=== PATIENT | male | born 1950 | race Caucasian/White ===

== ENCOUNTER 2021-12-05 14:49 | Outpatient (CLI) | payer MEDICARE, BC, SELFPAY ==
[2021-12-05 15:40] LABS: Appearance Urine Clear (Clear); Bilirubin Urine Negative (Negative); Blood Urine Negative (Negative); Glucose Urine Negative (Negative); Ketones Urine Negative (Negative); Leukocyte Esterase Urine Negative (Negative); Nitrite Urine Negative (Negative); Protein Urine Negative (Negative); Specific Gravity Urine >= 1.030 (1.000-1.030); Urobilinogen Urine 0.2 (0.2-1.0); pH Urine 5.5 (5.0-8.5)
[2021-12-05 15:48] LABS: Color Urine Dark Yellow (Yellow)
[2021-12-05 18:36] LABS: Albumin* 4.5 g/dL (3.3-5.0); Chloride* 102 mmol/L (96-114); Potassium* 4.7 mmol/L (3.6-5.1); Sodium* 139 mmol/L (135-149)
[2021-12-05 18:39] LABS: Blood Urea Nitrogen* 25 mg/dL (7-30); Carbon Dioxide* 27 mmol/L (20-32); Estimated Glomerular Filt Rate 79.97; Glucose* 116 mg/dL (60-115); Phosphorus* 3.9 mg/dL (2.5-4.5)
[2021-12-05 18:40] LABS: Calcium* 9.4 mg/dL (8.4-10.6)
[2021-12-05 18:51] LABS: Creatinine Urine 138.9 mg/dL
[2021-12-05 18:56] LABS: Microalbumin Creatinine Ratio 10 mg/g (0-30); Microalbumin Urine 2 mg/dL
== END 2021-12-05 14:50 | disposition home or self-care (01) ==
PROVIDERS: PCP Physician Assistant Medical; Visit Provider Internal Medicine Nephrology
DX: I10 Essential (primary) hypertension (principal); E11.9 Type 2 diabetes mellitus without complications
CPT/HCPCS: 80069; 81003; 82043; 82570; 84550

== ENCOUNTER 2022-02-13 12:13 | Outpatient (CLI) | payer MEDICARE, BC, SELFPAY ==
--- OUTSIDE RECORDS SUMMARY | 2022-02-13 07:37 | XMS_ITS | Encounter Summary ---
:1950 Author Organization [facility] Address [address] [place] [address] Care Team Providers Name Role Phone Unavailable Primary Care Provider Unavailable Encounter Details Date Type Department Care Team Description 02/12/2022 Orders Only Division of Nephrology and Juan Pinon Hypertension in [place], ., D.O. [place] [address] [facility] [address] [place] [phone] (Wo rk) Social History Tobacco Use Types Packs/Day Years Used Date Smoking Tobacco: Never Assessed Sex Assigned at Date Recorded Not on file documented as of this encounter Plan of Treatment Not on filedocumented as of this encounter Visit Diagnoses Not on filedocumented in this encounter
--- OUTSIDE RECORDS SUMMARY | 2022-02-13 07:37 | XMS_ITS | Encounter Summary ---
:1950 Author Organization [facility] Address [address] [place] [address] Care Team Providers Name Role Phone Unavailable Primary Care Provider Unavailable Reason for Referral MRI/CAT/PET Scan (Routine) - Authorized Specialty Diagnoses / Procedures Referred By Contact Refer red To Contact Radiology Diagnoses Hypertension And Chronic Kidney Disease Stage 1 Stenosis Renal Artery (HCC) Jose Pinon Jr., [facility] Procedures CT Abdomen Angiogram with IV Contrast D.O. [address] [place], [place] [phone] Referral ID Status Reason Start Date Expiration Date Visits V isits Requested Authorized [id number] Authorized 02/12/2022 02/12/2023 1 1 Encounter Details Date Type Department Care Team Description 02/12/2022 Orders Only Division of Nephrology Jose Pinon ypertension And Chronic Kidney Disease Stage 1 (Primary Dx); and Hypertension in [place] D.O. Stenosis Renal Artery (HCC) [place], [place] [address] [facility] [address] [place] [phone] Social History Tobacco Use Types Packs/Day Years Used Date Smoking Tobacco: Never Assessed Sex Assigned at Date Recorded Not on file documented as of this encounter Plan of Treatment Scheduled Orders Name Type Priority Associated Diagnoses Order S chedule CT Abdomen Imaging RAD - Routine (most Hypertension And Expe cted: Angiogram with IV inpatients and all Chronic Kidney Contrast outpatients) Disease Stage 1 (Approximate), Stenosis Renal Artery s: (HCC) 02/12/2023 documented as of this encounter Visit Diagnoses Diagnosis Hypertension And Chronic Kidney Disease Stage 1 - Primary Stenosis Renal Artery (HCC) documented in this encounter
--- OUTSIDE RECORDS SUMMARY | 2022-02-13 07:37 | XMS_ITS | Encounter Summary ---
:1950 Author Organization [facility] Address [address] [place] [address] Care Team Providers Name Role Phone Unavailable Primary Care Provider Unavailable Encounter Details Date Type Department Care Team Description 06/05/2010 Hospital Encounter HX [facility] David Rm M.D. Social History Tobacco Use Types Packs/Day Years Used Date Smoking Tobacco: Never Assessed Sex Assigned at Date Recorded Not on file documented as of this encounter Plan of Treatment Not on filedocumented as of this encounter Visit Diagnoses Not on filedocumented in this encounter
--- OUTSIDE RECORDS SUMMARY | 2022-02-13 07:37 | XMS_ITS | Encounter Summary ---
:1950 Author Organization [facility] Address [address] [place] [address] Care Team Providers Name Role Phone Unavailable Primary Care Provider Unavailable Encounter Details Date Type Department Care Team Description 09/02/2006 Hospital Encounter HX [facility] David Rm M.D. Social History Tobacco Use Types Packs/Day Years Used Date Smoking Tobacco: Never Assessed Sex Assigned at Date Recorded Not on file documented as of this encounter Plan of Treatment Not on filedocumented as of this encounter Visit Diagnoses Not on filedocumented in this encounter
--- OUTSIDE RECORDS SUMMARY | 2022-02-13 07:37 | XMS_ITS | Encounter Summary ---
:1950 Author Organization [facility] Address [address] [place] [address] Care Team Providers Name Role Phone Unavailable Primary Care Provider Unavailable Reason for Visit Appointment Request (Routine) - Closed Specialty Diagnoses / Procedures Referred By Contact Refer red To Contact Nephrology and Kaylee Marin, [facility] [address] [place] [address] Referral ID Status Reason Start Date Expiration Date Visits Requ ested Visits Authorized [id number] Closed 11/02/2021 11/02/2022 1 Encounter Details Date Type Department Care Team Description 12/05/2021 External Outreach Division of Laly Pinon Re malinda Acute (Acute Kidney Injury) (HCC) (Primary Dx); Nephrology and Jose Rutherford Jr., Hypertension And Chronic Kidney Disease Stage 1; Hypertension in D.O. Diabetes Mellitus Type 2 (HCC); [place], [place] [address] [facility] Gout Acute [address] [place] [phone] Social History Tobacco Use Types Packs/Day Years Used Date Smoking Tobacco: Never Assessed Sex Assigned at Date Recorded Not on file documented as of this encounter Last Filed Vital Signs Vital Sign Reading Time Taken Comments Blood Pressure 140/82 12/05/2021 2:15 PM CDT Pulse 97 12/05/2021 2:15 PM CDT Temperature 36.5 ??C (97.7 ??F) 12/05/2021 2:15 PM CDT Respiratory Rate - - Oxygen Saturation - - Inhaled Oxygen Concentration - - Weight 113 kg (249 lb 12.5 oz) 12/05/2021 2:15 PM CDT Height 185.4 cm (6' 0.99) 12/05/2021 2:15 PM CDT Body Mass Index 32.96 12/05/2021 2:15 PM CDT documented in this encounter Consult Notes Jose Pinon Jr., Sheila. - 12/05/2021 2:00 PM CDT Referring Provider: No primary care provider on file. SUBJECTIVE REASON FOR CONSULT-[facility] Elevated serum creatinine, acute kidney injury HISTORY OF PRESENT ILLNESS Mr. Beck is a 71 y.o. male who presents with a recent increase in serum creatinine. He was notedhave a normal serum creatinine on the 20 of September, and after starting a combination of losartan and HCTZ at a dose of 100 mg/25 mg he was noted on the 11 of October to have a serum creatinine which hadrisen to 1.4 mg/dL. On the 18 of October his creatinine was repeated after the dose was cut in half, 250 mg of losartan, 12.5 mg of HCTZ his creatinine had returned normal. The increase in serum creatinine prompted a renal ultrasound which showed the right kidney to be 10.4 cm and left to be 12.3 cm. There was some suspicion of elevated velocities in his renal arteries, although there was also some incr eased velocity within the aorta as well. Otherwise no suspicious architectural changes were seen in the kidneys. Of note, the evaluation was prompted by presentation with a acute left great toe pain. This was interpreted as gout he did use a Medrol Dosepak. He did not have any changes in diet, no alcohol use, no shellfish, no sausage, or other organ meats. 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 During these events his blood pressure was usually in the 120s over 70s. He has not had lower extremity swelling no episodes of flash pulmonary edema. He was also noted to have elevated blood glucose levels and was started on metformin in September. He feels well. 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 He rarely smokes cigars and has not smoked a cigar in over 15 years. He does not drink alcohol on regular basis. There is no familial history of renal diseases nor disorders. His side of the family is afflicted with familial nephritis in several members of his 's family have required renal replacement. Therefore the patient as well versed in kidney issues. He does not use NSAIDs, he has never been told of hyperlipidemia. He has no history of urolithiasis no episodes of gross hematuria not episodes of renal infection. Constitutionally he feels well there has been no connective tissue type symptoms. Past history: Elevated blood pressure without hypertension Current Outpatient Medications Medication Sig Dispense Refill ??? losartan-hydroCHLOROthiazide (HYZAAR) 50-12.5 mg per tablet Take 1 tablet by mouth daily. 90 tablet 3 ??? metFORMIN (GLUCOPHAGE) 500 mg tablet Take 1 tablet (500 mg total) by mouth 2 (two) times a day with meals. 180 tablet 3 No current facility-administered medications for this visit. REVIEW OF SYSTEMS REVIEW OF SYSTEMS OBJECTIVE BP 140/82 Pulse 97 Temp 36.5 ??C Ht 185.4 cm Wt 113 kg BMI 32.96 kg/m?? PHYSICAL EXAMINATION General: Awake alert oriented HEENT: PURNIMA, EOMI, Mucous membranes moist, no oral lesions Neck: No Masses, No Bruits Lungs: Clear to ascultation Heart: Regular Rate and Rhythm, No ectopy Murmurs or rubs Abdomen: Soft, Non-tender Extremities: No cyanosis, No clubbing: No edema Neuro: Cranial Nerves intact, Gait is no microalbuminuria normal, strength grossly normal Skin: no suspicious lesions identified Psychiatric: Normal affect DIAGNOSTICS Note serum creatinine 1.0 normal electrolytes no hypokalemia ASSESSMENT / PLAN #1 Failure Renal Acute (Acute Kidney Injury) (HCC) This has resolved after decreasing the dose of his losartan/HCTZ. When reviewing his renal ultrasound along with this history 1 must be concerned with respect to possibility of macrovascular renal artery disease. We had a long discussion regards this matter, and also outlined the literature which highlights that often intervention versus medical therapy are equally efficacious. Additionally, given that his renal function is normal, and blood pressure well controlled, we might be best observing. His last set of chemistries was on the 18 of October, we will repeat these today. I will then have him back in 2 months. We will then decide on another renal ultrasound versus another study to evaluate whether macrovascular renal artery disease would be present. The studies could include a CT angiogram, favored, an MR angiogram-often over calls stenosis, or an angiogram. From a diagnostic perspective: 1. Repeat electrolytes today 2. Repeat electrolytes in 2 months 3. Likely repeat renal ultrasound in 3 months to 4 months. 4. Should his creatinine level be elevated I would arrange for CT angiography of his renal arteries. From a therapeutic perspective: 1. No NSAIDs or Light 2 inhibitors 2. Low-sodium diet 3. Goal blood pressure less than 130/80 in physician's offices 4. Goal glycosylated hemoglobin less than 8%. 5. Stay well hydrated with urine being more clear than lemonade. #2 Hypertension And Chronic Kidney Disease Stage 1 His renal function appears normal by serum creatinine but there may be some endothelial dysfunction versus macrovascular issues as highlighted above. #3 Diabetes Mellitus Type 2 (HCC) He is now on metformin this will be monitored. He will work towards weight loss, exercise, and dietary choices. #4 Gout Acute This seems to be quiescent Total Time: 1 hour and 5 minutes Counseling Time: 50 minutes Jose Pinon Jr., D.O. documented in this encounter Plan of Treatment Not on filedocumented as of this encounter Visit Diagnoses Diagnosis Failure Renal Acute (Acute Kidney Injury ) (HCC) - Primary Hypertension And Chronic Kidney Disease Stage 1 Diabetes Mellitus Type 2 (HCC) Gout Acute documented in this encounter
--- OUTSIDE RECORDS SUMMARY | 2022-02-13 07:37 | XMS_ITS | Encounter Summary ---
:[address] [facility] Address [address] [place] [address] Care Team Providers Name Role Phone Unavailable Primary Care Provider Unavailable Encounter Details Date Type Department Care Team Description 03/03/2009 Hospital Encounter HX [facility] Nacho Bender M. D. Social History Tobacco Use Types Packs/Day Years Used Date Smoking Tobacco: Never Assessed Sex Assigned at Date Recorded Not on file documented as of this encounter Plan of Treatment Not on filedocumented as of this encounter Visit Diagnoses Not on filedocumented in this encounter
--- OUTSIDE RECORDS SUMMARY | 2022-02-13 07:37 | XMS_ITS | Encounter Summary ---
:1950 Author Organization [facility] Address [address] [place] [address] Care Team Providers Name Role Phone Unavailable Primary Care Provider Unavailable Encounter Details Date Type Department Care Team Description 02/07/2022 [facility] [address] [place] [address] [place] [address] [phone] (Wo rk) Social History Tobacco Use Types Packs/Day Years Used Date Smoking Tobacco: Never Assessed Sex Assigned at Date Recorded Not on file documented as of this encounter Plan of Treatment Not on filedocumented as of this encounter Visit Diagnoses Not on filedocumented in this encounter
--- OUTSIDE RECORDS SUMMARY | 2022-02-13 07:37 | XMS_ITS | Encounter Summary ---
:[address] [facility] Address [address] [place] [address] Care Team Providers Name Role Phone Unavailable Primary Care Provider Unavailable Reason for Visit Appointment Request (Routine) - Closed Specialty Diagnoses / Procedures Referred By Contact Refer red To Contact Nephrology and Hypertension Referral ID Status Reason Start Date Expiration Date Visits Requ ested Visits Authorized [id number] Closed 01/26/2022 01/26/2023 1 Encounter Details Date Type Department Care Team Description 02/06/2022 External Outreach Division of Lance Pinon on And Chronic Kidney Disease Stage 1 (Primary Dx); Nephrology and Jose Rutherford Jr., Failure Francesca l Acute (Acute Kidney Injury) (HCC); Hypertension in [place] Diabetes Mellitus Type 2 (HCC); [place], [place] [address] [facility] Gout Acute [address] [place] [phone] Social History Tobacco Use Types Packs/Day Years Used Date Smoking Tobacco: Never Assessed Sex Assigned at Date Recorded Not on file documented as of this encounter Last Filed Vital Signs Vital Sign Reading Time Taken Comments Blood Pressure 148/78 02/06/2022 11:51 AM CDT Pulse 64 02/06/2022 11:51 AM CDT Temperature - - Respiratory Rate - - Oxygen Saturation - - Inhaled Oxygen Concentration - - Weight 113 kg (249 lb 12.5 oz) 02/06/2022 11:51 AM CDT Height 187.9 cm (6' 1.98) 02/06/2022 11:51 AM CDT Body Mass Index 32.09 02/06/2022 11:51 AM CDT documented in this encounter Progress Notes Jose Pinon Jr., D.O. - 02/06/2022 11:30 AM CDT Referring Provider: No primary care provider on file. SUBJECTIVE REASON FOR VISIT [facility] Follow-up regards recent acute kidney injury with initiation of combination ARB diuretic agent HISTORY OF PRESENT ILLNESS Mr. Beck is a 71 y.o. male who presents with a serum creatinine level of 1.0 mg/dL, which had risen to 1.4 mg/dL with the initiation of losartan/HCTZ at a dose of 100 mg/25 mg. This agent was decreased in strength to 50 mg/12.5 mg. He feels well, home blood pressure has been in the 130s over 60s and 70s without orthostatic issues.Feels absolutely well. I am reviewing his situation, on the background of his recent labs, which were done in December, demonstrating a normal serum creatinine level, and no microalbuminuria, with normal chemistries. Additionally, I had him undergo a renal artery duplex interrogation of his renal arteries. This shows renal artery velocities bilaterally above 180 centimeters/second. Suggesting, to the radiology team, as potential bilateral atherosclerotic renal artery disease. We discussed this matter in depth. We discussed the pros and cons of investigation versus active surveillance, and the gold standard testing which is angiography. We also discussed initiation of plaque stabilization measures including statin initiation. History reviewed. No pertinent past medical history. Current Outpatient Medications: atorvastatin (LIPITOR) 20 mg tablet, Take 1 tablet (20 mg total) by mouth daily., Disp: 90 tablet, Rfl: 3 losartan-hydroCHLOROthiazide (HYZAAR) 50-12.5 mg per tablet, Take 1 tablet by mouth daily., Disp: 90 tablet, Rfl: 3 metFORMIN (GLUCOPHAGE) 500 mg tablet, Take 1 tablet (500 mg total) by mouth 2 (two) times a day with meals., Disp: 180 tablet, Rfl: 3 REVIEW OF SYSTEMS All other systems reviewed and are negative. OBJECTIVE BP 148/78 Pulse 64 Ht 187.9 cm Wt 113 kg BMI 32.09 kg/m?? PHYSICAL EXAMINATION General: Awake alert oriented HEENT: PURNIMA, EOMI, Mucous membranes moist, no oral lesions Neck: No Masses, No Bruits Lungs: Clear to ascultation Heart: Regular Rate and Rhythm, No ectopy Murmurs or rubs Abdomen: Soft, Non-tender Extremities: No cyanosis, No clubbing: No edema Neuro: Cranial Nerves intact, Gait is normal, strength grossly normal Skin: no suspicious lesions identified Psychiatric: Normal affect DIAGNOSTICS Note creatinine 1.0 mg/dL ASSESSMENT / PLAN #1 Hypertension And Chronic Kidney Disease Stage 1 His renal artery ultrasound suggests the potential circumstances bilateral renal artery disease. We will go ahead with CT angiography, and demonstrate whether he has bilateral renal artery disease. This would be helpful, from a prognostic perspective. I will initiate a statin at this point, atorvastatin 20 mg orally daily, and we will continue to foster goal blood pressures of less than 120/80. I will have him back to check liver function testing and reviews of his CT scan imaging when these are available. We discussed that intervention is unlikely to be necessary without flash pulmonary edema, worsening hypertension, or deteriorating renal function. #2 Failure Renal Acute (Acute Kidney Injury) (HCC) Please see prior note #3 Diabetes Mellitus Type 2 (HCC) Well controlled on his current regimen #4 Gout Acute Quiescent Total time: 35 minutes Counseling Time: 20 minutes Jose Pinon Jr., D.O. documented in this encounter Plan of Treatment Not on filedocumented as of this encounter Visit Diagnoses Diagnosis Hypertension And Chronic Kidney Disease Stage 1 - Primary Failure Renal Acute (Acute Kidney Injury ) (HCC) Diabetes Mellitus Type 2 (HCC) Gout Acute documented in this encounter
[2022-02-13 10:13] LABS: Albumin* 4.4 g/dL (3.3-5.0); Chloride* 102 mmol/L (96-114)
[2022-02-13 10:14] LABS: Potassium* 4.5 mmol/L (3.6-5.1); Sodium* 137 mmol/L (135-149)
[2022-02-13 10:16] LABS: Alanine Aminotransferase* 20 U/L (4-50); Aspartate Amino Transferase* 21 U/L (12-35); Blood Urea Nitrogen* 29 mg/dL (7-30); Carbon Dioxide* 26 mmol/L (20-32); Creatine Kinase* 78 U/L (54-186); Creatinine* 1.1 mg/dL (0.5-1.5); Estimated Glomerular Filt Rate 71 ml/min; Glucose* 139 mg/dL (60-115)
[2022-02-13 10:17] LABS: Calcium* 9.4 mg/dL (8.4-10.6); Phosphorus* 2.8 mg/dL (2.5-4.5)
[2022-02-13 10:29] LABS: Creatinine Urine 101.1 mg/dL
[2022-02-13 10:34] LABS: Microalbumin Creatinine Ratio 0 mg/g (0-30); Microalbumin Urine 1 mg/dL
== END 2022-02-13 12:14 | disposition home or self-care (01) ==
PROVIDERS: PCP Physician Assistant Medical; Visit Provider Internal Medicine Nephrology
DX: E11.9 Type 2 diabetes mellitus without complications (principal); I10 Essential (primary) hypertension; I70.1 Atherosclerosis of renal artery
CPT/HCPCS: 80069; 82043; 82550; 82570; 84450; 84460; 84550

== ENCOUNTER 2022-03-12 08:24 | Outpatient (CLI) | payer MEDICARE, BC, SELFPAY ==
--- OUTSIDE RECORDS SUMMARY | 2022-03-12 08:27 | XMS_ITS | Encounter Summary ---
:1950 Author Organization [facility] Address [address] [place] [address] Care Team Providers Name Role Phone Unavailable Primary Care Provider Unavailable Reason for Referral MRI/CAT/PET Scan (Routine) - Closed Specialty Diagnoses / Procedures Referred By Contact Refer red To Contact Radiology Diagnoses Hypertension And Chronic Kidney Disease Stage 1 Stenosis Renal Artery (HCC) Jose Pinon Jr. [facility] Procedures CT Abdomen Angiogram with IV Contrast D.O. [address] [place], [place] [phone] Referral ID Status Reason Start Date Expiration Date Visits Requ ested Visits Authorized [id number] Closed 02/12/2022 02/12/2023 1 1 Encounter Details Date Type Department Care Team Description 02/12/2022 Orders Only Division of Nephrology Jose Pinon ypertension And Chronic Kidney Disease Stage 1 (Primary Dx); and Hypertension in [place] D.O. Stenosis Renal Artery (HCC) [place], [place] [address] [facility] [address] [place] [phone] Social History Tobacco Use Types Packs/Day Years Used Date Smoking Tobacco: Never Assessed Sex Assigned at Date Recorded Not on file documented as of this encounter Plan of Treatment Not on filedocumented as of this encounter Results CT Abdomen Angiogram with IV Contrast (03/01/2022 9:12 AM CDT) Anatomical Region Laterality Modality Abdomen, Cardiovascular RST LOS, N/A Compute d Tomography, Computed Abdominal ARZ LOS, Vascular Tomography Interventional ARZ LOS, Vascular Interventional FLA LOS, Abdominal FLA LOS Specimen (Source) Anatomical Collection Method Collection Time Re ceived Time Location / / Volume Laterality 03/01/2022 9:21 AM CDT Impressions 03/01/2022 9:48 AM CDT 1. Mild luminal stenosis of the right renal artery ostium and minimal luminal stenosis of the left renal artery ostium. 2. 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 3. 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 The left internal iliac artery is ectatic. Narrative 03/01/2022 9:48 AM CDT EXAM: ??CT ABDOMEN ANGIOGRAM WITH IV CONTRAST Including 3D image post-processing. COMPARISON: ??None available. FINDINGS: VASCULAR FINDINGS: RENAL ARTERIES: Single right and left re nal arteries. -Calcified and noncalcified atheromatous plaque at the origin of the right renal artery causing mild luminal stenosis. More distal to this th ere are multifocal atheromatous plaques causing minimal luminal stenosis. -At the origin of the left renal artery there is calcified plaque causing minimal luminal stenosis. Otherwise there is wide patency of the l eft renal artery. Trace perinephric renal stranding bilate rally, favored to be chronic. Mild renal atrophy bilaterally. Simple renal cysts. ABDOMINAL AORTA AND ILIAC ARTERIES: Mult ifocal calcified and noncalcified atheromatous plaques causing minimal luminal stenosis. Saccul ar aneurysm arising from the right internal iliac artery measuring 1.6 cm (double oblique measure ment; see series 5, image 429). The left internal iliac artery is ectatic, measuring 1.5 cm. MESENTERIC ARTERIES: ?? 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 -The SMA ostium and branch vessels are w idely patent. Punctate atheromatous disease of the proximal SMA causing minimal luminal stenosis. -The HIMA ostium and branch vessels are w idely patent. ADDITIONAL FINDINGS: Multilevel degenerative changes of the s pine. Peripherally sclerotic lesion within the L4 vertebral body favored to represent a hemangioma. Procedure Note Elías [place] M.D., Ph.D. - 03/01/2022For matting of this note might be different from the original. EXAM: CT ABDOMEN ANGIOGRAM WITH IV CONTR AST Including 3D image post-processing. COMPARISON: None available. FINDINGS: VASCULAR FINDINGS: RENAL ARTERIES: Single right and left re nal arteries. -Calcified and noncalcified atheromatous plaque at the origin of the right renal artery causing mild luminal stenosis. More distal to this th ere are multifocal atheromatous plaques causing minimal luminal stenosis. -At the origin of the left renal artery there is calcified plaque causing minimal luminal stenosis. Otherwise there is wide patency of the l eft renal artery. Trace perinephric renal stranding bilate rally, favored to be chronic. Mild renal atrophy bilaterally. Simple renal cysts. ABDOMINAL AORTA AND ILIAC ARTERIES: Mult ifocal calcified and noncalcified atheromatous plaques causing minimal luminal stenosis. Saccul ar aneurysm arising from the right internal iliac artery measuring 1.6 cm (double oblique measure ment; see series 5, image 429). The left internal iliac artery is ectatic, measuring 1.5 cm. 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 -The SMA ostium and branch vessels are w idely patent. Punctate atheromatous disease of the proximal SMA causing minimal luminal stenosis. -The HIMA ostium and branch vessels are w idely patent. ADDITIONAL FINDINGS: Multilevel degenerative changes of the s pine. Peripherally sclerotic lesion within the L4 vertebral body favored to represent a hemangioma. IMPRESSION: 1. Mild luminal stenosis of the right re nal artery ostium and minimal luminal stenosis of the left renal artery ostium. 2. 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 3. 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 The left internal iliac artery is ectatic. Jose Pinon Jr. D.O. IMTony CT PROCEDURES documented in this encounter Visit Diagnoses Diagnosis Hypertension And Chronic Kidney Disease Stage 1 - Primary Stenosis Renal Artery (HCC) Hypertension And Chronic Kidney Disease Stage 1 Stenosis Renal Artery (HCC) documented in this encounter
--- OUTSIDE RECORDS SUMMARY | 2022-03-12 08:27 | XMS_ITS | Encounter Summary ---
:1950 Author Organization [facility] Address [address] [place] [address] Care Team Providers Name Role Phone Unavailable Primary Care Provider Unavailable Encounter Details Date Type Department Care Team Description 09/02/2006 Hospital Encounter [facility] David Rm M.D. Social History Tobacco Use Types Packs/Day Years Used Date Smoking Tobacco: Never Assessed Sex Assigned at Date Recorded Not on file documented as of this encounter Plan of Treatment Not on filedocumented as of this encounter Visit Diagnoses Not on filedocumented in this encounter
--- OUTSIDE RECORDS SUMMARY | 2022-03-12 08:27 | XMS_ITS | Encounter Summary ---
:1950 Author Organization [facility] Address [address] [place] [address] Care Team Providers Name Role Phone Unavailable Primary Care Provider Unavailable Encounter Details Date Type Department Care Team Description 03/03/2009 Hospital Encounter HX [facility] Nacho Bender M. D. Social History Tobacco Use Types Packs/Day Years Used Date Smoking Tobacco: Never Assessed Sex Assigned at Date Recorded Not on file documented as of this encounter Plan of Treatment Not on filedocumented as of this encounter Visit Diagnoses Not on filedocumented in this encounter
--- OUTSIDE RECORDS SUMMARY | 2022-03-12 08:27 | XMS_ITS | Encounter Summary ---
:1950 Author Organization [facility] Address [address] [place] [address] Care Team Providers Name Role Phone Unavailable Primary Care Provider Unavailable Encounter Details Date Type Department Care Team Description 03/02/2022 Clinical Communication Division of Nephrology Jose Pinon and Hypertension delmy Rutherford Jr., D.O. [place], [place] [address] [facility] [address] [place] [phone] [phone] Social History Tobacco Use Types Packs/Day Years Used Date Smoking Tobacco: Never Assessed Sex Assigned at Date Recorded Not on file documented as of this encounter Miscellaneous Notes Telephone Encounter - Jose Pinon Jr., D.O. - 03/02/2022 2:11 PM CDT Phone note: Called him with the results of his CT angiogram. His renal ultrasound from [place] suggested high-grade right renal artery stenosis. His CT angiography shows mild right ostial stenosis. 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 I discussed this with him and explained that we did not necessarily need to keep our upcoming appointment, but would be re initiating contact in 6 months with an appointment in [place]. documented in this encounter Plan of Treatment Not on filedocumented as of this encounter Visit Diagnoses Not on filedocumented in this encounter
--- OUTSIDE RECORDS SUMMARY | 2022-03-12 08:27 | XMS_ITS | Encounter Summary ---
:1950 Author Organization [facility] Address [address] [place] [address] Care Team Providers Name Role Phone Unavailable Primary Care Provider Unavailable Encounter Details Date Type Department Care Team Description 02/12/2022 Orders Only Division of Nephrology and Juan Pinon [facility] [place] [address] [facility] [address] [place] [phone] (Wo rk) Social History Tobacco Use Types Packs/Day Years Used Date Smoking Tobacco: Never Assessed Sex Assigned at Date Recorded Not on file documented as of this encounter Plan of Treatment Not on filedocumented as of this encounter Visit Diagnoses Not on filedocumented in this encounter
--- OUTSIDE RECORDS SUMMARY | 2022-03-12 08:27 | XMS_ITS | Encounter Summary ---
:[address] [facility] Address [address] [place] [address] Care Team Providers Name Role Phone Unavailable Primary Care Provider Unavailable Reason for Visit Appointment Request (Routine) - Closed Specialty Diagnoses / Procedures Referred By Contact Refer red To Contact Nephrology and Hypertension Referral ID Status Reason Start Date Expiration Date Visits Requ ested Visits Authorized [id number] Closed 01/26/2022 01/26/2023 1 Encounter Details Date Type Department Care Team Description 02/06/2022 External Outreach Division of Lance Pinon on And Chronic Kidney Disease Stage 1 (Primary Dx); Nephrology and Jose Rutherford Jr., Failure Francesca l Acute (Acute Kidney Injury) (HCC); Hypertension in D.O. Diabetes Mellitus Type 2 (HCC); [place], [place] [address] [facility] Gout Acute [address] [place] [phone] Social History Tobacco Use Types Packs/Day Years [...] provider on file. SUBJECTIVE REASON FOR VISIT [place] [facility] Follow-up regards recent [...]
--- OUTSIDE RECORDS SUMMARY | 2022-03-12 08:27 | XMS_ITS | Encounter Summary ---
:1950 Author Organization [facility] Address [address] [place] [address] Care Team Providers Name Role Phone Unavailable Primary Care Provider Unavailable Reason for Referral MRI/CAT/PET Scan (Routine) - Closed Specialty Diagnoses / Procedures Referred By Contact Refer red To Contact Radiology Diagnoses Hypertension And Chronic Kidney Disease Stage 1 Stenosis Renal Artery (HCC) Jose Pinon Jr., [facility] Procedures CT Abdomen Angiogram with IV Contrast D.O. [address] [place] [phone] Referral ID Status Reason Start Date Expiration Date Visits Requ ested Visits Authorized [id number] Closed 02/12/2022 02/12/2023 1 1 Reason for Visit MRI/CAT/PET Scan (Routine) - Closed Specialty Diagnoses / Procedures Referred By Contact Refer red To Contact Radiology Diagnoses Hypertension And Chronic Kidney Disease Stage 1 Stenosis Renal Artery (HCC) Jose Pinon Jr., [facility] Procedures CT Abdomen Angiogram with IV Contrast D.O. [address] [place] [phone] Referral ID Status Reason Start Date Expiration Date Visits Requ ested Visits Authorized [id number] Closed 02/12/2022 02/12/2023 1 1 Encounter Details Date Type Department Care Team Description 03/01/2022 Hospital Encounter Department of Tico Pinon And Chronic Kidney Disease Stage 1; Radiology, Caryn Rutherford Jr., Stenosis R enal Artery (HCC) Building, in D.O. [place], [address] [place], [place] [address] [address] [place], [place] [phone] (Work) [phone] Social History Tobacco Use Types Packs/Day Years Used Date Smoking Tobacco: Never Assessed Sex Assigned at Date Recorded Not on file documented as of this encounter Medications at Time of Discharge Medication Sig Dispensed Refills Start Date End Date atorvastatin (LIPITOR) 20 Take 1 tablet (20 90 tablet 3 05/202202/12/2023 mg tablet mg total) by mouth daily. losartan-hydroCHLOROthiaz Take 1 tablet by 90 tablet 3 10/202112/05/2022 diane (HYZAAR) 50-12.5 mg mouth daily. per tablet metFORMIN (GLUCOPHAGE) Take 1 tablet (500 180 tablet 3 12/0512/05/2022 500 mg tablet mg total) by mouth 2 (two) times a day with meals. documented as of this encounter Plan of Treatment Scheduled Orders Name Type Priority Associated Diagnoses Order S chedule Creatinine, POCT Point of Care Routine Routine la b collection Testing-Docked (next collect ion) for Device 1 Occurrences s tarting 03/01/2022 unti l 03/01/2022 documented as of this encounter Procedures Procedure Name Priority Date/Time Associated Comments Diagnosis CT ABDOMEN RAD - Routine 03/01/2022 9:12 Hypertension And Results for this ANGIOGRAM WITH IV (most inpatients AM CDT Chronic Kidney proc edure are in CONTRAST and all Disease Stage 1 the results outpatients) Stenosis Renal section. Artery (HCC) CREATININE, POCT, Routine 03/01/2022 8:17 Results for this B AM CDT procedure are i n the results section. CREATININE, POCT, Routine 03/01/2022 8:17 Results for this B AM CDT procedure are i n the results section. documented in this encounter Results CT Abdomen Angiogram with [...] internal iliac artery is ectatic. Jose Pinon Jr., D.O. IMG CT PROCEDURES Creatinine, POCT (03/01/2022 8:17 AM CDT) P athologist Signature Creatinine, 1.1 0.7 - 1.4 03/01/2022 PCDT POCT, B mg/dL 8:20 AM CDT Comment: ----ADDITIONAL INFORMATION---- Performed at the Point of Care Specimen Anatomical Collection Method Collection Time Receive d Time (Source) Location / / Volume Laterality Blood 03/01/2022 8:17 AM 09/29/202 2 8:20 CDT AM CDT Unknown Provider LAB POCT ORDERABLES - DEVICE Performing Organization Address City/State/ZIP Code Phon e Number POC [facility]OSS[facility] PERFORMING [address] [place] [address] [place] [address] [place] [facility] [address] Creatinine, POCT (03/01/2022 8:17 AM CDT) P athologist Signature Estimated GFR 71 >=60 03/01/2022 PCMO (eGFR), POCT mL/min/BSA 8:20 AM CDT Comment: Estimated GFR calculated using the 2020 CKD_EPI creatinine equation. Specimen Anatomical Collection Method Collection Time Receive d Time (Source) Location / / Volume Laterality Blood 03/01/2022 8:17 AM 2 8:20 CDT AM CDT Unknown Provider LAB POCT ORDERABLES - DEVICE Performing Organization Address [facility] Code Phon e Number POC [facility]ST [facility] [address] [place] [address] OUTPATIENT [place] [address] [place] [facility] [address] documented in this encounter Visit Diagnoses Diagnosis Hypertension And Chronic Kidney Disease Stage 1 Stenosis Renal Artery (HCC) documented in this encounter Administered Medications Inactive Administered Medications - up to 3 most recent administrations Medication Order MAR Action Action Date Dose Rate Site iohexoL 350 mg iodine/mL solution Given 03/01/2022 9:05 AM CDT 1 40 mL 1-200 mL (OMNIPAQUE) 1-200 mL, intravenous, Once in imaging, contrast, Starting on Maddie 03/01/22 at 0807, For 1 dose, Imaging Protocol Orders, Dose per Radiant Medication Guidelines sodium chloride (PF) 0.9 % injection 1-1 00 mL Given 03/01/2022 9:05 AM CDT 30 mL 1-100 mL, intravenous, Once, On Maddie 03/01/22 at 0815, For 1 dose, Imaging Protocol Orders documented in this encounter
--- OUTSIDE RECORDS SUMMARY | 2022-03-12 08:27 | XMS_ITS | Encounter Summary ---
:1950 Author Organization [facility] Address [address] [place] [address] Care Team Providers Name Role Phone Unavailable Primary Care Provider Unavailable Encounter Details Date Type Department Care Team Description 06/05/2010 Hospital Encounter HX [facility] David Rm M.D. Social History Tobacco Use Types Packs/Day Years Used Date Smoking Tobacco: Never Assessed Sex Assigned at Date Recorded Not on file documented as of this encounter Plan of Treatment Not on filedocumented as of this encounter Visit Diagnoses Not on filedocumented in this encounter
--- OUTSIDE RECORDS SUMMARY | 2022-03-12 08:27 | XMS_ITS | Encounter Summary ---
:1950 Author Organization [facility] Address [address] [place] [address] Care Team Providers Name Role Phone Unavailable Primary Care Provider Unavailable Reason for Visit Appointment Request (Routine) - Closed Specialty Diagnoses / Procedures Referred By Contact Refer red To Contact Nephrology and Kaylee Marin, Hypertension P.A. [address] [place] [address] Referral ID Status Reason Start Date Expiration Date Visits Requ ested Visits Authorized [id number] Closed 11/02/2021 11/02/2022 1 Encounter Details Date Type Department Care Team Description 12/05/2021 External Outreach Division of Laly Pinon Acute (Acute Kidney Injury) (HCC) (Primary Dx); Nephrology and Jose Rutherford Jr., Hypertension And Chronic Kidney Disease Stage 1; Hypertension in [place]O. Diabetes Mellitus Type 2 (HCC); [place], [place] [address] [facility] [address] [place] [phone] [phone] Social History Tobacco Use Types Packs/Day Years [...] this encounter Consult Notes Jose Pinon Jr., D.O. - 12/05/2021 2:00 PM CDT Referring Provider: No primary care provider on file. SUBJECTIVE REASON FOR CONSULT-[facility] out reach Elevated serum creatinine, acute [...]
--- OUTSIDE RECORDS SUMMARY | 2022-03-12 08:27 | XMS_ITS | Encounter Summary ---
:1950 Author Organization [facility] Address [address] [place] [address] Care Team Providers Name Role Phone Unavailable Primary Care Provider Unavailable Reason for Visit Appointment Request (Routine) - Closed Specialty Diagnoses / Procedures Referred By Contact Refer red To Contact Nephrology and Hypertension Referral ID Status Reason Start Date Expiration Date Visits Requ ested Visits Authorized [id number] Closed 02/07/2022 02/07/2023 1 Encounter Details Date Type Department Care Team Description 02/20/2022 External Outreach Division of Lance Pinon on And Chronic Kidney Disease Stage 1 (Primary Dx); Nephrology and Jose Rutherford Jr., Stenosis Abel al Artery (HCC); Hypertension in [place].O. Diabetes Mellitus Type 2 ([facility]) [place], [place] [address] [facility] [address] [place] [phone] Social History Tobacco Use Types Packs/Day Years Used Date Smoking Tobacco: Never Assessed Sex Assigned at Date Recorded Not on file documented as of this encounter Progress Notes Jose Pinon Jr., D.O. - 02/20/2022 10:30 AM CDT No charge visit note: Due to a scheduling mixup the patient was set to visit with me in the [place] [facility] out reach [facility] today to discuss his CT renal angiogram for his suspected renal artery stenosis. However unfortunately this was not scheduled. We discussed his progress, he is just started his new antihypertensive regimen and that I will see him next month with results. documented in this encounter Plan of Treatment Not on filedocumented as of this encounter Visit Diagnoses Diagnosis Hypertension And Chronic Kidney Disease Stage 1 - Primary Stenosis Renal Artery (HCC) Diabetes Mellitus Type 2 (HCC) documented in this encounter
--- OUTSIDE RECORDS SUMMARY | 2022-03-12 08:27 | XMS_ITS | Encounter Summary ---
:1950 Author Organization [facility] Address [address] [place] [address] Care Team Providers Name Role Phone Unavailable Primary Care Provider Unavailable Encounter Details Date Type Department Care Team Description 02/07/2022 [facility] [address] [place] [address] [place] [address] [phone] (Wo rk) Social History Tobacco Use Types Packs/Day Years Used Date Smoking Tobacco: Never Assessed Sex Assigned at Date Recorded Not on file documented as of this encounter Plan of Treatment Not on filedocumented as of this encounter Visit Diagnoses Not on filedocumented in this encounter
--- OUTSIDE RECORDS SUMMARY | 2022-03-12 08:27 | XMS_ITS | Clinical Summary ---
:1950 Author Organization [facility] Address [address] [place] [address] Care Team Providers Name Role Phone Unavailable Primary Care Provider Unavailable Source Comments Patient records contain information from all sites at [facility]. For routine questions regarding patient records, call [phone] during business hours, M-F 8:00 AM - 5:00 PM Central Time. Record requests for emergency care only can be directed to [phone] at any time.[facility] Allergies No known active allergies Medications Medication Sig Dispensed Refills Start Date End Date Status metFORMIN Take 1 180 tablet 3 12/05/2021 Active (GLUCOPHAGE) 500 tablet (500 3 mg tablet mg total) by mouth 2 (two) times a day with meals. losartan-hydroCHLO Take 1 90 tablet 3 12/05/2021 Active ROthiazide tablet by 3 (HYZAAR) 50-12.5 mouth daily. mg per tablet atorvastatin Take 1 90 tablet 3 02/12/2022 Active (LIPITOR) 20 mg tablet (20 3 tablet mg total) by mouth daily. atorvastatin Take 1 90 tablet 3 02/06/2022 Discon tinued (LIPITOR) 20 mg tablet (20 2 (Re order) tablet mg total) by mouth daily. Active Problems Problem Noted Date Stenosis Renal Artery 02/12/2022 Failure Renal Acute (Acute Kidney Injury) 12/05/2021 Diabetes Mellitus Type 2 12/05/2021 Gout Acute 12/05/2021 Hypertension And Chronic Kidney Disease Stage 1 2021 Encounters Date Type Specialty Care Team Description 03/02/2022 Clinical Nephrology and [facility], Communication Hypertension Jose Rutherford Jr., D.OYissel 03/01/2022 Hospital Encounter Radiology Zi, Hypertens ion And Chronic Kidney Disease Stage 1; Jose Rutherford Jr., Stenosis Renal Artery (HCC) D.O. 02/20/2022 External Outreach Nephrology and [place], Hyperten rosi And Chronic Kidney Disease Stage 1 (Primary Dx); Hypertension Jose C Jr., Stenosis Renal Artery (HCC); D.O. Diabetes Mell us Type 2 (HCC) 02/12/2022 Orders Only Nephrology and [place], Hypertension Jose Rutherford Jr., D.O. 02/12/2022 Orders Only Nephrology and [facility], Hypertension And Chronic Kidney Disease Stage 1 (Primary Dx); Hypertension Jose Rutherford Jr., Stenosis Renal Artery (HCC) D.O. 02/07/2022 Community Orders Kaylee Marin P.A. 02/06/2022 External Outreach Nephrology and [facility], Hyperten rosi And Chronic Kidney Disease Stage 1 (Primary Dx); Hypertension Jose Rutherford Jr., Failure Renal Acute (Acute Kidney Injury) (HCC); D.O. Diabetes [facility] Type 2 (HCC); Gout Acute from Last 3 Months Social History Tobacco Use Types Packs/Day Years Used Date Smoking Tobacco: Never Assessed Sex Assigned at Date Recorded Not on file Last Filed Vital Signs Vital Sign Reading Time Taken Comments Blood Pressure 148/78 02/06/2022 11:51 AM CDT Pulse 64 02/06/2022 11:51 AM CDT Temperature 36.5 ??C (97.7 ??F) 12/05/2021 2:15 PM CDT Respiratory Rate - - Oxygen Saturation - - Inhaled Oxygen Concentration - - Weight 113 kg (249 lb 12.5 oz) 02/06/2022 11:51 AM CDT Height 187.9 cm (6' 1.98) 02/06/2022 11:51 AM CDT Body Mass Index 32.09 02/06/2022 11:51 AM CDT Plan of Treatment Health Maintenance Due Date Last Done Comments CT Colonography 1950 Cologuard 1950 Colonoscopy 1950 Colorectal Cancer Screening 1950 Diabetic Office Visit with Foot 1950 Exam Dilated Eye Exam 1950 FIT 1950 Hemoglobin A1C 1950 Hepatitis C Screening 1950 Lipid (Cholesterol) Screening 1950 Potassium Level 1950 Sodium Level 1950 Urine Albumin 1950 Pneumococcal vaccine (65+ years) 10/05/1955 (1 - PCV) Zoster Vaccines (1 of 2) 10/05/1999 Depression Screening (Annual 06/03/2021 PHQ-2) COVID-19 Vaccine (5 - Booster for 11/16/2021 09/21/2021, , Moderna series) 08/14/2020, Additional history exists Influenza Vaccine (#1) 2022 Office Visit for Blood Pressure 05/08/2022 02/06/2022 Check / Re-check Creatinine Level 03/01/2023 03/01/2022 DTaP,Tdap,and Td Vaccines (2 - Td 10/12/2031 10/11/2021 or Tdap) Fall Risk Screen (Annual) Completed 03/01/2022 Procedures Procedure Name Priority Date/Time Associated Comments [...] procedure are i n the results section. from Last [address] Abdomen Angiogram with IV Contrast [...] artery is ectatic. Jose Pinon Jr. D.O. IMG CT PROCEDURES Creatinine, POCT (03/01/2022 8:17 AM CDT)Only the most recent of2 resultswithin the time period is included. P athologist Signature Creatinine, 1.1 0.7 - 1.4 03/01/2022 PCDT POCT, B mg/dL 8:20 AM CDT Comment: ----ADDITIONAL INFORMATION---- Performed at the Point of Care Specimen Anatomical Collection Method Collection Time Receive d Time (Source) Location / / Volume Laterality Blood 03/01/2022 8:17 AM 8:20 CDT AM CDT Unknown Provider LAB POCT ORDERABLES - DEVICE Performing Organization Address City/State/ZIP Code Phon e Number [facility] [address] [place] [address] LABS PCDT [facility] [place] [address] [place] [facility] [address] from Last 3 Months Insurance Payer Benefit Plan Subscriber ID Effective Phone Address Typ e / Group Dates MEDICARE MEDICARE A [id number] 2014-Pres [address] [place] [address] [employer] RUBY [id number] 2021-Pres [phone] [address] X Cost Share BLUE [employer]UE CO[employer] ent [phone] [place] [address] [phone] [id number] (Home) [place] [address]
[2022-03-12 13:40] LABS: Chloride* 100 mmol/L (96-114); Potassium* 4.3 mmol/L (3.6-5.1); Sodium* 139 mmol/L (135-149)
[2022-03-12 13:42] LABS: Alanine Aminotransferase* 25 U/L (4-50); Alkaline Phosphatase* 63 U/L (40-150); Aspartate Amino Transferase* 29 U/L (12-35); Bilirubin Total* 0.8 mg/dL (0.1-1.5); Blood Urea Nitrogen* 27 mg/dL (7-30); Carbon Dioxide* 26 mmol/L (20-32); Cholesterol* 111 mg/dL (90-199); Estimated Glomerular Filt Rate 80 ml/min; Glucose* 126 mg/dL (60-115); Total Protein* 7.5 g/dL (6.0-8.3)
[2022-03-12 13:43] LABS: Calcium* 10.1 mg/dL (8.4-10.6); HDL Cholesterol* 49 mg/dL (>=40); LDL Cholesterol Calculated 29 mg/dL (<100); Triglycerides* 164 mg/dL (40-149)
[2022-03-12 14:32] LABS: Vitamin B12* 288 pg/mL (243-894)
== END 2022-03-12 08:25 | disposition home or self-care (01) ==
PROVIDERS: PCP Physician Assistant Medical; Visit Provider Physician Assistant Medical
DX: E11.9 Type 2 diabetes mellitus without complications (principal); I10 Essential (primary) hypertension; N18.2 Chronic kidney disease, stage 2 (mild); Z13.6 Encounter for screening for cardiovascular disorders
CPT/HCPCS: 80053; 80061; 82607

== ENCOUNTER 2022-09-10 08:05 | Outpatient (CLI) | payer MEDICARE, BC, SELFPAY | END 2022-09-10 08:06 | disposition home or self-care (01) | PROVIDERS: PCP Physician Assistant Medical; Visit Provider Physician Assistant Medical | DX: N18.2 Chronic kidney disease, stage 2 (mild) (principal); I10 Essential (primary) hypertension; E11.9 Type 2 diabetes mellitus without complications; M10.9 Gout, unspecified | CPT/HCPCS: 80053; 82043; 82570; 82607; 84443 ==

== ENCOUNTER 2023-02-25 08:35 | Outpatient (CLI) | payer MEDICARE, BC, SELFPAY | END 2023-02-25 08:36 | disposition home or self-care (01) | LOC: NFLDREF 02-27 13:03 | PROVIDERS: PCP Physician Assistant Medical; Referring Provider Physician Assistant Medical; Visit Provider Physician Assistant Medical | DX: E11.9 Type 2 diabetes mellitus without complications (principal); I10 Essential (primary) hypertension; Z12.5 Encounter for screening for malignant neoplasm of prostate | CPT/HCPCS: 80061; 82607; 84153 ==

== ENCOUNTER 2023-03-29 08:07 | Outpatient (CLI) | payer MEDICARE, BC, SELFPAY | END 2023-03-29 08:08 | disposition home or self-care (01) | LOC: NFLDREF 03-30 02:57 | PROVIDERS: PCP Physician Assistant Medical; Referring Provider Physician Assistant Medical; Visit Provider Physician Assistant Medical | DX: R97.20 Elevated prostate specific antigen [PSA] (principal) | CPT/HCPCS: 84153; 84154 ==

== ENCOUNTER 2023-05-06 10:48 | Outpatient (CLI) | payer MEDICARE, BC, SELFPAY | END 2023-05-06 10:49 | disposition home or self-care (01) | PROVIDERS: PCP Physician Assistant Medical; Referring Provider Physician Assistant Medical; Visit Provider Physician Assistant Medical | DX: R97.20 Elevated prostate specific antigen [PSA] (principal) | CPT/HCPCS: 84153 ==

== ENCOUNTER 2023-05-24 21:14 | Outpatient (REF) | payer MEDICARE, BC, SELFPAY ==
[2023-05-24 21:53] LABS: Appearance Urine Cloudy (Clear); Bilirubin Urine Negative (Negative); Blood Urine Negative (Negative); Color Urine Yellow (Yellow); Glucose Urine Negative (Negative); Ketones Urine Negative (Negative); Leukocyte Esterase Urine Negative (Negative); Nitrite Urine Negative (Negative); Protein Urine Negative (Negative); Specific Gravity Urine 1.025 (1.000-1.030); Urobilinogen Urine 0.2 (0.2-1.0); pH Urine 5.5 (5.0-8.5)
[2023-05-25 17:47] LABS: Amorphous Sediment Urine Many; Bacteria Urine Many; RBC Urine 0-2 (0-2); WBC Urine 0-2 (0-5)
[2023-05-25 17:48] LABS: Calcium Oxalate Crystals Urine Moderate; Uric Acid Crystals Urine Few
== END 2023-05-24 21:15 | disposition home or self-care (01) ==
LOC: NPINS 21:14
PROVIDERS: PCP Physician Assistant Medical
DX: R97.20 Elevated prostate specific antigen [PSA] (principal); R82.90 Unspecified abnormal findings in urine; I12.9 Hypertensive chronic kidney disease with stage 1 through stage 4 chronic kidney disease, or unspecified chronic kidney disease; E11.22 Type 2 diabetes mellitus with diabetic chronic kidney disease; N18.2 Chronic kidney disease, stage 2 (mild)
CPT/HCPCS: 81003; 81015; 87086

== ENCOUNTER 2023-08-28 07:50 | Outpatient (CLI) | payer MEDICARE, BC, SELFPAY ==
--- NOTE | 2023-08-28 09:15 | US_ITS ---
Patient: PATRICIO GO Facility:?[facility]IS Patient ID:?[id number] Site Patient ID:?[id number]. Site :?[id number] Study:?US-Abdomen Renal DUPLEX-08/28/2023 9:32:25 AM Ordering Physician:HERNAN WILLSON Final Report: INDICATION: Chronic stage II renal disease; hypertension. Comparison: Kidney ultrasound and renal artery duplex October 13, 2021. TECHNIQUE: Ultrasound examination of the kidneys bilateral; duplex ultrasound evaluation renal arteries bilateral; color Doppler duplex assessment. FINDINGS: The right kidney measures 12.3 x 5.3 x 5.8 cm and the left kidney measures 12.2 x 7.4 x 6.3 cm. Normal echogenicity of the renal cortex bilaterally. Normal thickness of the renal cortex bilaterally measuring 1.5 cm on the right and 1.9 cm on the left. No obstructive uropathy or perinephric abnormality. A 1.9 x 1.5 x 1.6 cm complex cystic lesion lower pole right kidney; stable when compared to October 2021. Single renal artery on each side. Peak systolic velocity within the juxtarenal abdominal aorta measured 77 cm/second. Peak systolic velocity within the right renal artery measures 242 cm/second on the left renal artery 197 cm/second. The calculated renal artery to aortic ratio is 3.1 on the right and 2.5 on the left. Normal acceleration indices and resistive indices bilateral. Impression : 1. a 1.9 x 1.5 x 1.6 cm complex cystic lesion lower pole right kidney; stable when compared to October 2021. 2. even though the renal artery to aortic ratio elevated bilaterally, no sonographic evidence for hemodynamically significant renal artery stenosis on either side. Dictated by Deirdre Martinez MD @ 08/29/2023 7:54:56 AM Signed by:?Deirdre Martinez MD @08/29/2023 7:54:56 AM (Electronic Signature)
== END 2023-08-28 07:51 | disposition home or self-care (01) ==
LOC: US 07:52
PROVIDERS: PCP Physician Assistant Medical; Visit Provider Internal Medicine Nephrology
DX: N18.2 Chronic kidney disease, stage 2 (mild) (principal); N28.1 Cyst of kidney, acquired; I10 Essential (primary) hypertension
CPT/HCPCS: 76775; 80053; 80061; 82043; 82310; 82570; 82607; 83970; 84100; 84550; 93975

== ENCOUNTER 2023-09-27 12:31 | Outpatient (CLI) | payer MEDICARE, BC, SELFPAY ==
--- OUTSIDE RECORDS SUMMARY | 2023-09-27 12:35 | XMS_ITS | Referral Summary ---
Author Name Unknown Organization [facility] Address [address] [place] [address] Care Team Providers Care Medical Sales Representative Name Role Phone Elsewhere, Pcp Primary Care Provider Unavailabl e Source Comments Patient records contain information from all sites at [facility]. For routine questions regarding patient records, call [phone] during business hours, M-F 8:00 AM - 5:00 PM Central Time. Record requests for emergency care only can be directed to [phone] at any time.[facility] Encounters Date Type Department Care Team Description 09/27/2023 11:30 AM CDT Hospital Encounter Department of Radiation Oncology in [address] [phone] Marlon Gambino M.D. 09/27/2023 10:32 AM CDT Hospital Encounter Department of Radiation Oncology in [address] [phone] Marlon Gambino M.D. Primary Malignant Neoplasm Of Prostate (HCC) 09/19/2023 12:21 PM CDT - 09/24/2023 2:46 PM CDT Hospital Encounter Department of Radiation Oncology in [place], [place] [address] [place] [address] Oscar Aranda M.D. Primary Malignant Neoplasm Of Prostate (HCC) (Primary Dx) 09/20/2023 8:00 AM CDT Hospital Encounter Department of Radiation Oncology in [place], [place] [address] [place] [address] WaOscar jones M.D. Kelly, Brooke K, R.N. 09/20/2023 Orders Only Department of Radiation Oncology in [place], [place] [address] [place] [phone] Rachael Waite R.N. 09/20/2023 7:55 AM CDT Anesthesia Event Department of Radiation Oncology in [place], [place] [address] [place] [phone] Jessie Hameed APRN, RAVINDER, Kelly.N.PAnahi Leyva M.D. 09/20/2023 7:10 AM CDT Hospital Encounter Department of Radiation Oncology in [place], [place] [address] [place] [phone] Oscar Aranda M.D. Primary Malignant Neoplasm Of Prostate (HCC) 09/20/2023 5:46 AM CDT - 09/20/2023 3:15 PM CDT Hospital Encounter Outpatient Surgery Unit in [place], [place] [address] [place] [phone] Oscar Aranda M.D. Discharge Disposition: Home or Self Care 09/20/2023 6:58 AM CDT - 09/20/2023 7:09 AM CDT Hospital Encounter Department of Radiology, [facility], in [place], [place] [address] [place] [phone] Oscar Aranda M.D. Primary Malignant Neoplasm Of Prostate (HCC) Discharge Disposition: Home or Self Care 09/19/2023 Orders Only Department of Radiation Oncology in [place], [place] [address] [place] [phone] Oscar Aranda M.D. 09/19/2023 9:30 AM CDT Comprehensive Visit Preoperative Evaluation Center in [address] [phone] Harris Ryan APRN, C.N.P., D.N.P. Geremias Dhillon APRN, C.N.P., M.S. Preanesthetic Medical Exam (Primary Dx); Primary Malignant Neoplasm Of Prostate (HCC); Anesthesia Complication Personal History; Hypertension Essential Primary; Murmur Heart; Atherosclerosis Renal Artery (HCC); Hyperlipidemia; Personal History Of Infectious And Parasitic Disease (COVID-19); Diabetes Mellitus Type 2 (HCC); Obesity Body Mass Index 30-39.9 Adult; Aneurysm Iliac Artery (HCC) 09/17/2023 1:30 PM CDT Clinical Communication Virtual Review in [place], [place] [address] [place] [address] 09/02/2023 2:00 PM CDT External Outreach Division of Nephrology and Hypertension in [place], [place] [address] [place] [phone] Jose Pinon Jr., D.O. Hypertension And Chronic Kidney Disease Stage 1 (Primary Dx); Primary Malignant Neoplasm Of Prostate (HCC); Atherosclerosis Renal Artery (HCC); Diabetes Mellitus Type 2 (HCC); Gout 08/15/2023 2:00 PM CDT Procedure visit Department of Urology in [place], [place] [address] [place] [phone] Marlon Gambino M.D. Dean, Krista R RYisselN. Feeling Of Incomplete Bladder Emptying (Primary Dx); Primary Malignant Neoplasm Of Prostate (HCC) 08/15/2023 2:06 PM CDT - 08/15/2023 4:49 PM CDT Hospital Encounter Department of Radiation Oncology in [place], [place] [address] [place] [phone] Oscar Aranda M.D. Primary Malignant Neoplasm Of Prostate (HCC) (Primary Dx); Encounter For Other Specified Prophylactic Measures 07/31/2023 7:13 AM INJECTION MOLDER - 07/31/2023 7:53 AM [facility] Hospital Encounter Department of Radiation Oncology in [address] [phone] Marlon Gambino M.D. Primary Malignant Neoplasm Of Prostate (HCC) (Primary Dx) 07/30/2023 Orders Only Department of Radiation Oncology in [address] [phone] Marlon Gambino M.D. 07/30/2023 Orders Only Department of Radiation Oncology in [address] [phone] Jackie Gallegos APRN, C.N.P., D.N.P. Primary Malignant Neoplasm Of Prostate (HCC) (Primary Dx) 07/30/2023 Clinical Communication Department of Radiation Oncology in [address] [phone] Marlon Gambino M.D. After Visit Question 07/26/2023 9:55 AM INJECTION MOLDER - 07/26/2023 5:06 PM INJECTION MOLDER Hospital Encounter Department of Radiation Oncology in [address] [phone] Marlon Gambino M.D. Primary Malignant Neoplasm Of Prostate (HCC) (Primary Dx) 07/23/2023 2:28 PM INJECTION MOLDER - 07/23/2023 11:59 PM INJECTION MOLDER Hospital Encounter Department of Laboratory Medicine in [place], [place] [address] [place] [phone] Michael Ochoa APRN C.N.P., D.N.P. Primary Malignant Neoplasm Of Prostate (HCC) Discharge Disposition: Home or Self Care 07/22/2023 Orders Only Department of Radiation Oncology in [address] [phone] Michael Ochoa APRN C.N.P., D.N.P. Primary Malignant Neoplasm Of Prostate (HCC) (Primary Dx) 07/22/2023 Orders Only Department of Radiation Oncology in [address] [phone] Michael Ochoa APRN C.N.P., D.N.P. Primary Malignant Neoplasm Of Prostate (HCC) (Primary Dx) 07/22/2023 9:18 AM INJECTION MOLDER - 07/22/2023 10:42 AM INJECTION MOLDER Hospital Encounter Department of Radiation Oncology in [place], [place] [address] [place] [phone] Edwardo Sandhu M.D. Choo, C. Richard, M.D. Primary Malignant Neoplasm Of Prostate (HCC) (Primary Dx) 07/02/2023 11:00 AM INJECTION MOLDER Office Visit Department of Urology in [place], [place] [address] [place] [address] Jonatan John M.D. Elevated Prostate-Specific Antigen (Primary Dx); Primary Malignant Neoplasm Of Prostate (HCC) from Last 3 Months Allergies No known active allergies Medications Medication Sig Dispensed Refills Start Date End Date Status metFORMIN (GLUCOPHAGE) 500 mg tablet Take 1 tablet (500 mg total) by mouth 2 (two) times a day with meals. 180 tablet 3 12/05/2021 Active losartan-hydroCHL OROthiazide (HYZAAR) 50-12.5 mg per tablet Take 1 tablet by mouth daily. 90 tablet 3 12/05/2021 Active atorvastatin (LIPITOR) 20 mg tablet Take 1 tablet (20 mg total) by mouth daily. 90 tablet 3 02/12/2022 Active amLODIPine (NORVASC) 5 mg tablet Take 5 mg by mouth daily. 03/02/2023 Active tamsulosin (FLOMAX) 0.4 mg 24 hr capsule Take 1 capsule (0.4 mg total) by mouth daily. 30 capsule 09/19/2023 Active ciprofloxacin (Cipro) 500 mg tablet Take 1 tablet (500 mg total) by mouth 2 (two) times a day. 6 tablet 09/19/2023 Active bicalutamide (CASODEX) 50 mg tablet Take 1 tablet (50 mg total) by mouth daily for 21 days. Take at the same time everyday. Take with or without food. 21 tablet 07/30/2023 09/19/2023 Discontinued (Therapy completed) Active Problems Problem Noted Date Diagnosed Date Murmur Heart 09/19/2023 Anesthesia Complication Personal History 024 Personal History Of Infectio us And Parasitic Disease (COVID-19) 09/19/2023 Hyperlipidemia 09/19/2023 Obesity Body Mass Index 30-39.9 Adult 09/19/2023 Aneurysm Iliac Artery 09/19/2023 Hypertension Essential Primary 08/16/2023 Aortic Ectasia 08/16/2023 Atherosclerosis Renal Artery 08/16/2023 Elevated Prostate-Specific Antigen 08/16/2023 Gout 08/16/2023 Primary Malignant Neoplasm Of Prostate Cancer Staging:Clinical stage from 05/31/2023:Stage IIIC(cT2c, cN0, cM0, PSA: 7.4, Grade Group: 5) - Signed by Michael Ochoa APRN, C.N.PYissel, D.N.P. on 07/19/2023 Pathologic: Unsigned Stenosis Renal Artery 02/12/2022 Diabetes Mellitus Type 2 12/05/2021 Resolved Problems Problem Noted Date Diagnosed Date Resolved Date Aneurysm Renal Artery 09/19/20232023 Chronic Kidney Disease Stage 2 Glomerular Filtration Rate 60 To 89 08/16/2023 09/02/2023 Diabetes Mellitus NOS 08/16/20232023 Failure Renal Acute (Acute Kidney Injury) 12/05/2021 09/02/2023 Gout Acute 12/05/2021 09/19/2023 Hypertension And Chronic Kid marietta Disease Stage 1 12/05/2021 09/19/2023 Social History Tobacco Use Types Packs/Day Years Used Date Smoking Tobacco: Never Smokeless Tobacco: Never Tobacco Cessation:Counseling Given: Not Answered Alcohol Use Standard Drinks/Week Comments Yes 3 (1 standard drink = 0.6 oz pur e alcohol) [facility] Utilities Answer Date Recorded In the past 12 months has e [employer], gas, oil, or water [employer] threatened to shut off services in your home? No 07/19/2023 Exercise Vital Sign Answer Date Recorde d On average, how many days pe r week do you engage in moderate to strenuous exercise (like a brisk walk)? 2 days On average, how many minutes do you engage in exercise at this level? Patient declined 07/19/2023 Hunger Vital Sign Answer Date Recorded Within the past 12 months, y ou worried that your food would run out before you got the money to buy more. Never true 07/19/19 24 Within the past 12 months, t he food you bought just didn't last and you didn't have money to get more. Never true 07/19/2023 PRAPARE - Transportation Answer Date Re corded In the past 12 months, has l ack of transportation kept you from medical appointments or from getting medications? No 07/04 In the past 12 months, has l ack of transportation kept you from meetings, work, or from getting things needed for daily living? No 07/19/2023 Nutrition Answer Date Recorded On average, how many serving s of fruits and vegetables do you eat per day (serving size is equal to 1 cup or approximately the size of a tennis ball)? 0-2 07/19/2023 Dental Answer Date Recorded Dental: Regular Dentist No 07/19/19 24 Employment Answer Date Recorded Employment status Retired 07/19/2023 Housing Stability Answer Date Recorded What is your living situation today? I have a [facility] place to live 07/19/2023 Sex and Gender Information Value Date Recorded Sex Assigned at Male 07/21/2023 9:10 AM INJECTION MOLDER Gender Identity Male 07/21/2023 9:10 AM INJECTION MOLDER Sexual Orientation Straight 07/21/2023 9: 10 AM INJECTION MOLDER Last Filed Vital Signs Vital Sign Reading Time Taken Comments Blood Pressure 138/58 09/27/2023 10:52 AM CDT Pulse 66 09/27/2023 10:52 AM CDT Temperature 35.9 ??C (96.7 ??F) 09/27/2023 10:52 AM C DT Respiratory Rate 18 09/20/2023 1:28 PM CDT Oxygen Saturation 95% 09/20/2023 1:28 PM CDT Inhaled Oxygen Concentration - - Weight 114 kg (252 lb 3.3 oz) 09/27/2023 10:52 A M CDT Height 181 cm (5' 11.26) 09/20/2023 6:40 AM CDT Body Mass Index 34.92 09/20/2023 6:40 AM CDT Plan of Treatment Upcoming Encounters Date Type Department Care Team (Late st Contact Info) Description 10/03/2023 10:45 AM CDT Appointment Department of Radiation Oncology in [place], [place] [address] [place] [phone] Marlon Gambino M.D. [address] [place] [address] Procedures Procedure Name Priority Date/Time Associated Diagnosis Comments INITIAL RAD ONC TREATMENT PLANNING CT SIMULATION Routine 09/27/2023 11:30 AM CDT Primary Malignant Neoplasm Of Prostate (HCC) GLUCOSE POCT, B Routine 09/20/2023 12:45 PM CDT ARIA DAILY TREATMENT INFORMATION Routine 09/20/2023 11:52 AM CDT GLUCOSE POCT, B Routine 09/20/2023 10:32 AM CDT US PROSTATE INTERSTITIAL RADIOELEMENT RAD - Routine (most inpatients and all outpatients) 09/20/2023 8:58 AM CDT Primary Malignant Neoplasm Of Prostate (HCC) GLUCOSE POCT, B Routine 09/20/2023 8:28 AM CDT LDA ANE ENDOTRACHEAL AIRWAY Routine 09/20/2023 8:07 AM CDT BRACHYTHERAPY HDR Routine 09/20/2023 8:0 0 AM CDT Primary Malignant Neoplasm Of Prostate (HCC) GLUCOSE POCT, B Routine 09/20/2023 6:46 AM CDT DIPSTICK, U Routine 09/19/2023 10:54 AM CDT PH, U Routine 09/19/2023 10:54 AM CDT MICROSCOPIC AUTOMATED Routine 09/19/2023 10:54 AM CDT OSMOLALITY, U Routine 09/19/2023 10:54 AM CDT URINALYSIS WITH MICROSCOPIC Routine 09/19/2023 10:54 AM CDT Primary Malignant Neoplasm Of Prostate (HCC) BACTERIAL CULTURE, AEROBIC + SUSC, URINE Routine 09/19/2023 10:54 AM CDT Primary Malignant Neoplasm Of Prostate (HCC) ECG Routine 09/19/2023 10:07 AM CDT Preanesthetic Medical Exam Primary Malignant Neoplasm Of Prostate (HCC) Hypertension Essential Primary Murmur Heart URO UROFLOW Routine 08/15/2023 2:00 PM CDT Primary Malignant Neoplasm Of Prostate (HCC) PROSTATE-SPECIFIC AG (PSA) DIAGNOSTIC, S Routine 07/23/2023 2:42 PM INJECTION MOLDER Primary Malignant Neoplasm Of Prostate (HCC) CBC WITH DIFFERENTIAL, B Routine 07/23/2023 2:42 PM INJECTION MOLDER Primary Malignant Neoplasm Of Prostate (HCC) TESTOSTERONE, TOTAL BY MASS SPECROMETRY, S Routine 07/23/2023 2:41 PM INJECTION MOLDER Primary Malignant Neoplasm Of Prostate (HCC) CREATININE WITH EGFR, S/P Routine 07/23/2023 2:41 PM INJECTION MOLDER Primary Malignant Neoplasm Of Prostate (HCC) ASPARTATE AMINOTRANSFERASE (AST), S/P Routine 07/23/2023 2:41 PM INJECTION MOLDER Primary Malignant Neoplasm Of Prostate (HCC) BILIRUBIN, TOT, S/P Routine 07/23/2023 2 :41 PM INJECTION MOLDER Primary Malignant Neoplasm Of Prostate (HCC) ALANINE AMINOTRANSFERASE (ALT), S/P Routine 07/23/2023 2:41 PM INJECTION MOLDER Primary Malignant Neoplasm Of Prostate (HCC) ALKALINE PHOSPHATASE, S/P Routine 07/23/2023 2:41 PM INJECTION MOLDER Primary Malignant Neoplasm Of Prostate (HCC) from Last 3 Months Results * (ABNORMAL) Glucose, POCT (09/20/2023 12:45 PM CDT) Only the most recent of4 resultswithin the time period is included. Glucose, POCT, B 152(H) 70 - 140 mg/dL 09/20/2023 12:47 PM CDT PCDE Site Capillary 09/20/2023 12:47 PM CDT PCDE Blood 09/20/2023 12:4 5 PM CDT 09/20/2023 12:48 PM CDT Unknown Provider LAB POCT ORDERABLES- MANUAL Performing Organization Address [facility]/State/ZIP Co de Phone Number POC [facility] [address] [place] [address], [place] PCDE [facility] POC [address] [place] [address] * Aria Daily Treatment Information (09/20/2023 11:52 AM CDT) Course ID 1bProstat e LEW ARIA Course Start Date 4 08:12 CDT LEW ARIA First Treatment Date 4 11:37 CDT LEW ARIA Last Treatment Date 4 11:52 CDT LEW ARIA Treatment Elapsed Days 0 LEW ARIA Reference Point DPV HDR LEW ARIA Dosage Given to Date cGy 1499 LEW ARIA Session Dosage Given 1499 LEW ARIA Plan ID [id number] e LEW ARIA Fractions Treated to Date 1 LEW ARIA Planned Total Fractions 1 LEW ARIA Prescribed Dose Per Fraction 1500 LEW ARIA Prescription Dose in cGy 1500 LEW ARIA Plan Primary Reference Point DPV HDR LEW ARIA 09/20/2023 11:5 2 AM CDT Provider Not In System RADIATION ONCOLOG Y ORDERABLES LOUANN SINGLETON na * US Prostate Interstitial Radioelement (09/20/2023 8:58 AM CDT) Anatomical Region Laterality Modality Pelvis, Ultrasound RST LOS, Ultrasound ARZ LOS, Vascular Interventional FLA LOS N/A Ultrasound Impressions 09/20/2023 9:18 AM CDT Ultrasound guidance was performed in support of Radiation Oncology's Brachytherapy treatment. NR Narrative 09/20/2023 9:18 AM CDT EXAM: US PROSTATE INTERSTITIAL RADIOELEMENT Procedure Note Edgardo Cosby M.D. - 09/20/2023 EXAM: US PROSTATE INTERSTITIAL RADIOELEMENT IMPRESSION: Ultrasound guidance was performed in support of Radiation Oncology'sBrachytherapy treatment. NR Oscar Aranda M.D. IMG US PROCEDURES * LDA ANE ENDOTRACHEAL AIRWAY (09/20/2023 8:07 AM CDT) Narrative Jessie Hameed APRN, CRNA, D.N.P. - 09/20/2023 8:07 AM CDT Jessie Hameed APRN, CRNA, D.N.P. ? 09/20/2023 ??8:33 AM Airway Date/Time: 09/20/2023 8:07 AM Performed by: Jessie Hameed APRN, CRNA, D.N.PYissel Authorized by: Jessie Hameed APRN, CRNA, D.N.P. ?? Patient location during procedure: OR / Procedure Area PROCEDURE DETAILS: Mask difficulty assessment: difficult mask (i.e.two-handed) without oral airway Final airway type: video laryngoscope Laryngeal Manipulation: no ?? Final best view of glottic structures - Cormack/Lehane Score: grade 2A ETT location: oral VL device: glide scope [place] scope blade size: 4 Tube size: 7.5 ETT distance at teeth/gum: 24 Oral tube type: standard ETT Cuffed: yes Number of attempt to successful placement: 2 Airway confirmation: bilateral breath sounds, positive ETCO2 and bilateral chest rise Other previous techniques attempted: none PRE PROCEDURE DETAILS: Pre evaluation for airway management: procedure Urgency: elective Preop assessment of probable difficulty: questionable / suspicious difficult airway Preoxygenation: bag valve mask SEDATION / ANESTHESIA Anesthesia method: anesthesia POST PROCEDURE DETAILS: ? Procedure outcome: successful ?? Notable Events: no complications Jessie Hameed APRN, CRNA, D.NYisselPYissel AN ESTHESIA ORDERABLES * Brachytherapy HDR (09/20/2023 8:00 AM CDT) Narrative MILLBORO ROSHAN - 09/20/2023 8:00 AM CDT Oscar Aranda M.D. ? 09/20/2023 11:34 AM Brachytherapy HDR Performed by: Oscar Aranda M.D. Authorized by: Oscar Aranda M.D. ?? Care team members present 1. Regina Cedeño M.B.B.S. PROCEDURE DETAILS Brachytherapy: ??Prostate brachytherapy Type: high dose rate ?? Treatment Sites: ??Prostate Applicator(s): ??Interstitial needles Number of needles: ??16 Brachytherapy Fraction Number: ??1 Prescription Dose this Fraction: ??1500 cGy Dose prescribed to: ??Prostate and SV Total planned brachytherapy fractions: ??1 Total planned brachytherapy dose: ??1500 cGy Applicator removed: ??Yes Imaging:Ultrasound image guidance used to localize target, identify at risk structures, and dynamically used to direct therapy to the target. Image(s) acquired and saved. CONSENT Consent obtained: verbal Consent given by: patient The benefits, risks and alternatives to the procedure and the potential need for sedation or anesthesia as well as the names, roles, and responsibilities of healthcare team members performing significant interventional tasks were discussed with the patient and/or decision maker. UNIVERSAL PROTOCOL All relevant documentation and testing were reviewed and available. All required blood products, implants, devices and or special equipment were made available as applicable. Pre-procedure verification was conducted and the correct site was marked if required. A fire risk assessment was done as applicable. The procedural time-out to verify correct patient, correct side/site, and procedure was conducted prior to performing the procedure and confirmed in a procedural pause. PRE PROCEDURE DETAILS ??Procedure purpose: ??Therapeutic ??Indications: ??High risk prostate cancer ??Appropriate hand hygiene, gown, cap, mask, protective eyewear, sterile gloves, skin preparation, sterile drape, and strict aseptic technique were utilized as applicable for the procedure.: yes ?Skin preparation: ??Betadine SEDATION / ANESTHESIA Anesthesia method: anesthesia POST PROCEDURE DETAILS ??Patient tolerance of procedure: ??Successful ??Complications: ??No apparent complications ??Post-procedure Survey: ??Post-procedure survey performed and no residual radioactivity COMMENTS ?? TECHNIQUE: Four carbon seeds were placed into the prostate gland (right apex, left apex, left base, and right base) via a transperineal approach and under transrectal ultrasound guidance. Post-procedure images demonstrate the four seeds to be in good position. SpaceOARVUE hydrogel was prepared as described in the recreation programmer's Instructions For Use. With the subject maintained in the dorsal lithotomy position, the transrectal ultrasound probe was positioned to enable visual guidance of the needle into the space between the prostate and the rectum. Under transrectal ultrasound guidance, the 18G needle was inserted through the rectourethralis muscle and the needle tip advanced into the perirectal fat inferior to the prostate all by using a transperineal approach. The midline needle position with tip at mid gland was confirmed in both sagittal and axial russell. A small amount of saline was injected to confirm appropriate needle tip position between the prostate and anterior rectal wall (Denonvilliers' fascia). The syringe was then removed and the assembled SpaceOAR SIVA delivery system was attached to the 18G needle. ?? Under ultrasound guidance (sagittal plane), a smooth, continuous injection technique was used to dispense the SpaceOARVUE hydrogel into the space between the prostate and rectum (Denonvilliers' fascia and the anterior rectal wall). ??The entire syringe contents (10 mL total) were injected without stopping. ??Optimal visualization of the needle during hydrogel administration was maintained at all times. No suspected penetration or compromise of the rectal wall occurred. Needle removed and local pressure held until hemostasis was achieved. Oscar Aranda M.D. RADIATION ONCOLOGY O RDERABEBE Performing Organization Address City/[facility] Co de Phone Number LEW ARELI na * Dipstick, Urine (09/19/2023 10:54 AM CDT) Hemoglobin, QL, U Negative Negative 09/19/2023 11:52 AM CDT DTL Leukocyte Esterase, U Negative Negative 09/19/2023 11:52 AM CDT DTL Nitrite, U Negative Negative 09/19/2023 11:52 AM CDT DTL Ketone, U Negative Negative mg/dL 09/19/2023 11:52 AM CDT DTL Glucose, U Negative Negative mg/dL 09/19/2023 11:52 AM CDT DTL Urine 09/19/2023 10:5 4 AM CDT 09/19/2023 11:16 AM CDT Harris Ryan APRN, C.N.P., D.N.P. L AB URINE ORDERABLES Performing Organization Address City/[facility]/ZIP Co de Phone Number [facility] [address] [place] [address], [facility] DTL [facility] [address] [place] [address] * Microscopic Automated (09/19/2023 10:54 AM CDT) Microscopy Normal 09/19/2023 11:52 AM CDT DTL RBC None Seen <3 /hpf 09/19/2023 11:52 AM CDT DTL WBC None Seen /hpf 09/19/2023 11:52 AM CDT DTL Comment: ----REFERENCE VALUE---- <4 ??(Males) <11 (Females) Urine 09/19/2023 10:5 4 AM CDT 09/19/2023 11:16 AM CDT Harris Ryan APRN C.N.P., D.N.P. L AB URINE ORDERABLES Performing Organization Address [facility] Co de Phone Number [facility] [address] [place] [address] * Bacterial Culture, Aerobic + Susceptibility, Urine (09/19/2023 10:54 AM CDT) Pathologist [facility] Urine Culture No growth after 1 day of incubation. 09/20/2023 8:11 AM CDT DTL Urine (Urine, Midstream) 09/19/2023 10:54 AM CDT 09/19/2023 1:41 PM CDT Comment:Specimen Source Site : Urine Harris Ryan APRN, C.N.P., D.N.P. L AB MICROBIOLOGY - GENERAL ORDERABLES Performing Organization Address City/[facility]/ZIP Co de Phone Number [facility] [address] [place] [address] * pH, Urine (09/19/2023 10:54 AM CDT) pH, U 5.3 4.5 - 8.0 09/19/2023 12: 12 PM CDT DTL Urine 09/19/2023 10:5 4 AM CDT 09/19/2023 11:16 AM CDT Krish Morse APRN.N.P., D.N.P. L AB URINE ORDERABLES Performing Organization Address [facility] Co de Phone Number [facility] [address] [place] [address], [facility] [address] [place] [address] * Osmolality, Urine (09/19/2023 10:54 AM CDT) Osmolality, U 179 150 - 1150 mOsm/kg 09/19/2023 12:12 PM CDT DTL Urine 09/19/2023 10:5 4 AM CDT 09/19/2023 11:16 AM CDT Krish Morse APRN.N.P., D.N.P. L AB URINE ORDERABLES Performing Organization Address [facility] Co de Phone Number [facility] [address] [place] [address], [facility] [facility] [address] [place] [address] * Urinalysis, with Microscopic: Urine, Midstream (09/19/2023 10:54 AM CDT) Source Urine, Urine, Midstream 09/19/2023 11:16 AM CDT DTL Color, U Yellow 09/19/2023 11:16 AM CDT DTL Clarity, U Clear 09/19/2023 11:16 AM CDT DTL Protein, U 4 <26 mg/dL 09/19/2023 12:05 PM CDT DTL Protein/Osmol ality 0.22 <0.42 ratio 09/19/2023 12:12 PM CDT DTL Predicted 24 HR Protein, U 226 <229 mg/24 h 09/19/2023 12:12 PM CDT DTL Predicted Range 72-711 mg/24 h 09/19/2023 12:12 PM CDT DTL Urine (Urine, Midstream) 09/19/2023 10:54 AM CDT 09/19/2023 11:16 AM CDT Harris ComerKrish gibson APRN.NYisselPYissel, D.N.P. L AB URINE ORDERABLES Performing Organization Address [facility] de Phone Number [facility] [address] [place] [address], [facility] DTL [facility] [address] [place] [address] * ECG 12 Lead (09/19/2023 10:07 AM CDT) Ventricular Rate ECG/Min 62 BPM MUSE SD Interval 154 ms MUSE QRSD Interval 98 ms MUSE QT Interval 428 ms MUSE QTC Interval 434 ms MUSE P [place] 30 degrees MUSE R [place] 24 degrees MUSE T Wave [place] 15 degrees MUSE 09/19/2023 10:0 7 AM CDT 09/19/2023 10:37 AM CDT Impressions MUSE - 09/19/2023 10:37 AM CDT Sinus rhythm Fusion complexes Left atrial enlargement No previous ECGs available Reviewed by LLUVIA Newsome Narrative Procedure Note Anthony Robledo Jr., M.D. - 09/19/2023 IMPRESSION: Sinus rhythm Fusion complexes Left atrial enlargement No previous ECGs available Reviewed by LLUVIA Newsome Krish Abernathy APRN.NYisselPYissel, M.S. ECG ORD ERABLES Performing Organization Address [facility] Co de Phone Number MUSE NA * URO Uroflow (08/15/2023 2:00 PM CDT) Narrative Francisco Quezada M.D. - 08/15/2023 2:00 PM CDT Francisco Quezada M.D. ? 08/16/2023 ??6:16 AM Reason for visit: UROFLOW The patient is here for a complex uroflow via calibrated electronic equipment and residual urine checked by ultrasound. Peak flow: ??19.7 ml/sec Average flow: ??8.3 ml/sec Voiding time: ??27.7 sec Total voided volume: ??231 mls Continuous (smooth) flow pattern Residual urine: 2 ml by ultrasound Impression: Normal variant uroflow. Marlon Gambino M.D. UROLOGY ORDERABLES * CBC with Differential, Blood (07/23/2023 2:42 PM INJECTION MOLDER) Hemoglobin 14.8 13.2 - 16.6 g/dL 07/23/2023 3:10 PM INJECTION MOLDER OWAT Hematocrit 43.4 38.3 - 48.6 % 07/23/2023 3:10 PM INJECTION MOLDER [facility] Erythrocytes 4.81 4.35 - 5.65 x10(12)/L 07/23/2023 3:10 PM INJECTION MOLDER [facility] MCV 90.2 78.2 - 97.9 fL 07/23/2023 3:10 PM INJECTION MOLDER [facility] RBC Distrib Width 12.0 11.8 - 14.5 % 07/23/2023 3:10 PM INJECTION MOLDER [facility] Platelet Count 179 135 - 317 x10(9)/L 07/23/2023 3:10 PM INJECTION MOLDER OWAT Leukocytes 6.8 3.4 - 9.6 x10(9)/L 07/23/2023 3:10 PM INJECTION MOLDER OWAT Neutrophils 3.93 1.56 - 6.45 x10(9)/L 07/23/2023 3:10 PM INJECTION MOLDER OWAT Lymphocytes 2.03 0.95 - 3.07 x10(9)/L 07/23/2023 3:10 PM INJECTION MOLDER OW[facility] Monocytes 0.57 0.26 - 0.81 x10(9)/L 07/23/2023 3:10 PM INJECTION MOLDER OWAT Eosinophils 0.20 0.03 - 0.48 x10(9)/L 07/23/2023 3:10 PM INJECTION MOLDER OWAT Basophils 0.03 0.01 - 0.08 x10(9)/L 07/23/2023 3:10 PM INJECTION MOLDER OWAT Blood (Blood, Venous) 07/23/2023 2:42 PM INJECTION MOLDER 07/23/2023 2:47 PM INJECTION MOLDER Krish Quijano APRN.N.P., Kelly.N.P. LAB B LOOD ADD-ON Performing Organization Address City/[facility]/ZIP Co de Phone Number [facility] [address] [place] [address], [facility] [place] [address] [place] [address] * (ABNORMAL) PSA (Prostate-Specific Antigen), Diagnostic (07/23/2023 2:42 PM INJECTION MOLDER) Prostate-Specific Ag 10.5(H) <=6.5 ng/mL 07/23/2023 3:28 PM INJECTION MOLDER OWAT Comment: ----ADDITIONAL INFORMATION---- The testing method is an electrochemiluminescence assay manufactured by [employer] and performed on the Modular or Vasyl system. Values obtained with different assay methods or kits may be different and cannot be used interchangeably. Test results cannot be interpreted as absolute evidence for the presence or absence of malignant disease. Blood (Blood, Venous) 07/23/2023 2:42 PM INJECTION MOLDER 07/23/2023 2:47 PM INJECTION MOLDER Krish Quijano APRN.N.P., D.N.P. LAB B LOOD ADD-ON Performing Organization Address [facility] Co de Phone Number [facility] [address] [place] [address], [facility] [place] [address] [place] [address] * ALT (Alanine Aminotransferase) (07/23/2023 2:41 PM INJECTION MOLDER) Alanine Aminotransferase (ALT), P 23 7 - 55 U/L 07/23/2023 3:28 PM INJECTION MOLDER OW Blood (Blood, Venous) 07/23/2023 2:41 PM INJECTION MOLDER 07/23/2023 2:47 PM INJECTION MOLDER Krish Quijano APRN.N.P., D.N.P. LAB B LOOD ADD-ON Performing Organization Address City/[facility]/ZIP Co de Phone Number [facility] [address] [place] [address], [facility] [place] [address] [place] [address] * AST (Aspartate Aminotransferase) (07/23/2023 2:41 PM INJECTION MOLDER) Aspartate Aminotransferase (AST), P 19 8 - 48 U/L 07/23/2023 3:28 PM INJECTION MOLDER [facility] Blood (Blood, Venous) 07/23/2023 2:41 PM INJECTION MOLDER 07/23/2023 2:47 PM INJECTION MOLDER Tonia Quijano APRNNAyush, Kelly.N.P. LAB B LOOD ADD-ON Performing Organization Address [facility] Co de Phone Number [facility] [address] [place] [address], [facility] [place] [address] [place] [address] * Testosterone, Total by Mass Spectrometry, Serum (07/23/2023 2:41 PM INJECTION MOLDER) Testosterone, Total by Mass Spectrometry, Serum 290 240 - 950 ng/dL 07/26/2023 1:41 AM INJECTION MOLDER [facility] Comment: ----ADDITIONAL INFORMATION---- Testing performed by Liquid Chromatography-Tandem Mass Spectrometry (LC-MS/MS). This test was developed and its performance characteristics determined by [facility] in a manner consistent with CLIA requirements. This test has not been cleared or approved by the U.S. Food and Drug Administration. Blood (Blood, Venous) 07/23/2023 2:41 PM INJECTION MOLDER 07/24/2023 7:43 AM INJECTION MOLDER Gavin Quijano APRN.Celi., Kelly.N.P. LAB B LOOD NON ADD-ON Performing Organization Address City/[facility]/ZIP Co de Phone Number [facility] [address] [place] [address] [facility] [address] [place] [address] [place] [address] * Alkaline Phosphatase (07/23/2023 2:41 PM INJECTION MOLDER) Alkaline Phosphatase, P 61 40 - 129 U/L 07/23/2023 3:28 PM INJECTION MOLDER [facility] Blood (Blood, Venous) 07/23/2023 2:41 PM INJECTION MOLDER 07/23/2023 2:47 PM INJECTION MOLDER Michael Ochoa APRN, C.N.P., D.N.P. LAB B LOOD ADD-ON Performing Organization Address City/[facility]/ZIP Co de Phone Number [facility] [address] [place] [address], [place] OW[facility] [place] [address] [place] [address] * Creatinine with Estimated GFR (07/23/2023 2:41 PM INJECTION MOLDER) Creatinine 0.93 0.74 - 1.35 mg/dL 07/23/2023 3:28 PM INJECTION MOLDER OWAT Estimated GFR (eGFR) 87 >=60 mL/min/BSA 07/23/2023 3:28 PM INJECTION MOLDER [facility] Comment: Estimated GFR calculated using the 2020 CKD_EPI creatinine equation. Blood (Blood, Venous) 07/23/2023 2:41 PM INJECTION MOLDER 07/23/2023 2:47 PM INJECTION MOLDER Michael Ochoa APRN, C.N.P., D.N.P. LAB B LOOD ADD-ON [facility] [address] [place] [address], [place] [facility] [place] [address] [place] [address] * Bilirubin, Total (07/23/2023 2:41 PM INJECTION MOLDER) Bilirubin, Total, P 0.3 0.0 - 1.2 mg/dL 07/23/2023 3:28 PM INJECTION MOLDER [facility] Blood (Blood, Venous) 07/23/2023 2:41 PM INJECTION MOLDER 07/23/2023 2:47 PM INJECTION MOLDER Michael Ochoa APRN, C.N.P., D.N.P. LAB B LOOD ADD-ON [facility] [address] [place] [address], [place] OW[facility] [place] [address] [place] [address] from Last 3 Months Advance Directives For more information, please contact: [phone] * Full Code (Latest Code Status on File) Date Activated Date Inactivated Comments 09/20/2023 1:19 PM 09/20/2023 5:33 PM Question Answer Comments Full Code: Discussed Care Teams Medical Sales Representative Relationship Specialty Start Date End Date Elsewhere, Pcp PCP - General Internal Medicine 09/18/23
--- OUTSIDE RECORDS SUMMARY | 2023-09-27 12:35 | XMS_ITS ---
Author Name Unknown Organization [facility] Address [address] [place] [address] Care Team Providers Care Technical Programs Manager Name Role Phone Unavailable Unavailable Unavailable Surgery Details Not on file Complications Check Surgery Details section. Procedure Estimated Blood Loss Check Surgery Details section. Procedure Findings Check Surgery Details section. Procedure Specimens Taken Check Surgery Details section.
--- OUTSIDE RECORDS SUMMARY | 2023-09-27 12:35 | XMS_ITS ---
Author Name Unknown Organization [facility] Address [address] [place] [address] Care Team Providers Care Manager Drug Name Role Phone Elsewhere, Pcp Primary Care Provider Unavailabl e Active Problems Problem Noted Date Diagnosed Date [...] 5) - Signed by Michael Ochoa APRN, C.N.P., D.N.P. 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 Linked Problems Primary Malignant Neoplasm O f Prostate (HCC) Treatment Medications No medications scheduled. Past Plans Hem/Onc Therapy Plan 1 Plan Name Start Date Discontinue Date Treatment Medications Discontinue Reason Plan Provider Leuprolide Acetate Every 4 Weeks 07/31/2023 08/08/2023 No medications scheduled. Amendment Change Marlon Gambino M.D. 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
--- OUTSIDE RECORDS SUMMARY | 2023-09-27 12:35 | XMS_ITS | Encounter Summary ---
Author Name Unknown Organization [facility] Address [address] [place] [address] Care Team Providers Care Fiberglass Technician Name Role Phone Elsewhere, Pcp Primary Care Provider Unavailabl e Reason for Visit * Radiation Therapy (Routine) - Closed Specialty Diagnoses / Procedures Referred By Leni lopez Referred To Contact Diagnoses Primary Malignant Neoplasm Of Prostate (HCC) Procedures Initial Rad Onc Treatment Planning CT Simulation Marlon Gambino M.D. [address] [place] [phone] [facility] Region Referral ID Status Reason Start Date Expiration Date Visits Re quested Visits Authorized [id number] Closed 08/02/2023 08/01/2024 1 1 Encounter Details Date Type Department Care Team (Late st Contact Info) Description 09/27/2023 11:30 AM CDT Hospital Encounter Department of Radiation Oncology in [place], [place] [address] [place] [phone] Marlon Gambino M.D. [address] [place] [phone] Social History Tobacco Use Types Packs/Day Years Used Date Smoking Tobacco: Never Smokeless Tobacco: Never Alcohol Use Standard Drinks/Week Comments Yes 3 (1 standard drink = 0.6 oz pur e alcohol) [facility] Utilities Answer Date Recorded In the past 12 months has th e electric, gas, oil, or water company threatened to shut off services in your [...] Date Recorded Dental: Regular Dentist No 07/19/19 Employment Answer Date Recorded Employment status Retired 07/19/2023 Housing Stability Answer Date Recorded What is your living situation today? I have a [facility] place to live 07/19/2023 Sex and Gender Information Value Date Recorded Sex Assigned at Male 07/21/2023 9:10 AM WAFER SUBSTRATE TESTER Gender Identity Male 07/21/2023 9:10 AM WAFER SUBSTRATE TESTER Sexual Orientation Straight 07/21/2023 9: 10 AM WAFER SUBSTRATE TESTER documented as of this encounter Plan of Treatment Upcoming Encounters Date Type Department Care Team (Late st Contact Info) Description 10/03/2023 10:45 AM CDT Appointment Department of Radiation Oncology in [place], [place] [address] [place] [phone] Marlon Gambino M.D. [address] [place] [address] Pending Results Name Type Priority Associated Diagnoses Date/Time Initial Rad Onc Treatment Planning CT Simulation Procedural Imaging Routine Primary Malignant Neoplasm Of Prostate (HCC) 09/27/2023 11:30 AM CDT documented as of this encounter Procedures Procedure Name Priority Date/Time Associated Diagnosis Comments INITIAL RAD ONC TREATMENT PLANNING CT SIMULATION Routine 09/27/2023 11:30 AM CDT Primary Malignant Neoplasm Of Prostate (HCC) documented in this encounter Visit Diagnoses Not on filedocumented in this encounter Care Teams Fiberglass Technician Relationship Specialty Start Date End Date Elsewhere, Pcp PCP - General Internal Medicine 09/18/23 documented as of this encounter
--- OUTSIDE RECORDS SUMMARY | 2023-09-27 12:35 | XMS_ITS | Clinical Summary ---
Author Name Unknown Organization [facility] Address [address] [place] [address] Care Team Providers Care Precision Lens Technician Name Role Phone Elsewhere, Pcp Primary Care Provider Unavailabl e Source Comments Patient records contain information from all sites at [facility]. For routine questions regarding patient records, call [phone] during business hours, M-F 8:00 AM - 5:00 PM Central Time. Record requests for emergency care only can be directed to [phone] at any time.[facility] Allergies No known active allergies Medications Medication [...] Kid marietta Disease Stage 1 12/05/2021 09/19/2023 Encounters Date Type Department Care Team Description 09/27/2023 11:30 AM CDT Hospital Encounter Department of Radiation Oncology in [address] [phone] Marlon Gambino M.D. 09/27/2023 10:32 AM CDT Hospital Encounter Department of Radiation Oncology in [address] [phone] Marlon Gambino M.D. Primary Malignant Neoplasm Of Prostate (HCC) 09/20/2023 8:00 AM CDT Hospital Encounter Department of Radiation Oncology in [place], [place] [address] [place] [phone] Oscar Aranda M.D. Kelly, Brooke K RShital 09/20/2023 7:55 AM CDT Anesthesia Event Department of Radiation Oncology in [place], [place] [address] [place] [phone] Jessie Hameed APRN, CRNA, D.N.P. Horlocker, Terese T, M.D. 09/20/2023 7:10 AM CDT Hospital Encounter Department of Radiation Oncology in [place], [place] [address] [place] [phone] Oscar Aranda M.D. Primary Malignant Neoplasm Of Prostate (HCC) 09/20/2023 6:58 AM CDT - 09/20/2023 7:09 AM CDT Hospital Encounter Department of Radiology, [facility], in [place], [place] [address] [place] [phone] Oscar Aranda M.D. Primary Malignant Neoplasm Of Prostate (HCC) Discharge Disposition: Home or Self Care 09/20/2023 5:46 AM CDT - 09/20/2023 3:15 PM CDT Hospital Encounter Outpatient Surgery Unit in [place], [place] [address] [place] [phone] Oscar Aranda M.D. Discharge Disposition: Home or Self Care 09/20/2023 Orders Only Department of Radiation Oncology in [place], [place] [address] [place] [phone] Rachael Waite, R.NYissel 09/19/2023 12:21 PM CDT - 09/24/2023 2:46 PM CDT Hospital Encounter Department of Radiation Oncology in [place], [place] [address] [place] [phone] Oscar Aranda M.D. Primary Malignant Neoplasm Of Prostate (HCC) (Primary Dx) 09/19/2023 9:30 AM CDT Comprehensive Visit Preoperative Evaluation Center in [place], [place] [address] [place] [phone] Harris Ryan APRN, C.N.P., D.N.P. Geremias Dhillon APRN, C.N.P., M.S. Preanesthetic Medical Exam (Primary Dx); Primary Malignant Neoplasm Of Prostate (HCC); Anesthesia Complication Personal History; Hypertension Essential Primary; Murmur Heart; Atherosclerosis Renal Artery (HCC); Hyperlipidemia; Personal History Of Infectious And Parasitic Disease (COVID-19); Diabetes Mellitus Type 2 (HCC); Obesity Body Mass Index 30-39.9 Adult; Aneurysm Iliac Artery (HCC) 09/19/2023 Orders Only Department of Radiation Oncology in [address] [phone] Oscar Aranda M.D. 09/17/2023 1:30 PM CDT Clinical Communication Virtual Review in [address] [phone] 09/02/2023 2:00 PM CDT External Outreach Division of Nephrology and Hypertension in [address] [phone] Jose Pinon Jr., D.O. Hypertension And Chronic Kidney Disease Stage 1 (Primary Dx); Primary Malignant Neoplasm Of Prostate (HCC); Atherosclerosis Renal Artery (HCC); Diabetes Mellitus Type 2 (HCC); Gout 08/15/2023 2:06 PM CDT - 08/15/2023 4:49 PM CDT Hospital Encounter Department of Radiation Oncology in [address] [phone] Oscar Aranda M.D. Primary Malignant Neoplasm Of Prostate (HCC) (Primary Dx); Encounter For Other Specified Prophylactic Measures 08/15/2023 2:00 PM CDT Procedure visit Department of Urology in [address] [phone] Marlon Gambino M.D. ManinderRissa RToyn. Feeling Of Incomplete Bladder Emptying (Primary Dx); Primary Malignant Neoplasm Of Prostate (HCC) 07/31/2023 7:13 AM TEAROOM HOSTESS - 07/31/2023 7:53 AM TEAROOM HOSTESS Hospital Encounter Department of Radiation Oncology in [address] [phone] Marlon Gambino M.D. Primary Malignant Neoplasm Of Prostate (HCC) (Primary Dx) 07/30/2023 Orders Only Department of Radiation Oncology in [address] [phone] Marlon Gambino M.D. 07/30/2023 Orders Only Department of Radiation Oncology in [address] [phone] Jackie Gallegos APRN, C.N.P., D.N.P. Primary Malignant Neoplasm Of Prostate (HCC) (Primary Dx) 07/30/2023 Clinical Communication Department of Radiation Oncology in [address] [address] Marlon Gambino M.D. After Visit Question 07/26/2023 9:55 AM TEAROOM HOSTESS - 07/26/2023 5:06 PM TEAROOM HOSTESS Hospital Encounter Department of Radiation Oncology in [address] [phone] Marlon Gambino M.D. Primary Malignant Neoplasm Of Prostate (HCC) (Primary Dx) 07/23/2023 2:28 PM TEAROOM HOSTESS - 07/23/2023 11:59 PM TEAROOM HOSTESS Hospital Encounter Department of Laboratory Medicine in [place], [place] [address] [place] [address] Michael Ochoa APRN, C.N.P., D.N.P. Primary Malignant Neoplasm Of Prostate (HCC) Discharge Disposition: Home or Self Care 07/22/2023 9:18 AM TEAROOM HOSTESS - 07/22/2023 10:42 AM TEAROOM HOSTESS Hospital Encounter Department of Radiation Oncology in [place], [place] [address] [place] [address] Edwardo Sandhu M.D. Choo, C. Richard, M.D. Primary Malignant Neoplasm Of Prostate (HCC) (Primary Dx) 07/22/2023 Orders Only Department of Radiation Oncology in [place], [place] [address] [place] [address] Michael Ochoa APRN, C.N.PYissel, D.N.P. Primary Malignant Neoplasm Of Prostate (HCC) (Primary Dx) 07/22/2023 Orders Only Department of Radiation Oncology in [place], [place] [address] [place] [address] Michael Ochoa APRN, C.N.P., D.N.P. Primary Malignant Neoplasm Of Prostate (HCC) (Primary Dx) 07/02/2023 11:00 AM TEAROOM HOSTESS Office Visit Department of Urology in [place], [place] [address] [place] [address] Jonatan John M.D. Elevated Prostate-Specific Antigen (Primary Dx); Primary Malignant Neoplasm Of Prostate (HCC) from Last 3 Months Family History Medical History Relation Name Comments Prostate cancer Father Cancer Maternal Grandfather Coronary artery disease Mother Laverne russell arthur Diabetes Mother Laverne whitten Relation Name Status Comments Father Maternal Grandfather Mother Laverne whitten Social History Tobacco Use Types Packs/Day Years Used Date Smoking Tobacco: Never Smokeless Tobacco: Never Tobacco Cessation:Counseling Given: Not Answered Alcohol Use Standard Drinks/Week Comments Yes 3 (1 standard drink = 0.6 oz pur e alcohol) [facility] [employer] Answer Date Recorded In the past 12 months has [employer], gas, oil, or water [employer] threatened to shut off services in your [...] your living situation today? I have a [facility] place to live 07/19/2023 Sex and Gender Information Value Date Recorded Sex Assigned at Male 07/21/2023 9:10 AM TEAROOM HOSTESS Gender Identity Male 07/21/2023 9:10 AM TEAROOM HOSTESS Sexual Orientation Straight 07/21/2023 9: 10 AM TEAROOM HOSTESS Last Filed Vital Signs Vital Sign Reading [...] CDT Appointment Department of Radiation Oncology in [place], [place] [address] [place] [phone] Marlon Gambino M.D. [address] [place] [address] Health Maintenance Due Date Last Done Comments CT Colonography 1949 Cologuard 1950 Colonoscopy 1949 Colorectal Cancer Screening 1949 Diabetic Office Visit with Foot Exam 1949 Dilated Eye Exam 1949 FIT 1949 Hemoglobin A1C 1949 Hepatitis C Screening 1949 Lipid (Cholesterol) Screening 1949 Urine Albumin 1949 Pneumococcal vaccine (65+ years) (1 of 2 - PCV) 10/05/1955 Zoster Vaccines (1 of 2) 1968 Hepatitis B Vaccines (1 of 3 - Risk 3-dose series) 2009 Influenza Vaccine (#1) 2023 Depression Screening (Annual PHQ-2) 06/03/2023 COVID-19 Vaccine ( - 2022- season) 2023 06/18/2023, 02/20/2022, 09/21/2021, Additional history exists Office Visit for Blood Pressure Check / Re-check 12/19/2023 09/19/2023 Creatinine Level (Kidney Function Test) 07/23/2024 07/23/2023, 03/01/2022 DTaP,Tdap,and Td Vaccines (2 - Td or Tdap) 10/12/2031 10/11/2021 Fall Risk Screen (Annual) Completed 09/20/2023 HPV Vaccines Aged Out No longer eligi ble based on patient's age to complete this topic Procedures Procedure Name Priority Date/Time Associated Diagnosis Comments INITIAL RAD ONC TREATMENT PLANNING CT SIMULATION Routine 09/27/2023 11:30 AM CDT Primary Malignant Neoplasm Of Prostate (HCC) GLUCOSE POCT, B Routine 09/20/2023 12:45 PM CDT ARIA DAILY TREATMENT INFORMATION Routine 09/20/2023 11:52 AM CDT GLUCOSE POCT, B Routine 09/20/2023 10:32 AM CDT PROSTATE INTERSTITIAL RADIOELEMENT RAD - Routine (most [...] (PSA) DIAGNOSTIC, S Routine 07/23/2023 2:42 PM TEAROOM HOSTESS Primary Malignant Neoplasm Of Prostate (HCC) CBC WITH DIFFERENTIAL, B Routine 07/23/2023 2:42 PM TEAROOM HOSTESS Primary Malignant Neoplasm Of Prostate (HCC) TESTOSTERONE, TOTAL BY MASS SPECROMETRY, S Routine 07/23/2023 2:41 PM TEAROOM HOSTESS Primary Malignant Neoplasm Of Prostate (HCC) CREATININE WITH EGFR, S/P Routine 07/23/2023 2:41 PM TEAROOM HOSTESS Primary Malignant Neoplasm Of Prostate (HCC) ASPARTATE AMINOTRANSFERASE (AST), S/P Routine 07/23/2023 2:41 PM TEAROOM HOSTESS Primary Malignant Neoplasm Of Prostate (HCC) BILIRUBIN, TOT, S/P Routine 07/23/2023 2 :41 PM TEAROOM HOSTESS Primary Malignant Neoplasm Of Prostate (HCC) ALANINE AMINOTRANSFERASE (ALT), S/P Routine 07/23/2023 2:41 PM TEAROOM HOSTESS Primary Malignant Neoplasm Of Prostate (HCC) ALKALINE PHOSPHATASE, S/P Routine 07/23/2023 2:41 PM TEAROOM HOSTESS Primary Malignant Neoplasm Of Prostate (HCC) from [...] CDT Unknown Provider LAB POCT ORDERABLES- MANUAL POC [facility] [address] [place] [address], [facility] PCDE [facility] POC [address] [place] [address] * Aria Daily Treatment Information (09/20/2023 11:52 AM CDT) Course ID [id number] e CASTILLO ARIA Course Start Date 4 08:12 CDT CASTILLO ARIA First Treatment Date 4 11:37 CDT CASTILLO ARIA Last Treatment Date 11:52 CDT CASTILLO ARIA Treatment Elapsed Days 0 CASTILLO ARIA Reference Point DPV HDR CASTILLO ARIA Dosage Given to Date cGy 1499 CASTILLO ARIA Session Dosage Given 1499 CASTILLO ARIA Plan ID [id number] CASTILLO ARIA Fractions Treated to Date 1 CASTILLO ARIA Planned Total Fractions 1 CASTILLO ARIA Prescribed Dose Per Fraction 1500 CASTILLO ARIA Prescription Dose in cGy 1500 CASTILLO ARIA Plan Primary Reference Point DPV HDR CASTILLO ARIA 09/20/2023 11:5 2 AM CDT Provider [...] 09/20/2023 8:07 AM CDT Jessie Hameed APRN, CRNA D.N.P. ? 09/20/2023 ??8:33 AM Airway Date/Time: 09/20/2023 8:07 AM Performed by: Jessie Hameed APRN, CRNA, D.N.P. Authorized by: Kroening, Jessie J, CASHIER GAMBLING, HAND TWISTER, D.N.P. ?? Patient location during procedure: OR / Procedure Area PROCEDURE DETAILS: Mask difficulty assessment: difficult mask (i.e.two-handed) without oral airway Final airway type: video laryngoscope Laryngeal Manipulation: no ?? Final best view of glottic structures - Cormack/Lehane Score: grade 2A ETT location: oral VL device: glide scope Kremlin scope blade size: 4 Tube size: 7.5 [...] Events: no complications Jessie Hameed APRN, CRNA, D.N.P. [facility] * Brachytherapy HDR (09/20/2023 8:00 AM CDT) Narrative [facility] - 09/20/2023 8:00 AM CDT Oscar Aranda [...] hydrogel was prepared as described in the auto body estimator's Instructions For Use. With the subject maintained [...] achieved. Oscar Aranda M.D. RADIATION ONCOLOGY O RDERABLES Performing Organization Address [facility] de Phone Number GLORIETA ARELI jules * Dipstick, Urine (09/19/2023 10:54 AM CDT) [...] L AB URINE ORDERABLES Performing Organization Address [facility] de Phone Number [address] DTL [facility] [address] [place] [address] * Microscopic Automated (09/19/2023 10:54 AM CDT) Microscopy Normal 09/19/2023 11:52 AM CDT DTL RBC None Seen <3 /hpf 09/19/2023 11:52 AM CDT DTL WBC None Seen /hpf 09/19/2023 11:52 AM CDT DTL Comment: ----REFERENCE VALUE---- <4 ??(Males) <11 (Females) Urine 09/19/2023 10:5 4 AM CDT 09/19/2023 11:16 AM CDT Krish Morse APRN.N.P., D.N.P. L AB URINE ORDERABLES [facility] [address] [place] [address], [facility] [address] [place] [address] * Bacterial Culture, Aerobic + Susceptibility, Urine (09/19/2023 10:54 AM CDT) Urine Culture No growth after 1 day of incubation. 09/20/2023 8:11 AM CDT DT Urine (Urine, Midstream) 09/19/2023 10:54 AM CDT 09/19/2023 1:41 PM CDT Comment:Specimen Source Site : Urine Krish Morse APRN.N.P., D.N.P. L AB MICROBIOLOGY - GENERAL ORDERABLES Performing Organization Address City/[facility] Co de Phone Number [facility] [address] [place], [place] [id number] [place] [address] [address] [place] [address] * pH, Urine (09/19/2023 10:54 AM CDT) pH, U 5.3 4.5 - 8.0 09/19/2023 12: 12 PM CDT DTL Urine 09/19/2023 10:5 4 AM CDT 09/19/2023 11:16 AM CDT Harris Ryan APRN, Krish.N.P., D.N.P. L AB URINE ORDERABLES Performing Organization Address City/[facility]/ZIP Co de Phone Number [facility] [address] [place] [address], [facility] [address] [place] [address] * Osmolality, Urine (09/19/2023 10:54 AM CDT) Osmolality, U 179 150 - 1150 mOsm/kg 09/19/2023 12:12 PM CDT DTL Urine 09/19/2023 10:5 4 AM CDT 09/19/2023 11:16 AM CDT Harris Ryan APRN, C.N.P., D.N.P. L AB URINE ORDERABLES Performing Organization Address City/[facility]/ZIP Co de Phone Number [facility] [address] [place] [address], [facility] [address] [place] [address] * Urinalysis, with Microscopic: Urine, Midstream (09/19/2023 [...] L AB URINE ORDERABLES Performing Organization Address City/[facility]/ZIP Co de Phone Number [facility] [address] [place] [address], [facility] DTL [facility] [address] * ECG 12 Lead (09/19/2023 10:07 AM CDT) Ventricular Rate ECG/Min 62 BPM MUSE W[place] Interval 154 ms MUSE QRSD Interval 98 ms MUSE QT Interval 428 ms MUSE QTC Interval 434 ms MUSE P [place] 30 degrees MUSE R [place] 24 degrees MUSE T Wave [place] 15 degrees MUSE 09/19/2023 10:0 7 AM CDT 09/19/2023 10:37 AM CDT Impressions MUSE - 09/19/2023 10:37 AM CDT Sinus rhythm Fusion complexes Left atrial enlargement No previous ECGs available Reviewed by LLUVIA Newsome Narrative Procedure Note Anthony Robledo Jr., M.D. - 09/19/2023 IMPRESSION: Sinus rhythm Fusion complexes Left atrial enlargement No previous ECGs available Reviewed by LLUVIA Newsome Geremias Dhillon APRN, C.N.P., M.S. ECG ORD ERABLES MUSE NA * URO Uroflow (08/15/2023 2:00 [...] CBC with Differential, Blood (07/23/2023 2:42 PM TEAROOM HOSTESS) Hemoglobin 14.8 13.2 - 16.6 g/dL 07/23/2023 3:10 PM TEAROOM HOSTESS OWAT Hematocrit 43.4 38.3 - 48.6 % 07/23/2023 3:10 PM TEAROOM HOSTESS OWAT Erythrocytes 4.81 4.35 - 5.65 x10(12)/L 07/23/2023 3:10 PM TEAROOM HOSTESS OWAT MCV 90.2 78.2 - 97.9 fL 07/23/2023 3:10 PM TEAROOM HOSTESS OWAT RBC Distrib Width 12.0 11.8 - 14.5 % 07/23/2023 3:10 PM TEAROOM HOSTESS OWAT Platelet Count 179 135 - 317 x10(9)/L 07/23/2023 3:10 PM TEAROOM HOSTESS OWAT Leukocytes 6.8 3.4 - 9.6 x10(9)/L 07/23/2023 3:10 PM TEAROOM HOSTESS OWAT Neutrophils 3.93 1.56 - 6.45 x10(9)/L 07/23/2023 3:10 PM TEAROOM HOSTESS OWAT Lymphocytes 2.03 0.95 - 3.07 x10(9)/L 07/23/2023 3:10 PM TEAROOM HOSTESS OWAT Monocytes 0.57 0.26 - 0.81 x10(9)/L 07/23/2023 3:10 PM TEAROOM HOSTESS OWAT Eosinophils 0.20 0.03 - 0.48 x10(9)/L 07/23/2023 3:10 PM TEAROOM HOSTESS OWAT Basophils 0.03 0.01 - 0.08 x10(9)/L 07/23/2023 3:10 PM TEAROOM HOSTESS OWAT Blood (Blood, Venous) 07/23/2023 2:42 PM TEAROOM HOSTESS 07/23/2023 2:47 PM TEAROOM HOSTESS Michael Ochoa APRN, C.N.P., D.N.P. LAB B LOOD ADD-ON [facility] [address] [place] [address], [facility] OWAT [facility] [place] [address] [place] [address] * (ABNORMAL) PSA (Prostate-Specific Antigen), Diagnostic (07/23/2023 2:42 PM TEAROOM HOSTESS) Prostate-Specific Ag 10.5(H) <=6.5 ng/mL 07/23/2023 3:28 PM TEAROOM HOSTESS OWAT Comment: ----ADDITIONAL INFORMATION---- The testing method is an electrochemiluminescence assay manufactured by [employer] and performed on the Modular or Vasyl system. Values obtained with different assay methods or kits may be different and cannot be used interchangeably. Test results cannot be interpreted as absolute evidence for the presence or absence of malignant disease. Blood (Blood, Venous) 07/23/2023 2:42 PM TEAROOM HOSTESS 07/23/2023 2:47 PM TEAROOM HOSTESS Michael Ochoa APRN C.N.P., D.N.P. LAB B LOOD ADD-ON Performing Organization Address [facility] Co de Phone Number [facility] [address] [place] [address], [facility] [address] [place] [address] * ALT (Alanine Aminotransferase) (07/23/2023 2:41 PM TEAROOM HOSTESS) Alanine Aminotransferase (ALT), P 23 7 - 55 U/L 07/23/2023 3:28 PM TEAROOM HOSTESS [facility] Blood (Blood, Venous) 07/23/2023 2:41 PM TEAROOM HOSTESS 07/23/2023 2:47 PM TEAROOM HOSTESS Michael Ochoa APRN, C.N.P., D.N.P. LAB B LOOD ADD-ON Performing Organization Address [facility] Co de Phone Number [facility] [address] [place] [address], [facility] [place] [address] [place] [address] * AST (Aspartate Aminotransferase) (07/23/2023 2:41 PM TEAROOM HOSTESS) Aspartate Aminotransferase (AST), P 19 8 - 48 U/L 07/23/2023 3:28 PM TEAROOM HOSTESS OWAT Blood (Blood, Venous) 07/23/2023 2:41 PM TEAROOM HOSTESS 07/23/2023 2:47 PM TEAROOM HOSTESS Tonia Quijano APRNN.P., Kelly.N.P. LAB B LOOD ADD-ON Performing Organization Address City/[facility]/ZIP Co de Phone Number [facility] [address] [place] [address], [facility] OWAT [facility] [place] [address] [place] [address] * Testosterone, Total by Mass Spectrometry, Serum (07/23/2023 2:41 PM TEAROOM HOSTESS) Pathologist [facility] Testosterone, Total by Mass Spectrometry, Serum 290 240 - 950 ng/dL 07/26/2023 1:41 AM TEAROOM HOSTESS [facility] Comment: ----ADDITIONAL INFORMATION---- Testing performed by Liquid Chromatography-Tandem Mass Spectrometry (LC-MS/MS). This test was developed and its performance characteristics determined by [facility] in a manner consistent with CLIA requirements. This test has not been cleared or approved by the U.S. Food and Drug Administration. Blood (Blood, Venous) 07/23/2023 2:41 PM TEAROOM HOSTESS 07/24/2023 7:43 AM TEAROOM HOSTESS Tonia Quijano APRNN.P., D.N.P. LAB B LOOD NON ADD-ON [facility] [address] [place] [address] [facility] [address] [place] [address] [place] [address] * Alkaline Phosphatase (07/23/2023 2:41 PM TEAROOM HOSTESS) Alkaline Phosphatase, P 61 40 - 129 U/L 07/23/2023 3:28 PM TEAROOM HOSTESS OWAT Blood (Blood, Venous) 07/23/2023 2:41 PM TEAROOM HOSTESS 07/23/2023 2:47 PM TEAROOM HOSTESS Michael Ochoa APRN C.N.P., D.N.P. LAB B LOOD ADD-ON [facility] [address] [place] [address], [place] OWAT [facility] [place] [address] [place] [address] * Creatinine with Estimated GFR (07/23/2023 2:41 PM TEAROOM HOSTESS) Creatinine 0.93 0.74 - 1.35 mg/dL 07/23/2023 3:28 PM TEAROOM HOSTESS OWAT Estimated GFR (eGFR) 87 >=60 mL/min/BSA 07/23/2023 3:28 PM TEAROOM HOSTESS OWAT Comment: Estimated GFR calculated using the 2020 CKD_EPI creatinine equation. Blood (Blood, Venous) 07/23/2023 2:41 PM TEAROOM HOSTESS 07/23/2023 2:47 PM TEAROOM HOSTESS Michael Ochoa APRN, C.N.P., D.N.P. LAB B LOOD ADD-ON Performing Organization Address City/[facility]/ZIP Co de Phone Number [facility] [address] [place] [address], [place] OWAT [facility] [place] [address] [place] [address] * Bilirubin, Total (07/23/2023 2:41 PM TEAROOM HOSTESS) Bilirubin, Total, P 0.3 0.0 - 1.2 mg/dL 07/23/2023 3:28 PM TEAROOM HOSTESS OWAT Blood (Blood, Venous) 07/23/2023 2:41 PM TEAROOM HOSTESS 07/23/2023 2:47 PM TEAROOM HOSTESS Michael Ochoa APRN, C.N.P., D.N.P. LAB B LOOD ADD-ON [facility] [address] [place] [address], [place] OWAT [facility] [place] [address] [place] [address] from Last 3 Months Advance Directives For more information, please contact: [phone] * Full Code (Latest Code Status on File) Date Activated Date Inactivated Comments 09/20/2023 1:19 PM 09/20/2023 5:33 PM Question Answer Comments Full Code: Discussed Care Teams Precision Lens Technician Relationship Specialty Start Date End Date Elsewhere, Pcp PCP - General Internal Medicine 09/18/23
--- OUTSIDE RECORDS SUMMARY | 2023-09-27 12:36 | XMS_ITS | Encounter Summary ---
Author Name Unknown Organization [facility] Address [address] [place] [address] Care Team Providers Care Steam Oven Operator Name Role Phone Elsewhere, Pcp Primary Care Provider Unavailabl e Reason for Referral * Radiation Therapy (Routine) - Closed Specialty Diagnoses / Procedures Referred By Contac t Referred To Contact Diagnoses Primary Malignant Neoplasm Of Prostate (HCC) Procedures Brachytherapy HDR Oscar Aranda M.D. [address] [place] [address] [facility] Referral ID Status Reason Start Date Expiration Date Visits Re quested Visits Authorized [id number] Closed 08/15/2023 08/14/2024 1 1 Reason for Visit * Radiation Therapy (Routine) - Closed Specialty Diagnoses / Procedures Referred By Contac t Referred To Contact Diagnoses Primary Malignant Neoplasm Of Prostate (HCC) Procedures Brachytherapy HDR Oscar Aranda M.D. [address] [place] [address] [facility] Referral ID Status Reason Start Date Expiration Date Visits Re quested Visits Authorized [id number] Closed 08/15/2023 08/14/2024 1 1 Encounter Details Date Type Department Care Team (Latest Contact Info) Description 09/20/2023 7:10 AM CDT Hospital Encounter Department of Radiation Oncology in [place], [place] [address] [place] [phone] Oscar Aranda M.D. [address] [place] [phone] Primary Malignant Neoplasm Of Prostate (HCC) Social History Tobacco Use Types Packs/Day Years Used Date Smoking Tobacco: Never Smokeless Tobacco: Never Alcohol Use Standard Drinks/Week Comments Yes 3 (1 standard drink = 0.6 oz pur e alcohol) [facility] Utilities Answer Date Recorded In the past 12 months has e [employer], gas, oil, or water company threatened to [...] money to buy more. Never true 07/19/19 Within the past 12 months, t he [...] your living situation today? I have a [facility] place to live 07/19/2023 Sex and Gender Information Value Date Recorded Sex Assigned at Male 07/21/2023 9:10 AM DATA REVIEW SPECIALIST Gender Identity Male 07/21/2023 9:10 AM DATA REVIEW SPECIALIST Sexual Orientation Straight 07/21/2023 9: 10 AM DATA REVIEW SPECIALIST documented as of this encounter Last Filed Vital Signs Vital Sign Reading Time Taken Comments Blood Pressure 132/76 09/20/2023 1:00 PM CDT Pulse 56 09/20/2023 1:00 PM CDT Temperature 36.1 ??C (97 ??F) 09/20/2023 1:00 PM CDT Respiratory Rate 17 09/20/2023 1:00 PM CDT Oxygen Saturation 92% 09/20/2023 1:00 PM CDT Inhaled Oxygen Concentration - - Weight - - Height - - Body Mass Index - - documented in this encounter Procedure Notes * Oscar Aranda M.D. - 09/20/2023 8:00 AM CDTAssociated Order(s): Brachytherapy HDR Pre-Procedure Diagnose(s): Primary Malignant Neoplasm Of Prostate (HCC) Post-Procedure Diagnose(s): Primary Malignant Neoplasm Of Prostate (HCC) Brachytherapy HDR Performed by: Oscar Aranda M.D. Authorized by: Oscar Aranda M.D. Care team members present 1. Regina Cedeño M.B.BYisselSYissel PROCEDURE DETAILS Brachytherapy: Prostate brachytherapy Type: high dose rate Treatment Sites: Prostate Applicator(s): Interstitial needles Number of needles: 16 Brachytherapy Fraction Number: 1 Prescription Dose this Fraction: 1500 cGy Dose prescribed to: Prostate and SV Total planned brachytherapy fractions: 1 Total planned brachytherapy dose: 1500 cGy Applicator removed: Yes Imaging:Ultrasound image guidance used to localize target, [...] in a procedural pause. PRE PROCEDURE DETAILS Procedure purpose: Therapeutic Indications: High risk prostate cancer Appropriate hand hygiene, gown, cap, mask, protective eyewear, sterile gloves, skin preparation, sterile drape, and strict aseptic technique were utilized as applicable for the procedure.: yes Skin preparation: Betadine SEDATION / ANESTHESIA Anesthesia method: anesthesia POST PROCEDURE DETAILS Patient tolerance of procedure: Successful Complications: No apparent complications Post-procedure Survey: Post-procedure survey performed and no residual radioactivity COMMENTS TECHNIQUE: Four carbon seeds were placed into the prostate gland (right apex, left apex, left base,and right base) via a transperineal approach and under transrectal ultrasound guidance. Post-procedure images demonstrate the four seeds to be in good position. SpaceOARVUE hydrogel was prepared as described in the can conveyor feeder's Instructions For Use. With thesubject maintained in the dorsal lithotomy position, the [...] system was attached to the 18G needle. Under ultrasound guidance (sagittal plane), a smooth, continuous injection technique was used to dispense the SpaceOARVUE hydrogel into the space between the prostate and rectum (Denonvilliers' fascia and the anterior rectal wall). The entire syringe contents (10 mL total) were injected without stopping. Optimal visualization of the needle during hydrogel administration was maintained at all times. No suspected penetration or compromise of the rectal wall occurred. Needle removed and local pressure held until hemostasis was achieved. documented in this encounter Plan of Treatment Upcoming Encounters Date Type Department Care Team (Late st Contact Info) Description 10/03/2023 10:45 AM CDT Appointment Department of Radiation Oncology in [address] [phone] Marlon Gambino M.D. [address] [place] [phone] Scheduled Orders Name Type Priority Associated Diagnoses Order Schedule Extubation Respiratory Care Routine Once for 1 Occurrences starting 09/20/2023 until 09/20/2023 Adult Oxygen Therapy Continuous (RT) Respiratory Care Routine respiratory use cgtm-[id number]-[id number] reminder at 8am and 8pm until discontinued starting 09/20/2023 Glucose, POCT Point of Care Testing-Docked Device Timed 0000, 0200, 0400, 0600, 0800, 1000, 1200, 1400, 1600, 1800, 2000, 2200 for 8 Hours starting 09/20/2023 until 09/20/2023 Glucose, POCT Point of Care Testing-Docked Device Timed As needed until discontinued starting 09/20/2023 documented as of this encounter Procedures Procedure Name Priority Date/Time Associated Diagnosis Comments GLUCOSE POCT, B Routine 09/20/2023 12:45 PM CDT BRACHYTHERAPY HDR Routine 09/20/2023 8:0 0 AM CDT Primary Malignant Neoplasm Of Prostate (HCC) documented in this encounter Results * (ABNORMAL) Glucose, POCT (09/20/2023 12:45 PM CDT) Glucose, POCT, B 152(H) 70 - 140 mg/dL 09/20/2023 12:47 PM CDT PCDE Site Capillary 09/20/2023 12:47 PM CDT PCDE Blood 09/20/2023 12:4 5 PM CDT 09/20/2023 12:48 PM CDT Unknown Provider LAB POCT ORDERABLES- MANUAL POC [facility] [address] [place] [address], [facility] PCDE [facility] POC [address] [place] [address] * Brachytherapy HDR (09/20/2023 8:00 AM CDT) Narrative [facility] - 09/20/2023 8:00 AM CDT Oscar Aranda [...] hydrogel was prepared as described in the can conveyor feeder's Instructions For Use. With the subject maintained [...] achieved. Oscar Aranda M.D. RADIATION ONCOLOGY O [facility] LOUANN jules documented in this encounter Visit Diagnoses Diagnosis Primary Malignant Neoplasm Of Prostate (HCC)- Primary documented in this encounter Care Teams Steam Oven Operator Relationship Specialty Start Date End Date Elsewhere, Pcp PCP - General Internal Medicine 09/18/23 documented as of this encounter
--- OUTSIDE RECORDS SUMMARY | 2023-09-27 12:36 | XMS_ITS | Encounter Summary ---
Author Name Unknown Organization [facility] Address [address] [place] [address] Care Team Providers Care Commanding Officer Homicide Squad Name Role Phone Unavailable Primary Care Provider Unavailabl e Reason for Referral * Outpatient (Routine) - Closed Specialty Diagnoses / Procedures Referred By Contac t Referred To Contact Diagnoses Primary Malignant Neoplasm Of Prostate (HCC) Procedures URO Uroflow Marlon Gambino M.D. [address] [place] [address] [facility] Referral ID Status Reason Start Date Expiration Date Visits Re quested Visits Authorized [id number] Closed 07/31/2023 07/30/2024 1 1 DE ACCOUNT REPRESENTATIVE * Outpatient (Routine) - Closed Specialty Diagnoses / Procedures Referred By Contac t Referred To Contact Radiation Oncology Diagnoses Primary Malignant Neoplasm Of Prostate (HCC) Marlon Gambino M.D. [address] [place] [address] [facility] Referral ID Status Reason Start Date Expiration Date Visits Re quested Visits Authorized [id number] Closed 07/31/2023 01/29/2025 1 1 DE ACCOUNT REPRESENTATIVE * Outpatient (Routine) - Closed Specialty Diagnoses / Procedures Referred By Contac t Referred To Contact Radiation Oncology Marlon Gambino M.D. [address] [place] [address] [facility] Region Referral ID Status Reason Start Date Expiration Date Visits Re quested Visits Authorized [id number] Closed 07/30/2023 01/28/2025 1 1 Scheduling Instructions 7:15 a.m. please DE ACCOUNT REPRESENTATIVE Reason for Visit * Outpatient (Routine) - Closed Specialty Diagnoses / Procedures Referred By Leni t Referred To Contact Radiation Oncology Marlon Gambino M.D. [address] [place] [address] [facility] Referral ID Status Reason Start Date Expiration Date Visits Re quested Visits Authorized [id number] Closed 07/30/2023 01/28/2025 1 1 Encounter Details Date Type Department Care Team (Latest Contact Info) Description 07/31/2023 7:13 AM INSIDE ACCOUNT REPRESENTATIVE - 07/31/2023 7:53 AM INSIDE ACCOUNT REPRESENTATIVE Hospital Encounter Department of Radiation Oncology in [place], [place] [address] [place] [phone] Marlon Gambino M.D. [address] [place] [phone] Primary Malignant Neoplasm Of Prostate (HCC) (Primary Dx) Social History Tobacco Use Types Packs/Day Years Used Date Smoking Tobacco: Never Smokeless Tobacco: Never Alcohol Use Standard Drinks/Week Comments Yes 0 (1 standard drink = 0.6 oz pur e alcohol) [facility] Utilities Answer Date Recorded In the past 12 months has [employer], gas, oil, or water [employer] threatened to shut off services in your [...] your living situation today? I have a [facility] place to live 07/19/2023 Sex and Gender Information Value Date Recorded Sex Assigned at Male 07/21/2023 9:10 AM INSIDE ACCOUNT REPRESENTATIVE Gender Identity Male 07/21/2023 9:10 AM INSIDE ACCOUNT REPRESENTATIVE Sexual Orientation Straight 07/21/2023 9: 10 AM INSIDE ACCOUNT REPRESENTATIVE documented as of this encounter Medications at Time of Discharge Medication Sig Dispensed Refills Start Date End Date amLODIPine (NORVASC) 5 mg tablet Take 5 mg by mouth daily. 03/02/2023 losartan-hydroCHLOROthi azide (HYZAAR) 50-12.5 mg per tablet Take 1 tablet by mouth daily. 90 tablet 3 12/05/2021 metFORMIN (GLUCOPHAGE) 500 mg tablet Take 1 tablet (500 mg total) by mouth 2 (two) times a day with meals. 180 tablet 3 12/05/2021 bicalutamide (CASODEX) 50 mg tablet Take 1 tablet (50 mg total) by mouth daily for 21 days. Take at the same time everyday. Take with or without food. 21 tablet 07/30/2023 09/19/2023 documented as of this encounter Progress Notes * Marlon Gambino M.D. - 07/31/2023 7:15 AM CST DIAGNOSIS 1. Primary Malignant Neoplasm Of Prostate (HCC) REASON FOR ENCOUNTER Telephone call. INTERVAL HISTORY Magdy Beck is a 72 y.o. male with the above diagnosis. Oncology History Overview Note HIGH-RISK clinical T2b (based on MRI) N0 M0 prostate adenocarcinoma, [place] 4+5 with 4/4 (100%) core biopsies positive, and a PSA of 7.38 ng/mL. STAR CAP: 10- year prostate cancer mortality risk after prostatectomy or radiotherapy [21.2%]. Primary Malignant Neoplasm Of Prostate (HCC) 03/19/2023 - 03/19/2023 Plan Screening PSA: 6.0 (02/25/2023) done locally. Urology Surgery (Dr. Alvaro MD; Dr. Sanya Mcleod MD): minimal urinary symptoms; no family history of prostate cancer. 05/06/2023 Critical Imaging PRE-BIOPSY PSA: 7.38 ng/mL MRI prostate two PI-RADS 4 lesions in peripheral zone: right posteromedial base/midgland (0.9 x 0.7x 0.6 cm; 0.28 cc) & posterior midline at junction of right/left base; PI-RADS 3 lesion (0.9 x 0.5 x 0.6 cm; 0.17 cc) in right posterolateral midgland; PI-RADS 3 in lesion right posterior base (2.3 x 1.3 x 0.6 cm; 1.18 cc); indeterminate right seminal vesicle invasion; no other abnormalities (likely benign L4 vertebral body lesion); 38.4 cc volume. 05/31/2023 Biopsy/Pathology Normal prostate examination (cT1c). MRI-fusion transperineal prostate biopsy revealed adenocarcinoma [place] 4+5 in right peripheral zone base - NIKKO#1 (2/2 cores; > 95%); 4+5 in midline peripheralzone - NIKKO#2 (2/2 cores; >90%; perineural invasion); 4+4 in right peripheral zone mid - NIKKO#3 (2/2 target cores; 80%; perineural invasion); 4+5 in right transition zone - NIKKO#4 (1/1 cores; 90%; perineural invasion); 40.6 cc volume. 05/31/2023 Clinical Stage Staging form: Prostate, AJCC 8th Edition - Clinical stage from 05/31/2023: Stage IIIC (cT2c, cN0, cM0, PSA: 7.4, Grade Group: 5). 06/24/2023 - 06/24/2023 Plan PSA 8.8 ng/mL PSMA PET scan showed intensely avid right prostate cancer; no vic or osseous metastases. 07/02/2023 - 07/02/2023 Plan Urology (Dr. John): offered prostatectomy. 07/22/2023 - 07/22/2023 Plan Radiation Oncology consultation - radiotherapy options (Dr. Fer MD). PSA: 10.5 (07/23/2023). Recommended definitive radiotherapy + 18-36 months of androgen deprivation therapy 07/23/2023 Other PSA 10.5 ng/mL. Testosterone total 290 ng/dL ASSESSMENT / PLAN #1 Stage IIIC (cT2c, cN0, cM0, PSA: 10.5, Grade Group: 5) adenocarcinoma of the prostate I called and spoke with the patient and his Marguerite. Dr. Monroe is no longer doing HDR brachytherapy, but Dr. Becerra has kindly agreed to perform this for the patient. His next available HDR implant date is September 25, 2023. The patient is eligible for enrollment in the [id number] trial which randomizes patients to intensification or de-intensification of their androgen deprivation therapy based on Decipher genomic testing. He is open to considering enrollment. We prescribed bicalutamide 50 mg daily for 21 days yesterday. His pharmacy does not have this in stock. He will let us know via the portal when he starts the medication. He will have a leuprolide 7.5 mg injection at [facility] sc heduled for him next week. We discussed the fact that the injection in oral medication should ideally be started together. We will arrange for our protocol coordinator to contact the patient for further discussion about enrollment in NRG- 009. I will contact the patient after this visit to finalize his plan of care. The patient's questions and those of his spouse were answered to their verbalized satisfaction. They were appreciative of the call. Signed by: Marlon Gambino M.D. 07/31/2023 7:50 AM INSIDE ACCOUNT REPRESENTATIVE DE ACCOUNT REPRESENTATIVE documented in this encounter Miscellaneous Notes * Addendum Note - Marlon Gambino M.D. - 07/31/2023 7:15 AM CSTEncounter addended by: Marlon Gambino M.D. on: 07/31/2023 8:36 AM Actions taken: Order list changed, Diagnosis association updated DE ACCOUNT REPRESENTATIVE * Addendum Note - Jackie Gallegos APRN C.N.P., D.N.P. - 07/31/2023 7:15 AM CSTEncounter addended by: Jackie Gallegos APRN C.N.P., D.N.P. on: 08/08/2023 8:11 AM Actions taken: Order list changed, Therapy plan modified DE ACCOUNT REPRESENTATIVE documented in this encounter Plan of Treatment Upcoming Encounters Date Type Department Care Team (Late st Contact Info) Description 10/03/2023 10:45 AM CDT Appointment Department of Radiation Oncology in [place], [place] [address] [place] [phone] Marlon Gambino M.D. [address] [place] [address] Scheduled Referrals Name Type Priority Associated Diagnoses Order Schedule Radiation Oncology office visit (clinic) Outpatient Referral Routine Once for 1 Occurrences starting 07/31/2023 until 07/31/2023 Radiation Oncology - consult (clinic) Outpatient Referral Routine Primary Malignant Neoplasm Of Prostate (HCC) Expected: 07/31/2023 (Approximate), Expires: 10/28/2024 documented as of this encounter Results * URO Uroflow (08/15/2023 2:00 PM CDT) [...] variant uroflow. Marlon Gambino M.D. UROLOGY ORDERABLES documented in this encounter Visit Diagnoses Diagnosis Primary Malignant Neoplasm Of Prostate (HCC)- Primary Feeling Of Incomplete Bladder Emptying- Primary Primary Malignant Neoplasm Of Prostate (HCC) documented in this encounter
--- OUTSIDE RECORDS SUMMARY | 2023-09-27 12:36 | XMS_ITS | Encounter Summary ---
Author Name Unknown Organization [facility] Address [address] [place] [address] Care Team Providers Care Tipping Machine Operator Name Role Phone Elsewhere, Pcp Primary Care Provider Unavailabl e Reason for Referral * Outpatient (Routine) - Authorized Specialty Diagnoses / Procedures Referred By Lnei lopez Referred To Contact Radiation Oncology Oscar Aranda M.D. [address] [place] [address] [facility] Referral ID Status Reason Start Date Expiration Date V isits Requested Visits Authorized [id number] Authorized 09/20/2023 03/21/2025 1 1 Encounter Details Date Type Department Care Team (Late st Contact Info) Description 09/20/2023 Orders Only Department of Radiation Oncology in [place], [place] [address] [place] [phone] Rachael Waite, RYisselN. Social History Tobacco Use Types Packs/Day Years Used Date Smoking Tobacco: Never Smokeless Tobacco: Never Alcohol Use Standard Drinks/Week Comments Yes 3 (1 standard drink = 0.6 oz pur e alcohol) [facility] Utilities Answer Date Recorded In the past [...] your living situation today? I have a [facility] place to live 07/19/2023 Sex and Gender Information Value Date Recorded Sex Assigned at Male 07/21/2023 9:10 AM ACCREDITATION COORDINATOR Gender Identity Male 07/21/2023 9:10 AM ACCREDITATION COORDINATOR Sexual Orientation Straight 07/21/2023 9: 10 AM ACCREDITATION COORDINATOR documented as of this encounter Plan of Treatment Upcoming Encounters Date Type Department Care Team (Late st Contact Info) Description 10/03/2023 10:45 AM CDT Appointment Department of Radiation Oncology in [place], [place] [address] [place] [address] Marlon Gambino M.D. [address] [place] [address] Scheduled Referrals Name Type Priority Associated Diagnoses Orde r Schedule Radiation Oncology nurse visit (clinic) Outpatient Referral Routine Expected: 09/20/2023, Expires: 12/19/2024 documented as of this encounter Visit Diagnoses Not on filedocumented in this encounter Care Teams Tipping Machine Operator Relationship Specialty Start Date End Date Elsewhere, Pcp PCP - General Internal Medicine 09/18/23 documented as of this encounter
--- OUTSIDE RECORDS SUMMARY | 2023-09-27 12:36 | XMS_ITS | Encounter Summary ---
Author Name Unknown Organization [facility] Address [address] [place] [phone] Care Team Providers Care Drafting Technician Name Role Phone Unavailable Primary Care Provider Unavailabl e Reason for Referral * Outpatient (Routine) - Closed Specialty Diagnoses / Procedures Referred By Leni lopez Referred To Contact Radiation Oncology Mralon Gambino M.D. [address] [place] [phone] [facility] Referral ID Status Reason Start Date Expiration Date Visits Re quested Visits Authorized [id number] Closed 07/30/2023 01/28/2025 1 1 Scheduling Instructions 7:15 a.m. please OTICS AND/OR VICE DETECTIVE Encounter Details Date Type Department Care Team (Late st Contact Info) Description 07/30/2023 Orders Only Department of Radiation Oncology in [place], [place] [address] [place] [phone] Marlon Gambino M.D. [address] [place] [phone] Social History Tobacco Use Types Packs/Day Years Used Date Smoking Tobacco: Never Smokeless Tobacco: Never Alcohol Use Standard Drinks/Week Comments Yes 0 (1 standard drink = 0.6 oz pur e alcohol) [facility] Utilities Answer Date Recorded In the past 12 months has e electric, gas, oil, or water company [...] your living situation today? I have a [facility] place to live 07/19/2023 Sex and Gender Information Value Date Recorded Sex Assigned at Male 07/21/2023 9:10 AM NARCOTICS AND/OR VICE DETECTIVE Gender Identity Male 07/21/2023 9:10 AM NARCOTICS AND/OR VICE DETECTIVE Sexual Orientation Straight 07/21/2023 9: 10 AM NARCOTICS AND/OR VICE DETECTIVE documented as of this encounter Plan of Treatment Upcoming Encounters Date Type Department Care Team (Late st Contact Info) Description 10/03/2023 10:45 AM CDT Appointment Department of Radiation Oncology in [place], [place] [address] [place] [phone] Marlon Gambino M.D. [address] [place] [address] Scheduled Referrals Name Type Priority Associated Diagnoses Orde r Schedule Radiation Oncology office visit (clinic) Outpatient Referral Routine Expected: 07/31/2023 (Approximate), Expires: 07/30/2024 documented as of this encounter Visit Diagnoses Not on filedocumented in this encounter
--- OUTSIDE RECORDS SUMMARY | 2023-09-27 12:36 | XMS_ITS | Encounter Summary ---
Author Name Unknown Organization [facility] Address [address] [place] [id number] Care Team Providers Care Tool Chaser Name Role Phone Unavailable Primary Care Provider Unavailabl e Reason for Referral * Outpatient (Routine) - Closed Specialty Diagnoses / Procedures Referred By Contac t Referred To Contact Radiation Oncology Harris Ryan APRN C.N.PYissel, D.N.P. [address] [place] [phone] Oscar Aranda M.D. [address] [place] [phone] Referral ID Status Reason Start Date Expiration Date Visits Re quested Visits Authorized [id number] Closed 08/15/2023 02/13/2025 1 1 Scheduling Instructions After tests, afternoon typically. * Outpatient (Routine) - Closed Specialty Diagnoses / Procedures Referred By Contac t Referred To Contact Anesthesiology Diagnoses Primary Malignant Neoplasm Of Prostate (HCC) Harris Ryan APRN, C.N.P., D.N.P. [address] [place] [phone] [facility] Referral ID Status Reason Start Date Expiration Date Visits Re quested Visits Authorized [id number] Closed 08/15/2023 02/13/2025 1 1 * Outpatient (Routine) - Closed Specialty Diagnoses / Procedures Referred By Contac t Referred To Contact Diagnoses Primary Malignant Neoplasm Of Prostate (HCC) Procedures US Prostate Interstitial Radioelement Oscar Aranda M.D. [address] [place] [phone] [facility] Referral ID Status Reason Start Date Expiration Date Visits Re quested Visits Authorized [id number] Closed 08/15/2023 08/14/2024 1 1 * Radiation Therapy (Routine) - Closed Specialty Diagnoses / Procedures Referred By Contac t Referred To Contact Diagnoses Primary Malignant Neoplasm Of Prostate (HCC) Procedures Brachytherapy HDR Oscar Aranda M.D. [address] [place] [phone] [facility] Referral ID Status Reason Start Date Expiration Date Visits Re quested Visits Authorized [id number] Closed 08/15/2023 08/14/2024 1 1 * Outpatient (Routine) - Closed Specialty Diagnoses / Procedures Referred By Contac t Referred To Contact Radiation Oncology Diagnoses Primary Malignant Neoplasm Of Prostate (HCC) Marlon Gambino M.D. [address] [place] [phone] [facility] Referral ID Status Reason Start Date Expiration Date Visits Re quested Visits Authorized [id number] Closed 07/31/2023 01/29/2025 1 1 Reason for Visit * Outpatient (Routine) - Closed Specialty Diagnoses / Procedures Referred By Contac t Referred To Contact Radiation Oncology Diagnoses Primary Malignant Neoplasm Of Prostate (HCC) Marlon Gambino M.D. [address] [place] [phone] [facility] Referral ID Status Reason Start Date Expiration Date Visits Re quested Visits Authorized [id number] Closed 07/31/2023 01/29/2025 1 1 Encounter Details Date Type Department Care Team (Latest Contact Info) Description 08/15/2023 2:06 PM CDT - 08/15/2023 4:49 PM CDT Hospital Encounter Department of Radiation Oncology in [place], [place] [address] [place] [phone] Oscar Aranda M.D. [address] [place] [phone] Primary Malignant Neoplasm Of Prostate (HCC) (Primary Dx); Encounter For Other Specified Prophylactic Measures Social History Tobacco Use Types Packs/Day Years Used Date Smoking Tobacco: Never Smokeless Tobacco: Never Alcohol Use Standard Drinks/Week Comments Yes 0 (1 standard drink = 0.6 oz pur e alcohol) [facility] Utilities Answer Date Recorded In the past 12 months has [employer], gas, oil, or water [employer] threatened to shut off services in your [...] your living situation today? I have a [facility] place to live 07/19/2023 Sex and Gender Information Value Date Recorded Sex Assigned at Male 07/21/2023 9:10 AM CAN CONVEYOR FEEDER Gender Identity Male 07/21/2023 9:10 AM CAN CONVEYOR FEEDER Sexual Orientation Straight 07/21/2023 9: 10 AM CAN CONVEYOR FEEDER documented as of this encounter Last Filed Vital Signs Vital Sign Reading Time Taken Comments Blood Pressure - - Pulse - - Temperature - - Respiratory Rate - - Oxygen Saturation - - Inhaled Oxygen Concentration - - Weight 118 kg (260 lb 2.3 oz) 08/15/2023 3:35 PM CDT Height - - Body Mass Index 33.74 09/18/2022 8:00 AM CDT documented in this encounter Medications at Time of Discharge [...] 07/30/2023 09/19/2023 documented as of this encounter Consult Notes * Harris Ryan APRN, C.N.P., D.N.P. - 08/15/2023 3:30 PM CDT SUBJECTIVE REQUESTING PROVIDER Marlon Gambino M.D. REASON FOR CONSULT Magdy Heartarthur is a 72 y.o. male from [place], [place], presenting for consultation regarding the role of radiation therapy for the followin. Primary Malignant Neoplasm Of Prostate (HCC) HISTORY OF PRESENT ILLNESS In brief, Magdy Beck is a 72 y.o. with high-risk, stage IIIC (cT2c, cN0, cM0, PSA: 10.5, Grade Group: 5) adenocarcinoma of the prostate. We are consulting with him today regarding an HDR brachytherapy boostto the prostate, prior to external beam radiation to the prostate/nodes in [place]. The remainder of oncology history is as follows: Oncology History Overview Note HIGH-RISK clinical T2b (based on MRI) N0 M0 prostate adenocarcinoma, Hudson 4+5 with 4/4 (100%) core biopsies positive, [...] (cT1c). MRI-fusion transperineal prostate biopsy revealed adenocarcinoma Jason 4+5 in right peripheral zone base - [...] consultation - radiotherapy options (Dr. Fer MD). Recommended definitive radiotherapy + 18-36 months of androgen deprivation therapy 07/23/2023 Other PSA 10.5 ng/mL. Testosterone total 290 ng/dL 07/2023 - Biological/Targeted/Hormone Therapy 08/01/2023: started 50 mg bicalutamide for 21 days 08/07/2023: 7.5 mg leuprolide injection 08/29/2023 Surgery and Procedures Prostate fiducial marker and spacer placement 09/12/2023 - Radiation Therapy Radiation Therapy Treatment Details (Noted on 08/02/2023) Site: Prostate Technique: No technique specified Goal: Curative Planned Treatment Start Date: 09/12/2023 Past Medical History: Diagnosis Date Diabetes Mellitus Type 2 (HCC) Hypertension NOS Primary Malignant Neoplasm Of Prostate (HCC) Stenosis Renal Artery (HCC) Past Surgical History: Procedure Laterality Date DUPUYTREN CONTRACTURE RELEASE HERNIA REPAIR Right 1974 RADIATION SCREENING QUESTIONS: PRIOR RADIATION THERAPY: None ELECTRONIC MEDICAL DEVICES: None ANTICOAGULATION: None Gastrointestinal Pathology: None REVIEW OF SYSTEMS Constitutional: - Negative for fatigue. Genitourinary: - Negative for incontinence, difficulty urinating, pain with urination, blood in urine, urgency andfrequent urination. I-PSS I-PSS Urinary Symptoms Score: 7/35 I-PSS Quality of Life Score: 2 OBJECTIVE Vitals: 08/15/23 1535 Weight: 118 kg Pain: None ECO PHYSICAL EXAM Vitals reviewed. Constitutional Appearance: Normal appearance. Pulmonary Effort: Pulmonary effort is normal. Neurological Mental Status: He is alert and oriented to person, place, and time. ASSESSMENT / PLAN 1. Primary Malignant Neoplasm Of Prostate (HCC) In brief, Magdy Beck is a 72yo with high-risk, stage IIIC (cT2c, cN0, cM0, PSA: 10.5, Grade Group: 5) adenocarcinoma of the prostate. We are consulting with him today regarding an HDR brachytherapy boost to the prostate, prior to external beam radiation to the prostate/nodes in [place]. I discussed his case with Dr. Oscar Aranda, supervising physician. He could be a candidate for NR GU009, de-escalation of androgen suppression with genomic testing. We would also offer him a single-fraction HDR brachytherapy boost prior to external radiation to the prostate and nodes. We met with the patient today. We discussed the diagnosis, the indications for radiation, and the risks and benefits of radiation. We discussed the nature of prostate cancer, the risk categories, and the rationalefor treatment. We discussed his biopsy results, his risk category, and the particular treatments recommended for him. We discussed brachytherapy with high-dose rate (HDR) and the rationale and benefits of adding that to a comprehensive definitive radiation course with external radiation, for his high-risk disease. We also discussed side effects of radiation therapy, including but not limited to, in the short-term (urinary irritation, bowel irritation, and fatigue) and long-term (risk of erectile dysfunction and changes in urinary patterns). We answered all his questions regarding this. He cons ented to proceed with the radiation plan outlined above. Recommendation/Plan: Single-fraction HDR brachytherapy - 1500cGy Follow-up with [facility] Rad Onc [place] - external beam radiation to prostate and pelvic nodes to follow brachytherapy ADMINISTRATIVE/BILLING I personally spent 80 minutes in care of the patient today. Time includes both non face to face andface to face patient care. Associated attestation - Oscar Aranda M.D. - 08/26/2023 11:11 AM CDT I was the supervising physician in the delivery of the service and agree with the documentation provided by Harris Ryan APRN, C.N.P., D.N.P.. I reviewed the risk classification system for prostate cancer and explained that based due to jason score he has what is considered a high risk prostate cancer. He has been referred to us by our colleagues to discuss brachytherapy boost. I explained the retrospective review that external beam radiation plus brachytherapy boost plus ADT resulted in the highest rates of prostate cancer specific survival, lowest rates of distant metastasis and was associated with improved overall survival for patients with very high risk prostate cancer. Based on these findings, radiation therapy plus brachytherapy boost plus ADT is my recommendation for patients who are candidates for brachytherapy. I do feel he would be an acceptable candidate for brachytherapy. My recommendation would be to start ADT and proceed with uroflow testing, PSA, and HDR followed shortly by 5 weeks of external beam radiation. I also explained the importance of ADT for 12-18 months in combination with brachytherapy. I explained the expected side effects in detail and described the management options for them. After full discussion of the risks and benefits, as well as logistics, he would like to proceed. Cody plan to proceed with brachytherapy on September 19. All questions answered he is encouraged to call with any further concerns. documented in this encounter Plan of Treatment Upcoming Encounters Date Type Department Care Team (Late st Contact Info) Description 10/03/2023 10:45 AM CDT Appointment Department of Radiation Oncology in [place], [place] [address] [place] [address] Marlon Gambino M.D. [address] [place] [address] Scheduled Referrals Name Type Priority Associated Diagnoses Order Schedule Radiation Oncology - consult (clinic) Outpatient Referral Routine Primary Malignant Neoplasm Of Prostate (HCC) Once for 1 Occurrences starting 08/15/2023 until 08/15/2023 Preoperative Evaluation ANEL consult (clinic) Outpatient Referral Routine Primary Malignant Neoplasm Of Prostate (HCC) Expected: 09/19/2023, Expires: 11/14/2024 Radiation Oncology office visit (clinic) Outpatient Referral Routine Expected: 09/19/2023, Expires: 11/14/2024 documented as of this encounter Results * US Prostate Interstitial Radioelement (09/20/2023 8:58 [...] Oscar Aranda M.D. IMG US PROCEDURES * Brachytherapy HDR (09/20/2023 8:00 AM CDT) Narrative [facility] - 09/20/2023 8:00 AM CDT Oscar Aranda M.D. ? 09/20/2023 11:34 AM Brachytherapy HDR Performed by: Oscar Aranda M.D. Authorized by: Oscar Aranda M.D. ?? Care team members present 1. Regina Cedeño M.B.BYisselSYissel PROCEDURE DETAILS Brachytherapy: ??Prostate brachytherapy Type: high [...] hydrogel was prepared as described in the laceworker's Instructions For Use. With the subject maintained [...] RADIATION ONCOLOGY O RDERABLES Performing Organization Address City/[facility]/ZIP Co de Phone Number LOUANN jules * Urinalysis, with Microscopic: Urine, Midstream (09/19/2023 [...] L AB URINE ORDERABLES Performing Organization Address [facility] Co de Phone Number [facility] [address] [place] [address], [facility] DTL [facility] [address] [place] [address] * Bacterial Culture, Aerobic + Susceptibility, Urine (09/19/2023 10:54 AM CDT) Urine Culture No growth after 1 day of incubation. 09/20/2023 8:11 AM CDT DTL Urine (Urine, Midstream) 09/19/2023 10:54 AM CDT 09/19/2023 1:41 PM CDT Comment:Specimen Source Site : Urine Krish Morse APRN.N.P., D.N.PYissel L AB MICROBIOLOGY - GENERAL ORDERABLES [facility] [address] [place] [address], [facility] [address] [place] [address] documented in this encounter Visit Diagnoses Diagnosis Primary Malignant Neoplasm Of Prostate (HCC)- Primary Encounter For Other Specified Prophylactic Measures Primary Malignant Neoplasm Of Prostate (HCC) Primary Malignant Neoplasm Of Prostate (HCC)- Primary documented in this encounter
--- OUTSIDE RECORDS SUMMARY | 2023-09-27 12:36 | XMS_ITS | Encounter Summary ---
Author Name Unknown Organization [facility] Address [address] [place] [address] Care Team Providers Care Pole Shaver Name Role Phone Unavailable Primary Care Provider Unavailabl e Reason for Visit * Appointment Request (Routine) - Closed Specialty Diagnoses / Procedures Referred By Leni lopez Referred To Contact Nephrology and Hypertension Referral ID Status Reason Start Date Expiration Date Visits Re quested Visits Authorized [id number] Closed 08/01/2023 07/31/2024 1 1 Encounter Details Date Type Department Care Team (Latest Contact Info) Description 09/02/2023 2:00 PM CDT External Outreach Division of Nephrology and Hypertension in [place], [place] [address] [place] [phone] Jose Pinon Jr., D.O. [address] [place] [address] Hypertension And Chronic Kidney Disease Stage 1 (Primary Dx); Primary Malignant Neoplasm Of Prostate (HCC); Atherosclerosis Renal Artery (HCC); Diabetes Mellitus Type 2 (HCC); Gout Social History Tobacco Use Types Packs/Day Years Used Date Smoking Tobacco: Never Smokeless Tobacco: Never Alcohol Use Standard Drinks/Week Comments Yes 0 (1 standard drink = 0.6 oz pur e alcohol) [facility] Utilities Answer Date Recorded In the [...] your living situation today? I have a [facility] place to live 07/19/2023 Sex and Gender Information Value Date Recorded Sex Assigned at Male 07/21/2023 9:10 AM WELL LOGGING MUD ANALYSIS CAPTAIN Gender Identity Male 07/21/2023 9:10 AM WELL LOGGING MUD ANALYSIS CAPTAIN Sexual Orientation Straight 07/21/2023 9: 10 AM WELL LOGGING MUD ANALYSIS CAPTAIN documented as of this encounter Last Filed Vital Signs Vital Sign Reading Time Taken Comments Blood Pressure 140/70 09/02/2023 2:05 PM CDT Pulse 65 09/02/2023 2:05 PM CDT Temperature - - Respiratory Rate - - Oxygen Saturation - - Inhaled Oxygen Concentration - - Weight 115 kg (253 lb 8.5 oz) 09/02/2023 2:05 PM CDT Height 187 cm (6' 1.62) 09/02/2023 2:05 PM CDT Body Mass Index 32.89 09/02/2023 2:05 PM CDT documented in this encounter Progress Notes * Jose Pinon Jr., D.O. - 09/02/2023 2:00 PM CDT Referring Provider DR Kaylee Marin SUBJECTIVE REASON FOR VISIT [facility] Follow-up regards renal artery disease hypertension CKD stage 1 HISTORY OF PRESENT ILLNESS Mr. Beck is a 72 y.o. male who presents with previous episode of acute kidney injury with a serum creatinine increasing from 1-1.4 mg/dL following initiation of an FIOR inhibitor. He then underwent a series of evaluations regarding his renal arteries, was found to have noncritical right renal artery stenosis. He is done quite well on a combination ARB diuretic regimen along with amlodipine. Hehas had no episodes of flash pulmonary edema, his blood pressure at home has been in the 130s over 70s without orthostatic issues, no lower extremity swelling. Creatinine has remain gratifyingly stable at 0.7 mg/dL, previously no proteinuria he does have slightly increased microalbumin to creatinine ratio 50 milligrams/gram. Feels well in all respects. Unfortunately was diagnosed with prostate carcinoma in March of 2023, he is working through his options and we will be pursuing hormone deprivation therapy as well as radiation therapy. This is underway. He has had no hypoglycemic events his hemoglobin A1c is excellent at 7.4%. He was unable to afford the GLP 1 agonist. Past Medical History: Diagnosis Date Diabetes Mellitus Type 2 (HCC) Hypertension NOS Primary Malignant Neoplasm Of Prostate (HCC) Stenosis Renal Artery (HCC) Current Outpatient Medications: amLODIPine (NORVASC) 5 mg tablet, Take 5 mg by mouth daily., Disp: , Rfl: atorvastatin (LIPITOR) 20 mg tablet, Take 1 tablet (20 mg total) by mouth daily., Disp: 90 tablet, Rfl: 3 bicalutamide (CASODEX) 50 mg tablet, Take 1 tablet (50 mg total) by mouth daily for 21 days. Take at the same time everyday. Take with or without food., Disp: 21 tablet, Rfl: 0 losartan-hydroCHLOROthiazide (HYZAAR) 50-12.5 mg per tablet, Take 1 tablet by mouth daily., Disp: 90 tablet, Rfl: 3 metFORMIN (GLUCOPHAGE) 500 mg tablet, Take 1 tablet (500 mg total) by mouth 2 (two) times a day with meals., Disp: 180 tablet, Rfl: 3 REVIEW OF SYSTEMS All other systems reviewed and are negative. OBJECTIVE BP 140/70 Pulse 65 Ht 187 cm Wt 115 kg BMI 32.89 kg/m?? PHYSICAL EXAMINATION General: Awake alert oriented [...] lesions identified Psychiatric: Normal affect DIAGNOSTICS Note normal serum creatinine 0.8 mg/dL, microalbumin to creatinine ratio 50 milligrams/gram, hemoglobin A1c 7.5% normal chemistries normal CBC ASSESSMENT / PLAN #1 Hypertension And Chronic Kidney Disease Stage 1 Appreciate excellent blood pressure control with macrovascular renal artery disease on a reasonableregimen of 3 agents. Going forward: 1. We will return to clinic in 1 year 2. Continue on the combination ARB diuretic and amlodipine regimen 3. Stay well hydrated 4. 2000 mg sodium or less per day 5. Avoid NSAIDs and Light 2 inhibitors 6. Return to clinic sooner should he suffer flash pulmonary edema, accelerating blood pressure or note his creatinine increasing. #2 Primary Malignant Neoplasm Of Prostate (HCC) He is right now getting orchestrate for external beam and Internal seed placement, and on hormone deprivation therapy for his prostate carcinoma. He has been found to have Jason score of 9, hence with high risk features. #3 Atherosclerosis Renal Artery (HCC) We will continue on statin agents, which are lowering his LDL to substantial degree, and we will continue on a heart healthy low-cholesterol diet and antihypertensive therapy. #4 Diabetes Mellitus Type 2 (HCC) Excellent glycemic control on oral hypoglycemic agents. Again, optimally, he could be on a G LP 1 agonist, but this is unaffordable currently. #5 Gout No flares Total time: 35 minutes Counseling Time: 20 minutes Jose Pinon Jr., D.O. documented in this encounter Plan of Treatment Upcoming Encounters Date Type Department Care Team (Late st Contact Info) Description 10/03/2023 10:45 AM CDT Appointment Department of Radiation Oncology in [address] [phone] [place] [address] documented as of this encounter Visit Diagnoses Diagnosis Hypertension And Chronic Kidney Disease Stage 1- Primary Primary Malignant Neoplasm Of Prostate (HCC) Atherosclerosis Renal Artery (HCC) Diabetes Mellitus Type 2 (HCC) Gout documented in this encounter
--- OUTSIDE RECORDS SUMMARY | 2023-09-27 12:36 | XMS_ITS | Encounter Summary ---
Author Name Unknown Organization [facility] Address [address] [place] [address] Care Team Providers Care Construction Technology Instructor Name Role Phone Elsewhere, Pcp Primary Care Provider Unavailabl e Encounter Details Date Type Department Care Team (Latest Contact Info) Description 09/20/2023 5:46 AM CDT - 09/20/2023 3:15 PM CDT Hospital Encounter Outpatient Surgery Unit in [place], [place] [address] [place] [address] Oscar Aranda M.D. [address] [place] [address] Discharge Disposition: Home or Self Care Social History Tobacco Use Types Packs/Day Years Used Date Smoking Tobacco: Never Smokeless Tobacco: Never Alcohol Use Standard Drinks/Week Comments Yes 3 (1 standard drink = 0.6 oz pur e alcohol) [facility] Utilities Answer Date Recorded In the past 12 months has [facility] [employer], [employer], oil, or water [employer] threatened to shut off services in your [...] your living situation today? I have a [facility] place to live 07/19/2023 Sex and Gender Information Value Date Recorded Sex Assigned at Male 07/21/2023 9:10 AM SHEET METAL TECHNICIAN Gender Identity Male 07/21/2023 9:10 AM SHEET METAL TECHNICIAN Sexual Orientation Straight 07/21/2023 9: 10 AM SHEET METAL TECHNICIAN documented as of this encounter Last Filed Vital Signs Vital Sign Reading Time Taken Comments Blood Pressure 147/65 09/20/2023 2:05 PM CDT Pulse 51 09/20/2023 2:05 PM CDT Temperature 36.4 ??C (97.5 ??F) 09/20/2023 1:28 PM CD T Respiratory Rate 18 09/20/2023 1:28 PM CDT Oxygen Saturation 95% 09/20/2023 1:28 PM CDT Inhaled Oxygen Concentration - - Weight 112 kg (247 lb 12.8 oz) 09/20/2023 6:40 A M CDT Height 181 cm (5' 11.26) 09/20/2023 6:40 AM CDT Body Mass Index 34.31 09/20/2023 6:40 AM CDT documented in this encounter Discharge Summaries * Oscar Aranda M.D. - 09/20/2023 11:40 AM CDT DISCHARGE SUMMARY BRIEF OVERVIEW Hospital: [facility] Discharge Provider: Oscar Aranda M.D. Admission Date: 09/20/2023 Discharge Date: 09/20/2023 PRINCIPAL DIAGNOSIS Primary Malignant Neoplasm Of Prostate (HCC) SECONDARY DIAGNOSES Principal Problem: Primary Malignant Neoplasm Of Prostate (HCC) Resolved Problems: * No resolved hospital problems. * DISCHARGE DISPOSITION Home or Self Care [1] ACTIVE ISSUES REQUIRING FOLLOW UP None OUTPATIENT FOLLOW UP Scheduled Appointments 09/27/2023 11:00 AM Marlon Gambino M.D. Radiation Oncology 09/27/2023 11:30 AM Marlon Gambino M.D.; CT SIM [facility]RT [facility] Radiation Oncology For appointment details refer to your Patient Appointment Guide. TEST RESULTS PENDING AT DISCHARGE Pending Labs None DETAILS OF HOSPITAL STAY REASON FOR ADMISSION HOSPITAL COURSE The patient was admitted to station 5-3 and underwent fleet enema x2. He was transported to the radiation oncology brachytherapy suite and underwent general anesthesia. Ultrasound guided Prostate HDRbrachytherapy was then completed with placement of 16 needles placed transperineally via template. A plan was developed, quality worker conducted, and treatment delivered. Once complete, all needles were removed and the patient was transported to the post anesthesia care unit and subsequently tostation 5-3. Urinary catheter was backfilled and removed, and once the patient was able to void successfully, he was discharged home. CONSULTS ORDERED DURING THIS ADMISSION None CONDITION AT DISCHARGE stable Discharge instructions were provided to the patient and caregiver(s). Total time spent in discharge services today: 15 minutes. documented in this encounter Discharge Instructions * Discharge Instr - Activity* Oscar Aranda M.D. - 09/20/2023 11:38 AM CDT Resume regular activity as tolerated. * Discharge Instr - Diet* Oscar Aranda M.D. - 09/20/2023 11:38 AM CDT Resume a regular diet as tolerated. documented in this encounter Medications at Time of Discharge Medication Sig Dispensed Refills Start Date End Date amLODIPine (NORVASC) 5 mg tablet Take 5 mg by mouth daily. 03/02/2023 ciprofloxacin (Cipro) 500 mg tablet Take 1 tablet (500 mg total) by mouth 2 (two) times a day. 6 tablet 09/19/2023 losartan-hydroCHLOROthia zide (HYZAAR) 50-12.5 mg per tablet Take 1 tablet by mouth daily. 90 tablet 3 12/05/2021 metFORMIN (GLUCOPHAGE) 500 mg tablet Take 1 tablet (500 mg total) by mouth 2 (two) times a day with meals. 180 tablet 3 12/05/2021 tamsulosin (FLOMAX) 0.4 mg 24 hr capsule Take 1 capsule (0.4 mg total) by mouth daily. 30 capsule 09/19/2023 documented as of this encounter Plan of Treatment Upcoming Encounters Date Type Department Care Team (Late st Contact Info) Description 10/03/2023 10:45 AM CDT Appointment Department of Radiation Oncology in [address] [address] Marlon Gambino M.D. [address] [place] [phone] documented as of this encounter Procedures Procedure Name Priority Date/Time Associated Diagnosis Comments GLUCOSE POCT, B Routine 09/20/2023 6:46 AM CDT documented in this encounter Results * (ABNORMAL) Glucose, POCT (09/20/2023 6:46 AM CDT) Glucose, POCT, B 190(H) 70 - 140 mg/dL 09/20/2023 6:47 AM CDT PCDE Site Capillary 09/20/2023 6:47 AM CDT PCDE Blood 09/20/2023 6:46 AM CDT 09/20/2023 6:47 AM CDT Unknown Provider LAB POCT ORDERABLES- MANUAL POC [facility] [address] [place], [place] [address] PCDE [facility] [address] [place] [address] documented in this encounter Visit Diagnoses Diagnosis Primary Malignant Neoplasm Of Prostate (HCC)- Primary documented in this encounter Administered Medications Inactive Administered Medications - up to 3 most recent administrations Medication Order MAR Action Action Date Dose Rate Site dexAMETHasone injection 4 mg (DECADRON) 4 mg, intravenous, Once as needed, nausea, vomiting, Starting on Sat09/20/23 at 1319, For 1 dose, Give only if NOT given during the pre or intraoperative period. If ondansetron ordered, give dexamethasone with first dose of ondansetron. haloperidol lactate injection 1 mg (HALDOL) 1 mg, intravenous, Every 6 hours PRN, nausea, vomiting, Starting on Sat09/20/23 at 1319, For 48 hours, Total of 3 doses in 24 hour period. RASS must be -2 or higher to administer. Reassess for nausea or vomiting after at least 10 minutes. If nausea or vomiting persists administer next ordered antiemetic medications (order for antiemetic medication administration ondansetron then haloperidol then prochlorperazine) naloxone injection 0.2 mg (NARCAN) 0.2 mg, intravenous, As needed, respiratory depression, Starting on Sat09/20/23 at 1319, For RASS Score -4 or less, respiratory rate of less than 8 breaths/min. Notify provider/service and rapid response team (if available at institution). ondansetron (PF) injection 4 mg (ZOFRAN) 4 mg, intravenous, Every 6 hours PRN, nausea, vomiting, Starting on Sat09/20/23 at 1319, For 48 hours, Reassess for nausea or vomiting after at least 10 minutes. If nausea or vomiting persists administer next ordered antiemetic medications (order for antiemetic medication administration ondansetron then haloperidol then prochlorperazine). prochlorperazine injection 5 mg (COMPAZINE) 5 mg, intravenous, Every 6 hours PRN, nausea, vomiting, Starting on Sat09/20/23 at 1319, For 48 hours, RASS must be -2 or higher to administer. Reassess for nausea/vomiting after at least 10 minutes. If nausea or vomiting persists administer next ordered antiemetic medications (order for antiemetic medication administration ondansetron then haloperidol then prochlorperazine) sodium chloride 0.9 % injection 10 mL 10 mL, intravenous, As needed, line care, Starting on Sat09/20/23 at 0556, Pre-Op, Peripheral Intravenous Catheter and Rapid Infusion Catheter, prior to blood sampling, post blood transfusion or post blood sampling sodium chloride 0.9 % injection 3 mL 3 mL, intravenous, As needed, line care, Starting on Sat09/20/23 at 0556, Pre-Op, Prior to and following infusion and between multiple consecutive infusions: sodium chloride 0.9 % injection sodium chloride 0.9 % injection 3 mL 3 mL, intravenous, Every 12 hours scheduled, First dose on Sat09/20/23 at 0900, Pre-Op, Peripheral Intravenous Catheter and Rapid Infusion Catheter, when no infusion to maintain patency sodium phosphates enema 2 enema (FLEET) 2 enema, rectal, Once, On Sat09/20/23 at 0615, For 1 dose, Pre-Op Given 09/20/2023 6:39 AM CDT 2 enemas documented in this encounter Active and Recently Administered Medications Times are shown in CDT. Scheduled Medication Order 09/18/2023 09/19/2023 09/20/2023 sodium chloride 0.9 % injection 3 mL 3 mL, intravenous, Every 12 hours scheduled, First dose on Sat09/20/23 at 0900, Pre-Op, Peripheral Intravenous Catheter and Rapid Infusion Catheter, when no infusion to maintain patency 0900 (Due) sodium phosphates enema 2 enema (FLEET) (COMPLETED) 2 enema, rectal, Once, On Sat09/20/23 at 0615, For 1 dose, Pre-Op 0639 (Given - Provid er: Ritu Cartwright R.N.) PRN Medication Order 09/18/2023 09/19/2023 09/20/2023 dexAMETHasone injection 4 mg (DECADRON) 4 mg, intravenous, Once as needed, nausea, vomiting, Starting on Sat09/20/23 at 1319, For 1 dose, Give only if NOT given during the pre or intraoperative period. If ondansetron ordered, give dexamethasone with first dose of ondansetron. haloperidol lactate injection 1 mg (HALDOL) 1 mg, intravenous, Every 6 hours PRN, nausea, vomiting, Starting on Sat09/20/23 at 1319, For 48 hours, Total of 3 doses in 24 hour period. RASS must be -2 or higher to administer. Reassess for nausea or vomiting after at least 10 minutes. If nausea or vomiting persists administer next ordered antiemetic medications (order for antiemetic medication administration ondansetron then haloperidol then prochlorperazine) naloxone injection 0.2 mg (NARCAN) 0.2 mg, intravenous, As needed, respiratory depression, Starting on Sat09/20/23 at 1319, For RASS Score -4 or less, respiratory rate of less than 8 breaths/min. Notify provider/service and rapid response team (if available at institution). ondansetron (PF) injection 4 mg (ZOFRAN) 4 mg, intravenous, Every 6 hours PRN, nausea, vomiting, Starting on Sat09/20/23 at 1319, For 48 hours, Reassess for nausea or vomiting after at least 10 minutes. If nausea or vomiting persists administer next ordered antiemetic medications (order for antiemetic medication administration ondansetron then haloperidol then prochlorperazine). prochlorperazine injection 5 mg (COMPAZINE) 5 mg, intravenous, Every 6 hours PRN, nausea, vomiting, Starting on Sat09/20/23 at 1319, For 48 hours, RASS must be -2 or higher to administer. Reassess for nausea/vomiting after at least 10 minutes. If nausea or vomiting persists administer next ordered antiemetic medications (order for antiemetic medication administration ondansetron then haloperidol then prochlorperazine) sodium chloride 0.9 % injection 10 mL 10 mL, intravenous, As needed, line care, Starting on Sat09/20/23 at 0556, Pre-Op, Peripheral Intravenous Catheter and Rapid Infusion Catheter, prior to blood sampling, post blood transfusion or post blood sampling sodium chloride 0.9 % injection 3 mL 3 mL, intravenous, As needed, line care, Starting on Sat09/20/23 at 0556, Pre-Op, Prior to and following infusion and between multiple consecutive infusions: sodium chloride 0.9 % injection documented in this encounter Care Teams Construction Technology Instructor Relationship Specialty Start Date End Date Elsewhere, Pcp PCP - General Internal Medicine 09/18/23 documented as of this encounter
--- OUTSIDE RECORDS SUMMARY | 2023-09-27 12:36 | XMS_ITS | Encounter Summary ---
Author Name Unknown Organization [facility] Address [address] [place] [address] Care Team Providers Care Yarn Dumper Name Role Phone Unavailable Primary Care Provider Unavailabl e Reason for Referral * Outpatient (Routine) - Closed Specialty Diagnoses / Procedures Referred By Contac t Referred To Contact Radiation Oncology Diagnoses Primary Malignant Neoplasm Of Prostate (HCC) Marlon Gambino M.D. [address] [place] [address] Marlon Gambino M.D. [address] [place] [address] Referral ID Status Reason Start Date Expiration Date Visits Re quested Visits Authorized [id number] Closed 08/02/2023 01/31/2025 1 1 Scheduling Instructions Coordinate with SIM and MRI, about 1 week after HDR brachy in [place] L TUBE CUTTER * MRI/CAT/PET Scan (Routine) - Authorized Specialty Diagnoses / Procedures Referred By Contac t Referred To Contact Radiology Diagnoses Primary Malignant Neoplasm Of Prostate (HCC) Procedures MR Prostate without IV Contrast Marlon Gambino M.D. [address] [place] [address] [facility] Region Referral ID Status Reason Start Date Expiration Date V isits Requested Visits Authorized [id number] Authorized 08/02/2023 08/01/2024 1 1 L TUBE CUTTER * Specialty Diagnoses / Procedures Referred By Contac t Referred To Contact Jackie Gallegos APRN, C.NAyush, D.N.P. [address] [place] [phone] [facility] Region Referral ID Status Reason Start Date Expiration Date Visits Re quested Visits Authorized L TUBE CUTTER * Specialty Diagnoses / Procedures Referred By Contac t Referred To Contact Jackie Gallegos APRN, C.N.P., D.N.P. [address] [place] [phone] [facility] Referral ID Status Reason Start Date Expiration Date Visits Re quested Visits Authorized L TUBE CUTTER * Radiation Therapy (Routine) - Authorized Specialty Diagnoses / Procedures Referred By Contac t Referred To Contact Diagnoses Primary Malignant Neoplasm Of Prostate (HCC) Procedures Management Visit Marlon Gambino M.D. [address] [place] [phone] [facility] Referral ID Status Reason Start Date Expiration Date V isits Requested Visits Authorized [id number] Authorized 08/02/2023 08/01/2024 10 10 L TUBE CUTTER * Radiation Therapy (Routine) - Authorized Specialty Diagnoses / Procedures Referred By Contac t Referred To Contact Diagnoses Primary Malignant Neoplasm Of Prostate (HCC) Procedures Prior Auth Rad Tx Marlon Gambino M.D. [address] [place] [phone] [facility] Referral ID Status Reason Start Date Expiration Date V isits Requested Visits Authorized [id number] Authorized 08/02/2023 08/01/2024 1 1 L TUBE CUTTER * Radiation Therapy (Routine) - Closed Specialty Diagnoses / Procedures Referred By Leni lopez Referred To Contact Diagnoses Primary Malignant Neoplasm Of Prostate (HCC) Procedures Initial Rad Onc Treatment Planning CT Simulation Marlon Gambino M.D. [address] [place] [address] [facility] Region Referral ID Status Reason Start Date Expiration Date Visits Re quested Visits Authorized [id number] Closed 08/02/2023 08/01/2024 1 1 L TUBE CUTTER Encounter Details Date Type Department Care Team (Late st Contact Info) Description 07/30/2023 Orders Only Department of Radiation Oncology in [place], [place] [address] [place] [address] Jackie Gallegos APRN, C.N.P., D.N.P. [address] [place] [address] Primary Malignant Neoplasm Of Prostate (HCC) (Primary Dx) Social History Tobacco Use Types Packs/Day Years Used Date Smoking Tobacco: Never Smokeless Tobacco: Never Alcohol Use Standard Drinks/Week Comments Yes 0 (1 standard drink = 0.6 oz pur e alcohol) [facility] Utilities Answer Date Recorded In the past 12 months has e [employer], gas, oil, or water [employer] threatened to shut off services in your [...] your living situation today? I have a [facility] place to live 07/19/2023 Sex and Gender Information Value Date Recorded Sex Assigned at Male 07/21/2023 9:10 AM METAL TUBE CUTTER Gender Identity Male 07/21/2023 9:10 AM METAL TUBE CUTTER Sexual Orientation Straight 07/21/2023 9: 10 AM METAL TUBE CUTTER documented as of this encounter Miscellaneous Notes * Addendum Note - Jackie Gallegos APRN, C.N.P., D.N.P. - 07/30/2023 12:44 PM CSTAddended by: JACKIE GALLEGOS on: 08/02/2023 01:03 PM Modules accepted: Orders L TUBE CUTTER documented in this encounter Plan of Treatment Upcoming Encounters Date Type Department Care Team (Late st Contact Info) Description 10/03/2023 10:45 AM CDT Appointment Department of Radiation Oncology in [place], [place] [address] [place] [phone] Marlon Gambino M.D. [address] [place] [address] Pending Results Name Type Priority Associated Diagnoses Date/Time Initial Rad Onc Treatment Planning CT Simulation Procedural Imaging Routine Primary Malignant Neoplasm Of Prostate (HCC) 09/27/2023 11:30 AM CDT Scheduled Orders Name Type Priority Associated Diagnoses Order Schedule Prior Auth Rad Tx Radiation Oncology Routine Primary Malignant Neoplasm Of Prostate (HCC) Ordered: 08/02/2023 Management Visit Radiation Oncology Routine Primary Malignant Neoplasm Of Prostate (HCC) 10 Occurrences starting 08/02/2023 until 08/01/2024 MR Prostate without IV Contrast Imaging RAD - Routine (most inpatients and all outpatients) Primary Malignant Neoplasm Of Prostate (HCC) Expected: 09/05/2023 (Approximate), Expires: 08/01/2024 Scheduled Referrals Name Type Priority Associated Diagnoses Orde r Schedule Radiation Oncology - PRO education visit Outpatient Referral Routine Primary Malignant Neoplasm Of Prostate (HCC) Expected: 08/02/2023 (Approximate), Expires: 11/01/2024 Radiation Oncology - Nurse education visit (clinic) Outpatient Referral Routine Primary Malignant Neoplasm Of Prostate (HCC) Expected: 08/02/2023 (Approximate), Expires: 08/01/2024 Radiation Oncology office visit (clinic) Outpatient Referral Routine Primary Malignant Neoplasm Of Prostate (HCC) Expected: 09/05/2023, Expires: 11/01/2024 documented as of this encounter Visit Diagnoses Diagnosis Primary Malignant Neoplasm Of Prostate (HCC)- Primary documented in this encounter
--- OUTSIDE RECORDS SUMMARY | 2023-09-27 12:36 | XMS_ITS | Encounter Summary ---
Author Name Unknown Organization [facility] Address [address] [place] [address] Care Team Providers Care Electronic Security Technician Name Role Phone Elsewhere, Pcp Primary Care Provider Unavailabl e Reason for Referral * Outpatient (Routine) - Closed Specialty Diagnoses / Procedures Referred By Contac t Referred To Contact Diagnoses Primary Malignant Neoplasm Of Prostate (HCC) Procedures US Prostate Interstitial Radioelement Oscar Aranda M.D. [address] [place] [phone] [facility] Referral ID Status Reason Start Date Expiration Date Visits Re quested Visits Authorized [id number] Closed 08/15/2023 08/14/2024 1 1 Reason for Visit * Outpatient (Routine) - Closed Specialty Diagnoses / Procedures Referred By Contac t Referred To Contact Diagnoses Primary Malignant Neoplasm Of Prostate (HCC) Procedures US Prostate Interstitial Radioelement Oscar Aranda M.D. [address] [place] [address] [facility] Referral ID Status Reason Start Date Expiration Date Visits Re quested Visits Authorized [id number] Closed 08/15/2023 08/14/2024 1 1 Encounter Details Date Type Department Care Team (Latest Contact Info) Description 09/20/2023 6:58 AM CDT - 09/20/2023 7:09 AM CDT Hospital Encounter Department of Radiology, [facility], in [place], [place] [address] [place] [address] Oscar Aranda M.D. [address] [place] [address] Primary Malignant Neoplasm Of Prostate (HCC) Discharge Disposition: Home or Self Care Social History Tobacco Use Types Packs/Day Years Used Date Smoking Tobacco: Never Smokeless Tobacco: Never Alcohol Use Standard Drinks/Week Comments Yes 3 (1 standard drink = 0.6 oz pur e alcohol) [facility] Utilities Answer Date Recorded In the past 12 months has th e [employer], gas, oil, or water [employer] threatened to shut off services in your [...] your living situation today? I have a [facility] place to live 07/19/2023 Sex and Gender Information Value Date Recorded Sex Assigned at Male 07/21/2023 9:10 AM BINDERY MACHINE SETTER/SET UP OPERATOR Gender Identity Male 07/21/2023 9:10 AM BINDERY MACHINE SETTER/SET UP OPERATOR Sexual Orientation Straight 07/21/2023 9: 10 AM BINDERY MACHINE SETTER/SET UP OPERATOR documented as of this encounter Medications at [...] CDT Appointment Department of Radiation Oncology in [place], [place] [address] [place] [address] Marlon Gambino M.D. [address] [place] [address] documented as of this encounter Procedures Procedure Name Priority Date/Time Associated Diagnosis Comments US PROSTATE INTERSTITIAL RADIOELEMENT RAD - Routine (most inpatients and all outpatients) 09/20/2023 8:58 AM CDT Primary Malignant Neoplasm Of Prostate (HCC) documented in this encounter Results * US Prostate Interstitial [...] NR Oscar Aranda M.D. IMG US PROCEDURES documented in this encounter Visit Diagnoses Diagnosis Primary Malignant Neoplasm Of Prostate (HCC) documented in this encounter Care Teams Electronic Security Technician Relationship Specialty Start Date End Date Elsewhere, Pcp PCP - General Internal Medicine 09/18/23 documented as of this encounter
--- OUTSIDE RECORDS SUMMARY | 2023-09-27 12:36 | XMS_ITS | Encounter Summary ---
Author Name Unknown Organization [facility] Address [address] [place] [phone] Care Team Providers Care Highway Administrative Engineer Name Role Phone Unavailable Primary Care Provider Unavailabl e Reason for Visit * Outpatient (Routine) - Closed Specialty Diagnoses / Procedures Referred By Leni lopez Referred To Contact Diagnoses Primary Malignant Neoplasm Of Prostate (HCC) Procedures URO Uroflow Marlon Gambino M.D. [address] [place] [phone] [facility] Referral ID Status Reason Start Date Expiration Date Visits Re quested Visits Authorized [id number] Closed 07/31/2023 07/30/2024 1 1 Encounter Details Date Type Department Care Team (Latest Contact Info) Description 08/15/2023 2:00 PM CDT Procedure visit Department of Urology in [place], [place] [address] [place] [phone] Marlon Gambino M.D. [address] [place] [phone] Rissa Dickens RYisselNYissel [address] [place] [phone] Feeling Of Incomplete Bladder Emptying (Primary Dx); Primary Malignant Neoplasm Of Prostate (HCC) Social History Tobacco Use Types Packs/Day Years Used Date Smoking Tobacco: Never Smokeless Tobacco: Never Alcohol Use Standard Drinks/Week Comments Yes 0 (1 standard drink = 0.6 oz pur e alcohol) [facility] Utilities Answer Date Recorded In the past [...] your living situation today? I have a [facility] place to live 07/19/2023 Sex and Gender Information Value Date Recorded Sex Assigned at Male 07/21/2023 9:10 AM RESERVATION SALES AGENT Gender Identity Male 07/21/2023 9:10 AM RESERVATION SALES AGENT Sexual Orientation Straight 07/21/2023 9: 10 AM RESERVATION SALES AGENT documented as of this encounter Progress Notes * Rissa Dickens, R.N. - 08/15/2023 2:00 PM CDT CHIEF COMPLAINT Patient here for a complex uroflow via calibrated electronic equipment and a residual urine check by ultrasound. IMPRESSION/REPORT/PLAN Dr. Marlon Gambino M.D. ordered the patient to have a complex uroflow with residual urine check via ultrasound. Patient had a moderate urge to void. Uroflow was completed at this time. Patient voided 231 mL's and had a ultrasound residual of 2 mL's. Patient rates pain at 0 on the 0 to 10 pain scale post procedure. documented in this encounter Procedure Notes * Francisco Quezada M.D. - 08/15/2023 2:00 PM CDTAssociated Order(s): URO UROFLOW Reason for visit: UROFLOW The patient is here for a complex uroflow via calibrated electronic equipment and residual urine checked by ultrasound. Peak flow: 19.7 ml/sec Average flow: 8.3 ml/sec Voiding time: 27.7 sec Total voided volume: 231 mls Continuous (smooth) flow pattern Residual urine: 2 ml by ultrasound Impression: Normal variant uroflow. documented in this encounter Plan of Treatment Upcoming Encounters Date Type Department Care Team (Late st Contact Info) Description 10/03/2023 10:45 AM CDT Appointment Department of Radiation Oncology in [place], [place] [address] [place] [phone] Marlon Gambino M.D. [address] [place] [phone] documented as of this encounter Procedures Procedure Name Priority Date/Time Associated Diagnosis Comments URO UROFLOW Routine 08/15/2023 2:00 PM CDT Primary Malignant Neoplasm Of Prostate (HCC) documented in this encounter Results * URO Uroflow (08/15/2023 [...] documented in this encounter Visit Diagnoses Diagnosis Feeling Of Incomplete Bladder Emptying- Primary Primary Malignant Neoplasm Of Prostate (HCC) documented in this encounter
--- OUTSIDE RECORDS SUMMARY | 2023-09-27 12:36 | XMS_ITS | Encounter Summary ---
Author Name Unknown Organization [facility] Address [address] [place] [address] Care Team Providers Care Monitoring Tech Name Role Phone Elsewhere, Pcp Primary Care Provider Unavailabl e Reason for Referral * Outpatient (Routine) - Closed Specialty Diagnoses / Procedures Referred By Contac t Referred To Contact Radiation Oncology Diagnoses Primary Malignant Neoplasm Of Prostate (HCC) Marlon Gambino M.D. 200 [place] [phone] Marlon Gambino M.D. 200 [place] [phone] Referral ID Status Reason Start Date Expiration Date Visits Re quested Visits Authorized [id number] Closed 08/02/2023 01/31/2025 1 1 Scheduling Instructions Coordinate with SIM and MRI, about 1 week after HDR brachy in [place] Reason for Visit * Outpatient (Routine) - Closed Specialty Diagnoses / Procedures Referred By Contac t Referred To Contact Radiation Oncology Diagnoses Primary Malignant Neoplasm Of Prostate (HCC) Marlon Gambino M.D. [address] [place] [phone] Marlon Gambino M.D. [address] [place] [address] Referral ID Status Reason Start Date Expiration Date Visits Re quested Visits Authorized [id number] Closed 08/02/2023 01/31/2025 1 1 Encounter Details Date Type Department Care Team (Latest Contact Info) Description 09/27/2023 10:32 AM CDT Hospital Encounter Department of Radiation Oncology in [place], [place] [address] [place] [address] Marlon Gambino M.D. [address] [place] [phone] Primary Malignant Neoplasm Of Prostate (HCC) Social History Tobacco Use Types Packs/Day Years Used Date Smoking Tobacco: Never Smokeless Tobacco: Never Alcohol Use Standard Drinks/Week Comments Yes 3 (1 standard drink = 0.6 oz pur e alcohol) [facility] Utilities Answer Date Recorded In the past [...] Answer Date Recorded Dental: Regular Dentist No 02/16/20 24 Employment Answer Date Recorded Employment status Retired 07/19/2023 Housing Stability Answer Date Recorded What is your living situation today? [facility] 07/19/2023 Sex and Gender Information Value Date Recorded Sex Assigned at Male 07/21/2023 9:10 AM CONVERTING OPERATOR Gender Identity Male 07/21/2023 9:10 AM CONVERTING OPERATOR Sexual Orientation Straight 07/21/2023 9: 10 AM CONVERTING OPERATOR documented as of this encounter Last Filed Vital Signs Vital Sign Reading Time Taken Comments Blood Pressure 138/58 09/27/2023 10:52 AM CDT Pulse 66 09/27/2023 10:52 AM CDT Temperature 35.9 ??C (96.7 ??F) 09/27/2023 10:52 AM C DT Respiratory Rate - - Oxygen Saturation - - Inhaled Oxygen Concentration - - Weight 114 kg (252 lb 3.3 oz) 09/27/2023 10:52 A M CDT Height - - Body Mass Index 34.92 09/20/2023 6:40 AM CDT documented in this encounter Plan of Treatment Upcoming Encounters Date Type Department Care Team (Late st Contact Info) Description 10/03/2023 10:45 AM CDT Appointment Department of Radiation Oncology in [place], [place] [address] [place] [address] Marlon Gambino M.D. [address] [place] [address] Scheduled Referrals Name Type Priority Associated Diagnoses Order Schedule Radiation Oncology office visit (clinic) Outpatient Referral Routine Primary Malignant Neoplasm Of Prostate (HCC) Once for 1 Occurrences starting 09/27/2023 until 09/27/2023 documented as of this encounter Visit Diagnoses Diagnosis Primary Malignant Neoplasm Of Prostate (HCC) documented in this encounter Care Teams Monitoring Tech Relationship Specialty Start Date End Date Elsewhere, Pcp PCP - General Internal Medicine 09/18/23 documented as of this encounter
--- OUTSIDE RECORDS SUMMARY | 2023-09-27 12:36 | XMS_ITS | Encounter Summary ---
Author Name Unknown Organization [facility] Address [address] [place] [address] Care Team Providers Care Program Dir Name Role Phone Unavailable Primary Care Provider Unavailabl e Encounter Details Date Type Department Care Team (Latest Contact Info) Description 09/17/2023 1:30 PM CDT Clinical Communication Virtual Review in [place], [place] [address] [place] [address] Social History Tobacco Use Types Packs/Day Years Used Date Smoking Tobacco: Never Smokeless Tobacco: Never Alcohol Use Standard Drinks/Week Comments Yes 0 (1 standard drink = 0.6 oz pur e alcohol) [facility] Utilities Answer Date Recorded In the [...] your living situation today? I have a [facility] place to live 07/19/2023 Sex and Gender Information Value Date Recorded Sex Assigned at Male 07/21/2023 9:10 AM MOTION PICTURE DIRECTOR Gender Identity Male 07/21/2023 9:10 AM MOTION PICTURE DIRECTOR Sexual Orientation Straight 07/21/2023 9: 10 AM MOTION PICTURE DIRECTOR documented as of this encounter Plan of Treatment Upcoming Encounters Date Type Department Care Team (Late st Contact Info) Description 10/03/2023 10:45 AM CDT Appointment Department of Radiation Oncology in [place], [place] [address] [place] [phone] Marlon Gambino M.D. [address] [place] [address] documented as of this encounter Visit Diagnoses Not on filedocumented in this encounter
--- OUTSIDE RECORDS SUMMARY | 2023-09-27 12:36 | XMS_ITS | Encounter Summary ---
Author Name Unknown Organization [facility] Address [address] [place] [address] Care Team Providers Care Aquatics Instructor Name Role Phone Elsewhere, Pcp Primary Care Provider Unavailabl e Encounter Details Date Type Department Care Team (Late st Contact Info) Description 09/19/2023 Orders Only Department of Radiation Oncology in [place], [place] [address] [place] [phone] Oscar Aranda M.D. [address] [place] [address] Social History Tobacco Use Types Packs/Day Years Used Date Smoking Tobacco: Never Smokeless Tobacco: Never Alcohol Use Standard Drinks/Week Comments Yes 30 (1 standard drink = 0.6 oz pu re alcohol) [facility] Utilities Answer Date Recorded In the past 12 months has [facility] [employer], gas, oil, or water [employer] threatened to shut off services in your [...] your living situation today? I have a [facility] place to live 07/19/2023 Sex and Gender Information Value Date Recorded Sex Assigned at Male 07/21/2023 9:10 AM PPA TEACHER Gender Identity Male 07/21/2023 9:10 AM PPA TEACHER Sexual Orientation Straight 07/21/2023 9: 10 AM PPA TEACHER documented as of this encounter Plan of Treatment Upcoming Encounters Date Type Department Care Team (Late st Contact Info) Description 10/03/2023 10:45 AM CDT Appointment Department of Radiation Oncology in [place], [place] [address] [place] [phone] Marlon Gambino M.D. [address] [place] [address] documented as of this encounter Visit Diagnoses Not on filedocumented in this encounter Care Teams Aquatics Instructor Relationship Specialty Start Date End Date Elsewhere, Pcp PCP - General Internal Medicine 09/18/23 documented as of this encounter
--- OUTSIDE RECORDS SUMMARY | 2023-09-27 12:36 | XMS_ITS | Encounter Summary ---
Author Name Unknown Organization [facility] Address [address] [place] [address] Care Team Providers Care Asphalt Paving Machine Operator Name Role Phone Elsewhere, Pcp Primary Care Provider Unavailabl e Reason for Referral * Outpatient (Routine) - Authorized Specialty Diagnoses / Procedures Referred By Contac t Referred To Contact Radiation Oncology Oscar Aranda M.D. [address] [place] [phone] [facility] Referral ID Status Reason Start Date Expiration Date V isits Requested Visits Authorized [id number] Authorized 09/20/2023 03/21/2025 1 1 Reason for Visit * Outpatient (Routine) - Authorized Specialty Diagnoses / Procedures Referred By Contac t Referred To Contact Radiation Oncology Oscar Aranda M.D. [address] [place] [phone] [facility] Referral ID Status Reason Start Date Expiration Date V isits Requested Visits Authorized [id number] Authorized 09/20/2023 03/21/2025 1 1 Encounter Details Date Type Department Care Team (Late st Contact Info) Description 09/20/2023 8:00 AM CDT Hospital Encounter Department of Radiation Oncology in [place], [place] [address] [place] [phone] Oscar Aranda M.D. [address] [place] [phone] Rachael Waite R.N. Social History Tobacco Use Types Packs/Day Years [...] your living situation today? I have a [facility] place to live 07/19/2023 Sex and Gender Information Value Date Recorded Sex Assigned at Male 07/21/2023 9:10 AM MERCERIZER Gender Identity Male 07/21/2023 9:10 AM MERCERIZER Sexual Orientation Straight 07/21/2023 9: 10 AM MERCERIZER documented as of this encounter Plan of Treatment Upcoming Encounters Date Type Department Care Team (Late st Contact Info) Description 10/03/2023 10:45 AM CDT Appointment Department of Radiation Oncology in [place], [place] [address] [place] [phone] Marlon Gambino M.D. [address] [place] [address] Scheduled Referrals Name Type Priority Associated Diagnoses Order Schedule Radiation Oncology nurse visit (clinic) Outpatient Referral Routine Once for 1 Occurrences starting 09/20/2023 until 09/20/2023 documented as of this encounter Procedures Procedure Name Priority Date/Time Associated Diagnosis Comments GLUCOSE POCT, B Routine 09/20/2023 10:32 AM CDT documented in this encounter Results * (ABNORMAL) Glucose, POCT (09/20/2023 10:32 AM CDT) Glucose, POCT, B 152(H) 70 - 140 mg/dL 09/20/2023 10:35 AM CDT PCME Site Capillary 09/20/2023 10:35 AM CDT PCME Blood 09/20/2023 10:3 2 AM CDT 09/20/2023 10:35 AM CDT Unknown Provider LAB POCT ORDERABLES- MANUAL POC [facility] [address] [place] [address], [facility] PCME [facility] POC [address] [place] [address] documented in this encounter Visit Diagnoses Not on filedocumented in this encounter Care Teams Asphalt Paving Machine Operator Relationship Specialty Start Date End Date Elsewhere, Pcp PCP - General Internal Medicine 09/18/23 documented as of this encounter
--- OUTSIDE RECORDS SUMMARY | 2023-09-27 12:36 | XMS_ITS | Encounter Summary ---
Author Name Unknown Organization [facility] Address [address] [place] [address] Care Team Providers Care Asset Protection Manager Name Role Phone Unavailable Primary Care Provider Unavailabl e Reason for Visit * Reason Onset Date Comments After Visit Question 07/30/2023 Encounter Details Date Type Department Care Team (Latest Contact Info) Description 07/30/2023 Clinical Communication Department of Radiation Oncology in [place], [place] [address] [place] [phone] Marlon Gambino M.D. [address] [place] [address] After Visit Question Social History Tobacco Use Types Packs/Day Years Used Date Smoking Tobacco: Never Smokeless Tobacco: Never Alcohol Use Standard Drinks/Week Comments Yes 0 (1 standard drink = 0.6 oz pur e alcohol) [facility] Utilities Answer Date Recorded In the past 12 months has [facility] [employer], gas, oil, or water [email or web address] threatened to shut off services in your [...] your living situation today? I have a [facility] place to live 07/19/2023 Sex and Gender Information Value Date Recorded Sex Assigned at Male 07/21/2023 9:10 AM CLINICAL LABORATORY MEDICAL DIRECTOR Gender Identity Male 07/21/2023 9:10 AM CLINICAL LABORATORY MEDICAL DIRECTOR Sexual Orientation Straight 07/21/2023 9: 10 AM CLINICAL LABORATORY MEDICAL DIRECTOR documented as of this encounter Plan of Treatment Upcoming Encounters Date Type Department Care Team (Late st Contact Info) Description 10/03/2023 10:45 AM CDT Appointment Department of Radiation Oncology in [place], [place] [address] [place] [address] Marlon Gambino M.D. [address] [place] [address] documented as of this encounter Visit Diagnoses Not on filedocumented in this encounter
--- OUTSIDE RECORDS SUMMARY | 2023-09-27 12:36 | XMS_ITS | Encounter Summary ---
Author Name Unknown Organization [facility] Address [address] [place] [address] Care Team Providers Care Manager Bilingual Name Role Phone Elsewhere, Pcp Primary Care Provider Unavailabl e Reason for Referral * Outpatient (Routine) - Authorized Specialty Diagnoses / Procedures Referred By Leni lopez Referred To Contact Diagnoses Preanesthetic Medical Exam Primary Malignant Neoplasm Of Prostate (HCC) Hypertension Essential Primary Atherosclerosis Renal Artery (HCC) Murmur Heart Procedures ECG 12 Lead Geremias Dhillon APRN, C.N.P., M.S. [address] [place] [phone] [facility] Referral ID Status Reason Start Date Expiration Date V isits Requested Visits Authorized [id number] Authorized 09/19/2023 09/18/2024 1 1 Reason for Visit * Outpatient (Routine) - Closed Specialty Diagnoses / Procedures Referred By Leni lopez Referred To Contact Anesthesiology Diagnoses Primary Malignant Neoplasm Of Prostate (HCC) Harris Ryan APRN, C.N.P., D.N.P. [address] [place] [phone] [facility] Referral ID Status Reason Start Date Expiration Date Visits Re quested Visits Authorized [id number] Closed 08/15/2023 02/13/2025 1 1 Encounter Details Date Type Department Care Team (Latest Contact Info) Description 09/19/2023 9:30 AM CDT Comprehensive Visit Preoperative Evaluation Center in [place], [place] [address] [place] [address] Harris Ryan APRN C.N.P., D.N.P. 200 [place] [address] Geremias Dhillon APRN C.N.P., M.S. [address] [place] [phone] Preanesthetic Medical Exam (Primary Dx); Primary Malignant Neoplasm Of Prostate (HCC); Anesthesia Complication Personal History; Hypertension Essential Primary; Murmur Heart; Atherosclerosis Renal Artery (HCC); Hyperlipidemia; Personal History Of Infectious And Parasitic Disease (COVID-19); Diabetes Mellitus Type 2 (HCC); Obesity Body Mass Index 30-39.9 Adult; Aneurysm Iliac Artery (HCC) Social History Tobacco Use Types Packs/Day Years Used Date Smoking Tobacco: Never Smokeless Tobacco: Never Tobacco Cessation:Counseling Given: Not Answered Alcohol Use Standard Drinks/Week Comments Yes 30 (1 standard drink = 0.6 oz pu re alcohol) [facility] Utilities Answer Date Recorded In the past 12 months has e [employer], [employer], oil, or water [employer] threatened to shut off services in your [...] medical appointments or from getting medications? No 02/1 11/2023 In the past 12 months, has l [...] your living situation today? [facility] a [facility] place to live 07/19/2023 Sex and Gender Information Value Date Recorded Sex Assigned at Male 07/21/2023 9:10 AM PRESIDENT CELEBRITY ACQUISTION Gender Identity Male 07/21/2023 9:10 AM PRESIDENT CELEBRITY ACQUISTION Sexual Orientation Straight 07/21/2023 9: 10 AM PRESIDENT CELEBRITY ACQUISTION documented as of this encounter Last Filed Vital Signs Vital Sign Reading Time Taken Comments Blood Pressure 176/89 09/19/2023 9:23 AM CDT Pulse 68 09/19/2023 9:23 AM CDT Temperature 36.4 ??C (97.5 ??F) 09/19/2023 9:23 AM CD T Respiratory Rate - - Oxygen Saturation 97% 09/19/2023 9:23 AM CDT Inhaled Oxygen Concentration - - Weight 116 kg (255 lb 11.7 oz) 09/19/2023 9:23 A M CDT Height 186 cm (6' 1.23) 09/19/2023 9:23 AM CDT Body Mass Index 33.53 09/19/2023 9:23 AM CDT documented in this encounter H&P Notes * Geremias Dhillon APRN, C.N.P., M.S. - 09/19/2023 9:30 AM CDT REASON FOR VISIT: Preoperative Medical Evaluation REFERRING PHYSICIAN: Harris Ryan APRN, C.N.P., D.N.P. 09/20/2023 interventional radiology Surgery Specific Risk Classification: Low Risk SUBJECTIVE HISTORY OF PRESENT ILLNESS Magdy Beck is a 72 y.o. male who is here for preanesthetic medical examination prior to the planned procedure as listed above. REVIEW OF SYSTEMS Eyes: - Glasses. All other systems reviewed and are negative. Cardiac Risk Scoring: Chu Cardiac Score: 0.14% RCRI Point Count: 0 RCRI Score: 0.4% DASI Calculations Flowsheet Row Comprehensive Visit from 09/19/2023 in Preoperative Evaluation Center in [place], [place] DASI Total Score 58.2 Estimated V02 Peak 34.63 Estimated MET Level 9.89 OBJECTIVE OBJECTIVE PHYSICAL EXAMINATION General/Constitutional Constitutional Assessment: Normal General State of Health: Healthy appearing Airway (HEENT) Top partial denture (Flipper). Mallampati: III TM Distance: >3 FB Neck ROM: Full Mouth Opening: > 3 cm Upper Lip Bite Test: I Dental Assessment: Dentition intact and upper dentures Cardiovascular Rhythm: Regular Rate: Normal Cardiovascular Assessment: Normal Pulmonary Pulmonary Assessment: Clear Neurological Neurologic Assessment: Alert and oriented X 3 Musculoskeletal MSK Assessment: Normal Gait: Normal Ambulate with: None Psychiatric Psychiatric Assessment: Calm Dermatology Skin Assessment: normal ASSESSMENT / PLAN Anesthesia: Difficult IV insertion, no ultrasound IV history. Patient denies all other personal/family previous anesthesia related complications. Please see allergy history. Airway Hx: No chart review airway. Lab: - 08/28/2023 HGB 14.4, HCT 42.2, PLT 175, WBC 5.86, A1c 7.5%. - 07/23/2023 HGB 14.8, HCT 43.4, PLT 179, WBC 6.8, CR 0.93/GFR 87, total bili 0.3, ALT 23, AST 19, alk-phos 61. ECG: - 09/19/2023 sinus rhythm 62 bpm, left atrial enlargement, no comparison ECG, AI dashboard indicates 41.86% atrial fib probability. ECHO: Not indicated or chart review discovered. #1 Preanesthetic Medical Exam #2 Primary Malignant Neoplasm Of Prostate (HCC) #3 Anesthesia Complication Personal History Kind hearted 72-year-old gentleman here for ANEL visit. Active individual. Able to care for self at home. No ambulation aids. Mets 9.89. Denies cardiopulmonary symptoms both at rest and with exertional activity. On exam today denies any fever/chills, cough, nasal drainage, or sinus pressure. Prostate adenocarcinoma medical/surgical history: 05/06/2023 prostate adenocarcinoma diagnosis. 08/01/2023 bicalutamide 50 mg for 21 days 08/07/2023 leuprolide injection 7.5 mg No chemoradiation history. No hematuria/dysuria. Please see Dr. Ryan radiation oncology note 08/15/2023 for full oncology history. 3-4 cups coffee daily without withdrawal headaches. 4-5 alcoholic drinks weekly. No smoking history. Please see planned procedure and HPI above. Please hold all ibuprofen, aspirin, supplements, minerals, and vitamins 1 week prior to surgery. 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 07/23/2023 CR 0.93/GFR 87. New rightsternal border grade 1 murmur without neck auscultation. No cardiac ischemia/infarction/surgical/arrhythmic history. No thromboembolism history. Pulse 68. BP 176/89. Home BP 130s-140s/80s. Manual BP 138/64. Mets 9.89. Please see cardiac testing above. Last evaluated by Dr. Pinon nephrology hypertension 09/02/2023 with no change medical managementand planned follow-up in 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 Amlodipine will continue as prescribed. Losartan hydrochlorothiazide will be held morning of surgery. #8 Hyperlipidemia Treated with no TIA/stroke history. Atorvastatin will continue as prescribed. #9 Personal History Of Infectious And Parasitic Disease (COVID-19) COVID history 2022. No hospitalization/treatment/O2 history. Fully recovered without residual affects. #10 Diabetes Mellitus Type 2 (HCC) Treated with no diabetic comorbidities. 08/28/2023 A1c 7.5%. No hypo/hyperglycemic hospitalized episodes. Metformin will be held evening before and morning of surgery. #11 Obesity Body Mass Index 30-39.9 Adult BMI 33.53. PATIENT EDUCATION: Reviewed Instructions To Get Ready for Your Surgery or Procedure: [facility] [id number] rev 0124. Written and verbal instructions given on medication management beforesurgery. Reviewed instructions on avoiding aspirin, ibuprofen-containing medications, and supplements one week before surgery. Patient may take acetaminophen as needed for pain. RECOMMENDATIONS: Patient medically optimized for planned procedure: Yes Further Recommendations: None Caprini Total Score: Caprini not calculated. VTE prophylaxis per surgery provider documented in this encounter Plan of Treatment Upcoming Encounters Date Type Department Care Team (Late st Contact Info) Description 10/03/2023 10:45 AM CDT Appointment Department of Radiation Oncology in [place], [place] [address] [place] [phone] Marlon Gambino M.D. [address] [place] [address] documented as of this encounter Procedures Procedure Name Priority Date/Time Associated Diagnosis Comments GLUCOSE POCT, B Routine 09/20/2023 8:28 AM CDT ECG Routine 09/19/2023 10:07 AM CDT Preanesthetic Medical Exam Primary Malignant Neoplasm Of Prostate (HCC) Hypertension Essential Primary Murmur Heart documented in this encounter Results * (ABNORMAL) Glucose, POCT (09/20/2023 8:28 AM CDT) Pathologist [facility] Glucose, POCT, B 206(H) 70 - 140 mg/dL 09/27/2023 8:04 AM CDT PCME Site Capillary 09/27/2023 8:04 AM CDT [facility] Blood 09/20/2023 8:28 AM CDT 09/27/2023 8:04 AM CDT Unknown Provider LAB POCT ORDERABLES- MANUAL POC [facility] [address] [place] [address], [facility] POC [address] [place] [address] * ECG 12 Lead (09/19/2023 10:07 AM CDT) Ventricular Rate ECG/Min 62 BPM MUSE SD Interval 154 ms MUSE QRSD Interval 98 ms MUSE QT Interval 428 ms MUSE QTC Interval 434 ms MUSE P [place] 30 degrees MUSE R [place] 24 degrees MUSE T Wave [place] 15 degrees MUSE 09/19/2023 10:0 7 AM CDT 09/19/2023 10:37 AM CDT Impressions MUSE - 09/19/2023 10:37 AM CDT Sinus rhythm Fusion complexes Left atrial enlargement No previous ECGs available Reviewed by LLUVIA Newsome Narrative Procedure Note Anthony Robledo Jr., M.D. - 09/19/2023 IMPRESSION: Sinus rhythm Fusion complexes Left atrial enlargement No previous ECGs available Reviewed by LLUVIA Newsome Geremias Dhillon APRN C.N.P., M.S. ECG ORD ERABLES MUSE NA documented in this encounter Visit Diagnoses Diagnosis Preanesthetic Medical Exam- Primary Primary Malignant Neoplasm Of Prostate (HCC) Anesthesia Complication Personal History Hypertension Essential Primary Murmur Heart Atherosclerosis Renal Artery (HCC) Hyperlipidemia Personal History Of Infectious And Parasitic Disease (COVID-19) Diabetes Mellitus Type 2 (HCC) Obesity Body Mass Index 30-39.9 Adult Aneurysm Iliac Artery (HCC) documented in this encounter Care Teams Manager Bilingual Relationship Specialty Start Date End Date Elsewhere, Pcp PCP - General Internal Medicine 09/18/23 documented as of this encounter
--- OUTSIDE RECORDS SUMMARY | 2023-09-27 12:36 | XMS_ITS | Encounter Summary ---
Author Name Unknown Organization [facility] Address [address] [place] [id number] Care Team Providers Care Loader Engineer Name Role Phone Elsewhere, Pcp Primary Care Provider Unavailabl e Reason for Referral * Outpatient (Routine) - Closed Specialty Diagnoses / Procedures Referred By Contac t Referred To Contact Radiation Oncology Harris Ryan APRN, C.N.Helen, D.N.P. [address] [place] [phone] Oscar Aranda M.D. [address] [place] [phone] Referral ID Status Reason Start Date Expiration Date Visits Re quested Visits Authorized [id number] Closed 08/15/2023 02/13/2025 1 1 Scheduling Instructions After tests, afternoon typically. Reason for Visit * Outpatient (Routine) - Closed Specialty Diagnoses / Procedures Referred By Contac t Referred To Contact Radiation Oncology Harris Ryan APRN, C.N.P., D.N.P. [address] [place] [phone] Oscar Aranda M.D. [address] [place] [phone] Referral ID Status Reason Start Date Expiration Date Visits Re quested Visits Authorized [id number] Closed 08/15/2023 02/13/2025 1 1 Encounter Details Date Type Department Care Team (Latest Contact Info) Description 09/19/2023 12:21 PM CDT - 09/24/2023 2:46 PM CDT Hospital Encounter Department of Radiation Oncology in [place], [place] [address] [place] [address] Oscar Aranda M.D. [address] [place] [address] Primary Malignant Neoplasm Of Prostate (HCC) (Primary Dx) Social History Tobacco Use Types Packs/Day Years Used Date Smoking Tobacco: Never Smokeless Tobacco: Never Alcohol Use Standard Drinks/Week Comments Yes 3 (1 standard drink = 0.6 oz pur e alcohol) [facility] Utilities Answer Date Recorded In the past 12 months has e [employer], [employer], oil, or water [employer] threatened to shut off services in your [...] your living situation today? 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 Gender Identity Male 07/21/2023 9:10 AM BICYCLE SUBASSEMBLER Sexual Orientation Straight 07/21/2023 9: 10 AM BICYCLE SUBASSEMBLER documented as of this encounter Last Filed Vital Signs Vital Sign Reading Time Taken Comments Blood Pressure - - Pulse - - Temperature - - Respiratory Rate - - Oxygen Saturation - - Inhaled Oxygen Concentration - - Weight 116 kg (255 lb 11.7 oz) 09/19/2023 12:48 PM CDT Height - - Body Mass Index 33.53 09/19/2023 9:23 AM CDT documented in this encounter Medications at Time of Discharge Medication Sig Dispensed Refills Start Date End Date amLODIPine (NORVASC) 5 mg tablet Take 5 mg by mouth daily. 03/02/2023 ciprofloxacin (Cipro) 500 mg tablet Take 1 tablet (500 mg total) by mouth 2 (two) times a day. 6 tablet 09/19/2023 tamsulosin (FLOMAX) 0.4 mg 24 hr capsule Take 1 capsule (0.4 mg total) by mouth daily. 30 capsule 09/19/2023 documented as of this encounter Progress Notes * Regina Cedeño M.B.BYisselS. - 09/19/2023 1:00 PM CDT REFERRING PROVIDER: Harris Ryan APRN, C.N.P., D.N.P. [address] [place] [address] PATIENT NAME: Magdy Beck LIVES: [id number] [address] [facility] [phone] HISTORY OF PRESENT ILLNESS: Mr. Magdy Beck is a 72 y.o. 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 He met with Dr. Gambino in [place] on 07/26/23 and planned to proceed with combination of 25 fractions of external beam radiotherapy plus brachytherapy boost and 18 moths of ADT. He presents in clinic today to discuss about prostste HDR brachytherapy boost which is scheduled tomorrow (09/19/13). ONCOLOGY HISTORY A brief oncologic history is as follows: Oncology History Overview Note HIGH-RISK clinical T2b (based on MRI) N0 M0 prostate adenocarcinoma, Jason 4+5 with 4/4 (100%) core biopsies positive, [...] Goal: Curative Planned Treatment Start Date: 09/12/2023 Brief interval history: Patient describes good baseline urinary function. He denies significant urgency and frequency with urination. He reports nocturia x 2. Denies dysuria and hematuria. Denies weakness of stream and straining to initiate urination. He feels that he empties his bladder completely when he voids. He received monthly injection of Lupron on 08/07/2023 and used 50 mg of bicalutamide for 2 weeks, tolerating well. Patient reports regular bowel movements at baseline. No concerns for constipation/diarrhea. No hematochezia or melena. At baseline, he is able to have an erection suitable for intercourse. He does not take Cialis/Viagra. ALLERGIES: Reviewed, current as per medical record. MEDICATIONS: Reviewed, current as per medical record. PAST MEDICAL HISTORY Past Medical History: Diagnosis Date Diabetes Mellitus Type 2 (HCC) Hypertension NOS Primary Malignant Neoplasm Of Prostate (HCC) Renal Disease Stenosis Renal Artery (HCC) PAST SURGICAL HISTORY Past Surgical History: Procedure Laterality Date DUPUYTREN CONTRACTURE RELEASE HERNIA REPAIR Right 1974 FAMILY HISTORY Family History Problem Relation Name Age of Onset Prostate cancer Father Cancer Maternal Grandfather Coronary artery disease Mother Laverne whitten Diabetes Mother Laverne whitten SOCIAL HISTORY Lives at [address] [place] [phone]. PHYSICAL EXAMINATION ECOG performance status: 0 Fully active, able to carry on all pre-disease performance without restriction Wt 116 kg BMI 33.53 kg/m?? CONSTITUTIONAL: Well-appearing, well-nourished male, in no acute distress. IMPRESSION/PLAN #1 Very High Risk Prostate cancer. Mr. Magdy Beck is a 72 y.o. 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 Gambino in [place] on 07/26/23 and planned to proceed with combination of 25 fractions of external beam radiotherapy plus brachytherapy boost and 18 moths of ADT. He presents in clinic today to discuss about prostste HDR brachytherapy boost which is scheduled tomorrow (09/19/13). The patient???s clinical and pathologic scenario was reviewed with the patient in detail. Mr.Peter Alvarado Beck is doing well. Urinalysis done today was normal, uroflow completed on 08/15/23 was within normal, cleared to proceed with anaesthesia, therefore Mr.Peter Alvarado Beck is optimized to proceed with brachytherapy tomorrow. We reviewed the instructions and medications needed including antibiotics and Flomax and prescription provided.the instructions below were reviewed with the patient and a printed copy provided. He expressed understanding of our discussion today. Patient also seen and evaluated by Dr. Aranda please see accompanying documentation for more details. Brachytherapy Instructions: Prior to the procedure: Hold anticoagulation at least 5-7 days prior, including aspirin, ibuprofen, or other NSAIDs Start Flomax evening before brachytherapy and continue through at least duration of radiation Start antibiotics night before procedure, skip morning of procedure, resume evening of procedure and take twice daily for a total of 6 tablets Nothing to eat or drink after midnight prior to procedure Bring a wedding transportation driver with you as you will not be able to drive afterwards. Day of procedure: Check in to the [facility] admissions desk at 6:00am and they will check you in and direct you to the pre-procedure area Once up on the pre-procedure floor, they will complete your enema, place your IV, and ensure you are ready for the procedure. A nurse will come up and bring you down to the brachytherapy area. Post-procedure: You may notice some pink or red tinged urine the first few days after brachytherapy. You may experience urinary frequency, urgency, or hesitancy or pain with urination. Continue taking Flomax, and you can certainly take ibuprofen afterwards - we recommend 400 mg (2 tablets) two to three times daily until symptoms improve. You may also notice some looser stools. Please feel free to reach out with any questions or concerns after your procedure. Patient was also seen and evaluated by Dr. Aranda, please see accompanying note for details. PLAN: Proceed with prostate HDR brachytherapy 1500 cGy single fraction on 09/20/23 followed by 25 treatment of EBRT at [place]. Cherelle SampsonS. 09/19/2023 4:55 PM CDT [id number]. Associated attestation - Oscar Aranda M.D. - 09/24/2023 2:28 PM CDT I was the supervising physician in the delivery of the service and agree with the documentation provided by Regina Cedeño M.B.B.S. We again reviewed brachytherapy and spaceOAR. All questions answered and prescriptions were provided. He will follow in [place] for EBRT. documented in this encounter Plan of Treatment Upcoming Encounters Date Type Department Care Team (Late st Contact Info) Description 10/03/2023 10:45 AM CDT Appointment Department of Radiation Oncology in [place], [place] [address] [place] [address] Marlon Gambino M.D. [address] [place] [address] Scheduled Referrals Name Type Priority Associated Diagnoses Order Schedule Radiation Oncology office visit (clinic) Outpatient Referral Routine Once for 1 Occurrences starting 09/19/2023 until 09/19/2023 documented as of this encounter Visit Diagnoses Diagnosis Primary Malignant Neoplasm Of Prostate (HCC)- Primary documented in this encounter Care Teams Loader Engineer Relationship Specialty Start Date End Date Elsewhere, Pcp PCP - General Internal Medicine 09/18/23 documented as of this encounter
--- OUTSIDE RECORDS SUMMARY | 2023-09-27 12:36 | XMS_ITS | Encounter Summary ---
Author Name Unknown Organization [facility] Address [address] [place] [id number] Care Team Providers Care Radio Technician Name Role Phone Elsewhere, Pcp Primary Care Provider Unavailabl e Encounter Details Date Type Department Care Team (Late st Contact Info) Description 09/20/2023 7:55 AM CDT Anesthesia Event Department of Radiation Oncology in [place], [place] [address] [place] [phone] Jessie Hameed APRN, CRNA, D.N.P. [address] [place] [phone] Anahi Loja M.D. [address] [place] [phone] Anesthesia Record Procedure Summary Procedure Name Responsible Anesthesiologist Anesthesia Start Time Anesthesia Stop Time BRACHYTHERAPY HDR Jessie Hameed APRN, CRNA, D.N.P. 09/20/23 0755 09/20/23 1247 Events Date Time Event Comment 09/20/2023 0755 An Start Machine/Equipme nt Checked Infection Precautions Followed Procedure/Site Verified NPO Status Verified Supine Standard ASA Monitors Applied 0805 An Induction 0807 An Intubation 0810 Turnover to Proceduralist 0833 Anesthesia Time Out 0834 Proc Start 1221 Proc Fin 1221 Turnover to ANE Staff 1224 Airway Removal Criteria Met 1224 Extubation/Airway Removed 1227 an stop data 1247 An End I completed my handoff to the receiving staff during which we 1. Identified the patient 2. Identified the responsible provider 3. Reviewed the pertinent medical history 4. Discussed the surgical course 5. Reviewed intra-op anesthesia management and issues during anesthesia 6. Set expectations for post-procedure period 7. Allowed opportunity for questions and acknowledgement of understanding. Meds Name Total fentanyl injection 50 mcg/mL 50 mcg lidocaine 2% (mg) injection 60 mg succinylcholine 20 mg/mL injection 140 m g rocuronium 10 mg/mL injection 200 mg ondansetron 4 mg/2 mL injection 4 mg sugammadex 100 mg/mL injection 300 mg propofol 10 mg/mL injection 200 mg propofol 10 mg/mL infusion 2,100.19 mg ketamine 10 mg/mL injection 20 mg ceFAZolin 2 g dexAMETHasone (DECADRON) injection 4 mg/ mL 4 mg insulin aspart (NovoLOG) injection 100 U nits/mL 6 Units ketorolac (TORADOL) 15 mg/mL injection 1 5 mg acetaminophen 1,000 mg/100 mL injection 1,000 mg Lactated Ringers Free Drip 1,150 mL * Agents No agents on file. * Blood No blood administrations on file. Lines, Drains, and Airways Type Details Placement Removal Peripheral IV Placement Date: 09/01 02/24; Placement Time: 06; Catheter Size: 20 G; Orientation: Left; Location: Hand; Site Prep: Chlorhexidine (Preferred); Technique: Anatomical landmarks; Inserted by: HD; Insertion Attempts: 1; Removal Date: 09/20/23; Removal Time: 1451; Removal Reason: No longer in place 09/20/23 0612 by Norma Sebastian, R.N. 09/20/23 1452 by Bekah Ledesma, R.N., C.M.S.R.N. ETT Placement Date: 09/01 02/24; Placement Time: 08 (created via procedure documentation); Mask Ventilation: Difficult mask (ie. two-handed) without oral airway; Technique: Video laryngoscopy; Type: Standard ETT; Single Lumen Tube Size: 7.5 mm; Cuffed: Yes; Location: Oral; Grade View: Grade 2A; Insertion Attempts: 2; Placement Verification: Bilateral breath sounds, Positive ETCO2, Symmetrical chest wall movement; Removal Date: 09/20/23; Removal Time: 1224 09/20/23 0807 by Jessie Hameed, INDOOR LANDSCAPE ARCHITECT, DISPATCH MACHINE RUNNER, D.N.P. 09/20/23 1224 by Jessie Hameed APRN, CRNA, D.N.P. Indwelling Urinary Catheter Placement Date: 09/20/23; Placement Time: 0840; Inserted by: Dr. Regina Cedeño; Type: Coude; Size: 12 Fr.; Balloon Size: 10 mL; Removal Date: 09/20/23; Removal Time: 1435; Removal Reason: Per order 09/20/23 0840 by Rachael Waite R.N. 09/20/23 1435 by Zion Logan Jr. documented in this encounter Social History Tobacco Use Types Packs/Day Years Used Date Smoking Tobacco: Never Smokeless Tobacco: Never Alcohol Use Standard Drinks/Week Comments Yes 3 (1 standard drink = 0.6 oz pur e alcohol) [facility] Utilities Answer Date Recorded In the past 12 months has th e [employer], gas, oil, or water [employer] threatened to shut off services in your [...] your living situation today? 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 - 09/20/2023 12:49 PM CDT Patient: Magdy Beck Procedure Summary Date: 09/20/23 Room / Location: Department of Radiation Oncology in [place], [place] Anesthesia Start: 754 Anesthesia Stop: 1246 Procedure: BRACHYTHERAPY HDR Diagnosis: Primary Malignant Neoplasm Of Prostate (HCC) Scheduled Providers: Oscar Aranda M.D. Responsible Provider: Jessie Hameed APRN, CRNA, D.N.P. Anesthesia Type: general ASA Status: 3 Anesthesia Type: general Last vitals Vitals Value Taken Time BP 129/72 09/20/23 1245 Temp 36.4 ??C 09/20/23 1237 Pulse 56 09/20/23 1249 Resp 21 09/20/23 1249 SpO2 92 % 09/20/23 1249 Vitals shown include unfiled device data. Please reference Vitals flowsheet for most recent vital signs. Anesthesia Post Evaluation Patient Disposition: dismissal Cardiovascular status: hemodynamics (HR & BP) acceptable Respiratory status: patent airway with spontaneous effort Temperature: normothermic Oxygen requirements: room air Level of consciousness: awake Pain score: pain adequately controlled and/or at baseline Post Op nausea/vomiting: none Hydration status: euvolemic * Anesthesia Postprocedure Evaluation - Jessie Hameed APRN, CRNA, D.N.P. - 09/20/2023 12:49 PMCDT Patient: Magdy Beck Procedure Summary Date: 09/20/23 Room / Location: Department of Radiation Oncology in [place], [place] Anesthesia Start: 754 Anesthesia Stop: 1247 Procedure: BRACHYTHERAPY HDR Diagnosis: Primary Malignant Neoplasm Of Prostate (HCC) Scheduled Providers: Oscar Aranda M.D. Responsible Provider: Jessie Hameed APRN, CRNA D.N.PYissel Anesthesia Type: general ASA Status: 3 Anesthesia Type: general Last vitals Vitals Value Taken Time BP 129/72 09/20/23 1245 Temp 36.4 ??C 09/20/23 1237 Pulse 57 09/20/23 1248 Resp 16 09/20/23 1248 SpO2 92 % 09/20/23 1248 Vitals shown include unfiled device data. Please reference Vitals flowsheet for most recent vital signs. Anesthesia Post Evaluation Patient Disposition: dismissal Cardiovascular status: hemodynamics (HR & BP) acceptable Respiratory status: patent airway with spontaneous effort Temperature: normothermic Oxygen requirements: room air Level of consciousness: awake Pain score: pain adequately controlled and/or at baseline Post Op nausea/vomiting: none Hydration status: euvolemic * Anesthesia Procedure Notes - Jessie Hameed APRN, CRNA, D.N.P. - 09/20/2023 8:31 AM CDTAssociated Order(s): Airway Airway Date/Time: 09/20/2023 8:07 AM Performed by: Jessie Hameed APRN, CRNA, D.N.P. Authorized by: Jessie Hameed APRN, CRNA, D.N.P. Patient location during procedure: OR / Procedure Area PROCEDURE DETAILS: Mask difficulty assessment: difficult mask (i.e.two-handed) without oral airway Final airway type: video laryngoscope Laryngeal Manipulation: no Final best view of glottic structures - Cormack/Lehane Score: grade 2A ETT location: oral VL device: glide scope Wynona scope blade size: 4 Tube size: 7.5 [...] ANESTHESIA Anesthesia method: anesthesia POST PROCEDURE DETAILS: Procedure outcome: successful Notable Events: no complications * Anesthesia Preprocedure Evaluation - Anahi Loja M.D. - 09/20/2023 6:51 AM CDT Preprocedure Anesthesia & H&P Assessment Procedure Summary Date/Time: 09/20/23 0800 Scheduled providers: Oscar Aranda M.D. Procedure: BRACHYTHERAPY HDR Diagnosis: Primary Malignant Neoplasm Of Prostate (HCC) [C61] Location: Department of Radiation Oncology in [place], [place] Pertinent components of the patient's history including current problem list, medical history, surgical history, family history, social history, medications and allergies were reviewed. Present illness and pre-op diagnosis were confirmed. The planned surgery / procedure was verified with the patient / legal guardian. The patient's general health condition remains unchanged RELEVANT COMORBID CONDITIONS ANESTHESIA (+) Anesthesia Complication Personal History CV (+) Atherosclerosis Renal Artery (HCC) (+) Hypertension Essential Primary (+) Stenosis Renal Artery (HCC) ONC (+) Primary Malignant Neoplasm Of Prostate (HCC) Other (+) Obesity Body Mass Index 30-39.9 Adult OBJECTIVE PHYSICAL EXAMINATION Airway (HEENT) Mallampati: II Cardiovascular Rhythm: Regular Rate: Normal Cardiovascular Assessment: cardiovascular normal Pulmonary Pulmonary Assessment: Clear General / Constitutional Constitutional Assessment: Obese ASSESSMENT / PLAN ANESTHESIA PLAN ASA: 3 Anesthesia Plan: general Patient seen and allergies reviewed, anesthesia plan and risks discussed directly with patient /legal guardian or through an value stream coach. The use of blood products not discussed Approval to Proceed: approved for anesthesia documented in this encounter Plan of Treatment Upcoming Encounters Date Type Department Care Team (Late st Contact Info) Description 10/03/2023 10:45 AM CDT Appointment Department of Radiation Oncology in [address] [phone] Marlon Gambino M.D. [address] [place] [phone] documented as of this encounter Procedures Procedure Name Priority Date/Time Associated Diagnosis Comments LDA ANE ENDOTRACHEAL AIRWAY Routine 09/20/2023 8:07 AM CDT documented in this encounter Results * LDA ANE ENDOTRACHEAL AIRWAY (09/20/2023 8:07 AM CDT) Narrative Jessie Hameed APRN, CRNA D.N.P. - 09/20/2023 8:07 AM CDT Jessie Hameed APRN, CRNA, D.N.P. ? 09/20/2023 ??8:33 AM Airway Date/Time: 09/20/2023 8:07 AM Performed by: Jessie Hameed APRN, CRNA, D.N.P. Authorized by: Jessie Hameed APRN, CRNA, D.N.P. ?? Patient location during procedure: OR / Procedure Area PROCEDURE DETAILS: Mask difficulty assessment: difficult mask (i.e.two-handed) without oral airway Final airway type: video laryngoscope Laryngeal Manipulation: no ?? Final best view of glottic structures - Cormack/Lehane Score: grade 2A ETT location: oral VL device: glide scope Wynona scope blade size: 4 Tube size: 7.5 [...] Notable Events: no complications Jessie Hameed APRN, CRNA D.N.P. AN ESTHESIA ORDERABLES documented in this encounter Visit Diagnoses Not on filedocumented in this encounter Administered Medications Inactive Administered Medications - up to 3 most recent administrations Medication Order MAR Action Action Date Dose Rate Site acetaminophen injection intravenous, Administer over 15 Minutes, As needed, Starting on Sat09/20/23 at 1133, Anesthesia Intra-op Given 09/20/2023 11:33 AM CDT 1,000 mg ceFAZolin injection (ANCEF) intravenous, As needed, Starting on Sat09/20/23 at 0822, Anesthesia Intra-op Given 09/20/2023 8:22 AM CDT 2 g dexAMETHasone injection (DECADRON) intravenous, As needed, Starting on Sat09/20/23 at 0823, Anesthesia Intra-op Given 09/20/2023 8:23 AM CDT 4 mg fentaNYL injection (SUBLIMAZE) intravenous, As needed, Starting on Sat09/20/23 at 0805, Anesthesia Intra-op Given 09/20/2023 8:05 AM CDT 50 mcg insulin aspart U-100 injection (NovoLOG) subcutaneous, As needed, Starting on Sat09/20/23 at 0904, Anesthesia Intra-op Given 09/20/2023 10:31 AM CDT 2 Units Given 09/20/2023 9:04 AM CDT 4 Units ketamine injection (KETALAR) intravenous, As needed, Starting on Sat09/20/23 at 0822, Anesthesia Intra-op Given 09/20/2023 8:22 AM CDT 20 mg ketorolac injection (TORADOL) intravenous, As needed, Starting on Sat09/20/23 at 1133, Anesthesia Intra-op Given 09/20/2023 11:33 AM CDT 15 mg Lactated Ringer's intravenous, Continuous Infusion: Per Instructions PRN, Starting on Sat09/20/23 at 0803, Anesthesia Intra-op New Bag 09/20/2023 10:47 AM CDT New Bag 09/20/2023 8:03 AM CDT lidocaine (PF) (cardiac) injection intravenous, As needed, Starting on Sat09/20/23 at 0805, Anesthesia Intra-op Given 09/20/2023 8:05 AM CDT 60 mg ondansetron (PF) injection (ZOFRAN) intravenous, As needed, Starting on Sat09/20/23 at 1128, Anesthesia Intra-op Given 09/20/2023 11:28 AM CDT 4 mg propofol 10 mg/mL infusion (DIPRIVAN) intravenous, Continuous Infusion: Per Instructions PRN, Starting on Sat09/20/23 at 0805, Anesthesia Intra-op Rate/Dose Change 09/20/2023 12:01 PM CDT 30 mcg/kg/min 20.232 mL/hr Rate/Dose Change 09/20/2023 11:33 AM CDT 40 mcg/kg/min 26. 976 mL/hr Rate/Dose Change 09/20/2023 11:26 AM CDT 50 mcg/kg/min 33. 72 mL/hr propofoL injection (DIPRIVAN) intravenous, As needed, Starting on Sat09/20/23 at 0805, Anesthesia Intra-op Given 09/20/2023 8:05 AM CDT 200 mg rocuronium injection (ZEMURON) intravenous, As needed, Starting on Sat09/20/23 at 0820, Anesthesia Intra-op Given 09/20/2023 10:50 AM CDT 50 mg Given 09/20/2023 9:21 AM CDT 50 mg Given 09/20/2023 8:20 AM CDT 50 mg succinylcholine (PF) injection (ANECTINE) intravenous, As needed, Starting on Sat09/20/23 at 0806, Anesthesia Intra-op Given 09/20/2023 8:06 AM CDT 140 mg sugammadex injection (BRIDION) intravenous, As needed, Starting on Sat09/20/23 at 1216, Anesthesia Intra-op Given 09/20/2023 12:16 PM CDT 300 mg documented in this encounter Care Teams Radio Technician Relationship Specialty Start Date End Date Elsewhere, Pcp PCP - General Internal Medicine 09/18/23 documented as of this encounter
--- OUTSIDE RECORDS SUMMARY | 2023-09-27 12:36 | XMS_ITS | Encounter Summary ---
Author Name Unknown Organization [facility] Address [address] [place] [address] Care Team Providers Care Wood Die Maker Name Role Phone Unavailable Primary Care Provider Unavailabl e Reason for Referral * Outpatient (Routine) - Closed Specialty Diagnoses / Procedures Referred By Leni t Referred To Contact Radiation Oncology Diagnoses Primary Malignant Neoplasm Of Prostate (HCC) Michael Ochoa APRN, C.N.P., D.N.P. [address] [place] [phone] [facility] Region Referral ID Status Reason Start Date Expiration Date Visits Re quested Visits Authorized [id number] Closed 07/22/2023 01/20/2025 1 1 Scheduling Instructions [facility] PLUG PACKER Reason for Visit * Outpatient (Routine) - Closed Specialty Diagnoses / Procedures Referred By Leni t Referred To Contact Radiation Oncology Diagnoses Primary Malignant Neoplasm Of Prostate (HCC) Michael Ochoa APRN, C.N.P., D.N.P. [address] [place] [phone] [facility] Region Referral ID Status Reason Start Date Expiration Date Visits Re quested Visits Authorized [id number] Closed 07/22/2023 01/20/2025 1 1 Encounter Details Date Type Department Care Team (Latest Contact Info) Description 07/26/2023 9:55 AM CUT PLUG PACKER - 07/26/2023 5:06 PM CUT PLUG PACKER Hospital Encounter Department of Radiation Oncology in [place], [place] [address] [place] [phone] Marlon Gambino M.D. [address] [place] [address] Primary Malignant Neoplasm Of Prostate (HCC) (Primary Dx) Social History Tobacco Use Types Packs/Day Years Used Date Smoking Tobacco: Never Smokeless Tobacco: Never Alcohol Use Standard Drinks/Week Comments Yes 0 (1 standard drink = 0.6 oz pur e alcohol) [facility] Utilities Answer Date Recorded In [...] your living situation today? I have a [facility] place to live 07/19/2023 Sex and Gender Information Value Date Recorded Sex Assigned at Male 07/21/2023 9:10 AM CUT PLUG PACKER Gender Identity Male 07/21/2023 9:10 AM CUT PLUG PACKER Sexual Orientation Straight 07/21/2023 9: 10 AM CUT PLUG PACKER documented as of this encounter Last Filed Vital Signs Vital Sign Reading Time Taken Comments Blood Pressure 137/57 07/26/2023 10:16 AM CUT PLUG PACKER Pulse 73 07/26/2023 10:16 AM CUT PLUG PACKER Temperature 36.9 ??C (98.4 ??F) 07/26/2023 10:[address] Respiratory Rate - - Oxygen Saturation - - Inhaled Oxygen Concentration - - Weight 116 kg (255 lb 1.2 oz) 07/26/2023 10:16 A M CUT PLUG PACKER Height - - Body Mass Index 33.09 09/18/2022 8:00 AM CDT documented in this encounter Medications at Time of Discharge Medication Sig Dispensed Refills Start Date End Date amLODIPine (NORVASC) 5 mg tablet Take 5 mg by mouth daily. 03/02/2023 losartan-hydroCHLOROthia zide (HYZAAR) 50-12.5 mg per tablet Take 1 tablet by mouth daily. 90 tablet 3 12/05/2021 metFORMIN (GLUCOPHAGE) 500 mg tablet Take 1 tablet (500 mg total) by mouth 2 (two) times a day with meals. 180 tablet 3 12/05/2021 documented as of this encounter Consult Notes * Jackie Gallegos APRN, C.N.P., D.N.P. - 07/26/2023 10:30 AM CST SUBJECTIVE REQUESTING PROVIDER Michael Ochoa APRN, C.N.P., D.N.P. REASON FOR CONSULT 1. Primary Malignant Neoplasm Of Prostate (HCC) SUPERVISED BY: Marlon Gambino MD HISTORY OF PRESENT ILLNESS Magdy Beck is a 72 y.o. male with high-risk adenocarcinoma prostate. He presents today for an opinion regarding the role of radiation therapy in the management of his disease. His oncologic history is as follows: Oncology History [...] PSA 10.5 ng/mL. Testosterone total 290 ng/dL INTERVAL HISTORY The patient was seen and examined today with Dr. Gambino. The patient reports feeling well overall. 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 He reports minimal urinary symptoms of a weaker stream. He denies any urinary urgency, frequency, leakage, hematuria, dysuria, or hesitancy. He feels his empties his bladder completely. He reports nocturia x1. He reports daily soft bowel movements without blood or pain. He denies any concerns with constipation or diarrhea. He denies any abdominal pain or gaseous bloating or discomfort. The patient denies a history of prior radiation therapy, connective tissue disorders, or inflammatory bowel disease. The patient denies any implanted devices. His ECOG performance status is 0. AUA SYMPTOM INDEX: 07/26/23: 3 (0, 0, 0, 0, 2, 0, 1) IIEF-5 QUESTIONNAIRE: 07/26/23: 11 (2, 2, 4, 2, 1) - moderate erectile dysfunction REVIEW OF SYSTEMS Review of systems was negative except as documented above. PATIENT REPORTED SYMPTOM SCREEN FATIGUE (Scale: 0 = no fatigue; 10 = worst fatigue you can imagine): 0 PAIN (Scale: 0 = no pain; 10 = worst pain you can imagine): 0 OVERALL QUALITY OF LIFE (Scale: 0 = as bad as can be; 10 = as good as can be): 10 PAST MEDICAL HISTORY Past Medical History: Diagnosis Date Diabetes Mellitus Type 2 (HCC) Hypertension NOS Primary Malignant Neoplasm Of Prostate (HCC) Stenosis Renal Artery (HCC) PAST SURGICAL HISTORY Past Surgical History: Procedure Laterality Date DUPUYTREN CONTRACTURE RELEASE HERNIA REPAIR Right 1974 FAMILY HISTORY Family History Problem Relation Age of Onset Prostate cancer Father Cancer Maternal Grandfather SOCIAL HISTORY Social History Socioeconomic History Marital status: Spouse name: Marguerite Number of children: 2 Occupational History 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 Tobacco Use Smoking status: Never Smokeless tobacco: Never Vaping Use Vaping Use: never used Substance and Sexual Activity Alcohol use: Yes Social Determinants of Health Food Insecurity: No Food Insecurity (07/19/2023) Hunger Vital Sign Worried About Running Out of Food in the Last Year: Never true Ran Out of Food in the Last Year: Never true Transportation Needs: No Transportation Needs (07/19/2023) PRAPARE - Transportation Lack of Transportation (Medical): No Lack of Transportation (Non-Medical): No Physical Activity: Unknown (07/19/2023) Exercise Vital Sign Days of Exercise per Week: 2 days Minutes of Exercise per Session: Patient declined Housing Stability: Low Risk (07/19/2023) Housing Stability Housing: Living Situation: I have a steady place to live OBJECTIVE BP 137/57 (BP Location: Right arm, Patient Position: Sitting, Cuff Size: Large) Pulse 73 Temp 36.9 ??C (Temporal) Wt 116 kg BMI 33.09 kg/m?? PHYSICAL EXAM General: Patient is alert and oriented in no apparent distress. Neck: Supple. Lymph: No palpable cervical, supraclavicular, infraclavicular, axillary, or inguinal adenopathy. Lungs: Clear to auscultation bilaterally. Heart: Regular rate and rhythm. Normal S1 and S2. Abdomen: Soft, non-tender, non-distended. Normal active bowel sounds are present. ASSESSMENT / PLAN #1 Stage IIIC (cT2c, cN0, cM0, PSA 10.5, Grade Group 5) adenocarcinoma of the prostate It was a pleasure to meet with Magdy and his , Marguerite, today. I had a discussion with them regarding his prostate cancer diagnosis including his staging. We discussed that he has high risk prostatecancer. We reviewed the NCCN guidelines. We discussed the risks, benefits, and alternatives of radiotherapy in this setting. We discussed external beam radiation therapy options in 20 or 26 fractions. We also discussed the option of high-dose brachytherapy in 1 or 2 fractions that could be utilizedwith external beam radiation treatment. We discussed that [place]. In addition, we discussed androgen deprivation therapy for 18-36 months. I counseled him on the importance of calcium and vitamin D-3 supplementation while he is on hormone therapy. We recommend 1200mg calcium and 1000 international units vitamin D-3 daily. I discussed the logistics, as well as, the acute and chronic side effects of radiotherapy. The acute side effects may include, but are not limited to, urinary frequency and urgency, dysuria, bowel frequency and urgency, diarrhea, gaseous bloating and discomfort, erectile dysfunction, radiation dermatitis, loss of pubic hair, and fatigue. Long-term side effects may include, but are not limited to,mild increase in urinary and bowel frequency, as well as, more rare side effects including radiation cystitis, radiation proctitis, urethral stenosis requiring dilatation, fistula formation, increasing arthritis of the hips, small bowel obstruction, and a very small risk of secondary malignancy. I also discussed the side effects of androgen deprivation therapy, which may include, but are not limited to, hot flashes, fatigue, bone loss with prolonged use, mood changes, gynecomastia, loss of muscle strength and power, increased risk of cardiovascular events, increased risk of dementia/Alzheimer's disease, and complete loss of erectile function until his testosterone levels normalize. I discussed the full bladder, empty rectum protocol with him. The patient was provided with a written summary of recommendations. After discussion, the patient verbally stated that he would like to proceed with treatment in the form of HDR with external beam radiotherapy. We will reach out to Dr. Monroe's team to coordinate HDR with external beam, along with androgen deprivation therapy. Once we hear from Dr. Monroe's team we will contact the patient with the final timeline and place orders accordingly. Patient seen in collaboration with Dr. Gambino, please see his attestation for additional information. The patient was provided with our contact information. He was asked to contact us with questions or concerns. He verbally expressed his understanding of the plan. EDUCATION Ready to learn, no apparent learning barriers were identified; learning preferences include listening. Explained diagnosis and treatment plan; patient expressed understanding of the content. PRIMARY PROVIDER KENNEDY Escamilla I personally spent 45 minutes in care of the patient today. Time includes both non face to face andface to face patient care. Signed by: Jackie Gallegos APRN, C.N.P., D.N.P. 07/26/2023 11:09 AM CUT PLUG PACKER [facility] [address] [place] [address] PLUG PACKER Associated attestation - Marlon Gambino M.D. - 07/26/2023 5:05 PM CUT PLUG PACKER I saw and evaluated the patient and participated in the mensah portions of the service. I reviewed thedocumentation of Jackie Gallegos C.N.P. and agree with the findings and plan. Mr. Magdy Beck is a 72 y.o. male with high-risk, stage IIIC (cT2c, cN0, cM0, PSA: 10.5, Grade Group: 5) adenocarcinoma of the prostate. We are asked by Mr. Ochoa and Dr. Monroe to evaluate the patient for radiotherapy. His oncologic history is well detailed in Rosy's note. In brief, His PSA was 6 on February 25, 2023. He had MRI prostate on May 06, 2023. On the MRI, his prostate volume was 38.4 cc. Therewere 2 PI-RADS 4 lesions (right posterior medial at base/midgland and posterior midline at base) and 2 PI-RADS 3 lesions (right posterior lateral at midgland and right posterior transition zone at base). There was no extracapsular tumor extension or obvious seminal vesicle invasion. There was no suspicious pelvic lymphadenopathy or bone metastasis in the visualized bones. On May 31, 2023, hehad a transperineal, MR fusion, targeted biopsy. The biopsy of the target lesion in the right periph eral zone at base revealed adenocarcinoma with Steele score 4+5, involving 2 of 2 cores. The biopsy of the target lesion in the midline peripheral zone revealed adenocarcinoma with Jason score 4+5, involving 2 of 2 cores. The biopsy of the target lesion in the right peripheral zone at midgland revealed adenocarcinoma with a Steele score 4+4, involving 2 of 2 cores. The biopsy of the right transition zone revealed adenocarcinoma with a Steele score 4+5, involving 1 of 1 core. There was perineural invasion. His PSA was 8.8 on June 24, 2023. A PSMA PET/CT that same day revealed intense uptake in the right lobe of the prostate from base to apex, crossing to the left lobe at the base. There was no lymph node or distant metastasis. His PSA was 10.5 ng/mL and testosterone was 290 ng/dL on July 23, 2023. The patient reports he is feeling well. His bowel and bladder function are normal with nocturia x1 and an AUA symptom index of 3. He does have some erectile dysfunction, but this is not a concern to him. The patient's ECOG performance status is 0. OBJECTIVE BP 137/57 (BP Location: Right arm, Patient Position: Sitting, Cuff Size: Large) Pulse 73 Temp 36.9 ??C (Temporal) Wt 116 kg BMI 33.09 kg/m?? PHYSICAL EXAM General: Patient is awake, alert, and oriented to person, place, and time. No apparent distress. The patient is here today with his Marguerite. Remainder is as per Ms. Gallegos's note. DIAGNOSTICS I reviewed the patient's pathology reports and imaging. ASSESSMENT / PLAN #1 Stage IIIC (cT2c, cN0, cM0, PSA: 10.5, Grade Group: 5) adenocarcinoma of the prostate I had a detailed discussion with the patient and his regarding the risks, benefits, and alternatives of radiotherapy in this setting. I consulted the NCCN guidelines in formulating my recommendations and reviewed these with him. The patient has already discussed prostatectomy with Dr. John. Mukesh with Dr. Monroe's recommendation for definitive radiotherapy. Options include external beam radiotherapy alone to a dose of 60 Gy in 20 fractions or 70.2 Gy in 26 fractions utilizing IMRT based on our ability to achieve bowel and bladder constraints. We also discussed a combination of external beam radiotherapy to a dose of 45 Gy in 25 fractions utilizing IMRT and 1 or 2 high dose rate prostate brachytherapy boost implants. Intensity modulated radiotherapy is indicated so as to spare high radiation dose to the adjacent bowel, bladder, rectum, and hips. Given his high risk disease, I would recommend the addition of androgen deprivation therapy for minimum of 18 months, but aiming for total of 3 years if he tolerates it. We discussed the use of a Hydrogel spacer. We also discussed the fact that surgical salvage is typically not possible after any form of prostate radiotherapy. I also discussed the indications for adjuvant radiotherapy following prostatectomy as well as salvage radiotherapy in the setting of rising PSA. I discussed the logistics as well as the acute and chronic side effects associated with treatment in detail. I also discussed the side effects of androgen deprivation therapy. We will obtain a baseline bone density scan. After this discussion, I provided the patient with a written summary of my recommendations. His questions and those of his spouse were answered to their verbalized satisfaction. The patient verbally stated that he would like to proceed with treatment. He would like to consider a combination of brachytherapy and external beam radiotherapy. We will contact MrYissel Don and Dr. Monroe in this regard. Once we know more information about timing, we will begin androgen deprivation therapy with bicalutamide 50 mg daily for 3 weeks and a 7.5 mg leuprolide injection at [facility]. The patient and his verbalized satisfaction with this plan. My thanks to Mr. Ochoa and Drs. Monroe and Alvaro and Ms. Marin for the opportunity to participate in this patient's care. I have spent 50 minutes caring for this patient including both [id number] and ovz-xkyz-nj-face time. Signed by: Marlon Gambino M.D. 07/26/23 5:05 PM CUT PLUG PACKER [facility] [place] documented in this encounter Miscellaneous Notes * Addendum Note - Lynne Denise C.N.A. - 07/26/2023 10:30 AM CSTEncounter addended by: Lynne Denise C.N.A. on: 07/29/2023 7:00 AM Actions taken: Letter saved PLUG PACKER documented in this encounter Plan of Treatment Upcoming Encounters Date Type Department Care Team (Late st Contact Info) Description 10/03/2023 10:45 AM CDT Appointment Department of Radiation Oncology in [place], [place] [address] [place] [address] Marlon Gambino M.D. [address] [place] [address] Scheduled Referrals Name Type Priority Associated Diagnoses Order Schedule Radiation Oncology - consult (clinic) Outpatient Referral Routine Primary Malignant Neoplasm Of Prostate (HCC) Once for 1 Occurrences starting 07/26/2023 until 07/26/2023 documented as of this encounter Visit Diagnoses Diagnosis Primary Malignant Neoplasm Of Prostate (HCC)- Primary documented in this encounter
--- OUTSIDE RECORDS SUMMARY | 2023-09-27 12:37 | XMS_ITS | Encounter Summary ---
Author Name Unknown Organization [facility] Address [address] [place] [address] Care Team Providers Care Bilingual Manager Name Role Phone Unavailable Primary Care Provider Unavailabl e Reason for Referral * MRI/CAT/PET Scan (Routine) - Closed Specialty Diagnoses / Procedures Referred By Contac t Referred To Contact Diagnoses Elevated Prostate-Specific Antigen Procedures PET CT Skull to Thigh PSMA Liam Bashir M.D. [address] [place] [address] [facility] Referral ID Status Reason Start Date Expiration Date Visits Re quested Visits Authorized [id number] Closed 06/07/2023 06/06/2024 1 1 LY PARTNER Reason for Visit * MRI/CAT/PET Scan (Routine) - Closed Specialty Diagnoses / Procedures Referred By Contac t Referred To Contact Diagnoses Elevated Prostate-Specific Antigen Procedures PET CT Skull to Thigh PSMA Liam Bashir M.D. [address] [place] [address] [facility] Referral ID Status Reason Start Date Expiration Date Visits Re quested Visits Authorized [id number] Closed 06/07/2023 06/06/2024 1 1 Encounter Details Date Type Department Care Team (Latest Contact Info) Description 06/24/2023 3:31 PM FAMILY PARTNER - 06/24/2023 11:59 PM FAMILY PARTNER Hospital Encounter Department of Radiology, [facility] in [place], [place] [address] [place] [address] Liam Bashir M.D. [address] [place] [phone] Elevated Prostate-Specific Antigen Discharge Disposition: Home or Self Care Social History Tobacco Use Types Packs/Day Years Used Date Smoking Tobacco: Never Smokeless Tobacco: Never Nutrition Answer Date Recorded Nutrition: EVOO Fat Source Unknown 11/02 Nutrition: Servings of Fruits/Vegetables per Day Not on file 11/02/2021 Dental Answer Date Recorded Dental: Regular Dentist Unknown 11/03/19 Sex and Gender Information Value Date Recorded Sex Assigned at Male 07/21/2023 9:10 AM FAMILY PARTNER Gender Identity Male 07/21/2023 9:10 AM FAMILY PARTNER Sexual Orientation Straight 07/21/2023 9: 10 AM FAMILY PARTNER documented as of this encounter Medications at [...] 3 12/05/2021 documented as of this encounter Plan of Treatment Upcoming Encounters Date Type Department Care Team (Late st Contact Info) Description 10/03/2023 10:45 AM CDT Appointment Department of Radiation Oncology in [place] [address] [place] [phone] Marlon Gambino M.D. [address] [place] [phone] documented as of this encounter Procedures Procedure Name Priority Date/Time Associated Diagnosis Comments PET CT SKULL TO THIGH PSMA RAD - Routine (most inpatients and all outpatients) 06/24/2023 5:46 PM FAMILY PARTNER Elevated Prostate-Specific Antigen documented in this encounter Results * PET CT Skull to Thigh PSMA (06/24/2023 5:46 PM FAMILY PARTNER) Anatomical Region Laterality Modality Body, Nuclear Medicine PET R ST LOS, PET ARZ LOS, Nuclear Medicine PET FLA LOS, Nuclear Medicine N/A Positron Emission Tomography (PET), Positron Emission Tomography (PET) Impressions 06/25/2023 9:36 AM FAMILY PARTNER Intensely PSMA avid right prostate cancer. No PSMA avid metastases. miPSMA Expression Score: 3 Narrative 06/25/2023 9:36 AM FAMILY PARTNER EXAM: ??PET CT SKULL TO THIGH PSMA RADIOPHARMACEUTICAL/MEDS: Route: intravenous piflufolastat F 18 injection (PYLARIFY F-18),8.97 millicurie TECHNIQUE: ??PSMA-targeted PET/CT scan was performed from the vertex through the upper thighs with low dose, non-contrast, free-breathing CT images for attenuation correction and anatomic localization (AC/AL), with imaging beginning at approximately 60 minutes after radiotracer injection. ? COMPARISON: ??MR prostate 05/03/2023 INDICATION: ??High risk prostate cancer. Rufe 4+5. Staging. Initial treatment strategy. PSA: 8.8 on 06/22/2023 The patient reports having received a vaccination in the right arm within the last two months. FINDINGS: PROSTATE BED: Intense PSMA activity localizing of the right posterior prostate gland from base to apex which crosses to left at the base (SUVmax 22.8; image 3:30). LYMPH NODES: No PSMA avid vic metastases. OSSEOUS DISEASE: No PSMA avid osseous lesions. OTHER METASTATIC DISEASE: No PSMA avid other metastatic disease. Additional findings on the noncontrast low-dose CT: Mucous retention cyst or polyp left maxillary sinus. Vascular calcifications. 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 Left fat-containing inguinal hernia. Colonic diverticula. Subsegmental atelectasis at the lung bases. Stable sclerotic lesion in the L4 vertebral body compared to the CT on 03/01/2022 which likely represents a hemangioma. Procedure Note Aidan Walton M.D. - 06/25/2023 EXAM: PET CT SKULL TO THIGH PSMA RADIOPHARMACEUTICAL/MEDS: Route: intravenous piflufolastat F 18 injection (PYLARIFY F-18),8.97 millicurie TECHNIQUE: PSMA-targeted PET/CT scan was performed from the vertexthrough the upper thighs with low dose, non-contrast, free-breathing CTimages for attenuation correction and anatomic localization (AC/AL), withimaging beginning at approximately 60 minutes after radiotracer injection. COMPARISON: MR prostate 05/03/2023 INDICATION: High risk prostate cancer. Jason 4+5. Staging. Initialtreatment strategy. PSA: 8.8 on 06/22/2023 The patient reports having received a vaccination in the right arm withinthe last two months. FINDINGS: PROSTATE BED: Intense PSMA activity localizing of the right posteriorprostate gland from base to apex which crosses to left at the base (NKIpit80.8; image 3:30). LYMPH NODES: No PSMA avid vic metastases. OSSEOUS DISEASE: No PSMA avid osseous lesions. OTHER METASTATIC DISEASE: No PSMA avid other metastatic disease. Additional findings on the noncontrast low-dose CT: Mucous retention cystor polyp left maxillary sinus. Vascular calcifications. Aneurysmaldilatation of the celiac artery is better appreciated on the comparisonCTA. Left fat-containing inguinal hernia. Colonic diverticula. Subsegmental atelectasis at the lung bases. Stablesclerotic lesion in the L4 vertebral body compared to the CT on 03/01/2022which likely represents a hemangioma. IMPRESSION: Intensely PSMA avid right prostate cancer. No PSMA avid metastases. miPSMA Expression Score: 3 Liam Perry M.D. [facility] [place] PRO CEDURES documented in this encounter Visit Diagnoses Diagnosis Elevated Prostate-Specific Antigen documented in this encounter Administered Medications Inactive Administered Medications - up to 3 most recent administrations Medication Order MAR Action Action Date Dose Rate Site piflufolastat F 18 injection (PYLARIFY F-18) 8-10 millicurie, intravenous, Once, On 06/24/23 at 1645, For 1 dose, Imaging Protocol Orders Given 06/24/2023 4:18 PM FAMILY PARTNER 8.97 millicuries documented in this encounter
--- OUTSIDE RECORDS SUMMARY | 2023-09-27 12:37 | XMS_ITS | Encounter Summary ---
Author Name Unknown Organization [facility] Address [address] [place] [address] Care Team Providers Care Chemist Steroids Name Role Phone Unavailable Primary Care Provider Unavailabl e Encounter Details Date Type Department Care Team (Latest Contact Info) Description 07/23/2023 2:28 PM MECHANICAL MANUFACTURING ENGINEER - 07/23/2023 11:59 PM MECHANICAL MANUFACTURING ENGINEER Hospital Encounter Department of Laboratory Medicine in [place], [place] [address] [place] [address] Michael Ochoa, NIKKI, C.N.P., D.N.P. [address] [place] [phone] Primary Malignant Neoplasm Of Prostate (HCC) Discharge Disposition: Home or Self Care Social History Tobacco Use Types Packs/Day Years Used Date Smoking Tobacco: Never Smokeless Tobacco: Never [facility] Utilities Answer Date Recorded In the past 12 months has [address], [address], oil, or water [employer] threatened to shut off services in your [...] your living situation today? I have a [facility] place to live 07/19/2023 Sex and Gender Information Value Date Recorded Sex Assigned at Male 07/21/2023 9:10 AM MECHANICAL MANUFACTURING ENGINEER Gender Identity Male 07/21/2023 9:10 AM MECHANICAL MANUFACTURING ENGINEER Sexual Orientation Straight 07/21/2023 9: 10 AM MECHANICAL MANUFACTURING ENGINEER documented as of this encounter Medications at [...] CDT Appointment Department of Radiation Oncology in [place], [place] [address] [place] [address] Marlon Gambino M.D. [address] [place] [address] documented as of this encounter Procedures Procedure Name Priority Date/Time Associated Diagnosis Comments CBC WITH DIFFERENTIAL, B Routine 024 2:42 PM MECHANICAL MANUFACTURING ENGINEER Primary Malignant Neoplasm Of Prostate (HCC) PROSTATE-SPECIFIC AG (PSA) DIAGNOSTIC, S Routine 07/23/2023 2:42 PM MECHANICAL MANUFACTURING ENGINEER Primary Malignant Neoplasm Of Prostate (HCC) ALANINE AMINOTRANSFERASE (ALT), S/P Routine 07/23/2023 2:41 PM MECHANICAL MANUFACTURING ENGINEER Primary Malignant Neoplasm Of Prostate (HCC) ASPARTATE AMINOTRANSFERASE (AST), S/P Routine 07/23/2023 2:41 PM MECHANICAL MANUFACTURING ENGINEER Primary Malignant Neoplasm Of Prostate (HCC) TESTOSTERONE, TOTAL BY MASS SPECROMETRY, S Routine 07/23/2023 2:41 PM MECHANICAL MANUFACTURING ENGINEER Primary Malignant Neoplasm Of Prostate (HCC) ALKALINE PHOSPHATASE, S/P Routine 07/23/2023 2:41 PM MECHANICAL MANUFACTURING ENGINEER Primary Malignant Neoplasm Of Prostate (HCC) CREATININE WITH EGFR, S/P Routine 07/23/2023 2:41 PM MECHANICAL MANUFACTURING ENGINEER Primary Malignant Neoplasm Of Prostate (HCC) BILIRUBIN, TOT, S/P Routine 07/23/2023 2 :41 PM MECHANICAL MANUFACTURING ENGINEER Primary Malignant Neoplasm Of Prostate (HCC) documented in this encounter Results * (ABNORMAL) PSA (Prostate-Specific Antigen), Diagnostic (07/23/2023 2:42 PM MECHANICAL MANUFACTURING ENGINEER) Prostate-Specific Ag 10.5(H) <=6.5 ng/mL 07/23/2023 3:28 PM MECHANICAL MANUFACTURING ENGINEER OWAT Comment: ----ADDITIONAL INFORMATION---- The testing method is an electrochemiluminescence assay manufactured by [employer] and performed on the Modular or Vasyl system. Values obtained with different assay methods or kits may be different and cannot be used interchangeably. Test results cannot be interpreted as absolute evidence for the presence or absence of malignant disease. Blood (Blood, Venous) 07/23/2023 2:42 PM MECHANICAL MANUFACTURING ENGINEER 07/23/2023 2:47 PM MECHANICAL MANUFACTURING ENGINEER Michael Ochoa APRN C.N.P., D.N.P. LAB B LOOD ADD-ON [facility] [address] [place] [address], [place] OWAT [facility] [place] [address] [place] [address] * CBC with Differential, Blood (07/23/2023 2:42 PM MECHANICAL MANUFACTURING ENGINEER) Hemoglobin 14.8 13.2 - 16.6 g/dL 07/23/2023 3:10 PM MECHANICAL MANUFACTURING ENGINEER OWAT Hematocrit 43.4 38.3 - 48.6 % 07/23/2023 3:10 PM MECHANICAL MANUFACTURING ENGINEER OWAT Erythrocytes 4.81 4.35 - 5.65 x10(12)/L 07/23/2023 3:10 PM MECHANICAL MANUFACTURING ENGINEER OWAT MCV 90.2 78.2 - 97.9 fL 07/23/2023 3:10 PM MECHANICAL MANUFACTURING ENGINEER OWAT RBC Distrib Width 12.0 11.8 - 14.5 % 07/23/2023 3:10 PM MECHANICAL MANUFACTURING ENGINEER OWAT Platelet Count 179 135 - 317 x10(9)/L 07/23/2023 3:10 PM MECHANICAL MANUFACTURING ENGINEER OWAT Leukocytes 6.8 3.4 - 9.6 x10(9)/L 07/23/2023 3:10 PM MECHANICAL MANUFACTURING ENGINEER OWAT Neutrophils 3.93 1.56 - 6.45 x10(9)/L 07/23/2023 3:10 PM MECHANICAL MANUFACTURING ENGINEER OWAT Lymphocytes 2.03 0.95 - 3.07 x10(9)/L 07/23/2023 3:10 PM MECHANICAL MANUFACTURING ENGINEER OWAT Monocytes 0.57 0.26 - 0.81 x10(9)/L 07/23/2023 3:10 PM MECHANICAL MANUFACTURING ENGINEER OWAT Eosinophils 0.20 0.03 - 0.48 x10(9)/L 07/23/2023 3:10 PM MECHANICAL MANUFACTURING ENGINEER OWAT Basophils 0.03 0.01 - 0.08 x10(9)/L 07/23/2023 3:10 PM MECHANICAL MANUFACTURING ENGINEER OWAT Blood (Blood, Venous) 07/23/2023 2:42 PM MECHANICAL MANUFACTURING ENGINEER 07/23/2023 2:47 PM MECHANICAL MANUFACTURING ENGINEER Michael Ochoa APRN, C.N.P., MikalNYisselP. LAB B LOOD ADD-ON [facility] [address] [place] [address], [place] OWAT [facility] in [place] [address] [place] [address] * Testosterone, Total by Mass Spectrometry, Serum (07/23/2023 2:41 PM MECHANICAL MANUFACTURING ENGINEER) Testosterone, Total by Mass Spectrometry, Serum 290 240 - 950 ng/dL 07/26/2023 1:41 AM MECHANICAL MANUFACTURING ENGINEER [facility] Comment: ----ADDITIONAL INFORMATION---- Testing performed by Liquid Chromatography-Tandem Mass Spectrometry (LC-MS/MS). This test was developed and its performance characteristics determined by [facility] in a manner consistent with CLIA requirements. This test has not been cleared or approved by the U.S. Food and Drug Administration. Blood (Blood, Venous) 07/23/2023 2:41 PM MECHANICAL MANUFACTURING ENGINEER 07/24/2023 7:43 AM MECHANICAL MANUFACTURING ENGINEER Michael cOhoa APRN, C.N.P., MikalNYisselPYissel LAB B LOOD NON ADD-ON Performing Organization Address City/[facility] [address]/ZIP Co de Phone Number [facility] [address] [place] [address] [facility] [address] [place] [address] [place] [address] * Creatinine with Estimated GFR (07/23/2023 2:41 PM MECHANICAL MANUFACTURING ENGINEER) Creatinine 0.93 0.74 - 1.35 mg/dL 07/23/2023 3:28 PM MECHANICAL MANUFACTURING ENGINEER OWAT Estimated GFR (eGFR) 87 >=60 mL/min/BSA 07/23/2023 3:28 PM MECHANICAL MANUFACTURING ENGINEER OWAT Comment: Estimated GFR calculated using the 2020 CKD_EPI creatinine equation. Blood (Blood, Venous) 07/23/2023 2:41 PM MECHANICAL MANUFACTURING ENGINEER 07/23/2023 2:47 PM MECHANICAL MANUFACTURING ENGINEER Krish Quijano APRN.N.P., D.N.P. LAB B LOOD ADD-ON [facility] [address] [place] [address], [place] [facility] in [place] [address] [place] [address] * AST (Aspartate Aminotransferase) (07/23/2023 2:41 PM MECHANICAL MANUFACTURING ENGINEER) Aspartate Aminotransferase (AST), P 19 8 - 48 U/L 07/23/2023 3:28 PM MECHANICAL MANUFACTURING ENGINEER OWAT Blood (Blood, Venous) 07/23/2023 2:41 PM MECHANICAL MANUFACTURING ENGINEER 07/23/2023 2:47 PM MECHANICAL MANUFACTURING ENGINEER Krish Quijano APRN.N.P., D.N.P. LAB B LOOD ADD-ON Performing Organization Address City/[facility] [address]/ZIP Co de Phone Number [facility] [address] [place] [address], [place] [facility] [place] [address] [place] [address] * Bilirubin, Total (07/23/2023 2:41 PM MECHANICAL MANUFACTURING ENGINEER) Bilirubin, Total, P 0.3 0.0 - 1.2 mg/dL 07/23/2023 3:28 PM MECHANICAL MANUFACTURING ENGINEER OWAT Blood (Blood, Venous) 07/23/2023 2:41 PM MECHANICAL MANUFACTURING ENGINEER 07/23/2023 2:47 PM MECHANICAL MANUFACTURING ENGINEER Krish Quijano APRN.N.P., D.N.P. LAB B LOOD ADD-ON [facility] [address] [place] [address], [place] [facility] [place] [address] [place] [address] * ALT (Alanine Aminotransferase) (07/23/2023 2:41 PM MECHANICAL MANUFACTURING ENGINEER) Alanine Aminotransferase (ALT), P 23 7 - 55 U/L 07/23/2023 3:28 PM MECHANICAL MANUFACTURING ENGINEER OWAT Blood (Blood, Venous) 07/23/2023 2:41 PM MECHANICAL MANUFACTURING ENGINEER 07/23/2023 2:47 PM MECHANICAL MANUFACTURING ENGINEER Michael Ochoa APRN, C.N.P., D.N.P. LAB B LOOD ADD-ON [facility] [address] [place] [address], [facility] in [place] [address] [place] [address] * Alkaline Phosphatase (07/23/2023 2:41 PM MECHANICAL MANUFACTURING ENGINEER) Alkaline Phosphatase, P 61 40 - 129 U/L 07/23/2023 3:28 PM MECHANICAL MANUFACTURING ENGINEER OWAT Blood (Blood, Venous) 07/23/2023 2:41 PM MECHANICAL MANUFACTURING ENGINEER 07/23/2023 2:47 PM MECHANICAL MANUFACTURING ENGINEER Michael Ochoa APRN, C.N.P., D.N.P. LAB B LOOD ADD-ON [facility] [address] [place] [address], [facility] [place] [address] [place] [address] documented in this encounter Visit Diagnoses Diagnosis Primary Malignant Neoplasm Of Prostate (HCC) documented in this encounter
--- OUTSIDE RECORDS SUMMARY | 2023-09-27 12:37 | XMS_ITS | Encounter Summary ---
Author Name Unknown Organization [facility] Address [address] [place] [address] Care Team Providers Care Bilingual Medical Assistant Name Role Phone Unavailable Primary Care Provider Unavailabl e Reason for Referral * Outpatient (Routine) - Closed Specialty Diagnoses / Procedures Referred By Leni lopez Referred To Contact Radiation Oncology Diagnoses Primary Malignant Neoplasm Of Prostate (HCC) Michael Ochoa APRN C.N.PYissel, D.N.P. [address] [place] [phone] [facility] Region Referral ID Status Reason Start Date Expiration Date Visits Re quested Visits Authorized [id number] Closed 07/22/2023 01/20/2025 1 1 Scheduling Instructions [facility] INTERFACE DEVELOPER Encounter Details Date Type Department Care Team (Late st Contact Info) Description 07/22/2023 Orders Only Department of Radiation Oncology in [place], [place] [address] [place] [phone] Michael Ochoa APRN, C.N.P., D.N.P. [address] [place] [phone] Primary Malignant Neoplasm Of Prostate (HCC) (Primary Dx) Social History Tobacco Use Types Packs/Day Years Used Date Smoking Tobacco: Never Smokeless Tobacco: Never [facility] Utilities Answer Date Recorded In the past 12 months has th e electric, gas, oil, or water [employer] threatened to shut off services in your [...] your living situation today? I have a [facility] place to live 07/19/2023 Sex and Gender Information Value Date Recorded Sex Assigned at Male 07/21/2023 9:10 AM WEB INTERFACE DEVELOPER Gender Identity Male 07/21/2023 9:10 AM WEB INTERFACE DEVELOPER Sexual Orientation Straight 07/21/2023 9: 10 AM WEB INTERFACE DEVELOPER documented as of this encounter Plan of Treatment Upcoming Encounters Date Type Department Care Team (Late st Contact Info) Description 10/03/2023 10:45 AM CDT Appointment Department of Radiation Oncology in [place], [place] [address] [place] [address] Marlon Gambino M.D. [address] [place] [address] Scheduled Referrals Name Type Priority Associated Diagnoses Orde r Schedule Radiation Oncology - consult (clinic) Outpatient Referral Routine Primary Malignant Neoplasm Of Prostate (HCC) Expected: 07/22/2023 (Approximate), Expires: 10/19/2024 documented as of this encounter Visit Diagnoses Diagnosis Primary Malignant Neoplasm Of Prostate (HCC)- Primary documented in this encounter
--- OUTSIDE RECORDS SUMMARY | 2023-09-27 12:37 | XMS_ITS | Encounter Summary ---
Author Name Unknown Organization [facility] Address [address] [place] [address] Care Team Providers Care Claims Account Manager Name Role Phone Unavailable Primary Care Provider Unavailabl e Encounter Details Date Type Department Care Team (Latest Contact Info) Description 06/24/2023 3:00 PM ANIME DESIGNER - 06/24/2023 3:30 PM ANIME DESIGNER Hospital Encounter Department of Laboratory Medicine and Pathology, [facility] in [place], [place] [address] [place] [address] Liam Bashir M.D. [address] [place] [address] Elevated Prostate-Specific Antigen Discharge Disposition: Home or [...] Sex Assigned at Male 07/21/2023 9:10 AM ANIME DESIGNER Gender Identity Male 07/21/2023 9:10 AM ANIME DESIGNER Sexual Orientation Straight 07/21/2023 9: 10 AM ANIME DESIGNER documented as of this encounter Medications at [...] CDT Appointment Department of Radiation Oncology in [place], [place] [address] [place] [address] Marlon Gambino M.D. [address] [place] [address] documented as of this encounter Procedures Procedure Name Priority Date/Time Associated Diagnosis Comments PROSTATE-SPECIFIC AG (PSA) DIAGNOSTIC, S Routine 06/24/2023 3:21 PM ANIME DESIGNER Elevated Prostate-Specific Antigen documented in this encounter Results * (ABNORMAL) PSA (Prostate-Specific Antigen), Diagnostic (06/24/2023 3:21 PM ANIME DESIGNER) Prostate-Specific Ag 8.8(H) <=6.5 ng/mL 06/24/2023 4:26 PM ANIME DESIGNER DTL Comment: ----ADDITIONAL INFORMATION---- The testing method is an electrochemiluminescence assay manufactured by [employer] and performed on the Modular or Vasyl system. Values obtained with different assay methods or kits may be different and cannot be used interchangeably. Test results cannot be interpreted as absolute evidence for the presence or absence of malignant disease. Blood (Blood, Venous) 06/24/2023 3:21 PM ANIME DESIGNER 06/24/2023 3:54 PM ANIME DESIGNER Liam Perry M.D. LAB BLOOD ADD-ON [facility] [address] [place] [address], [place] DTL [facility] [address] [place] [address] documented in this encounter Visit Diagnoses Diagnosis Elevated Prostate-Specific Antigen documented in this encounter
--- OUTSIDE RECORDS SUMMARY | 2023-09-27 12:37 | XMS_ITS | Encounter Summary ---
Author Name Unknown Organization [facility] Address [address] [place] [address] Care Team Providers Care Design Technician Name Role Phone Unavailable Primary Care Provider Unavailabl e Encounter Details Date Type Department Care Team ([facility] st Contact Info) Description 07/22/2023 Orders Only Department of Radiation Oncology in [place], [place] [address] [place] [address] Michael Ochoa, NIKKI, C.N.P., D.N.P. [address] [place] [address] Primary Malignant Neoplasm Of Prostate (HCC) (Primary Dx) Social History Tobacco Use Types Packs/Day Years Used Date Smoking Tobacco: Never Smokeless Tobacco: Never [facility] Utilities Answer Date Recorded In the past 12 months has [facility] electric, gas, oil, or water [employer] threatened to shut off services in your [...] your living situation today? [facility] 07/19/2023 Sex and Gender Information Value Date Recorded Sex Assigned at Male 07/21/2023 9:10 AM CARPET INSTALLATION SPECIALIST Gender Identity Male 07/21/2023 9:10 AM CARPET INSTALLATION SPECIALIST Sexual Orientation Straight 07/21/2023 9: 10 AM CARPET INSTALLATION SPECIALIST documented as of this encounter Plan of Treatment Upcoming Encounters Date Type Department Care Team (Late st Contact Info) Description 10/03/2023 10:45 AM CDT Appointment Department of Radiation Oncology in [place], [place] [address] [place] [address] Marlon Gambino M.D. [address] [place] [address] documented as of this encounter Results * (ABNORMAL) PSA (Prostate-Specific Antigen), Diagnostic (07/23/2023 2:42 PM CARPET INSTALLATION SPECIALIST) Prostate-Specific Ag 10.5(H) <=6.5 ng/mL 07/23/2023 3:28 PM CARPET INSTALLATION SPECIALIST OWAT Comment: ----ADDITIONAL INFORMATION---- The testing method is an electrochemiluminescence assay manufactured by [employer] and performed on the Modular or Vasyl system. Values obtained with different assay methods or kits may be different and cannot be used interchangeably. Test results cannot be interpreted as absolute evidence for the presence or absence of malignant disease. Blood (Blood, Venous) 07/23/2023 2:42 PM CARPET INSTALLATION SPECIALIST 07/23/2023 2:47 PM CARPET INSTALLATION SPECIALIST Tonia Quijano APRNNYisselPYissel, Kelly.N.P. LAB B DEYVI ADD-ON [facility] [address] [place] [address], [facility] OWAT [facility] in [place] [address] [place] [address] * CBC with Differential, Blood (07/23/2023 2:42 PM CARPET INSTALLATION SPECIALIST) Hemoglobin 14.8 13.2 - 16.6 g/dL 07/23/2023 3:10 PM CARPET INSTALLATION SPECIALIST OWAT Hematocrit 43.4 38.3 - 48.6 % 07/23/2023 3:10 PM CARPET INSTALLATION SPECIALIST OWAT Erythrocytes 4.81 4.35 - 5.65 x10(12)/L 07/23/2023 3:10 PM CARPET INSTALLATION SPECIALIST OWAT MCV 90.2 78.2 - 97.9 fL 07/23/2023 3:10 PM CARPET INSTALLATION SPECIALIST OWAT RBC Distrib Width 12.0 11.8 - 14.5 % 07/23/2023 3:10 PM CARPET INSTALLATION SPECIALIST OWAT Platelet Count 179 135 - 317 x10(9)/L 07/23/2023 3:10 PM CARPET INSTALLATION SPECIALIST OWAT Leukocytes 6.8 3.4 - 9.6 x10(9)/L 07/23/2023 3:10 PM CARPET INSTALLATION SPECIALIST OWAT Neutrophils 3.93 1.56 - 6.45 x10(9)/L 07/23/2023 3:10 PM CARPET INSTALLATION SPECIALIST OWAT Lymphocytes 2.03 0.95 - 3.07 x10(9)/L 07/23/2023 3:10 PM CARPET INSTALLATION SPECIALIST OWAT Monocytes 0.57 0.26 - 0.81 x10(9)/L 07/23/2023 3:10 PM CARPET INSTALLATION SPECIALIST OWAT Eosinophils 0.20 0.03 - 0.48 x10(9)/L 07/23/2023 3:10 PM CARPET INSTALLATION SPECIALIST OWAT Basophils 0.03 0.01 - 0.08 x10(9)/L 07/23/2023 3:10 PM CARPET INSTALLATION SPECIALIST OWAT Blood (Blood, Venous) 07/23/2023 2:42 PM CARPET INSTALLATION SPECIALIST 07/23/2023 2:47 PM CARPET INSTALLATION SPECIALIST Tonia Quijano APRNN.Helen, MikalN.P. LAB B LOOD ADD-ON [facility] [address] [place] [address], [place] OWAT [facility] in [place] [address] [place] [address] * Testosterone, Total by Mass Spectrometry, Serum (07/23/2023 2:41 PM CARPET INSTALLATION SPECIALIST) Testosterone, Total by Mass Spectrometry, Serum 290 240 - 950 ng/dL 07/26/2023 1:41 AM CARPET INSTALLATION SPECIALIST [facility] Comment: ----ADDITIONAL INFORMATION---- Testing performed by Liquid Chromatography-Tandem Mass Spectrometry (LC-MS/MS). This test was developed and its performance characteristics determined by [facility] in a manner consistent with CLIA requirements. This test has not been cleared or approved by the U.S. Food and Drug Administration. Blood (Blood, Venous) 07/23/2023 2:41 PM CARPET INSTALLATION SPECIALIST 07/24/2023 7:43 AM CARPET INSTALLATION SPECIALIST Krish Quijano APRN.N.P., D.N.P. LAB B LOOD NON ADD-ON [facility] [address] [place] [address] [facility] [address] [place] [address] [place] [address] * Creatinine with Estimated GFR (07/23/2023 2:41 PM CARPET INSTALLATION SPECIALIST) Creatinine 0.93 0.74 - 1.35 mg/dL 07/23/2023 3:28 PM CARPET INSTALLATION SPECIALIST OWAT Estimated GFR (eGFR) 87 >=60 mL/min/BSA 07/23/2023 3:28 PM CARPET INSTALLATION SPECIALIST OWAT Comment: Estimated GFR calculated using the 2020 CKD_EPI creatinine equation. Blood (Blood, Venous) 07/23/2023 2:41 PM CARPET INSTALLATION SPECIALIST 07/23/2023 2:47 PM CARPET INSTALLATION SPECIALIST Michael Ochoa APRN C.N.P., D.N.P. LAB B LOOD ADD-ON [facility] [address] [place] [address], [place] OW[place] [facility] [place] [address] [place] [address] * AST (Aspartate Aminotransferase) (07/23/2023 2:41 PM CARPET INSTALLATION SPECIALIST) Aspartate Aminotransferase (AST), P 19 8 - 48 U/L 07/23/2023 3:28 PM CARPET INSTALLATION SPECIALIST OWAT Blood (Blood, Venous) 07/23/2023 2:41 PM CARPET INSTALLATION SPECIALIST 07/23/2023 2:47 PM CARPET INSTALLATION SPECIALIST Michael Ochoa APRN C.N.P., D.N.P. LAB B LOOD ADD-ON [facility] [address] [place] [address], [place] AT [facility] [place] [address] [place] [address] * Bilirubin, Total (07/23/2023 2:41 PM CARPET INSTALLATION SPECIALIST) Bilirubin, Total, P 0.3 0.0 - 1.2 mg/dL 07/23/2023 3:28 PM CARPET INSTALLATION SPECIALIST OWAT Blood (Blood, Venous) 07/23/2023 2:41 PM CARPET INSTALLATION SPECIALIST 07/23/2023 2:47 PM CARPET INSTALLATION SPECIALIST Michael Ochoa APRN C.N.P., D.N.P. LAB B LOOD ADD-ON [facility] [address] [place] [address], [facility] [place] [address] [place] [address] * ALT (Alanine Aminotransferase) (07/23/2023 2:41 PM CARPET INSTALLATION SPECIALIST) Alanine Aminotransferase (ALT), P 23 7 - 55 U/L 07/23/2023 3:28 PM CARPET INSTALLATION SPECIALIST OWAT Blood (Blood, Venous) 07/23/2023 2:41 PM CARPET INSTALLATION SPECIALIST 07/23/2023 2:47 PM CARPET INSTALLATION SPECIALIST Michael Ochoa APRN, C.N.P., D.N.P. LAB B LOOD ADD-ON [facility] [address] [place] [address], [place] [facility] [place] [address] [place] [address] * Alkaline Phosphatase (07/23/2023 2:41 PM CARPET INSTALLATION SPECIALIST) Alkaline Phosphatase, P 61 40 - 129 U/L 07/23/2023 3:28 PM CARPET INSTALLATION SPECIALIST OWAT Blood (Blood, Venous) 07/23/2023 2:41 PM CARPET INSTALLATION SPECIALIST 07/23/2023 2:47 PM CARPET INSTALLATION SPECIALIST Michael Ochoa APRN C.N.P., D.N.P. LAB B LOOD ADD-ON [facility] [address] [place] [address], [facility] [place] [address] [place] [address] documented in this encounter Visit Diagnoses Diagnosis Primary Malignant Neoplasm Of Prostate (HCC)- Primary documented in this encounter
--- OUTSIDE RECORDS SUMMARY | 2023-09-27 12:37 | XMS_ITS | Encounter Summary ---
Author Name Unknown Organization [facility] Address [address] [place] [id number] Care Team Providers Care Fabrication And Layout Craftsman Name Role Phone Unavailable Primary Care Provider Unavailabl e Reason for Referral * Outpatient (Routine) - Closed Specialty Diagnoses / Procedures Referred By Leni lopez Referred To Contact Radiation Oncology Diagnoses Primary Malignant Neoplasm Of Prostate (HCC) Edwardo Sandhu M.D. [address] [place] [phone] [facility] Referral ID Status Reason Start Date Expiration Date Visits Re quested Visits Authorized [id number] Closed 07/02/2023 12/31/2024 1 1 TH THERAPIST Reason for Visit * Outpatient (Routine) - Closed Specialty Diagnoses / Procedures Referred By Leni lopez Referred To Contact Radiation Oncology Diagnoses Primary Malignant Neoplasm Of Prostate (HCC) Edwardo Sandhu M.D. 200 [place] [address] [facility] Referral ID Status Reason Start Date Expiration Date Visits Re quested Visits Authorized [id number] Closed 07/02/2023 12/31/2024 1 1 Encounter Details Date Type Department Care Team (Latest Contact Info) Description 07/22/2023 9:18 AM HEALTH THERAPIST - 07/22/2023 10:42 AM HEALTH THERAPIST Hospital Encounter Department of Radiation Oncology in [place], [place] [address] [place] [phone] Edwardo Sandhu M.D. 200 [place] [phone] [place] [phone] Primary Malignant Neoplasm Of Prostate (HCC) (Primary Dx) Social History Tobacco Use Types Packs/Day Years Used Date Smoking Tobacco: Never Smokeless Tobacco: Never [facility] Utilities Answer Date Recorded In the past 12 months has e electric, gas, oil, or water [employer] threatened to shut off services in your [...] your living situation today? I have a [facility] place to live 07/19/2023 Sex and Gender Information Value Date Recorded Sex Assigned at Male 07/21/2023 9:10 AM HEALTH THERAPIST Gender Identity Male 07/21/2023 9:10 AM HEALTH THERAPIST Sexual Orientation Straight 07/21/2023 9: 10 AM HEALTH THERAPIST documented as of this encounter Last Filed Vital Signs Vital Sign Reading Time Taken Comments Blood Pressure - - Pulse - - Temperature - - Respiratory Rate - - Oxygen Saturation - - Inhaled Oxygen Concentration - - Weight 116 kg (255 lb 9.6 oz) 07/22/2023 9:37 AM HEALTH THERAPIST Height - - Body Mass Index 33.15 09/18/2022 8:00 AM CDT documented in this [...] as of this encounter Consult Notes * Michael Ochoa, NIKKI, C.N.P., D.N.P. - 07/22/2023 10:00 AM CST RADIATION ONCOLOGY Consultation Note REFERRING PROVIDER: Edwardo Sandhu M.D. Collaborating Spud Grader: Dr. Jean Pierre Monroe M.D. SUBJECTIVE HISTORY OF PRESENT ILLNESS Magdy Beck a 72 y.o. male from [facility] [phone] presents today to discuss prostate cancer management. The prostate cancer history includes: Oncology History Overview Note HIGH-RISK clinical T2b [...] cancer. 05/06/2023 Critical Imaging PRE-BIOPSY PSA: 7.38 (05/06/2023). MRI prostate two PI-RADS 4 lesions in peripheral zone: right posteromedial base/midgland (0.9 x 0.7 x 0.6 cm; 0.28 cc) & posterior midline [...] (cT1c). MRI-fusion transperineal prostate biopsy revealed adenocarcinoma Reno 4+5 in right peripheral zone base - [...] Grade Group: 5). 06/24/2023 - 06/24/2023 Plan PSA: 8.8 (06/24/2023). PSMA PET scan showed intensely avid right prostate cancer; no vic or osseous metastases. 07/02/2023 - 07/02/2023 Plan Urology (Dr. John): offered prostatectomy. 07/22/2023 - 07/22/2023 Plan Radiation Oncology consultation - radiotherapy options (Dr. Fer MD). Radiation Screening Questions: Prior Radiation therapy: None Medical Devices: None Anticoagulation: None Hip Replacements: None Urologic Procedures: None Gastrointestinal Syndromes: None Connective Tissue Diseases: None Cardiovascular Disease: None Polyethylene glycol / iodine ALLERGY: None. REVIEW OF OTHER MEDICAL HISTORY The following portions of the patient's history were reviewed and updated as appropriate: allergies, current medications, medical history, surgical history, problem list, labs; imaging, pathology, and oncology history (independently and/or reviewed with Radiation Oncologist). Past Medical History: Diagnosis Date Chronic Kidney Disease Stage 1 Glomerular Filtration Rate Greater Than 90 Diabetes Mellitus Type 2 (HCC) Hypertension NOS Primary Malignant Neoplasm Of Prostate (HCC) Stenosis Renal Artery (HCC) Past Surgical History: Procedure Laterality Date HERNIA REPAIR Right 1974 PROSTATE BIOPSY 05/31/2023 REVIEW OF SYSTEMS Constitutional: Denied fatigue or pain I-PSS I-PSS Urinary Symptoms Score: 7 I-PSS Quality of Life Score: 2 : UROLOGIC MEDICATION(S): None. Steady flow. Nocturia x1. Denied daytime frequency, urgency, hesitation, retention, incontinence, dysuria, or hematuria. No erections. IIEF: Erectile Function Domain: 3 (07/21/23 0909). GI: Normal bowel movements (1 time(s)/day). Denied dyschezia or hematochezia. FAMILY HISTORY Genitourinary malignancies: None. 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 General: Ebony is seated in the examination room in no acute distress. Genitourinary: Prostate examination deferred. ECO - asymptomatic. DIAGNOSTIC DATA Lab Results Component Value Date PSA 8.8 (H) 06/24/2023 Assessment Diagnosis Plan 1. Primary Malignant Neoplasm Of Prostate (HCC) Radiation Oncology - consult (clinic) Radiation Oncology - consult (clinic) Magdy Beck a 72 y.o. male with NCCN high-risk prostate cancer, Reno score 4+5 = 9 , iPSA 7.38 ng/mL. Consultation regarding radiotherapy management of intact prostate cancer with indeterminate right seminal invasion in the definitive setting. Independently reviewed imaging and discussed case with Dr. Jean Pierre Monroe M.D.. Discussed clinical context, nature of prostate cancer, benefits/harms of treatment, and rationale for treatment with Magdy Beck. Reviewed management options including active surveillance, prostatectomy, and radiotherapy according to NCCN Guidelines. Discussed long-term androgen suppression therapy (AST). Radiotherapy options include: daily external beam radiotherapy treatments. Discussed delivery distinction between photon and proton external beam therapy (EBRT). Outlined process for brachytherapy and/or EBRT. Counseled on common EARLY [mild fatigue; bladder & bowel irritation] / po ssible LATE [bladder & bowel irritation; unlikely urethral stricture; unlikely urinary & rectal bleeding; rare bladder & rectal damage; possible erectile dysfunction; rare secondary malignancy risk] adverse effects related to radiotherapy. Counseled on common AST adverse effects [hot flashes; fatigue; erectile dysfunction; possible genital atrophy; possible decreased bone density & muscle mass]; handouts given. Recommended calcium (600 mg in morning; 600 mg in evening) + vitaminD3 (1000 International Units) daily supplementation for bone health if AST is utilized. RECOMMENDATIONS Intensity Modulated Photon Radiotherapy (70.2 Gy in 26 treatments to prostate + reduced dose to pelvic lymph nodes daily Saturday through Saturday) Intensity Modulated Photon Radiotherapy at dose 45 Gy in 25 treatments to prostate + pelvic lymph nodes + two, nonconsecutive-sessions stereotactic body radiotherapy (950 cGy per session) to the prostate and pelvic lymph nodes. Neoadjuvant long-term AST (18-36-MONTH duration) with six-month leuprolide injection (14-day bicalutamide) is recommended. Preparation before EBRT includes: Intraprostaticfiducial marker placement and hydrogel spacer placement -SIVA. Reviewed CT-based simulation planningsession with MRI planning imaging; booklet given. Plan Order [facility] Radiation Oncology [place] consultation. Magdy Beck will take time for treatment decision: will notify Urology for prostatectomy option or Radiation Oncology for radiotherapy option. Addressed questions accordingly. Advised to call Radiation Oncology with questions and/or concerns. PATIENT EDUCATION materials include: An introduction to Radiation Simulation and Treatment [[id number]] BILLING: I spent 60 minutes face to face and non-face to face caring for the patient today. TH THERAPIST Associated attestation - Tonia Monroe M.D. - 07/22/2023 10:40 AM HEALTH THERAPIST This patient was seen in conjunction with Michael Ochoa APRN, C.N.P, D.N.P.. I agree with the documentation, findings, and recommendations in the associated note. Mr. Beck is a 72 years old man with prostate carcinoma. His PSA was 6 on 02/25/2023. His PSA was 8.8 on 06/24/2023 (prostate biopsy). He had MRI prostate on 05/06/2023. On the MRI, his prostate volume was 38.4 cc. There were 2 PI-RADS 4 lesions (right posterior medial at base/midgland and posterior midline at base) and 2 PI-RADS 3 lesions (right posterior lateral at midgland and right posterior transition zone at base). There was no extracapsular tumor extension or obvious seminal vesicle invasion. There was no suspicious pelvic lymphadenopathy or bone metastasis in the visualized bones. On 05/31/2023, he had a transperineal, MR fusion, targeted biopsy. The biopsy of the target lesion in the right peripheral zone at base revealed adenocarcinoma w ith Jason score 4+5, involving 2 of 2 cores. The biopsy of the target lesion in the midline peripheral zone revealed adenocarcinoma with Jason score 4+5, involving 2 of 2 cores. The biopsy of thetarget lesion in the right peripheral zone at midgland revealed adenocarcinoma with a Reno score4+4, involving 2 of 2 cores. The biopsy of the right transition zone revealed adenocarcinoma with a Jason score 4+5, involving 1 of 1 core. There was perineural invasion. On 06/25/2023, he had a PSMA PET-CT scan. There was intense uptake in the right lobe of the prostate from base to apex, crossing to the left lobe at the base. There was no lymph node or distant metastasis. Clinically appears to have a T2c (or T2b based on MRI prostate) N0 M0 prostate carcinoma with Reno score 4+5 and PSA of 6. We discussed with the patient his clinical situation including pathologic and radiologic findings. We also discussed management options. Management options include: 1. Surgery, 2. Definitive radiotherapy + 18-36 months of androgen deprivation therapy. We explained pros and cons of surgery versus radiotherapy. With respect to radiotherapy modality, it can be either IMRT for the entire course (targeting the prostate/seminal vesicles and regional pelvic lymph nodes), or IMRT followed by HDR brachytherapy or SABR (stereotactic ablative radiotherapy; mimicking HDR brachytherapy) as boost dose to the prostate/seminal vesicles. We explained in detail alternative, nature, benefit, and potential side effects of various treatment modalities of radiotherapy. We also explained the rationale and potential side effects of long-term androgen deprivation therapy. At this point, he would like to have more time for treatment decision. If he decides to have radiotherapy, he would like to go to the [facility] which is much closer to his home. We will make referral to Dr. Gambino in [place] for consultation. documented in this encounter Plan of Treatment Upcoming Encounters Date Type Department Care Team (Late st Contact Info) Description 10/03/2023 10:45 AM CDT Appointment Department of Radiation Oncology in [place], [place] [address] [place] [address] Marlon Gambino M.D. [address] [place] [phone] Scheduled Referrals Name Type Priority Associated Diagnoses Order Schedule Radiation Oncology - consult (clinic) Outpatient Referral Routine Primary Malignant Neoplasm Of Prostate (HCC) Once for 1 Occurrences starting 07/22/2023 until 07/22/2023 documented as of this encounter Visit Diagnoses Diagnosis Primary Malignant Neoplasm Of Prostate (HCC)- Primary documented in this encounter
--- OUTSIDE RECORDS SUMMARY | 2023-09-27 12:37 | XMS_ITS | Encounter Summary ---
Author Name Unknown Organization [facility] Address [address] [place] [address] Care Team Providers Care Pesticide Chemist Name Role Phone Unavailable Primary Care Provider Unavailabl e Encounter Details Date Type Department Care Team (Late Contact Info) Description 06/07/2023 Clinical Communication Department of Urology in [place], [place] [address] [place] [phone] Liam Bashir M.D. [address] [place] [phone] Social History Tobacco Use Types Packs/Day Years Used Date Smoking Tobacco: Never Smokeless Tobacco: Never Nutrition Answer Date Recorded Nutrition: EVOO Fat Source Unknown 11/02 Nutrition: Servings of Fruits/Vegetables per Day Not on file 11/02/2021 Dental Answer Date Recorded Dental: Regular Dentist Unknown 11/03/19 22 Sex and Gender Information Value Date Recorded Sex Assigned at Male 07/21/2023 9:10 AM PIG CASTER Gender Identity Male 07/21/2023 9:10 AM PIG CASTER Sexual Orientation Straight 07/21/2023 9: 10 AM PIG CASTER documented as of this encounter Plan of Treatment Upcoming Encounters Date Type Department Care Team (Late Contact Info) Description 10/03/2023 10:45 AM CDT Appointment Department of Radiation Oncology in [place], [place] [address] [place] [phone] Marlon Gambino M.D. [address] [place] [phone] documented as of this encounter Visit Diagnoses Not on filedocumented in this encounter
--- OUTSIDE RECORDS SUMMARY | 2023-09-27 12:37 | XMS_ITS | Encounter Summary ---
Author Name Unknown Organization [facility] Address [address] [place] [address] Care Team Providers Care Solder Cream Maker Name Role Phone Unavailable Primary Care Provider Unavailabl e Reason for Referral * Outpatient (Routine) - Closed Specialty Diagnoses / Procedures Referred By Contac t Referred To Contact Radiation Oncology Diagnoses Primary Malignant Neoplasm Of Prostate (HCC) Edwardo Sandhu M.D. [address] [place] [phone] [facility] Referral ID Status Reason Start Date Expiration Date Visits Re quested Visits Authorized [id number] Closed 07/02/2023 12/31/2024 1 1 EM MANAGER Reason for Visit * Outpatient (Routine) - Closed Specialty Diagnoses / Procedures Referred By Contsofy t Referred To Contact Urology Liam Bashir M.D. [address] [place] [phone] Jonatan John M.D. [address] [place] [phone] Referral ID Status Reason Start Date Expiration Date Visits Re quested Visits Authorized [id number] Closed 06/07/2023 06/06/2026 1 1 Encounter Details Date Type Department Care Team (Late st Contact Info) Description 07/02/2023 11:00 AM SYSTEM MANAGER Office Visit Department of Urology in [place], [place] [address] [place] [phone] Jonatan John M.D. [address] [place] [address] Elevated Prostate-Specific Antigen (Primary Dx); Primary Malignant [...] Sex Assigned at Male 07/21/2023 9:10 AM SYSTEM MANAGER Gender Identity Male 07/21/2023 9:10 AM SYSTEM MANAGER Sexual Orientation Straight 07/21/2023 9: 10 AM SYSTEM MANAGER documented as of this encounter Progress Notes * Edwardo Sandhu M.D. - 07/02/2023 11:00 AM CST CHIEF COMPLAINT / REASON FOR VISIT Magdy Beck is a 72 y.o. male who presents for new diagnosis of prostate cancer. HISTORY OF PRESENT ILLNESS Mr. Beck is a 72-year-old gentleman with a past history of type 2 diabetes, hypertension, renalartery stenosis who today presents for further evaluation of elevated PSA This was his 1st PSA of 6.0. Prostate MRI 05/03/2023 showed PI-RADS 4 lesions in the midline at the base and the right peripheralzone and PI-RADS 3 lesions in the right peripheral zone and right transition zone. 38 g prostate. No evidence of extracapsular extension. Possible right SV invasion. No evidence of metastatic disease. Targeted Prostate biopsy here on 05/31/2023 showed: - [place] 4+5=9 in over 95% of the specimen in the right peripheral zone base NIKKO 1 - [place] 4+5=9 in over 90% of specimen in the midline peripheral zone NIKKO 2 - [place] 4+4=8 in 80% of specimen with perineural invasion in right peripheral zone mid - Jason 4+5=9 in 90% of specimen in right transition zone PSMA completed 06/24/23 shows no evidence of metastatic disease. 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 REVIEW OF SYSTEMS REVIEW OF SYSTEMS Constitutional: Darell night sweats & weight loss > 10 pounds. Skin: Negative for skin rash. Respiratory: Negative for dyspnea. Cardiovascular: Negative for chest pain. Gastrointestinal: Negative for blood in stool. Genitourinary: Negative for hematuria Hematologic: Negative for abnormal lumps or bumps. Musculoskeletal: Negative for joint swelling. Neurological: Negative for weakness in arms or legs. Psychiatric/Behavioral: Negative for depression. PHYSICAL EXAM General no distress Eyes: Sclera nonicteric Skin: Not jaundiced Chest: Nonlabored breathing on room air Abdomen soft nondistended no flank pain. Obese Neurologic interacting probably mentating well Psychiatric appropriate mood and affect Extremities no upper extremity edema noted. LABORATORY Lab Results Component Value Date PSA 8.8 (H) 06/24/2023 IMAGING No results found. Testing Cystoscopy: ASSESSMENT / PLAN High risk localized prostate cancer Jason 4+5 =9, PSA 6 It was a pleasure meeting Magdy Beck in consultation with Dr. John for new diagnosis of high-risk prostate cancer. We discussed the treatment options for his localized disease. Options are 1. Radical prostatectomy with pelvic lymph node dissection. We discussed the risks and benefits of this in detail including immediate operative risk including DVT, stroke, heart attack, , bleeding, infection, injury to surrounding structures. We discussed the postoperative recovery including catheter and lifting restrictions. We discussed quality of life outcomes including approx 15% risk of persistent stress incontinence at 1 year and 50% chance worsened erectile dysfunction, which may be even higher for him givenhis baseline erectile dysfunction. His second option is for radiation therapy plus 18-36 months of ADT. We discussed immediate and long-term complications of radiation therapy and encouraged him to visit with a radiation oncologist tolearn about this option further. Overall, these treatment options are relatively equivalent in terms of cancer treatment and he should learn more from Rad Onc and then make a decision based on tolerance of risks and benefits. Overall plan: - rad Onc consult - if he wishes to pursue surgery here he would need a robotic prostatectomy with extended pelvic lymph node dissection, ANEL, class, listing visit, CBC, BMP Signed by: Edwardo Sandhu M.D. 07/02/2023 12:41 PM CDT EM MANAGER * Jonatan John M.D. - 07/02/2023 11:00 AM CST #1 Elevated Prostate-Specific Antigen #2 Primary Malignant Neoplasm Of Prostate (HCC) I have met the patient and discussed the issues at hand. I agree with the documentation provided bymy colleague on the team. I have discussed the recommendations with the patient and answered all ofthe patient???s questions. Treatment options were discussed with the patient in detail including surgical and nonsurgical options. Risks associated with surgery were discussed, including incontinence and impotence. Patient will visit with a radiation oncologist, take the information presented under advisement, and get back to me if he chooses to proceed with surgery. EM MANAGER documented in this encounter Plan of Treatment Upcoming Encounters Date Type Department Care Team (Late st Contact Info) Description 10/03/2023 10:45 AM CDT Appointment Department of Radiation Oncology in [place], [place] [address] [place] [phone] Marlon Gambino M.D. [address] [place] [phone] Scheduled Referrals Name Type Priority Associated Diagnoses Orde r Schedule Radiation Oncology - consult (clinic) Outpatient Referral Routine Primary Malignant Neoplasm Of Prostate (HCC) Expected: 07/02/2023 (Approximate), Expires: 09/30/2024 documented as of this encounter Visit Diagnoses Diagnosis Elevated Prostate-Specific Antigen- Primary Primary Malignant Neoplasm Of Prostate (HCC) documented in this encounter
== END 2023-09-27 12:32 | disposition home or self-care (01) ==
LOC: MRI 12:32
PROVIDERS: PCP Physician Assistant Medical; Visit Provider Nurse Practitioner
DX: C61 Malignant neoplasm of prostate (principal)
CPT/HCPCS: 72195

== ENCOUNTER 2023-11-20 13:20 | Outpatient (CLI) | payer MEDICARE, BC, SELFPAY ==
--- OUTSIDE RECORDS SUMMARY | 2023-11-20 13:23 | XMS_ITS | Clinical Summary ---
Author Organization [facility] Address [address] [place] [address] Care Team Providers Care Scow Captain Name Role Phone Elsewhere, Pcp Primary Care Provider Unavailabl e Source Comments Patient records contain information from all sites at [facility]. For routine questions regarding patient records, call [phone] during business hours, M-F 8:00 AM - 5:00 PM Central Time. Record requests for emergency care only can be directed to [phone] at any time.[facility] Allergies No known active allergies Medications Medication Sig Dispensed Refills Start Date End Date Status metFORMIN (GLUCOPHAGE) 500 mg tablet Take 1 tablet (500 mg total) by mouth 2 (two) times a day with meals. 180 tablet 3 12/05/2021 Active losartan-hydroCHLORO thiazide (HYZAAR) 50-12.5 mg per tablet Take 1 tablet by mouth daily. 90 tablet 3 12/05/2021 Active atorvastatin (LIPITOR) 20 mg tablet Take 1 tablet (20 mg total) by mouth daily. 90 tablet 3 02/12/2022 Active amLODIPine (NORVASC) 5 mg tablet Take 5 mg by mouth daily. 03/02/2023 Active ciprofloxacin (Cipro) 500 mg tablet Take 1 tablet (500 mg total) by mouth 2 (two) times a day. 6 tablet 09/19/2023 Active tamsulosin (FLOMAX) 0.4 mg 24 hr capsule TAKE 2 CAPSULES(0.8 MG) BY MOUTH DAILY 180 capsule 1 10/09/2023 Active Active Problems Problem Noted Date Diagnosed Date [...] Encounters Date Type Department Care Team Description 11/12/2023 Orders Only Department of Oncology in [address] [phone] Hue Ferguson M.D. Primary Malignant Neoplasm Of Prostate (HCC) (Primary Dx) 11/07/2023 7:55 AM CDT - 11/08/2023 6:09 PM CDT Hospital Encounter Department of Radiation Oncology in [place], [place] [address] [place] [phone] Marlon Gambino M.D. Primary Malignant Neoplasm Of Prostate (HCC) 11/07/2023 7:45 AM CDT Hospital Encounter Department of Radiation Oncology in [place] [address] [place] [phone] Marlon Gambino M.D. 11/06/2023 7:45 AM CDT Hospital Encounter Department of Radiation Oncology in [address] [address] Marlon Gambino M.D. 11/05/2023 7:46 AM CDT Hospital Encounter Department of Radiation Oncology in [address] [address] Marlon Gambino M.D. 11/04/2023 7:46 AM CDT Hospital Encounter Department of Radiation Oncology in [address] [address] Marlon Gambino M.D. 11/01/2023 7:46 AM CDT Hospital Encounter Department of Radiation Oncology in [address] [address] Marlon Gambino M.D. 10/31/2023 7:45 AM CDT Hospital Encounter Department of Radiation Oncology in [address] [address] Marlon Gambino M.D. 10/30/2023 7:46 AM CDT - 10/30/2023 9:05 AM CDT Hospital Encounter Department of Radiation Oncology in [address] [address] Marlon Gambino M.D. Primary Malignant Neoplasm Of Prostate (HCC) 10/30/2023 7:46 AM CDT Hospital Encounter Department of Radiation Oncology in [address] [address] Marlon Gambino M.D. 10/29/2023 7:46 AM CDT Hospital Encounter Department of Radiation Oncology in [address] [address] Marlon Gambino M.D. 10/25/2023 7:46 AM CDT Hospital Encounter Department of Radiation Oncology in [address] [address] Marlon Gambino M.D. 10/24/2023 7:45 AM CDT Hospital Encounter Department of Radiation Oncology in [address] [address] Marlon Gambino M.D. 10/23/2023 7:45 AM CDT - 10/23/2023 1:09 PM CDT Hospital Encounter Department of Radiation Oncology in [address] [address] Marlon Gambino M.D. Primary Malignant Neoplasm Of Prostate (HCC) 10/23/2023 7:45 AM CDT Hospital Encounter Department of Radiation Oncology in [address] [address] Marlon Gambino M.D. 10/22/2023 7:47 AM CDT Hospital Encounter Department of Radiation Oncology in [address] [address] Marlon Gambino M.D. 10/21/2023 8:21 AM CDT Hospital Encounter Department of Radiation Oncology in [address] [address] Marlon Gambino M.D. Grieman, Kari A, RYisselNYissel Primary Malignant Neoplasm Of Prostate (HCC) 10/21/2023 7:47 AM CDT Hospital Encounter Department of Radiation Oncology in [address] [address] Marlon Gambino M.D. 10/18/2023 7:48 AM CDT - 10/18/2023 11:59 PM CDT Hospital Encounter Department of Radiation Oncology in [address] [address] Marlon Gambino M.D. Discharge Disposition: Home or Self Care 10/17/2023 7:47 AM CDT - 10/17/2023 11:59 PM CDT Hospital Encounter Department of Radiation Oncology in [address] [address] Marlon Gambino M.D. Discharge Disposition: Home or Self Care 10/16/2023 7:46 AM CDT - 10/16/2023 2:14 PM CDT Hospital Encounter Department of Radiation Oncology in [address] [address] Marlon Gambino M.D. Primary Malignant Neoplasm Of Prostate (HCC) 10/16/2023 7:46 AM CDT - 10/16/2023 11:59 PM CDT Hospital Encounter Department of Radiation Oncology in [address] [address] Marlon Gambino M.D. Discharge Disposition: Home or Self Care 10/15/2023 7:46 AM CDT - 10/15/2023 11:59 PM CDT Hospital Encounter Department of Radiation Oncology in [address] [address] Marlon Gambino M.D. Discharge Disposition: Home or Self Care 10/14/2023 7:52 AM CDT - 10/14/2023 11:59 PM CDT Hospital Encounter Department of Radiation Oncology in [address] [address] Marlon Gambino M.D. Discharge Disposition: Home or Self Care 10/11/2023 7:46 AM CDT - 10/11/2023 11:59 PM CDT Hospital Encounter Department of Radiation Oncology in [address] [address] Marlon Gambino M.D. Discharge Disposition: Home or Self Care 10/10/2023 7:47 AM CDT - 10/10/2023 11:59 PM CDT Hospital Encounter Department of Radiation Oncology in [address] [address] Marlon Gambino M.D. Discharge Disposition: Home or Self Care 10/09/2023 7:54 AM CDT - 10/11/2023 9:15 PM CDT Hospital Encounter Department of Radiation Oncology in [address] [address] Marlon Gambino M.D. Primary Malignant Neoplasm Of Prostate (HCC) 10/09/2023 7:45 AM CDT - 10/09/2023 7:53 AM CDT Hospital Encounter Department of Radiation Oncology in [address] [address] Marlon Gambino M.D. Discharge Disposition: Home or Self Care 10/09/2023 Refill Department of Radiation Oncology in [address] [address] Marlon Gambino M.D. Med Refill 10/08/2023 7:45 AM CDT - 10/08/2023 11:59 PM CDT Hospital Encounter Department of Radiation Oncology in [address] [address] Marlon Gambino M.D. Discharge Disposition: Home or Self Care 10/07/2023 12:38 PM CDT - 10/07/2023 2:49 PM CDT Hospital Encounter Department of Radiation Oncology in [address] [address] Marlon Gambino M.D. Grieman, Kari A RYisselNYissel Primary Malignant Neoplasm Of Prostate (HCC) Discharge Disposition: Home or Self Care 10/07/2023 12:38 PM CDT - 10/07/2023 11:59 PM CDT Hospital Encounter Department of Radiation Oncology in [address] [address] Marlon Gambino M.D. Discharge Disposition: Home or Self Care 2023 10:02 AM CDT - 2023 11:59 PM CDT Hospital Encounter Department of Radiation Oncology in [address] [address] Marlon Gambino M.D. Discharge Disposition: Home or Self Care 10/03/2023 10:04 AM CDT - 10/03/2023 11:59 PM CDT Hospital Encounter Department of Radiation Oncology in [address] [address] Marlon Gambino M.D. Discharge Disposition: Home or Self Care 09/27/2023 11:30 AM CDT - 09/27/2023 5:34 PM CDT Hospital Encounter Department of Radiation Oncology in [address] [address] Marlon Gambino M.D. Primary Malignant Neoplasm Of Prostate (HCC) (Primary Dx) 09/27/2023 10:32 AM CDT - 09/27/2023 11:01 AM CDT Hospital Encounter Department of Radiation Oncology in [address] [address] Marlon Gambino M.D. Primary Malignant Neoplasm Of Prostate (HCC) 09/20/2023 8:00 AM CDT - 09/20/2023 11:59 PM CDT Hospital Encounter Department of Radiation Oncology in [place], [place] [address] [place] [phone] Oscar Aranda M.D. Kelly, Brooke K, R.NYissel Discharge Disposition: Home or Self Care 09/20/2023 7:55 AM CDT Anesthesia Event Department of Radiation Oncology in [place], [place] [address] [place] [phone] Jessie Hameed, NIKKI, RAVINDER, MikalN.Anahi Amezquita M.D. 09/20/2023 7:10 AM CDT - 09/20/2023 7:59 AM CDT Hospital Encounter Department of Radiation Oncology in [place], [place] [address] [place] [phone] Oscar Aranda M.D. Primary Malignant Neoplasm Of Prostate (HCC) Discharge Disposition: Home or Self Care 09/20/2023 6:58 AM CDT - 09/20/2023 7:09 AM CDT Hospital Encounter Department of Radiology, [facility], in [place], [place] [address] [place] [phone] Oscar Aranda M.D. Primary Malignant Neoplasm Of Prostate (HCC) Discharge Disposition: Home or Self Care 09/20/2023 5:46 AM CDT - 09/20/2023 3:15 PM CDT Hospital Encounter Outpatient Surgery Unit in [place], [place] [address] [place] [phone] Oscar Aranda M.D. Discharge Disposition: Home or Self Care 09/20/2023 Documentation Department of Radiation Oncology in [address] [address] Oscar Aranda M.D. 09/20/2023 Orders Only Department of Radiation Oncology in [address] [address] Rachael Waite R.N. 09/19/2023 12:21 PM CDT - 09/24/2023 2:46 PM CDT Hospital Encounter Department of Radiation Oncology in [address] [address] Oscar Aranda M.D. Primary Malignant Neoplasm Of Prostate (HCC) (Primary Dx) 09/19/2023 9:30 AM CDT Comprehensive Visit Preoperative Evaluation Center in [address] [address] Harris Ryan APRN, C.N.P., D.N.P. Geremias Dhillon [...] Orders Only Department of Radiation Oncology in [place], [place] [address] [place] [address] Oscar Aranda M.D. 09/17/2023 1:30 PM CDT Clinical Communication Virtual Review in [place], [place] [address] [place] [address] 09/02/2023 2:00 PM CDT External Outreach Division of Nephrology and Hypertension in [place], [place] [address] [place] [address] Jose Pinon Jr., D.O. Hypertension And Chronic Kidney Disease Stage 1 (Primary Dx); Primary Malignant Neoplasm Of Prostate (HCC); Atherosclerosis Renal Artery (HCC); Diabetes Mellitus Type 2 (HCC); Gout from Last 3 Months Family History Medical History Relation Name Comments Prostate cancer Father Cancer Maternal Grandfather Coronary artery disease Mother Laverne gibson Diabetes Mother Laverne whitten Relation Name Status Comments Father Maternal Grandfather Mother Laverne whitten Social History Tobacco Use Types Packs/Day Years Used Date Smoking Tobacco: Never Smokeless Tobacco: Never Tobacco Cessation:Counseling Given: Not Answered Alcohol Use Standard Drinks/Week Comments Yes 3 (1 standard drink = 0.6 oz pur e alcohol) [facility] Utilities Answer Date Recorded In the past 12 months has th e [employer], gas, oil, or water [employer] threatened to shut off services in your [...] your living situation today? I have a [facility] place to live 07/19/2023 Sex and Gender Information Value Date Recorded Sex Assigned at Male 07/21/2023 9:10 AM LINK KNITTING MACHINE OPERATOR Gender Identity Male 07/21/2023 9:10 AM LINK KNITTING MACHINE OPERATOR Sexual Orientation Straight 07/21/2023 9: 10 AM LINK KNITTING MACHINE OPERATOR Last Filed Vital Signs Vital Sign Reading Time Taken Comments Blood Pressure 138/58 09/27/2023 10:52 AM CDT Pulse 66 09/27/2023 10:52 AM CDT Temperature 36.3 ??C (97.3 ??F) 11/07/2023 8:29 AM CD T Respiratory Rate 18 09/20/2023 1:28 PM CDT Oxygen Saturation 95% 09/20/2023 1:28 PM CDT Inhaled Oxygen Concentration - - Weight 112 kg (247 lb 5.7 oz) 11/07/2023 8:29 AM CDT Height 181 cm (5' 11.26) 09/20/2023 6:40 AM CDT Body Mass Index 34.25 09/20/2023 6:40 AM CDT Plan of Treatment Upcoming Encounters Date Type Department Care Team (Late st Contact Info) Description 01/01/2024 3:00 PM CDT Appointment Department of Radiation Oncology in [place], [place] [address] [place] [phone] Marlon Gambino M.D. [address] [place] [address] Health Maintenance Due Date Last Done Comments [...] Depression Screening (Annual PHQ-2) 06/03/2023 COVID-19 Vaccine (2022-24 season) 2023 06/18/2023, 02/20/2022, 09/21/2021, Additional history exists Office Visit for Blood Pressure Check / Re-check 12/19/2023 09/19/2023 Creatinine Level (Kidney Function Test) 07/23/2024 07/23/2023, 03/01/2022 DTaP,Tdap,and Td Vaccines (2 - Td or Tdap) 10/12/2031 10/11/2021 Fall Risk Screen (Annual) Completed 10/07/2023 HPV Vaccines Aged Out No longer eligi ble based on patient's age to complete this topic Procedures Procedure Name Priority Date/Time Associated Diagnosis Comments ARIA DAILY TREATMENT INFORMATION Routine 11/07/2023 8:06 AM CDT ARIA DAILY TREATMENT INFORMATION Routine 11/06/2023 8:23 AM CDT ARIA DAILY TREATMENT INFORMATION Routine 11/05/2023 8:06 AM CDT ARIA DAILY TREATMENT INFORMATION Routine 11/04/2023 8:09 AM CDT ARIA DAILY TREATMENT INFORMATION Routine 11/01/2023 8:04 AM CDT ARIA DAILY TREATMENT INFORMATION Routine 10/31/2023 8:02 AM CDT ARIA DAILY TREATMENT INFORMATION Routine 10/30/2023 8:07 AM CDT ARIA DAILY TREATMENT INFORMATION Routine 10/29/2023 8:12 AM CDT ARIA DAILY TREATMENT INFORMATION Routine 10/25/2023 8:06 AM CDT ARIA DAILY TREATMENT INFORMATION Routine 10/24/2023 8:02 AM CDT ARIA DAILY TREATMENT INFORMATION Routine 10/23/2023 8:06 AM CDT ARIA DAILY TREATMENT INFORMATION Routine 10/22/2023 8:12 AM CDT ARIA DAILY TREATMENT INFORMATION Routine 10/21/2023 8:15 AM CDT ARIA DAILY TREATMENT INFORMATION Routine 10/18/2023 8:16 AM CDT ARIA DAILY TREATMENT INFORMATION Routine 10/17/2023 8:17 AM CDT ARIA DAILY TREATMENT INFORMATION Routine 10/16/2023 8:07 AM CDT ARIA DAILY TREATMENT INFORMATION Routine 10/15/2023 8:16 AM CDT ARIA DAILY TREATMENT INFORMATION Routine 10/14/2023 8:16 AM CDT ARIA DAILY TREATMENT INFORMATION Routine 10/11/2023 8:06 AM CDT ARIA DAILY TREATMENT INFORMATION Routine 10/10/2023 8:04 AM CDT ARIA DAILY TREATMENT INFORMATION Routine 10/09/2023 8:05 AM CDT ARIA DAILY TREATMENT INFORMATION Routine 10/08/2023 8:20 AM CDT ARIA DAILY TREATMENT INFORMATION Routine 10/07/2023 1:24 PM CDT ARIA DAILY TREATMENT INFORMATION Routine 2023 10:55 AM CDT ARIA DAILY TREATMENT INFORMATION Routine 10/03/2023 10:53 AM CDT ARIA COURSE COMPLETE TREATMENT INFORMATION Routine 10/02/2023 1:22 PM CDT OUTSIDE MR BODY Routine 09/27/2023 1:20 PM CDT INITIAL RAD ONC TREATMENT PLANNING CT SIMULATION Routine 09/27/2023 11:30 AM CDT Primary Malignant Neoplasm Of Prostate (HCC) GLUCOSE POCT, B Routine 09/20/2023 12:45 PM CDT ARIA COURSE COMPLETE TREATMENT INFORMATION Routine 09/20/2023 11:52 AM CDT ARIA COURSE COMPLETE TREATMENT INFORMATION Routine 09/20/2023 11:52 AM CDT ARIA DAILY TREATMENT INFORMATION Routine 09/20/2023 [...] Prostate (HCC) Hypertension Essential Primary Murmur Heart CREATININE WITH EGFR, S/P Routine 07/23/2023 2:41 PM LINK KNITTING MACHINE OPERATOR Primary Malignant Neoplasm Of Prostate (HCC) from Last 3 Months or Most Recently Relevant to Health Maintenance Results * Aria Daily Treatment Information (11/07/2023 8:06 AM CDT) Only the most recent of26 resultswithin the time period is included. Course ID 1xProstat e LEW ARIA Course Start Date 4 08:41 CDT LEW ARIA First Treatment Date 4 10:50 CDT LEW ARIA Last Treatment Date 4 08:06 CDT LEW ARIA Treatment Elapsed Days 35 LEW ARIA Reference Point [id number] LEW ARIA Dosage Given to Date cGy 5000 LEW ARIA Session Dosage Given 200 LEW ARIA Plan ID [id number] e LEW ARIA Fractions Treated to Date 25 LEW ARIA Planned Total Fractions 25 LEW ARIA Prescribed Dose Per Fraction 200 LEW ARIA Prescription Dose in cGy 5000 LEW ARIA Plan Primary Reference Point [id number] LEW ARIA 11/07/2023 8:06 AM CDT Provider Not In System RADIATION ONCOLOG Y ORDERABLES Performing Organization Address [facility] de Phone Number LOUANN SINGLETON na * Aria Course Complete Treatment Information (10/02/2023 1:22 PM CDT) Only the most recent of3 resultswithin the time period is included. Course ID Brachy Planning LEW ARIA Course Start Date 09/20/2023 12:26 CDT LEW ARIA Course End Date 10/02/2023 13:22 CDT LEW ARIA Reference Point planning LEW ARIA Dosage Given to Date cGy 0 LEW ARIA Plan ID [id number] LEW ARIA Fractions Treated to Date 0 LEW ARIA Planned Total Fractions 1 LEW ARIA Plan Primary Reference Point planning LEW ARIA 10/02/2023 1:22 PM CDT Provider Not In System RADIATION ONCOLOG Y ORDERABLES Performing Organization Address [facility] de Phone Number LOUANN SINGLETON na * MR pelvis wo con-Outside MR Body (09/27/2023 1:20 PM CDT) 09/27/2023 1:16 PM CDT Narrative [facility] - 09/27/2023 2:46 PM CDT This order has been created and auto-finalized to support the import of outside images. If available, original interpretation can be found on the Media Tab in Chart Review, in Document Viewer, or as an image in QREADS. If a re-interpretation or overread is required please follow defined workflow. ?? Provider Not In System IMG MRI PROCEDURE S Performing Organization Address [facility] Co de Phone Number [facility] NA * Initial Rad Onc Treatment Planning CT Simulation (09/27/2023 11:30 AM CDT) Narrative [facility] - 09/27/2023 11:30 AM CDT Mary Cedeño, RTT ? 09/27/2023 12:09 PM Initial Rad Onc Treatment Planning CT Simulation Performed by: Marlon Gambino M.D. Authorized by: Marlon Gambino M.D. ?? Marlon Gambino M.D. RADIATION ONCOLOGY ORDERABLES LOUANN jules * (ABNORMAL) Glucose, POCT (09/20/2023 12:45 PM CDT) Only the most recent of4 resultswithin the time period is included. Glucose, POCT, B 152(H) 70 - 140 mg/dL 09/20/2023 12:47 PM CDT PCDE Site Capillary 09/20/2023 12:47 PM CDT PCDE Blood 09/20/2023 12:4 5 PM CDT 09/20/2023 12:48 PM CDT Unknown Provider LAB POCT ORDERABLES- MANUAL POC [facility] [address] [place] [address], [facility] PCDE [facility] POC [address] [place] [address] * US Prostate Interstitial Radioelement (09/20/2023 8:58 [...] AIRWAY (09/20/2023 8:07 AM CDT) Narrative Jessie Hameed, PROCESS MANAGER, LUBE MAN, D.N.P. - 09/20/2023 8:07 AM CDT Jessie Hameed APRN, CRNA, D.N.PYissel ? 09/20/2023 ??8:33 AM Airway Date/Time: 09/20/2023 [...] ETT location: oral VL device: glide scope Harvey scope blade size: 4 Tube size: 7.5 [...] Events: no complications Jessie Hameed APRN, CRNA, D.N.PYissel AN ESTHESIA ORDERABLES * Brachytherapy HDR (09/20/2023 8:00 AM CDT) Narrative [facility] - 09/20/2023 8:00 AM CDT Oscar [...] hydrogel was prepared as described in the stove refinisher's Instructions For Use. With the subject maintained [...] RADIATION ONCOLOGY O RDERABLES Performing Organization Address [facility] Co de Phone Number LOUANN jules * Dipstick, Urine (09/19/2023 10:54 AM CDT) Pathologist [facility] Hemoglobin, QL, U Negative Negative 09/19/2023 11:52 [...] L AB URINE ORDERABLES Performing Organization Address [facility] Co de Phone Number [facility] [address] [place] [address], [facility] DTL [facility] [address] [place] [address] * Microscopic Automated (09/19/2023 10:54 AM CDT) Pathologist [facility] Microscopy Normal 09/19/2023 11:52 AM CDT DTL RBC None Seen <3 /hpf 09/19/2023 11:52 AM CDT DTL WBC None Seen /hpf 09/19/2023 11:52 AM CDT DTL Comment: ----REFERENCE VALUE---- <4 ??(Males) <11 (Females) Urine 09/19/2023 10:5 4 AM CDT 09/19/2023 11:16 AM CDT Harris Ryan APRN, C.N.P., D.N.P. L AB URINE ORDERABLES Performing Organization Address [facility] de Phone Number [facility] [address] [place] [address] * Bacterial Culture, Aerobic + Susceptibility, Urine (09/19/2023 10:54 AM CDT) [facility] Urine Culture No growth after 1 day of incubation. 09/20/2023 8:11 AM CDT DT Urine (Urine, Midstream) 09/19/2023 10:54 AM CDT 09/19/2023 1:41 PM CDT Comment:Specimen Source Site : Urine Harris Ryan APRN, C.N.P., D.N.P. L AB MICROBIOLOGY - GENERAL ORDERABLES Performing Organization Address [facility] Co de Phone Number [facility] [address] [place] [address] * pH, Urine (09/19/2023 10:54 AM CDT) [facility] pH, U 5.3 4.5 - 8.0 09/19/2023 12: 12 PM CDT DTL Urine 09/19/2023 10:5 4 AM CDT 09/19/2023 11:16 AM CDT Krish Morse APRN.N.P., D.N.P. L AB URINE ORDERABLES Performing Organization Address [facility] Co de Phone Number [facility] [address] [place] [address], [facility] [address] [place] [address] * Osmolality, Urine (09/19/2023 10:54 AM CDT) Osmolality, U 179 150 - 1150 mOsm/kg 09/19/2023 12:12 PM CDT DTL Urine 09/19/2023 10:5 4 AM CDT 09/19/2023 11:16 AM CDT Krish Morse APRN.N.P., D.N.P. L AB URINE ORDERABLES Performing Organization Address [facility] Co de Phone Number [facility] [address] [place] [address], [address] [address] * Urinalysis, with Microscopic: Urine, Midstream (09/19/2023 [...] AM CDT 09/19/2023 11:16 AM CDT Harris Sharon Connor JORDAN C.N.P., D.N.P. L AB URINE ORDERABLES Performing Organization Address [facility] Co de Phone Number [facility] [address] [place] [address], [facility] DTL [facility] [address] [place] [address] * ECG 12 Lead (09/19/2023 10:07 AM CDT) Ventricular Rate ECG/Min 62 BPM MUSE VT Interval 154 ms MUSE QRSD Interval 98 ms MUSE QT Interval 428 ms MUSE QTC Interval 434 ms MUSE P [place] 30 degrees MUSE R [place] 24 degrees MUSE T Wave [place] 15 degrees MUSE 09/19/2023 10:0 7 AM [...] Dhillon APRN, C.N.P., M.S. ECG ORD ERABLES Performing Organization Address [facility] Co de Phone Number MUSE NA * Creatinine with Estimated GFR (07/23/2023 2:41 PM LINK KNITTING MACHINE OPERATOR) Creatinine 0.93 0.74 - 1.35 mg/dL 07/23/2023 3:28 PM LINK KNITTING MACHINE OPERATOR OW[place] Estimated GFR (eGFR) 87 >=60 mL/min/BSA 07/23/2023 3:28 PM LINK KNITTING MACHINE OPERATOR [place] Comment: Estimated GFR calculated using the 2020 CKD_EPI creatinine equation. Blood (Blood, Venous) 07/23/2023 2:41 PM LINK KNITTING MACHINE OPERATOR 07/23/2023 2:47 PM LINK KNITTING MACHINE OPERATOR Michael Ines Tonia Ochoa APRNNYisselP., Kelly.N.P. LAB B LOOD ADD-ON [facility] [address] [place] [address], [place] [facility] [facility] [place] [address] [place] [address] from Last 3 Months or Most Recently Relevant to Health Maintenance Advance Directives For more information, please contact: [phone] * Full Code (Latest Code Status on File) Date Activated Date Inactivated Comments 09/20/2023 1:19 PM 09/20/2023 5:33 PM Question Answer Comments Full Code: Discussed Care Teams Scow Captain Relationship Specialty Start Date End Date Elsewhere, Pcp PCP - General Internal Medicine 09/18/23
--- OUTSIDE RECORDS SUMMARY | 2023-11-20 13:24 | XMS_ITS | Encounter Summary ---
Author Organization [facility] Address [address] [place] [address] Care Team Providers Care Counter Clerk Tractor Parts Name Role Phone Elsewhere, Pcp Primary Care Provider Unavailabl e Encounter Details Date Type Department Care Team (Late st Contact Info) Description 10/25/2023 7:46 AM CDT Hospital Encounter Department of Radiation Oncology in [place], [place] [address] [place] [phone] Marlon Gambino M.D. [address] [place] [address] Social History Tobacco Use Types Packs/Day Years Used Date Smoking Tobacco: Never Smokeless Tobacco: Never Alcohol Use Standard Drinks/Week Comments Yes 3 (1 standard drink = 0.6 oz pur e alcohol) [facility] Utilities Answer Date Recorded In the past 12 months has [facility] [employer], gas, oil, or water [employer] threatened to shut off services in your [...] your living situation today? I have a [facility] place to live 07/19/2023 Sex and Gender Information Value Date Recorded Sex Assigned at Male 07/21/2023 9:10 AM SIGN FABRICATOR Gender Identity Male 07/21/2023 9:10 AM SIGN FABRICATOR Sexual Orientation Straight 07/21/2023 9: 10 AM SIGN FABRICATOR documented as of this encounter Plan of Treatment Upcoming Encounters Date Type Department Care Team (Late st Contact Info) Description 01/01/2024 3:00 PM CDT Appointment Department of Radiation Oncology in [place], [place] [address] [place] [phone] Marlon Gambino M.D. [address] [place] [address] documented as of this encounter Visit Diagnoses Not on filedocumented in this encounter Care Teams Counter Clerk Tractor Parts Relationship Specialty Start Date End Date Elsewhere, Pcp PCP - General Internal Medicine 09/18/23 documented as of this encounter
--- OUTSIDE RECORDS SUMMARY | 2023-11-20 13:24 | XMS_ITS | Encounter Summary ---
Author Organization [facility] Address [address] [place] [address] Care Team Providers Care Aoc Director Combat Operations Officer Name Role Phone Elsewhere, Pcp Primary Care Provider Unavailabl e Encounter Details Date Type Department Care Team (Late st Contact Info) Description 10/23/2023 7:45 AM CDT Hospital Encounter Department of Radiation Oncology in [place], [place] [address] [place] [address] Marlon Gambino M.D. [address] [place] [address] Social History Tobacco Use Types Packs/Day Years Used Date Smoking Tobacco: Never Smokeless Tobacco: Never Alcohol Use Standard Drinks/Week Comments Yes 3 (1 standard drink = 0.6 oz pur e alcohol) [facility] Utilities Answer Date Recorded In the past 12 months has [facility] [employer] gas, oil, or water [employer] threatened to shut off services in your [...] your living situation today? I have a [facility] place to live 07/19/2023 Sex and Gender Information Value Date Recorded Sex Assigned at Male 07/21/2023 9:10 AM MACHINE PLUG SHAPER Gender Identity Male 07/21/2023 9:10 AM MACHINE PLUG SHAPER Sexual Orientation Straight 07/21/2023 9: 10 AM MACHINE PLUG SHAPER documented as of this encounter Plan of Treatment Upcoming Encounters Date Type Department Care Team (Late st Contact Info) Description 01/01/2024 3:00 PM CDT Appointment Department of Radiation Oncology in [place], [place] [address] [place] [phone] Marlon Gambino M.D. [address] [place] [address] documented as of this encounter Visit Diagnoses Not on filedocumented in this encounter Care Teams Aoc Director Combat Operations Officer Relationship Specialty Start Date End Date Elsewhere, Pcp PCP - General Internal Medicine 09/18/23 documented as of this encounter
--- OUTSIDE RECORDS SUMMARY | 2023-11-20 13:24 | XMS_ITS | Encounter Summary ---
Author Organization [facility] Address [address] [place] [address] Care Team Providers Care Sharepoint Net Developer Name Role Phone Elsewhere, Pcp Primary Care Provider Unavailabl e Reason for Referral * Outpatient (Routine) - Authorized Specialty Diagnoses / Procedures Referred By Contac t Referred To Contact Radiation Oncology Diagnoses Primary Malignant Neoplasm Of Prostate (HCC) Marlon Gambino M.D. [address] [place] [address] [facility] Region Referral ID Status Reason Start Date Expiration Date V isits Requested Visits Authorized [id number] Authorized 10/21/2023 04/21/2025 5 5 Reason for Visit * Outpatient (Routine) - Authorized Specialty Diagnoses / Procedures Referred By Contsofy t Referred To Contact Radiation Oncology Diagnoses Primary Malignant Neoplasm Of Prostate (HCC) Marlon Gambino M.D. [address] [place] [address] [facility] Region Referral ID Status Reason Start Date Expiration Date V isits Requested Visits Authorized [id number] Authorized 10/21/2023 04/21/2025 5 5 Encounter Details Date Type Department Care Team (Latest Contact Info) Description 10/21/2023 8:21 AM CDT Hospital Encounter Department of Radiation Oncology in [place], [place] [address] [place] [address] Marlon Gambino M.D. [address] [place] [address] Afshan Hanson R.N. [address] [place] [address] Primary Malignant Neoplasm Of Prostate (HCC) Social History Tobacco Use Types Packs/Day Years Used Date Smoking Tobacco: Never Smokeless Tobacco: Never Alcohol Use Standard Drinks/Week Comments Yes 3 (1 standard drink = 0.6 oz pur e alcohol) [facility] Utilities Answer Date Recorded In [...] your living situation today? I have a [facility] place to live 07/19/2023 Sex and Gender Information Value Date Recorded Sex Assigned at Male 07/21/2023 9:10 AM PROJECT PLANNER Gender Identity Male 07/21/2023 9:10 AM PROJECT PLANNER Sexual Orientation Straight 07/21/2023 9: 10 AM PROJECT PLANNER documented as of this encounter Plan of Treatment Upcoming Encounters Date Type Department Care Team (Late st Contact Info) Description 01/01/2024 3:00 PM CDT Appointment Department of Radiation Oncology in [place], [place] [address] [place] [address] Marlon Gambino M.D. [address] [place] [address] Scheduled Referrals Name Type Priority Associated Diagnoses Order Schedule Radiation Oncology nurse visit (clinic) Outpatient Referral Routine Primary Malignant Neoplasm Of Prostate (HCC) Once for 1 Occurrences starting 10/21/2023 until 10/21/2023 documented as of this encounter Visit Diagnoses Diagnosis Primary Malignant Neoplasm Of Prostate (HCC) documented in this encounter Care Teams Sharepoint Net Developer Relationship Specialty Start Date End Date Elsewhere, Pcp PCP - General Internal Medicine 09/18/23 documented as of this encounter
--- OUTSIDE RECORDS SUMMARY | 2023-11-20 13:24 | XMS_ITS | Encounter Summary ---
Author Organization [facility] Address [address] [place] [address] Care Team Providers Care Bucket Wash Operator Name Role Phone Elsewhere, Pcp Primary Care Provider Unavailabl e Encounter Details Date Type Department Care Team (Late st Contact Info) Description 11/07/2023 7:45 AM CDT Hospital Encounter Department of Radiation Oncology in [place], [place] [address] [place] [address] Marlon Gambino M.D. [address] [place] [address] Social History Tobacco Use Types Packs/Day Years Used Date Smoking Tobacco: Never Smokeless Tobacco: Never Alcohol Use Standard Drinks/Week Comments Yes 3 (1 standard drink = 0.6 oz pur e alcohol) [facility] Utilities Answer Date Recorded In the past 12 months has [facility] [employer], gas, oil, or water [employer] threatened to shut off services in your [...] your living situation today? I have a [facility] place to live 07/19/2023 Sex and Gender Information Value Date Recorded Sex Assigned at Male 07/21/2023 9:10 AM PEST LOCATOR Gender Identity Male 07/21/2023 9:10 AM PEST LOCATOR Sexual Orientation Straight 07/21/2023 9: 10 AM PEST LOCATOR documented as of this encounter Plan of Treatment Upcoming Encounters Date Type Department Care Team (Late st Contact Info) Description 01/01/2024 3:00 PM CDT Appointment Department of Radiation Oncology in [place], [place] [address] [place] [address] Marlon Gambino M.D. [address] [place] [address] documented as of this encounter Visit Diagnoses Not on filedocumented in this encounter Care Teams Bucket Wash Operator Relationship Specialty Start Date End Date Elsewhere, Pcp PCP - General Internal Medicine 09/18/23 documented as of this encounter
--- OUTSIDE RECORDS SUMMARY | 2023-11-20 13:24 | XMS_ITS | Encounter Summary ---
Author Organization [facility] Address [address] [place] [address] Care Team Providers Care Typewriter Mechanic Name Role Phone Elsewhere, Pcp Primary Care Provider Unavailabl e Encounter Details Date Type Department Care Team (Late st Contact Info) Description 10/30/2023 7:46 AM CDT Hospital Encounter Department of Radiation Oncology in [place], [place] [address] [place] [phone] Marlon Gambino M.D. [address] [place] [address] Social History Tobacco Use Types Packs/Day Years Used Date Smoking Tobacco: Never Smokeless Tobacco: Never Alcohol Use Standard Drinks/Week Comments Yes 3 (1 standard drink = 0.6 oz pur e alcohol) [facility] Utilities Answer Date Recorded In the past 12 months has [facility] [employer], gas, oil, or water [employer] threatened to shut off services in your [...] your living situation today? I have a [facility] place to live 07/19/2023 Sex and Gender Information Value Date Recorded Sex Assigned at Male 07/21/2023 9:10 AM HEALTH DIAGNOSTICS TEACHER Gender Identity Male 07/21/2023 9:10 AM HEALTH DIAGNOSTICS TEACHER Sexual Orientation Straight 07/21/2023 9: 10 AM HEALTH DIAGNOSTICS TEACHER documented as of this encounter Plan of Treatment Upcoming Encounters Date Type Department Care Team (Late st Contact Info) Description 01/01/2024 3:00 PM CDT Appointment Department of Radiation Oncology in [place], [place] [address] [place] [phone] Marlon Gambino M.D. [address] [place] [address] documented as of this encounter Visit Diagnoses Not on filedocumented in this encounter Care Teams Typewriter Mechanic Relationship Specialty Start Date End Date Elsewhere, Pcp PCP - General Internal Medicine 09/18/23 documented as of this encounter
--- OUTSIDE RECORDS SUMMARY | 2023-11-20 13:24 | XMS_ITS | Encounter Summary ---
Author Organization [facility] Address [address] [place] [address] Care Team Providers Care Manager Commercial Sales Name Role Phone Elsewhere, Pcp Primary Care Provider Unavailabl e Encounter Details Date Type Department Care Team (Late st Contact Info) Description 11/06/2023 7:45 AM CDT Hospital Encounter Department of Radiation Oncology in [place], [place] [address] [place] [phone] Marlon Gambino M.D. [address] [place] [address] Social History Tobacco Use Types Packs/Day Years Used Date Smoking Tobacco: Never Smokeless Tobacco: Never Alcohol Use Standard Drinks/Week Comments Yes 3 (1 standard drink = 0.6 oz pur e alcohol) [facility] Utilities Answer Date Recorded In the past 12 months has [facility] [employer] gas, oil, or water [employer] threatened to shut off services in your [...] your living situation today? I have a [facility] place to live 07/19/2023 Sex and Gender Information Value Date Recorded Sex Assigned at Male 07/21/2023 9:10 AM RAILWAY ENGINEER Gender Identity Male 07/21/2023 9:10 AM RAILWAY ENGINEER Sexual Orientation Straight 07/21/2023 9: 10 AM RAILWAY ENGINEER documented as of this encounter Plan of Treatment Upcoming Encounters Date Type Department Care Team (Late st Contact Info) Description 01/01/2024 3:00 PM CDT Appointment Department of Radiation Oncology in [place], [place] [address] [place] [phone] Marlon Gambino M.D. [address] [place] [address] documented as of this encounter Visit Diagnoses Not on filedocumented in this encounter Care Teams Manager Commercial Sales Relationship Specialty Start Date End Date Elsewhere, Pcp PCP - General Internal Medicine 09/18/23 documented as of this encounter
--- OUTSIDE RECORDS SUMMARY | 2023-11-20 13:24 | XMS_ITS | Encounter Summary ---
Author Organization [facility] Address [address] [place] [address] Care Team Providers Care Commercial Or Institutional Cleaner Name Role Phone Elsewhere, Pcp Primary Care Provider Unavailabl e Encounter Details Date Type Department Care Team (Late st Contact Info) Description 11/05/2023 7:46 AM CDT Hospital Encounter Department of Radiation Oncology in [place], [place] [address] [place] [phone] Marlon Gambino M.D. [address] [place] [address] Social History Tobacco Use Types Packs/Day Years Used Date Smoking Tobacco: Never Smokeless Tobacco: Never Alcohol Use Standard Drinks/Week Comments Yes 3 (1 standard drink = 0.6 oz pur e alcohol) [facility] Utilities Answer Date Recorded In the past 12 months has [facility] [employer], gas, oil, or water [employer] threatened to shut off services in your [...] your living situation today? I have a [facility] place to live 07/19/2023 Sex and Gender Information Value Date Recorded Sex Assigned at Male 07/21/2023 9:10 AM GEOMETRY PROFESSOR Gender Identity Male 07/21/2023 9:10 AM GEOMETRY PROFESSOR Sexual Orientation Straight 07/21/2023 9: 10 AM GEOMETRY PROFESSOR documented as of this encounter Plan of Treatment Upcoming Encounters Date Type Department Care Team (Late st Contact Info) Description 01/01/2024 3:00 PM CDT Appointment Department of Radiation Oncology in [place], [place] [address] [place] [address] Marlon Gambino M.D. [address] [place] [address] documented as of this encounter Visit Diagnoses Not on filedocumented in this encounter Care Teams Commercial Or Institutional Cleaner Relationship Specialty Start Date End Date Elsewhere, Pcp PCP - General Internal Medicine 09/18/23 documented as of this encounter
--- OUTSIDE RECORDS SUMMARY | 2023-11-20 13:24 | XMS_ITS | Encounter Summary ---
Author Organization [facility] Address [address] [place] [address] Care Team Providers Care Professor Of English Name Role Phone Elsewhere, Pcp Primary Care Provider Unavailabl e Reason for Referral * Outpatient (Routine) - Authorized Specialty Diagnoses / Procedures Referred By Leni lopez Referred To Contact Radiation Oncology Marlon Gambino M.D. [address] [place] [address] [facility] Referral ID Status Reason Start Date Expiration Date V isits Requested Visits Authorized [id number] Authorized 11/07/2023 05/08/2025 1 1 Scheduling Instructions PSA prior at [facility] * Outpatient (Routine) - Authorized Specialty Diagnoses / Procedures Referred By Leni lopez Referred To Contact Medical Oncology / Oncology Diagnoses Primary Malignant Neoplasm Of Prostate (HCC) Marlon Gambino M.D. [address] [place] [address] [facility] Referral ID Status Reason Start Date Expiration Date Visits Requested Visits Authorized [id number] Authorized Specialty Services Required 11/07/2023 05/08/2025 1 1 Scheduling Instructions At [facility] with Dr George or Dr. Ferguson * Radiation Therapy (Routine) - Authorized Specialty Diagnoses / Procedures Referred By Leni t Referred To Contact Diagnoses Primary Malignant Neoplasm Of Prostate (HCC) Procedures Management Visit Marlon Gambino M.D. [address] [place] [address] [facility] Region Referral ID Status Reason Start Date Expiration Date V isits Requested Visits Authorized [id number] Authorized 08/02/2023 08/01/2024 10 10 Reason for Visit * Radiation Therapy (Routine) - Authorized Specialty Diagnoses / Procedures Referred By Leni t Referred To Contact Diagnoses Primary Malignant Neoplasm Of Prostate (HCC) Procedures Management Visit Marlon Gambino M.D. [address] [place] [address] [facility] Region Referral ID Status Reason Start Date Expiration Date V isits Requested Visits Authorized [id number] Authorized 08/02/2023 08/01/2024 10 10 Encounter Details Date Type Department Care Team (Latest Contact Info) Description 11/07/2023 7:55 AM CDT - 11/08/2023 6:09 PM CDT Hospital Encounter Department of Radiation Oncology in [place], [place] [address] [place] [address] Marlon Gambino M.D. [address] [place] [address] Primary Malignant Neoplasm Of Prostate (HCC) Social History Tobacco Use Types Packs/Day Years Used Date Smoking Tobacco: Never Smokeless Tobacco: Never Alcohol Use Standard Drinks/Week Comments Yes 3 (1 standard drink = 0.6 oz pur e alcohol) [facility] Utilities Answer Date Recorded In the past 12 months has [employer], gas, oil, or water company threatened to [...] Sex Assigned at Male 07/21/2023 9:10 AM PERSONNEL DIRECTOR Gender Identity Male 07/21/2023 9:10 AM PERSONNEL DIRECTOR Sexual Orientation Straight 07/21/2023 9: 10 AM PERSONNEL DIRECTOR documented as of this encounter Last Filed Vital Signs Vital Sign Reading Time Taken Comments Blood Pressure - - Pulse - - Temperature 36.3 ??C (97.3 ??F) 11/07/2023 8:29 AM CD T Respiratory Rate - - Oxygen Saturation - - Inhaled Oxygen Concentration - - Weight 112 kg (247 lb 5.7 oz) 11/07/2023 8:29 AM CDT Height - - Body Mass Index 34.25 09/20/2023 6:40 AM CDT documented in this encounter Medications [...] BY MOUTH DAILY 180 capsule 1 10/09/2023 documented as of this encounter Progress Notes * Marlon Gambino M.D. - 11/07/2023 9:00 AM CDT SUBJECTIVE CHIEF COMPLAINT/REASON FOR VISIT Evaluation for side effects while receiving radiation treatment for 1. Primary Malignant Neoplasm Of Prostate (HCC) SUPERVISED BY: Marlon Gambino M.D. ([id number]) HISTORY OF PRESENT ILLNESS Magdy Beck is a 73 y.o. 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 Androgen deprivation therapy initiated on August 01, 2023. He received HDR brachytherapy to the prostate 15 Gy in 1 fraction under the care of Dr. Aranda on September 20, 2023 with fiducial and spacer placement. He completed radiotherapy to prostate, seminal vesicles, and pelvic lymph nodes today, November 07, 2023. Treatment Course: 1bProstate Plan ID Fractions Dose / Fraction (cGy) Dose Treated (cGy) Dose Planned (cGy) First Treatment Last Treatment Elapsed Days [id number] 1500 1500 1500 09/20/2023 09/20/2023 0 Course Summary 09/20/2023 09/20/2023 0 Treatment Course: 1xProstate Plan ID Fractions Dose / Fraction (cGy) Dose Treated (cGy) Dose Planned (cGy) First Treatment Last Treatment Elapsed Days [id number] 200 5000 5000 10/03/2023 11/07/2023 35 Course Summary 10/03/2023 11/07/2023 35 Oncology History Overview Note HIGH-RISK clinical T2b (based on MRI) N0 M0 prostate adenocarcinoma, Hayti 4+5 with 4/4 (100%) core biopsies positive, [...] (cT1c). MRI-fusion transperineal prostate biopsy revealed adenocarcinoma Hayti 4+5 in right peripheral zone base - [...] Procedures Prostate fiducial marker and spacer placement 10/03/2023 - Radiation Therapy Radiation Therapy Treatment Details (Noted on 08/02/2023) Site: Prostate Technique: IMRT Goal: Curative Planned Treatment Start Date: 10/03/2023 The patient was seen and examined today with Dr. Gambino. The patient reports to be feeling well overall. He is taking 3 tablets of Imodium for diarrhea management and he has 3 bowel movement daily. He continues to take a probiotic daily. He is taking Flomax 0.8 mg in the evening. He reports nocturia x 2. He denies hematuria, dysuria or rectal bleeding. PATIENT REPORTED SYMPTOM SCREEN: FATIGUE (Scale: 0 = no fatigue; 10 = worst fatigue you can imagine): 8 PAIN (Scale: 0 = no pain; 10 = worst pain you can imagine): 1 OVERALL QUALITY OF LIFE (Scale: 0 = as bad as can be; 10 = as good as can be): 9 OBJECTIVE Temp 36.3 ??C (Temporal) Wt 112 kg BMI 34.25 kg/m?? PHYSICAL EXAMINATION General: Alert and oriented, in no apparent distress. 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 Aranda on September 20, 2023 with fiducial and spacer placement #4 Radiotherapy to prostate, seminal vesicles, and pelvic lymph nodes initiated on September 03, 2023; completed on November 07, 2023 The patient has tolerated radiation treatment well overall. Patient can continue to take Imodium for diarrhea management. Discussed with patient that a couple weeks post treatment and he can trial going down on his Flomax to 0.4 mg which is his original dose. If his urinary symptoms return with thelower dose he can go back to 0.8 mg. Discussed with patient that radiation related side effects should start to resolve in the coming weeks. Patient will have his next Eligard 22.5 mg injection on December 26, 2023 at [facility]. He will get a PSA and testosterone checked at that time. He willthen have an office visit with Dr. Gambino a few days later. He will also have a consult with Dr. Rodriguez or at [facility]. He can contact our care team with any questions or concerns. Toxicities reviewed with Dr. Gambino. Signed by: Maura Cornelius R.N. 11/07/2023 8:35 AM CDT I saw and evaluated the patient and participated in the mensah portions of the service. I reviewed thedocumentation of Maura Cornelius R.N. and agree with the findings and plan. The patient appears well on exam. He has tolerated treatment well with anticipated side effects including grade 1 diarrhea and grade 1 urinary urgency. His next Eligard injection will be on December 26, 2023 at [facility] and will have a PSA, testosterone, CBC, and CMP checked then. I am referring him to Dr. Rodriguez or Dr. Ferguson at [facility] for consideration the addition of abiraterone or other ARPI because of his very high-risk disease. I will see him in follow-up soon after. He can contact our team at any time with questions or concerns. He verbalized satisfaction with this plan. Signed by: Marlon Gambino M.D. 11/08/2023 6:09 PM CDT [facility] [address] [place] [address] documented in this encounter Miscellaneous Notes * Addendum Note - Lynne Denise C.NMauricio - 11/07/2023 9:00 AM CDTEncounter addended by: Lynne Denise C.NMauricio on: 11/11/2023 7:54 AM Actions taken: Letter saved documented in this encounter Plan of Treatment Upcoming Encounters Date Type Department Care Team (Late st Contact Info) Description 01/01/2024 3:00 PM CDT Appointment Department of Radiation Oncology in [place], [place] [address] [place] [address] Marlon Gambino M.D. [address] [place] [address] Scheduled Orders Name Type Priority Associated Diagnoses Order Schedule Management Visit Radiation Oncology Routine Primary Malignant Neoplasm Of Prostate (HCC) Once for 1 Occurrences starting 11/07/2023 until 11/07/2023 Testosterone, Total by Mass Spectrometry, Serum Lab Routine Primary Malignant Neoplasm Of Prostate (HCC) Expected: 11/20/2023, Expires: 02/06/2025 CBC with Differential, Blood Lab Routine Primary Malignant Neoplasm Of Prostate (HCC) Expected: 11/07/2023, Expires: 02/06/2025 Comprehensive Metabolic Panel Lab Routine Primary Malignant Neoplasm Of Prostate (HCC) Expected: 11/20/2023, Expires: 02/06/2025 Hepatic Function Panel Lab Routine Primary Malignant Neoplasm Of Prostate (HCC) Expected: 11/20/2023, Expires: 02/06/2025 PSA (Prostate-Specific Antigen), Diagnostic Lab Routine Primary Malignant Neoplasm Of Prostate (HCC) Expected: 12/26/2023, Expires: 02/06/2025 Scheduled Referrals Name Type Priority Associated Diagnoses Orde r Schedule Oncology - Medical, general consult (clinic) Outpatient Referral Routine Primary Malignant Neoplasm Of Prostate (HCC) Expected: 11/07/2023, Expires: 02/06/2025 Radiation Oncology office visit (clinic) Outpatient Referral Routine Expected: 12/30/2023 (Approximate), Expires: 02/06/2025 documented as of this encounter Visit Diagnoses Diagnosis Primary Malignant Neoplasm Of Prostate (HCC) documented in this encounter Care Teams Professor Of English Relationship Specialty Start Date End Date Elsewhere, Pcp PCP - General Internal Medicine 09/18/23 documented as of this encounter
--- OUTSIDE RECORDS SUMMARY | 2023-11-20 13:24 | XMS_ITS | Encounter Summary ---
Author Organization [facility] Address [address] [place] [address] Care Team Providers Care Steam Fitter Helper Name Role Phone Elsewhere, Pcp Primary Care Provider Unavailabl e Encounter Details Date Type Department Care Team (Late st Contact Info) Description 10/29/2023 7:46 AM CDT Hospital Encounter Department of Radiation Oncology in [place], [place] [address] [place] [phone] Marlon Gambino M.D. [address] [place] [address] Social History Tobacco Use Types Packs/Day Years Used Date Smoking Tobacco: Never Smokeless Tobacco: Never Alcohol Use Standard Drinks/Week Comments Yes 3 (1 standard drink = 0.6 oz pur e alcohol) [facility] Utilities Answer Date Recorded In the past 12 months has [facility] [employer], gas, oil, or water [employer] threatened to shut off services in your [...] your living situation today? I have a [facility] place to live 07/19/2023 Sex and Gender Information Value Date Recorded Sex Assigned at Male 07/21/2023 9:10 AM PLASTERER STUCCO Gender Identity Male 07/21/2023 9:10 AM PLASTERER STUCCO Sexual Orientation Straight 07/21/2023 9: 10 AM PLASTERER STUCCO documented as of this encounter Plan of Treatment Upcoming Encounters Date Type Department Care Team (Late st Contact Info) Description 01/01/2024 3:00 PM CDT Appointment Department of Radiation Oncology in [place], [place] [address] [place] [phone] Marlon Gambino M.D. [address] [place] [address] documented as of this encounter Visit Diagnoses Not on filedocumented in this encounter Care Teams Steam Fitter Helper Relationship Specialty Start Date End Date Elsewhere, Pcp PCP - General Internal Medicine 09/18/23 documented as of this encounter
--- OUTSIDE RECORDS SUMMARY | 2023-11-20 13:24 | XMS_ITS ---
Author Organization [facility] Address [address] [place] [address] Care Team Providers Care Appraiser Art Name Role Phone Elsewhere, Pcp Primary Care [...] Treated Prescribed Fraction Dose Prescribed Total Dose [id number] 11/07/2023 35 25 of 25 200 cGy 5,000 cGy [id number] 09/20/2023 0 1 of 1 1,500 cGy 1,500 cGy Reference Point Last Treated On Elapsed Days Session Dose Total Dose [id number] 11/07/2023 35 200 cGy 5,000 cGy DPV HDR 09/20/2023 0 1,499 cGy 1,499 [...]
--- OUTSIDE RECORDS SUMMARY | 2023-11-20 13:24 | XMS_ITS | Encounter Summary ---
Author Organization [facility] Address [address] [place] [address] Care Team Providers Care Blemish Remover Name Role Phone Elsewhere, Pcp Primary Care Provider Unavailabl e Encounter Details Date Type Department Care Team (Late st Contact Info) Description 10/31/2023 7:45 AM CDT Hospital Encounter Department of Radiation Oncology in [place], [place] [address] [place] [address] Marlon Gambino M.D. [address] [place] [address] Social History Tobacco Use Types Packs/Day Years Used Date Smoking Tobacco: Never Smokeless Tobacco: Never Alcohol Use Standard Drinks/Week Comments Yes 3 (1 standard drink = 0.6 oz pur e alcohol) [facility] Utilities Answer Date Recorded In the past 12 months has [facility] [employer], gas, oil, or water [employer] threatened to shut off services in your [...] your living situation today? I have a [facility] place to live 07/19/2023 Sex and Gender Information Value Date Recorded Sex Assigned at Male 07/21/2023 9:10 AM FINANCE LECTURER Gender Identity Male 07/21/2023 9:10 AM FINANCE LECTURER Sexual Orientation Straight 07/21/2023 9: 10 AM FINANCE LECTURER documented as of this encounter Plan of Treatment Upcoming Encounters Date Type Department Care Team (Late st Contact Info) Description 01/01/2024 3:00 PM CDT Appointment Department of Radiation Oncology in [place], [place] [address] [place] [address] Marlon Gambino M.D. [address] [place] [address] documented as of this encounter Visit Diagnoses Not on filedocumented in this encounter Care Teams Blemish Remover Relationship Specialty Start Date End Date Elsewhere, Pcp PCP - General Internal Medicine 09/18/23 documented as of this encounter
--- OUTSIDE RECORDS SUMMARY | 2023-11-20 13:24 | XMS_ITS | Encounter Summary ---
Author Organization [facility] Address [address] [place] [address] Care Team Providers Care Glue Machine Operator Name Role Phone Elsewhere, Pcp Primary Care Provider Unavailabl e Encounter Details Date Type Department Care Team (Late st Contact Info) Description 11/01/2023 7:46 AM CDT Hospital Encounter Department of Radiation Oncology in [place], [place] [address] [place] [phone] Marlon Gambino M.D. [address] [place] [address] Social History Tobacco Use Types Packs/Day Years Used Date Smoking Tobacco: Never Smokeless Tobacco: Never Alcohol Use Standard Drinks/Week Comments Yes 3 (1 standard drink = 0.6 oz pur e alcohol) [facility] Utilities Answer Date Recorded In the past 12 months has [facility] [employer], gas, oil, or water [employer] threatened to shut off services in your [...] your living situation today? I have a [facility] place to live 07/19/2023 Sex and Gender Information Value Date Recorded Sex Assigned at Male 07/21/2023 9:10 AM FIELD ARTILLERY CANNONEER Gender Identity Male 07/21/2023 9:10 AM FIELD ARTILLERY CANNONEER Sexual Orientation Straight 07/21/2023 9: 10 AM FIELD ARTILLERY CANNONEER documented as of this encounter Plan of Treatment Upcoming Encounters Date Type Department Care Team (Late st Contact Info) Description 01/01/2024 3:00 PM CDT Appointment Department of Radiation Oncology in [place], [place] [address] [place] [address] Marlon Gambino M.D. [address] [place] [address] documented as of this encounter Visit Diagnoses Not on filedocumented in this encounter Care Teams Glue Machine Operator Relationship Specialty Start Date End Date Elsewhere, Pcp PCP - General Internal Medicine 09/18/23 documented as of this encounter
--- OUTSIDE RECORDS SUMMARY | 2023-11-20 13:24 | XMS_ITS | Encounter Summary ---
Author Organization [facility] Address [address] [place] [address] Care Team Providers Care Clicker Operator Name Role Phone Elsewhere, Pcp Primary Care Provider Unavailabl e Reason for Referral * Outpatient (Routine) - Authorized Specialty Diagnoses / Procedures Referred By Leni lopez Referred To Contact Social Work Diagnoses Primary Malignant Neoplasm Of Prostate (HCC) Hue Ferguson M.D. [address] [place] [address] [facility] Region Referral ID Status Reason Start Date Expiration Date V isits Requested Visits Authorized [id number] Authorized 11/12/2023 05/13/2025 1 1 Encounter Details Date Type Department Care Team (Late st Contact Info) Description 11/12/2023 Orders Only Department of Oncology in [place], [place] [address] [place] [phone] Hue Ferguson M.D. [address] [place] [phone] Primary Malignant Neoplasm Of Prostate (HCC) (Primary Dx) Social History Tobacco Use Types Packs/Day Years Used Date Smoking Tobacco: Never Smokeless Tobacco: Never Alcohol Use Standard Drinks/Week Comments Yes 3 (1 standard drink = 0.6 oz pur e alcohol) [facility] Utilities Answer Date Recorded In the past 12 months has e electric, gas, oil, or water [employer] threatened to shut off services in your [...] your living situation today? I have a [facility] place to live 07/19/2023 Sex and Gender Information Value Date Recorded Sex Assigned at Male 07/21/2023 9:10 AM MANAGER MISSION Gender Identity Male 07/21/2023 9:10 AM MANAGER MISSION Sexual Orientation Straight 07/21/2023 9: 10 AM MANAGER MISSION documented as of this encounter Plan of Treatment Upcoming Encounters Date Type Department Care Team (Late st Contact Info) Description 01/01/2024 3:00 PM CDT Appointment Department of Radiation Oncology in [place], [place] [address] [place] [address] Marlon Gambino M.D. [address] [place] [address] Scheduled Referrals Name Type Priority Associated Diagnoses Orde r Schedule Social Work - General consult (clinic) Outpatient Referral Routine Primary Malignant Neoplasm Of Prostate (HCC) Expected: 11/12/2023 (Approximate), Expires: 02/11/2025 documented as of this encounter Visit Diagnoses Diagnosis Primary Malignant Neoplasm Of Prostate (HCC)- Primary documented in this encounter Care Teams Clicker Operator Relationship Specialty Start Date End Date Elsewhere, Pcp PCP - General Internal Medicine 09/18/23 documented as of this encounter
--- OUTSIDE RECORDS SUMMARY | 2023-11-20 13:24 | XMS_ITS | Encounter Summary ---
Author Organization [facility] Address [address] [place] [address] Care Team Providers Care Pipe Line Gauger Name Role Phone Elsewhere, Pcp Primary Care Provider Unavailabl e Encounter Details Date Type Department Care Team (Late st Contact Info) Description 11/04/2023 7:46 AM CDT Hospital Encounter Department of Radiation Oncology in [place], [place] [address] [place] [phone] Marlon Gambino M.D. [address] [place] [address] Social History Tobacco Use Types Packs/Day Years Used Date Smoking Tobacco: Never Smokeless Tobacco: Never Alcohol Use Standard Drinks/Week Comments Yes 3 (1 standard drink = 0.6 oz pur e alcohol) [facility] Utilities Answer Date Recorded In the past 12 months has [facility] [employer], gas, oil, or water [employer] threatened to shut off services in your [...] living situation today? I have a [facility] place to live 07/19/2023 Sex and Gender Information Value Date Recorded Sex Assigned at Male 07/21/2023 9:10 AM RANGE FEEDER Gender Identity Male 07/21/2023 9:10 AM RANGE FEEDER Sexual Orientation Straight 07/21/2023 9: 10 AM RANGE FEEDER documented as of this encounter Plan of Treatment Upcoming Encounters Date Type Department Care Team (Late st Contact Info) Description 01/01/2024 3:00 PM CDT Appointment Department of Radiation Oncology in [place], [place] [address] [place] [address] Marlon Gambino M.D. [address] [place] [address] documented as of this encounter Visit Diagnoses Not on filedocumented in this encounter Care Teams Pipe Line Gauger Relationship Specialty Start Date End Date Elsewhere, Pcp PCP - General Internal Medicine 09/18/23 documented as of this encounter
--- OUTSIDE RECORDS SUMMARY | 2023-11-20 13:24 | XMS_ITS | Encounter Summary ---
Author Organization [facility] Address [address] [place] [address] Care Team Providers Care Station Detective Name Role Phone Elsewhere, Pcp Primary Care Provider Unavailabl e Encounter Details Date Type Department Care Team (Late st Contact Info) Description 10/22/2023 7:47 AM CDT Hospital Encounter Department of Radiation Oncology in [place], [place] [address] [place] [address] Marlon Gambino M.D. [address] [place] [address] Social History Tobacco Use Types Packs/Day Years Used Date Smoking Tobacco: Never Smokeless Tobacco: Never Alcohol Use Standard Drinks/Week Comments Yes 3 (1 standard drink = 0.6 oz pur e alcohol) [facility] Utilities Answer Date Recorded In the past 12 months has [facility] [email or web address], gas, oil, or water [employer] threatened to shut off services in your [...] your living situation today? I have a [facility] place to live 07/19/2023 Sex and Gender Information Value Date Recorded Sex Assigned at Male 07/21/2023 9:10 AM DOOR OPENER Gender Identity Male 07/21/2023 9:10 AM DOOR OPENER Sexual Orientation Straight 07/21/2023 9: 10 AM DOOR OPENER documented as of this encounter Plan of Treatment Upcoming Encounters Date Type Department Care Team (Late st Contact Info) Description 01/01/2024 3:00 PM CDT Appointment Department of Radiation Oncology in [place], [place] [address] [place] [address] Marlon Gambino M.D. [address] [place] [address] documented as of this encounter Visit Diagnoses Not on filedocumented in this encounter Care Teams Station Detective Relationship Specialty Start Date End Date Elsewhere, Pcp PCP - General Internal Medicine 09/18/23 documented as of this encounter
--- OUTSIDE RECORDS SUMMARY | 2023-11-20 13:24 | XMS_ITS | Encounter Summary ---
Author Organization [facility] Address [address] [place] [address] Care Team Providers Care Lab Head Name Role Phone Elsewhere, Pcp Primary Care Provider Unavailabl e Reason for Referral * Radiation Therapy (Routine) - Authorized Specialty Diagnoses / Procedures Referred By Contac t Referred To Contact Diagnoses Primary Malignant Neoplasm Of Prostate (HCC) Procedures Management Visit Marlon Gambino M.D. [address] [place] [address] [facility] Region Referral ID Status Reason Start Date Expiration Date V isits Requested Visits Authorized [id number] Authorized 08/02/2023 08/01/2024 10 10 Reason for Visit * Radiation Therapy (Routine) - Authorized Specialty Diagnoses / Procedures Referred By Contac t Referred To Contact Diagnoses Primary Malignant Neoplasm Of Prostate (HCC) Procedures Management Visit Marlon Gambino M.D. [address] [place] [address] [facility] Region Referral ID Status Reason Start Date Expiration Date V isits Requested Visits Authorized [id number] Authorized 08/02/2023 08/01/2024 10 10 Encounter Details Date Type Department Care Team (Latest Contact Info) Description 10/30/2023 7:46 AM CDT - 10/30/2023 9:05 AM CDT Hospital Encounter Department of Radiation Oncology in [place], [place] [address] [place] [phone] Marlon Gambino M.D. [address] [place] [address] Primary Malignant Neoplasm Of Prostate (HCC) Social History Tobacco Use Types Packs/Day Years Used Date Smoking Tobacco: Never Smokeless Tobacco: Never Alcohol Use Standard Drinks/Week Comments Yes 3 (1 standard drink = 0.6 oz pur e alcohol) [facility] Utilities Answer Date Recorded In the past 12 months has e [employer], gas, oil, or water [employer] threatened to shut off services in your [...] your living situation today? I have a [facility] place to live 07/19/2023 Sex and Gender Information Value Date Recorded Sex Assigned at Male 07/21/2023 9:10 AM DIELECTRIC TESTER Gender Identity Male 07/21/2023 9:10 AM DIELECTRIC TESTER Sexual Orientation Straight 07/21/2023 9: 10 AM DIELECTRIC TESTER documented as of this encounter Last Filed Vital Signs Vital Sign Reading Time Taken Comments Blood Pressure - - Pulse - - Temperature 36.3 ??C (97.4 ??F) 10/30/2023 8:15 AM CD T Respiratory Rate - - Oxygen Saturation - - Inhaled Oxygen Concentration - - Weight 112 kg (246 lb 0.5 oz) 10/30/2023 8:15 AM CDT Height - - Body Mass Index 34.06 09/20/2023 6:40 AM CDT documented in this [...] Progress Notes * Marlon Gambino M.D. - 10/30/2023 8:15 AM CDT SUBJECTIVE CHIEF COMPLAINT/REASON FOR VISIT Evaluation for side effects while receiving radiation treatment for 1. Primary Malignant Neoplasm Of Prostate (HCC) SUPERVISED BY: Marlon Gambino M.D. ([id number]) HISTORY OF PRESENT ILLNESS Magdy Beck is a 73 y.o. 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 Androgen deprivation therapy initiated on August 01, 2023. He received HDR brachytherapy to the prostate 15 Gy in 1 fraction under the care of Dr. Aranda on September 20, 2023 with fiducial and spacer placement. He is now undergoing radiotherapy to prostate, seminal vesicles, and pelvic lymph nodes. Treatment Course: 1bProstate Plan ID Fractions Dose / Fraction (cGy) Dose Treated (cGy) Dose Planned (cGy) First Treatment Last Treatment Elapsed Days [id number] 1500 1500 1500 09/20/2023 09/20/2023 0 Course Summary 09/20/2023 09/20/2023 0 Treatment Course: 1xProstate Plan ID Fractions Dose / Fraction (cGy) Dose Treated (cGy) Dose Planned (cGy) First Treatment Last Treatment Elapsed Days [id number] 200 3800 5000 10/03/2023 10/30/2023 27 Course Summary 10/03/2023 10/30/2023 The patient was seen and examined today with Dr. Gambino. The patient reports to be feeling well overall. He has noticed an increase in diarrhea over the past week. He notes the amount varies from day to day. It varies from 0-4 episode daily and he is managing it with 2-3 tablets of Imodium. He reports that it helpful. He noted last a little pink in his stool. It has not reoccurred since. He denies have hemorrhoids. He is also taking a probiotic. He is taking Flomax 0.8 mg in [...] 36.3 ??C (Temporal) Wt 112 kg BMI 34.06 kg/m?? PHYSICAL EXAMINATION General: Alert and oriented, [...] lymph nodes initiated on September 03, 2023; anticipated date of completion on November 07, 2023 The patient is tolerating radiation treatment well overall. Patient can continue to take Imodium for diarrhea management. Discussed he may need to increase Imodium usage if his diarrhea increases over the next week or so. Patient can take up to 8 tablets of Imodium daily. We will continue monitor blood in stool/rectal bleeding. If it were to worsen he should contact our care team. Patient was provided with Aquaphor to apply to help with rectal irritation from diarrhea. We will see him in a lastmanagement next . He will be due for his next injection on December 26, 2023 at [facility]. He will continue with radiation treatment as planned. He can contact our care team with any que stions or concerns. Signed by: Maura Cornelius R.N. 10/30/2023 8:18 AM CDT I saw and evaluated the patient and participated in the mensah portions of the service. I reviewed thedocumentation of Maura Cornelius R.N. and agree with the findings and plan. The patient appears well on exam. He has had increasing loose stools that respond some to Imodium. He will increase Imodium. He also had an episode mild hematochezia that may be due to rectal/anal irritation. We discussed utilizing baby wipes and Aquaphor topically. He will continue with treatment as planned. Signed by: Marlon Gambino M.D. 10/30/2023 9:05 AM CDT [facility] [address] [place] [address] documented in this encounter Plan of Treatment Upcoming Encounters Date Type Department Care Team (Late st Contact Info) Description 01/01/2024 3:00 PM CDT Appointment Department of Radiation Oncology in [address] [phone] Marlon Gambino M.D. [address] [place] [address] Scheduled Orders Name Type Priority Associated Diagnoses Orde r Schedule Management Visit Radiation Oncology Routine Primary Malignant Neoplasm Of Prostate (HCC) Once for 1 Occurrences starting 10/30/2023 until 10/30/2023 documented as of this encounter Visit Diagnoses Diagnosis Primary Malignant Neoplasm Of Prostate (HCC) documented in this encounter Care Teams Lab Head Relationship Specialty Start Date End Date Elsewhere, Pcp PCP - General Internal Medicine 09/18/23 documented as of this encounter
--- OUTSIDE RECORDS SUMMARY | 2023-11-20 13:24 | XMS_ITS | Encounter Summary ---
Author Organization [facility] Address [address] [place] [address] Care Team Providers Care Maintenance Fitter Name Role Phone Elsewhere, Pcp Primary Care Provider Unavailabl e Reason for Referral * Radiation Therapy (Routine) - Authorized Specialty Diagnoses / Procedures Referred By Contac t Referred To Contact Diagnoses Primary Malignant Neoplasm Of Prostate (HCC) Procedures Management Visit Marlon Gambino M.D. [address] [place] [address] [facility] Region Referral ID Status Reason Start Date Expiration Date V isits Requested Visits Authorized [id number] Authorized 08/02/2023 08/01/2024 10 10 Reason for Visit * Radiation Therapy (Routine) - Authorized Specialty Diagnoses / Procedures Referred By Contac t Referred To Contact Diagnoses Primary Malignant Neoplasm Of Prostate (HCC) Procedures Management Visit Marlon aGmbino M.D. [address] [place] [address] [facility] Region Referral ID Status Reason Start Date Expiration Date V isits Requested Visits Authorized [id number] Authorized 08/02/2023 08/01/2024 10 10 Encounter Details Date Type Department Care Team (Latest Contact Info) Description 10/23/2023 7:45 AM CDT - 10/23/2023 1:09 PM CDT Hospital Encounter Department of Radiation Oncology in [place], [place] [address] [place] [phone] Marlon Gambino M.D. [address] [place] [address] Primary Malignant Neoplasm Of Prostate (HCC) Social History Tobacco Use Types Packs/Day Years Used Date Smoking Tobacco: Never Smokeless Tobacco: Never Alcohol Use Standard Drinks/Week Comments Yes 3 (1 standard drink = 0.6 oz pur e alcohol) [facility] Utilities Answer Date Recorded In the past 12 months has e [email or web address], gas, oil, or water [employer] threatened to shut off services in your [...] your living situation today? I have a [facility] place to live 07/19/2023 Sex and Gender Information Value Date Recorded Sex Assigned at Male 07/21/2023 9:10 AM DIRT SUPERVISOR Gender Identity Male 07/21/2023 9:10 AM DIRT SUPERVISOR Sexual Orientation Straight 07/21/2023 9: 10 AM DIRT SUPERVISOR documented as of this encounter Last Filed Vital Signs Vital Sign Reading Time Taken Comments Blood Pressure - - Pulse - - Temperature 36.3 ??C (97.3 ??F) 10/23/2023 8:13 AM CD T Respiratory Rate - - Oxygen Saturation - - Inhaled Oxygen Concentration - - Weight 114 kg (250 lb 14.1 oz) 10/23/2023 8:13 A M CDT Height - - Body Mass Index 34.74 09/20/2023 6:40 AM CDT documented in this [...] Progress Notes * Marlon Gambino M.D. - 10/23/2023 8:15 AM CDT SUBJECTIVE CHIEF COMPLAINT/REASON FOR VISIT Evaluation for side effects while receiving radiation treatment for 1. Primary Malignant Neoplasm Of Prostate (HCC) SUPERVISED BY: Marlon Gambino M.D. ([id number]) HISTORY OF PRESENT ILLNESS Magdy Beck is [...] (cGy) First Treatment Last Treatment Elapsed Days [id number] 1500 1500 1500 09/20/2023 09/20/2023 0 Course Summary 09/20/2023 09/20/2023 0 Treatment Course: 1xProstate Plan ID Fractions Dose / Fraction (cGy) Dose Treated (cGy) Dose Planned (cGy) First Treatment Last Treatment Elapsed Days [id number] [address] 3000 5000 10/03/2023 10/23/2023 20 Course Summary 10/03/2023 10/23/2023 20 The patient was seen and examined today with Dr. Gambino. The patient reports to be feeling well overall. He is taking 2 tablets of Imodium each morning to help with diarrhea. He is also taking a probiotic. He [...] 9 OBJECTIVE Temp 36.3 ??C (Temporal) Wt 114 kg BMI 34.74 kg/m?? PHYSICAL EXAMINATION General: Alert and oriented, [...] continue to take Imodium for diarrhea management. He will be due for his next injection on December 26, 2023 at [facility]. He will continue with radiation treatment as planned. He can contact our care team with any questions or concerns. Signed by: Justino Farmer/22/2024 8:20 AM CDT I saw and evaluated the patient and participated in the mensah portions of the service. I reviewed thedocumentation of Maura Cornelius R.N. and agree with the findings and plan. The patient appears well on exam. He is tolerating treatment well. He may like to do 1 twice daily treatment to make up for the holiday. I explained that this is certainly fine and he can arrange this with the therapy staff. I informed them of this as well He will continue with treatment as planned. Signed by: Marlon Gambino M.D. 10/23/2023 1:09 PM CDT [facility] [address] [place] [address] documented in this encounter Plan of Treatment Upcoming Encounters Date Type Department Care Team (Late st Contact Info) Description 01/01/2024 3:00 PM CDT Appointment Department of Radiation Oncology in [place], [place] [address] [place] [phone] Marlon Gambino M.D. [address] [place] [phone] Scheduled Orders Name Type Priority Associated Diagnoses Orde r Schedule Management Visit Radiation Oncology Routine Primary Malignant Neoplasm Of Prostate (HCC) Once for 1 Occurrences starting 10/23/2023 until 10/23/2023 documented as of this encounter Visit Diagnoses Diagnosis Primary Malignant Neoplasm Of Prostate (HCC) documented in this encounter Care Teams Maintenance Fitter Relationship Specialty Start Date End Date Elsewhere, Pcp PCP - General Internal Medicine 09/18/23 documented as of this encounter
--- OUTSIDE RECORDS SUMMARY | 2023-11-20 13:24 | XMS_ITS | Encounter Summary ---
Author Organization [facility] Address [address] [place] [address] Care Team Providers Care Emergency Veterinarian Name Role Phone Elsewhere, Pcp Primary Care Provider Unavailabl e Encounter Details Date Type Department Care Team (Late st Contact Info) Description 10/24/2023 7:45 AM CDT Hospital Encounter Department of Radiation Oncology in [place], [place] [address] [place] [phone] Marlon Gambino M.D. [address] [place] [address] Social History Tobacco Use Types Packs/Day Years Used Date Smoking Tobacco: Never Smokeless Tobacco: Never Alcohol Use Standard Drinks/Week Comments Yes 3 (1 standard drink = 0.6 oz pur e alcohol) [facility] Utilities Answer Date Recorded In the past 12 months has [facility] [employer], gas, oil, or water [employer] threatened to shut off services in your [...] Sex Assigned at Male 07/21/2023 9:10 AM DIRECTOR PAYER Gender Identity Male 07/21/2023 9:10 AM DIRECTOR PAYER Sexual Orientation Straight 07/21/2023 9: 10 AM DIRECTOR PAYER documented as of this encounter Plan of Treatment Upcoming Encounters Date Type Department Care Team (Late st Contact Info) Description 01/01/2024 3:00 PM CDT Appointment Department of Radiation Oncology in [place], [place] [address] [place] [phone] Marlon Gambino M.D. [address] [place] [address] documented as of this encounter Visit Diagnoses Not on filedocumented in this encounter Care Teams Emergency Veterinarian Relationship Specialty Start Date End Date Elsewhere, Pcp PCP - General Internal Medicine 09/18/23 documented as of this encounter
--- OUTSIDE RECORDS SUMMARY | 2023-11-20 13:24 | XMS_ITS | Referral Summary ---
Author Organization [facility] Address [address] [place] [address] Care Team Providers Care Hob Machine Operator Name Role Phone Elsewhere, Pcp Primary Care Provider Unavailabl e Source Comments Patient records contain information from all sites at [facility]. For routine questions regarding patient records, call [phone] during business hours, M-F 8:00 AM - 5:00 PM Central Time. Record requests for emergency care only can be directed to [phone] at any time.[facility] Encounters Date Type Department Care Team Description 11/12/2023 Orders Only Department of Oncology in [address] [address] Hue Ferguson M.D. Primary Malignant Neoplasm Of Prostate (HCC) (Primary Dx) 11/07/2023 7:55 AM CDT - 11/08/2023 6:09 PM CDT Hospital Encounter Department of Radiation Oncology in [address] [address] Marlon Gambino M.D. Primary Malignant Neoplasm Of Prostate (HCC) 11/07/2023 7:45 AM CDT Hospital Encounter Department of Radiation Oncology in [address] [address] Marlon Gambino M.D. 11/06/2023 7:45 AM CDT Hospital Encounter Department of Radiation Oncology in [address] [address] Marlon Gambino M.D. 11/05/2023 7:46 AM CDT Hospital Encounter Department of Radiation Oncology in [address] [address] Marlon Gambino M.D. 11/04/2023 7:46 AM CDT Hospital Encounter Department of Radiation Oncology in [address] [address] Marlon Gambino M.D. 11/01/2023 7:46 AM CDT Hospital Encounter Department of Radiation Oncology in [address] [address] Marlon Gambino M.D. 10/31/2023 7:45 AM CDT Hospital Encounter Department of Radiation Oncology in [address] [address] Marlon Gambino M.D. 10/30/2023 7:46 AM CDT - 10/30/2023 9:05 AM CDT Hospital Encounter Department of Radiation Oncology in [address] [address] Marlon Gambino M.D. Primary Malignant Neoplasm Of Prostate (HCC) 10/30/2023 7:46 AM CDT Hospital Encounter Department of Radiation Oncology in [address] [address] Marlon Gambino M.D. 10/29/2023 7:46 AM CDT Hospital Encounter Department of Radiation Oncology in [address] [address] Marlon Gambino M.D. 10/25/2023 7:46 AM CDT Hospital Encounter Department of Radiation Oncology in [address] [address] Marlon Gambino M.D. 10/24/2023 7:45 AM CDT Hospital Encounter Department of Radiation Oncology in [address] [address] Marlon Gambino M.D. 10/23/2023 7:45 AM CDT - 10/23/2023 1:09 PM CDT Hospital Encounter Department of Radiation Oncology in [address] [address] Marlon Gambino M.D. Primary Malignant Neoplasm Of Prostate (HCC) 10/23/2023 7:45 AM CDT Hospital Encounter Department of Radiation Oncology in [address] [address] Marlon Gambino M.D. 10/22/2023 7:47 AM CDT Hospital Encounter Department of Radiation Oncology in [address] [address] Marlon Gambino M.D. 10/21/2023 8:21 AM CDT Hospital Encounter Department of Radiation Oncology in [address] [address] Marlon Gambino M.D. Grieman, Kari A, R.NYissel Primary Malignant Neoplasm Of Prostate (HCC) 10/21/2023 7:47 AM CDT Hospital Encounter Department of Radiation Oncology in [address] [address] Marlon Gambino M.D. 10/18/2023 7:48 AM CDT - 10/18/2023 11:59 PM CDT Hospital Encounter Department of Radiation Oncology in [address] [address] Marlon Gambino M.D. Discharge Disposition: Home or Self Care 10/17/2023 7:47 AM CDT - 10/17/2023 11:59 PM CDT Hospital Encounter Department of Radiation Oncology in [address] [address] Marlon Gambino M.D. Discharge Disposition: Home or Self Care 10/16/2023 7:46 AM CDT - 10/16/2023 2:14 PM CDT Hospital Encounter Department of Radiation Oncology in [address] [address] Marlon Gambino M.D. Primary Malignant Neoplasm Of Prostate (HCC) 10/16/2023 7:46 AM CDT - 10/16/2023 11:59 PM CDT Hospital Encounter Department of Radiation Oncology in [address] [address] Marlon Gambino M.D. Discharge Disposition: Home or Self Care 10/15/2023 7:46 AM CDT - 10/15/2023 11:59 PM CDT Hospital Encounter Department of Radiation Oncology in [address] [address] Marlon Gambino M.D. Discharge Disposition: Home or Self Care 10/14/2023 7:52 AM CDT - 10/14/2023 11:59 PM CDT Hospital Encounter Department of Radiation Oncology in [address] [address] Marlon Gambino M.D. Discharge Disposition: Home or Self Care 10/11/2023 7:46 AM CDT - 10/11/2023 11:59 PM CDT Hospital Encounter Department of Radiation Oncology in [address] [address] Marlon Gambino M.D. Discharge Disposition: Home or Self Care 10/09/2023 7:54 AM CDT - 10/11/2023 9:15 PM CDT Hospital Encounter Department of Radiation Oncology in [address] [address] Marlon Gambino M.D. Primary Malignant Neoplasm Of Prostate (HCC) 10/10/2023 7:47 AM CDT - 10/10/2023 11:59 PM CDT Hospital Encounter Department of Radiation Oncology in [address] [address] Marlon Gambino M.D. Discharge Disposition: Home or Self Care 10/09/2023 Refill Department of Radiation Oncology in [address] [address] Marlon Gambino M.D. Med Refill 10/09/2023 7:45 AM CDT - 10/09/2023 7:53 AM CDT Hospital Encounter Department of Radiation Oncology in [address] [address] Marlon Gambino M.D. Discharge Disposition: Home or Self Care 10/08/2023 7:45 AM CDT - 10/08/2023 11:59 PM CDT Hospital Encounter Department of Radiation Oncology in [address] [address] Marlon Gambino M.D. Discharge Disposition: Home or Self Care 10/07/2023 12:38 PM CDT - 10/07/2023 2:49 PM CDT Hospital Encounter Department of Radiation Oncology in [address] [address] Marlon Gambino M.D. Grieman, Kari A RYisselNYissel Primary Malignant Neoplasm Of Prostate (HCC) Discharge Disposition: Home or Self Care 10/07/2023 12:38 PM CDT - 10/07/2023 11:59 PM CDT Hospital Encounter Department of Radiation Oncology in [address] [address] Marlon Gambino M.D. Discharge Disposition: Home or Self Care 2023 10:02 AM CDT - 2023 11:59 PM CDT Hospital Encounter Department of Radiation Oncology in [address] [address] Marlon Gambino M.D. Discharge Disposition: Home or Self Care 10/03/2023 10:04 AM CDT - 10/03/2023 11:59 PM CDT Hospital Encounter Department of Radiation Oncology in [address] [address] Marlon Gambino M.D. Discharge Disposition: Home or Self Care 09/27/2023 11:30 AM CDT - 09/27/2023 5:34 PM CDT Hospital Encounter Department of Radiation Oncology in [address] [address] Marlon Gambino M.D. Primary Malignant Neoplasm Of Prostate (HCC) (Primary Dx) 09/27/2023 10:32 AM CDT - 09/27/2023 11:01 AM CDT Hospital Encounter Department of Radiation Oncology in [address] [address] Marlon Gambino M.D. Primary Malignant Neoplasm Of Prostate (HCC) 09/19/2023 12:21 PM CDT - 09/24/2023 2:46 PM CDT Hospital Encounter Department of Radiation Oncology in [address] [address] Oscar Aranda M.D. Primary Malignant Neoplasm Of Prostate (HCC) (Primary Dx) 09/20/2023 Documentation Department of Radiation Oncology in [address] [address] Oscar Aranda M.D. 09/20/2023 8:00 AM CDT - 09/20/2023 11:59 PM CDT Hospital Encounter Department of Radiation Oncology in [place], [place] [address] [place] [phone] Oscar Aranda M.D. Kelly, Brooke K, R.N. Discharge Disposition: Home or Self Care 09/20/2023 Orders Only Department of Radiation Oncology in [address] [address] Rachael Waite, R.N. 09/20/2023 7:55 AM CDT Anesthesia Event Department of Radiation Oncology in [place], [place] [address] [place] [phone] Jessie Hameed APRN, CRNA, D.N.PAnahi Leyva M.D. 09/20/2023 7:10 AM CDT - 09/20/2023 7:59 AM CDT Hospital Encounter Department of Radiation Oncology in [place], [place] [address] [place] [phone] Oscar Aranda M.D. Primary Malignant Neoplasm Of Prostate (HCC) Discharge Disposition: Home or Self Care 09/20/2023 5:46 AM CDT - 09/20/2023 3:15 PM CDT Hospital Encounter Outpatient Surgery Unit in [place], [place] [address] [place] [phone] Oscar Aranda M.D. Discharge Disposition: Home or Self Care 09/20/2023 6:58 AM CDT - 09/20/2023 7:09 AM CDT Hospital Encounter Department of Radiology, [facility] in [place], [place] [address] [place] [phone] Oscar Aranda M.D. Primary Malignant Neoplasm Of Prostate (HCC) Discharge Disposition: Home or Self Care 09/19/2023 Orders Only Department of Radiation Oncology in [place], [place] [address] [place] [phone] Oscar Aranda M.D. 09/19/2023 9:30 AM CDT Comprehensive Visit Preoperative Evaluation Center in [place], [place] [address] [place] [phone] Harris Ryan APRN, C.N.P., D.N.P. Geremias Dhillon [...] PM CDT Clinical Communication Virtual Review in [place], [place] [address] [place] [address] 09/02/2023 2:00 PM CDT External Outreach Division of Nephrology and Hypertension in [place], [place] [address] [place] [address] Jose Pinon Jr., D.O. Hypertension And Chronic Kidney Disease Stage 1 (Primary Dx); Primary Malignant Neoplasm Of Prostate (HCC); Atherosclerosis Renal Artery (HCC); Diabetes Mellitus Type 2 (HCC); Gout from Last 3 Months Allergies No known [...] drink = 0.6 oz pur e alcohol) [facility] Utilities Answer Date Recorded In the past 12 months has [employer], gas, oil, or water [employer] threatened to shut off services in your [...] your living situation today? I have a [facility] place to live 07/19/2023 Sex and Gender Information Value Date Recorded Sex Assigned at Male 07/21/2023 9:10 AM CORRECTIONAL NURSE Gender Identity Male 07/21/2023 9:10 AM CORRECTIONAL NURSE Sexual Orientation Straight 07/21/2023 9: 10 AM CORRECTIONAL NURSE Last Filed Vital Signs Vital Sign Reading [...] CDT Appointment Department of Radiation Oncology in [place], [place] [address] [place] [address] Marlon Gambino M.D. [address] [place] [address] Procedures Procedure Name Priority Date/Time Associated Diagnosis [...] WITH EGFR, S/P Routine 07/23/2023 2:41 PM CORRECTIONAL NURSE Primary Malignant Neoplasm Of Prostate (HCC) from Last 3 Months or Most Recently Relevant to Health Maintenance Results * Aria Daily Treatment Information (11/07/2023 8:06 AM CDT) Only the most recent of26 resultswithin the time period is included. Course ID [id number] e [facility] Course Start Date 4 08:41 CDT [facility] First Treatment Date 4 10:50 CDT [facility] Last Treatment Date 4 08:06 CDT LEW ARIA Treatment Elapsed Days 35 LEW ARIA Reference Point [id number] LEW ARIA Dosage Given to Date cGy 5000 LEW ARIA Session Dosage Given 200 LEW ARIA Plan ID [id number] e LEW ARIA Fractions Treated to Date 25 LEW ARIA Planned Total Fractions 25 LEW ARIA Prescribed Dose Per Fraction 200 LEW ARIA Prescription Dose in cGy 5000 LEW ARIA Plan Primary Reference Point [id number] LEW ARIA 11/07/2023 8:06 AM CDT Provider Not In System RADIATION ONCOLOG Y ORDERABLES LOUANN SINGLETON na * Aria Course Complete [...] RADIATION ONCOLOG Y ORDERABLES Performing Organization Address [facility] Co de Phone Number LOUANN SINGLETON na * [...] Not In System IMG MRI PROCEDURE S IITN NA * Initial Rad Onc Treatment Planning CT Simulation (09/27/2023 11:30 AM CDT) Narrative LOUANN SINGLETON - 09/27/2023 11:30 AM CDT Code, Mary Velez, RTT ? 09/27/2023 12:09 PM Initial Rad Onc Treatment Planning CT Simulation Performed by: Marlon Gambino M.D. Authorized by: Marlon Gambino M.D. ?? Marlon Gambino M.D. RADIATION ONCOLOGY ORDERABLES Performing Organization Address City/[facility] Co de Phone Number LOUANN SINGLETON na * (ABNORMAL) Glucose, POCT (09/20/2023 12:45 PM CDT) Only the most recent of4 resultswithin the time period is included. Glucose, POCT, B 152(H) 70 - 140 mg/dL 09/20/2023 12:47 PM CDT PCDE Site Capillary 09/20/2023 12:47 PM CDT PCDE Blood 09/20/2023 12:4 5 PM CDT 09/20/2023 12:48 PM CDT Unknown Provider LAB POCT ORDERABLES- MANUAL Performing Organization Address City/[facility] Co de Phone Number [facility] [address] [place] [address], [facility] PCDE [facility] [place] POC [address] [place] [address] * US Prostate Interstitial Radioelement (09/20/2023 8:58 [...] 8:07 AM Performed by: Jessie Hameed APRN, CRNA D.N.P. Authorized by: Jessie Hameed APRN, CRNA, D.N.P. ?? Patient location during procedure: OR / Procedure Area PROCEDURE DETAILS: Mask difficulty assessment: difficult mask (i.e.two-handed) without oral airway Final airway type: video laryngoscope Laryngeal Manipulation: no ?? Final best view of glottic structures - Cormack/Lehane Score: grade 2A ETT location: oral VL device: glide scope Gate scope blade size: 4 Tube size: 7.5 [...] complications Jessie Hameed APRN, CRNA, D.N.P. AN ESTHESIA ORDERABLES * Brachytherapy HDR (09/20/2023 8:00 AM CDT) Narrative LEW ARELI - 09/20/2023 8:00 AM CDT Oscar Aranda [...] hydrogel was prepared as described in the edge sander's Instructions For Use. With the subject maintained [...] Oscar Aranda M.D. RADIATION ONCOLOGY O RDERABLES LOUANN SINGLETON na * Dipstick, Urine (09/19/2023 10:54 AM [...] L AB URINE ORDERABLES Performing Organization Address City/[facility] Co de Phone Number [facility] [address] [facility] [address] [place] [address] * Microscopic Automated (09/19/2023 10:54 AM CDT) Microscopy Normal 09/19/2023 11:52 AM CDT DTL RBC None Seen <3 /hpf 09/19/2023 11:52 AM CDT DTL WBC None Seen /hpf 09/19/2023 11:52 AM CDT DTL Comment: ----REFERENCE VALUE---- <4 ??(Males) <11 (Females) Urine 09/19/2023 10:5 4 AM CDT 09/19/2023 11:16 AM CDT Harris Ryan APRN, C.N.P., D.N.P. L AB URINE ORDERABLES Performing Organization Address [facility] Co de Phone Number [facility] [address] [place] [address] * Bacterial Culture, Aerobic + Susceptibility, Urine (09/19/2023 10:54 AM CDT) Urine Culture No growth after 1 day of incubation. 09/20/2023 8:11 AM CDT DTL Urine (Urine, Midstream) 09/19/2023 10:54 AM CDT 09/19/2023 1:41 PM CDT Comment:Specimen Source Site : Urine Harris Ryan APRN, C.N.P., D.N.P. L AB MICROBIOLOGY - GENERAL ORDERABLES [facility] [address] [place], [place] [phone] [place] [address] 200 [place] [address] * pH, Urine (09/19/2023 10:54 AM CDT) pH, U 5.3 4.5 - 8.0 09/19/2023 12: 12 PM CDT DTL Urine 09/19/2023 10:5 4 AM CDT 09/19/2023 11:16 AM CDT Harris Ryan APRN, C.N.P., D.N.P. L AB URINE ORDERABLES [facility] [address] [place], [place] [phone] [place] [address] * Osmolality, Urine (09/19/2023 10:54 AM CDT) Pathologist [facility] Osmolality, U 179 150 - 1150 mOsm/kg 09/19/2023 12:12 PM CDT DTL Urine 09/19/2023 10:5 4 AM CDT 09/19/2023 11:16 AM CDT Harris Ryan APRN, C.N.P., D.N.P. L AB URINE ORDERABLES [facility] [address] [place] [address] * Urinalysis, with Microscopic: Urine, Midstream (09/19/2023 [...] L AB URINE ORDERABLES Performing Organization Address [facility] Co de Phone Number [facility] [address] [place] [address], [facility] [address] [place] [address] * ECG 12 Lead (09/19/2023 10:07 AM CDT) Ventricular Rate ECG/Min [address] Interval 154 ms MUSE QRSD Interval 98 ms MUSE QT Interval 428 ms MUSE QTC Interval 434 ms MUSE P [place] 30 degrees MUSE R [place] 24 degrees MUSE T Wave [place] 15 degrees MUSE 09/19/2023 10:0 7 AM [...] Dhillon APRN C.N.P., M.S. ECG ORD ERABLES Performing Organization Address City/[facility] Co de Phone Number MUSE NA * Creatinine with Estimated GFR (07/23/2023 2:41 PM CORRECTIONAL NURSE) Creatinine 0.93 0.74 - 1.35 mg/dL 07/23/2023 3:28 PM CORRECTIONAL NURSE OWAT Estimated GFR (eGFR) 87 >=60 mL/min/BSA 07/23/2023 3:28 PM CORRECTIONAL NURSE OWAT Comment: Estimated GFR calculated using the 2020 CKD_EPI creatinine equation. Blood (Blood, Venous) 07/23/2023 2:41 PM CORRECTIONAL NURSE 07/23/2023 2:47 PM CORRECTIONAL NURSE Michael Ochoa APRN, C.N.P., D.N.P. LAB B LOOD ADD[email or web address] [address] [place] [address], [facility] [place] [address] [place] [address] from Last 3 Months or Most Recently Relevant to Health Maintenance Advance Directives For more information, please contact: [phone] * Full Code (Latest Code Status on File) Date Activated Date Inactivated Comments 09/20/2023 1:19 PM 09/20/2023 5:33 PM Question Answer Comments Full Code: Discussed Care Teams Hob Machine Operator Relationship Specialty Start Date End Date Elsewhere, Pcp PCP - General Internal Medicine 09/18/23
--- OUTSIDE RECORDS SUMMARY | 2023-11-20 13:24 | XMS_ITS ---
Author Organization [facility] Address [address] [place] [address] Care Team Providers Care Security Public Safety Officer Name Role Phone Unavailable Unavailable Unavailable Surgery Details Not on file Complications Check Surgery Details section. Procedure Estimated Blood Loss Check Surgery Details section. Procedure Findings Check Surgery Details section. Procedure Specimens Taken Check Surgery Details section.
--- OUTSIDE RECORDS SUMMARY | 2023-11-20 13:25 | XMS_ITS | Encounter Summary ---
Author Organization [facility] Address [address] [place] [address] Care Team Providers Care Division Service Manager Name Role Phone Elsewhere, Pcp Primary Care Provider Unavailabl e Encounter Details Date Type Department Care Team (Latest Contact Info) Description 10/09/2023 7:45 AM CDT - 10/09/2023 7:53 AM CDT Hospital Encounter Department of Radiation Oncology in [place], [place] [address] [place] [phone] Marlon Gambino M.D. [address] [place] [address] Discharge Disposition: Home or Self Care Social History Tobacco Use Types Packs/Day Years Used Date Smoking Tobacco: Never Smokeless Tobacco: Never Alcohol Use Standard Drinks/Week Comments Yes 3 (1 standard drink = 0.6 oz pur e alcohol) [facility] Utilities Answer Date Recorded In the past 12 months has [employer], [employer], oil, or water [employer] threatened to shut off services in your [...] your living situation today? I have a [facility] place to live 07/19/2023 Sex and Gender Information Value Date Recorded Sex Assigned at Male 07/21/2023 9:10 AM STATION INSTALLER AND REPAIRER Gender Identity Male 07/21/2023 9:10 AM STATION INSTALLER AND REPAIRER Sexual Orientation Straight 07/21/2023 9: 10 AM STATION INSTALLER AND REPAIRER documented as of this encounter Medications at Time of Discharge Medication Sig Dispensed Refills Start Date End Date amLODIPine (NORVASC) 5 mg tablet Take 5 mg by mouth daily. 03/02/2023 ciprofloxacin (Cipro) 500 mg tablet Take 1 tablet (500 mg total) by mouth 2 (two) times a day. 6 tablet 09/19/2023 documented as of this encounter Plan of Treatment Upcoming Encounters Date Type Department Care Team (Late st Contact Info) Description 01/01/2024 3:00 PM CDT Appointment Department of Radiation Oncology in [place], [place] [address] [place] [address] Marlon Gambino M.D. [address] [place] [address] documented as of this encounter Visit Diagnoses Not on filedocumented in this encounter Care Teams Division Service Manager Relationship Specialty Start Date End Date Elsewhere, Pcp PCP - General Internal Medicine 09/18/23 documented as of this encounter
--- OUTSIDE RECORDS SUMMARY | 2023-11-20 13:25 | XMS_ITS | Encounter Summary ---
Author Organization [facility] Address [address] [place] [address] Care Team Providers Care Cake Mixer Name Role Phone Elsewhere, Pcp Primary Care Provider Unavailabl e Reason for Referral * Outpatient (Routine) - Authorized Specialty Diagnoses / Procedures Referred By Contac t Referred To Contact Radiation Oncology Oscar Aranda M.D. [address] [place] [phone] [facility] Referral ID Status Reason Start Date Expiration Date V isits Requested Visits Authorized [id number] Authorized 09/20/2023 03/21/2025 1 1 Reason for Visit * Outpatient (Routine) - Authorized Specialty Diagnoses / Procedures Referred By Contac t Referred To Contact Radiation Oncology Oscar Aranda M.D. [address] [place] [phone] [facility] Referral ID Status Reason Start Date Expiration Date V isits Requested Visits Authorized [id number] Authorized 09/20/2023 03/21/2025 1 1 Encounter Details Date Type Department Care Team (Latest Contact Info) Description 09/20/2023 8:00 AM CDT - 09/20/2023 11:59 PM CDT Hospital Encounter Department of Radiation Oncology in [place], [place] [address] [place] [phone] Oscar Aranda M.D. [address] [place] [phone] Rachael Waite, RYisselN. Discharge Disposition: Home or Self Care Social History Tobacco Use Types Packs/Day Years Used Date Smoking Tobacco: Never Smokeless Tobacco: Never Alcohol Use Standard Drinks/Week Comments Yes 3 (1 standard drink = 0.6 oz pur e alcohol) [facility] Utilities Answer Date Recorded In the past 12 months has th e [employer], gas, oil, or water [employer] threatened to shut off services in your [...] your living situation today? I have a [facility] place to live 07/19/2023 Sex and Gender Information Value Date Recorded Sex Assigned at Male 07/21/2023 9:10 AM CERTIFIED PROFESSIONAL ERGONOMIST Gender Identity Male 07/21/2023 9:10 AM CERTIFIED PROFESSIONAL ERGONOMIST Sexual Orientation Straight 07/21/2023 9: 10 AM CERTIFIED PROFESSIONAL ERGONOMIST documented as of this encounter Medications at [...] total) by mouth daily. 30 capsule 09/19/2023 10/09/2023 documented as of this encounter Plan of Treatment Upcoming Encounters Date Type Department Care Team (Late st Contact Info) Description 01/01/2024 3:00 PM CDT Appointment Department of Radiation Oncology in [place], [place] [address] [place] [address] Marlon Gambino M.D. [address] [place] [address] Scheduled Referrals Name Type Priority Associated Diagnoses [...] Provider LAB POCT ORDERABLES- MANUAL [facility] [address] [place] [address], [facility] [address] [place] [address] documented in this encounter Visit Diagnoses Not on filedocumented in this encounter Care Teams Cake Mixer Relationship Specialty Start Date End Date Elsewhere, Pcp PCP - General Internal Medicine 09/18/23 documented as of this encounter
--- OUTSIDE RECORDS SUMMARY | 2023-11-20 13:25 | XMS_ITS | Encounter Summary ---
Author Organization [facility] Address [address] [place] [address] Care Team Providers Care Fan Blade Truer Name Role Phone Elsewhere, Pcp Primary Care Provider Unavailabl e Reason for Referral * Radiation Therapy (Routine) - Authorized Specialty Diagnoses / Procedures Referred By Contac t Referred To Contact Diagnoses Primary Malignant Neoplasm Of Prostate (HCC) Procedures Management Visit Marlon Gambino M.D. [address] [place] [address] [facility] Region Referral ID Status Reason Start Date Expiration Date V isits Requested Visits Authorized [id number] Authorized 08/02/2023 08/01/2024 10 10 Reason for Visit * Radiation Therapy (Routine) - Authorized Specialty Diagnoses / Procedures Referred By Contac t Referred To Contact Diagnoses Primary Malignant Neoplasm Of Prostate (HCC) Procedures Management Visit Marlon Gambino M.D. [address] [place] [address] [facility] Region Referral ID Status Reason Start Date Expiration Date V isits Requested Visits Authorized [id number] Authorized 08/02/2023 08/01/2024 10 10 Encounter Details Date Type Department Care Team (Latest Contact Info) Description 10/16/2023 7:46 AM CDT - 10/16/2023 2:14 PM CDT Hospital Encounter Department of Radiation Oncology in [place], [place] [address] [place] [phone] Marlon Gambino M.D. [address] [place] [address] Primary Malignant Neoplasm Of Prostate (HCC) Social History Tobacco Use Types Packs/Day Years Used Date Smoking Tobacco: Never Smokeless Tobacco: Never Alcohol Use Standard Drinks/Week Comments Yes 3 (1 standard drink = 0.6 oz pur e alcohol) [facility] Utilities Answer Date Recorded In the past 12 months has e [employer], gas, oil, or water [employer] threatened to shut off services in your [...] your living situation today? I have a [facility] place to live 07/19/2023 Sex and Gender Information Value Date Recorded Sex Assigned at Male 07/21/2023 9:10 AM CERTIFIED PEER SPECIALIST Gender Identity Male 07/21/2023 9:10 AM CERTIFIED PEER SPECIALIST Sexual Orientation Straight 07/21/2023 9: 10 AM CERTIFIED PEER SPECIALIST documented as of this encounter Last Filed Vital Signs Vital Sign Reading Time Taken Comments Blood Pressure - - Pulse - - Temperature 36.3 ??C (97.4 ??F) 10/16/2023 8:14 AM CD T Respiratory Rate - - Oxygen Saturation - - Inhaled Oxygen Concentration - - Weight 112 kg (247 lb 9.2 oz) 10/16/2023 8:14 AM CDT Height - - Body Mass Index 34.28 09/20/2023 6:40 AM CDT documented in this [...] Progress Notes * Marlon Gambino M.D. - 10/16/2023 8:45 AM CDT SUBJECTIVE CHIEF COMPLAINT/REASON FOR VISIT Evaluation for side effects while receiving radiation treatment for 1. Primary Malignant Neoplasm Of Prostate (HCC) SUPERVISED BY: Marlon Gambino M.D. ([id number]) HISTORY OF PRESENT ILLNESS Magdy Beck is [...] (cGy) First Treatment Last Treatment Elapsed Days [id number] 1500 1500 1500 09/20/2023 09/20/2023 0 Course Summary 09/20/2023 09/20/2023 0 Treatment Course: 1xProstate Plan ID Fractions Dose / Fraction (cGy) Dose Treated (cGy) Dose Planned (cGy) First Treatment Last Treatment Elapsed Days [id number] 200 2000 5000 10/03/2023 10/16/2023 13 Course Summary 10/03/2023 10/16/2023 13 The patient was seen and examined today with Dr. Gambino. The patient reports to be feeling well overall. He reports minimal to mild diarrhea. He takes 1 to 2 tablets of Imodium daily as needed. On Saturday, he increased to take 2 Flomax in the late evening. He reports improvement in nocturia now. Nocturia now occurs 1-2 times a night. He denies dysuria, rectal bleeding or hematuria. PATIENT REPORTED SYMPTOM SCREEN: FATIGUE (Scale: 0 = no fatigue; 10 = worst fatigue you can imagine): 0 PAIN (Scale: 0 = no pain; 10 = worst pain you can imagine): 0 OVERALL QUALITY OF LIFE (Scale: 0 = as bad as can be; 10 = as good as can be): 9 OBJECTIVE Temp 36.3 ??C (Temporal) Wt 112 kg BMI 34.28 kg/m?? PHYSICAL EXAMINATION General: Alert and oriented, [...] continue to take Imodium for diarrhea management. Patient received Leuprolide 22.5 mg on October 02, 2023 at [facility]. Hewill be due for his next injection on December 26, 2023. He will continue with radiation treatment as planned. He can contact our care team with any questions or concerns. Signed by: Afshan Hanson R.N. 10/16/2023 8:33 AM CDT I saw and evaluated the patient and participated in the mensah portions of the service. I reviewed thedocumentation of Afshan Hanson R.N. and agree with the findings and plan. The patient appears well on exam. He is tolerating treatment well. He will continue with treatment as planned. Signed by: Marlon Gambino M.D. 10/16/2023 2:14 PM CDT [facility] [address] [place] [address] documented in this encounter Plan of Treatment Upcoming Encounters Date Type Department Care Team ([facility] st Contact Info) Description 01/01/2024 3:00 PM CDT Appointment Department of Radiation Oncology in [place], [place] [address] [place] [phone] Marlon Gambino M.D. [address] [place] [address] Scheduled Orders Name Type Priority Associated Diagnoses Orde r Schedule Management Visit Radiation Oncology Routine Primary Malignant Neoplasm Of Prostate (HCC) Once for 1 Occurrences starting 10/16/2023 until 10/16/2023 documented as of this encounter Visit Diagnoses Diagnosis Primary Malignant Neoplasm Of Prostate (HCC) documented in this encounter Care Teams Fan Blade Truer Relationship Specialty Start Date End Date Elsewhere, Pcp PCP - General Internal Medicine 09/18/23 documented as of this encounter
--- OUTSIDE RECORDS SUMMARY | 2023-11-20 13:25 | XMS_ITS | Encounter Summary ---
Author Organization [facility] Address [address] [place] [address] Care Team Providers Care Communications Project Lead Name Role Phone Elsewhere, Pcp Primary Care Provider Unavailabl e Reason for Referral * Radiation Therapy (Routine) - Authorized Specialty Diagnoses / Procedures Referred By Contac t Referred To Contact Diagnoses Primary Malignant Neoplasm Of Prostate (HCC) Procedures Management Visit Marlon Gambino M.D. [address] [place] [address] [facility] Region Referral ID Status Reason Start Date Expiration Date V isits Requested Visits Authorized [id number] Authorized 08/02/2023 08/01/2024 10 10 Reason for Visit * Radiation Therapy (Routine) - Authorized Specialty Diagnoses / Procedures Referred By Contac t Referred To Contact Diagnoses Primary Malignant Neoplasm Of Prostate (HCC) Procedures Management Visit Marlon Gambino M.D. [address] [place] [address] [facility] Region Referral ID Status Reason Start Date Expiration Date V isits Requested Visits Authorized [id number] Authorized 08/02/2023 08/01/2024 10 10 Encounter Details Date Type Department Care Team (Latest Contact Info) Description 10/09/2023 7:54 AM CDT - 10/11/2023 9:15 PM CDT Hospital Encounter Department of Radiation Oncology in [place], [place] [address] [place] [phone] Marlon Gambino M.D. [address] [place] [address] Primary Malignant Neoplasm Of Prostate (HCC) Social History Tobacco Use Types Packs/Day Years Used Date Smoking Tobacco: Never Smokeless Tobacco: Never Alcohol Use Standard Drinks/Week Comments Yes 3 (1 standard drink = 0.6 oz pur e alcohol) [facility] Utilities Answer Date Recorded In the past 12 months has e [employer], gas, oil, or water [employer] threatened to shut off services in your [...] Assigned at Male 07/21/2023 9:10 AM DIRECTOR TRANSLATION Gender Identity Male 07/21/2023 9:10 AM DIRECTOR TRANSLATION Sexual Orientation Straight 07/21/2023 9: 10 AM DIRECTOR TRANSLATION documented as of this encounter Last Filed Vital Signs Vital Sign Reading Time Taken Comments Blood Pressure - - Pulse - - Temperature 36.9 ??C (98.4 ??F) 10/09/2023 8:18 AM CD T Respiratory Rate - - Oxygen Saturation - - Inhaled Oxygen Concentration - - Weight 113 kg (248 lb 10.9 oz) 10/09/2023 8:18 A M CDT Height - - Body Mass Index 34.43 09/20/2023 6:40 AM CDT documented in this [...] Progress Notes * Marlon Gambino M.D. - 10/09/2023 8:30 AM CDT SUBJECTIVE CHIEF COMPLAINT/REASON FOR VISIT Evaluation for side effects while receiving radiation treatment for 1. Primary Malignant Neoplasm Of Prostate (HCC) SUPERVISED BY: Marlon Gambino M.D. ([id number]) HISTORY OF PRESENT ILLNESS Magdy Beck is [...] (cGy) First Treatment Last Treatment Elapsed Days [id number] 1500 1500 1500 09/20/2023 09/20/2023 0 Course Summary 09/20/2023 09/20/2023 0 Treatment Course: 1xProstate Plan ID Fractions Dose / Fraction (cGy) Dose Treated (cGy) Dose Planned (cGy) First Treatment Last Treatment Elapsed Days [id number] 200 1000 5000 10/03/2023 10/09/2023 6 Course Summary 10/03/2023 10/09/2023 6 The patient was seen and examined today with Dr. Gambino. The patient reports to be feeling well overall. He reports intermittent diarrhea. He has taken Imodium and finds it helpful. He denies dysuria, hematuria or rectal bleeding. He denies changes to urgency or frequency with urination. He reports nocturia x 3-4. PATIENT REPORTED SYMPTOM SCREEN: FATIGUE (Scale: 0 = no fatigue; 10 = worst fatigue you can imagine): 0 PAIN (Scale: 0 = no pain; 10 = worst pain you can imagine): 0 OVERALL QUALITY OF LIFE (Scale: 0 = as bad as can be; 10 = as good as can be): 9 OBJECTIVE Temp 36.9 ??C (Temporal) Wt 113 kg BMI 34.43 kg/m?? PHYSICAL EXAMINATION General: Alert and oriented, [...] September 03, 2023; anticipated date of completion November 07, 2023. The patient is tolerating radiation treatment well overall. Patient can continue to take Imodium for diarrhea management. Patient received Leuprolide 22.5 mg on October 02, 2023 at [facility]. Hewill be due for his next injection on December 26, 2023. He will continue with radiation treatment as planned. He can contact our care team with any questions or concerns. Signed by: Maura Cornelius R.N. 10/09/2023 8:45 AM CDT I saw and evaluated the patient and participated in the mensah portions of the service. I reviewed thedocumentation of Maura Cornelius R.N. and agree with the findings and plan. The patient appears well on exam. He is tolerating treatment well. He will continue with treatment as planned. Signed by: Marlon Gambino M.D. 10/11/2023 9:15 PM CDT [facility] [address] [place] [address] documented in this encounter Plan of Treatment Upcoming Encounters Date Type Department Care Team (Late st Contact Info) Description 01/01/2024 3:00 PM CDT Appointment Department of Radiation Oncology in [place], [place] [address] [place] [phone] Marlon Gambino M.D. [address] [place] [address] Scheduled Orders Name Type Priority Associated Diagnoses Orde r Schedule Management Visit Radiation Oncology Routine Primary Malignant Neoplasm Of Prostate (HCC) Once for 1 Occurrences starting 10/09/2023 until 10/09/2023 documented as of this encounter Visit Diagnoses Diagnosis Primary Malignant Neoplasm Of Prostate (HCC) documented in this encounter Care Teams Communications Project Lead Relationship Specialty Start Date End Date Elsewhere, Pcp PCP - General Internal Medicine 09/18/23 documented as of this encounter
--- OUTSIDE RECORDS SUMMARY | 2023-11-20 13:25 | XMS_ITS | Encounter Summary ---
Author Organization [facility] Address [address] [place] [address] Care Team Providers Care Transport Driver Name Role Phone Elsewhere, Pcp Primary Care Provider Unavailabl e Reason for Visit * Reason Comments Med Refill Encounter Details Date Type Department Care Team (Late st Contact Info) Description 10/09/2023 Refill Department of Radiation Oncology in [place], [place] [address] [place] [phone] Marlon Gambino M.D. [address] [place] [address] Med Refill Social History Tobacco Use Types Packs/Day Years Used Date Smoking Tobacco: Never Smokeless Tobacco: Never Alcohol Use Standard Drinks/Week Comments Yes 3 (1 standard drink = 0.6 oz pur e alcohol) [facility] Utilities Answer Date Recorded In the past 12 months has [facility] [employer], gas, oil, or water [employer] threatened to shut off services in your [...] Sex Assigned at Male 07/21/2023 9:10 AM UNDERWATER HUNTER Gender Identity Male 07/21/2023 9:10 AM UNDERWATER HUNTER Sexual Orientation Straight 07/21/2023 9: 10 AM UNDERWATER HUNTER documented as of this encounter Plan of Treatment Upcoming Encounters Date Type Department Care Team (Late st Contact Info) Description 01/01/2024 3:00 PM CDT Appointment Department of Radiation Oncology in [place], [place] [address] [place] [address] Marlon Gambino M.D. [address] [place] [address] documented as of this encounter Visit Diagnoses Not on filedocumented in this encounter Care Teams Transport Driver Relationship Specialty Start Date End Date Elsewhere, Pcp PCP - General Internal Medicine 09/18/23 documented as of this encounter
--- OUTSIDE RECORDS SUMMARY | 2023-11-20 13:25 | XMS_ITS | Encounter Summary ---
Author Organization [facility] Address [address] [place] [address] Care Team Providers Care Ornamental Iron Erector Name Role Phone Elsewhere, Pcp Primary Care Provider Unavailabl e Encounter Details Date Type Department Care Team (Latest Contact Info) Description 10/18/2023 7:48 AM CDT - 10/18/2023 11:59 PM CDT Hospital Encounter Department of Radiation Oncology in [place], [place] [address] [place] [phone] Marlon Gambino M.D. [address] [place] [address] Discharge Disposition: Home or Self Care Social History Tobacco Use Types Packs/Day Years Used Date Smoking Tobacco: Never Smokeless Tobacco: Never Alcohol Use Standard Drinks/Week Comments Yes 3 (1 standard drink = 0.6 oz pur e alcohol) [facility] Utilities Answer Date Recorded In the past 12 months has [employer], [employer], oil, or water [employer] threatened to shut off services in your [...] Sex Assigned at Male 07/21/2023 9:10 AM FREIGHT ASSOCIATE Gender Identity Male 07/21/2023 9:10 AM FREIGHT ASSOCIATE Sexual Orientation Straight 07/21/2023 9: 10 AM FREIGHT ASSOCIATE documented as of this encounter Medications at [...] 1 10/09/2023 documented as of this encounter Plan of Treatment Upcoming Encounters Date Type Department Care Team (Late st Contact Info) Description 01/01/2024 3:00 PM CDT Appointment Department of Radiation Oncology in [place], [place] [address] [place] [address] Marlon Gambino M.D. [address] [place] [address] documented as of this encounter Visit Diagnoses Not on filedocumented in this encounter Care Teams Ornamental Iron Erector Relationship Specialty Start Date End Date Elsewhere, Pcp PCP - General Internal Medicine 09/18/23 documented as of this encounter
--- OUTSIDE RECORDS SUMMARY | 2023-11-20 13:25 | XMS_ITS | Encounter Summary ---
Author Organization [facility] Address [address] [place] [address] Care Team Providers Care Food Mixer Assembler Name Role Phone Elsewhere, Pcp Primary Care Provider Unavailabl e Encounter Details Date Type Department Care Team (Latest Contact Info) Description 10/17/2023 7:47 AM CDT - 10/17/2023 11:59 PM CDT Hospital Encounter Department of Radiation Oncology in [place], [place] [address] [place] [phone] Marlon Gambino M.D. [address] [place] [address] Discharge Disposition: Home or Self Care Social History Tobacco Use Types Packs/Day Years Used Date Smoking Tobacco: Never Smokeless Tobacco: Never Alcohol Use Standard Drinks/Week Comments Yes 3 (1 standard drink = 0.6 oz pur e alcohol) [facility] Utilities Answer Date Recorded In the past 12 months has [employer], oil, or water [employer] threatened to shut off services in your [...] your living situation today? I have a [facility] place to live 07/19/2023 Sex and Gender Information Value Date Recorded Sex Assigned at Male 07/21/2023 9:10 AM PANTS BUSHELER Gender Identity Male 07/21/2023 9:10 AM PANTS BUSHELER Sexual Orientation Straight 07/21/2023 9: 10 AM PANTS BUSHELER documented as of this encounter Medications at [...] CDT Appointment Department of Radiation Oncology in [place], [place] [address] [place] [address] Marlon Gambino M.D. [address] [place] [address] documented as of this encounter Visit Diagnoses Not on filedocumented in this encounter Care Teams Food Mixer Assembler Relationship Specialty Start Date End Date Elsewhere, Pcp PCP - General Internal Medicine 09/18/23 documented as of this encounter
--- OUTSIDE RECORDS SUMMARY | 2023-11-20 13:25 | XMS_ITS | Encounter Summary ---
Author Organization [facility] Address [address] [place] [address] Care Team Providers Care Oncology Coordinator Name Role Phone Elsewhere, Pcp Primary Care Provider Unavailabl e Reason for Referral * Outpatient (Routine) - Closed Specialty Diagnoses / Procedures Referred By Contac t Referred To Contact Radiation Oncology Harris Ryan APRN, C.N.Helen, D.N.P. [address] [place] [phone] Oscar Aranda M.D. [address] [place] [phone] Referral ID Status Reason Start Date Expiration Date Visits Re quested Visits Authorized [id number] Closed 08/15/2023 02/13/2025 1 1 Scheduling Instructions After tests, afternoon typically. Reason for Visit * Outpatient (Routine) - Closed Specialty Diagnoses / Procedures Referred By Contac t Referred To Contact Radiation Oncology Harris Ryan APRN, C.N.P., D.N.P. [address] [place] [phone] Oscar Aranda M.D. [address] [place] [phone] Referral ID Status Reason Start Date Expiration Date Visits Re quested Visits Authorized [id number] Closed 08/15/2023 02/13/2025 1 1 Encounter Details Date Type Department Care Team (Latest Contact Info) Description 09/19/2023 12:21 PM CDT - 09/24/2023 2:46 PM CDT Hospital Encounter Department of Radiation Oncology in [place], [place] [address] [place] [address] Oscar Aranda M.D. [address] [place] [address] Primary Malignant Neoplasm Of Prostate (HCC) (Primary Dx) Social History Tobacco Use Types Packs/Day Years Used Date Smoking Tobacco: Never Smokeless Tobacco: Never Alcohol Use Standard Drinks/Week Comments Yes 3 (1 standard drink = 0.6 oz pur e alcohol) [facility] Utilities Answer Date Recorded In the past 12 months has e [employer], gas, oil, or water [employer] threatened to shut off services in your [...] Sex Assigned at Male 07/21/2023 9:10 AM SURGICAL SCRUB TECHNOLOGIST Gender Identity Male 07/21/2023 9:10 AM SURGICAL SCRUB TECHNOLOGIST Sexual Orientation Straight 07/21/2023 9: 10 AM SURGICAL SCRUB TECHNOLOGIST documented as of this encounter Last Filed [...] 09/19/2023 10/09/2023 documented as of this encounter Progress Notes * Regina Cedeño M.B.BYisselSYissel - 09/19/2023 1:00 PM CDT REFERRING PROVIDER: Harris Ryan APRN, C.N.P., D.N.P. [address] [place] [address] PATIENT NAME: Magdy Beck LIVES: [id number] [facility] [phone] HISTORY OF PRESENT ILLNESS: Mr. Magdy Beck is a 72 y.o. 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 He met with Dr. Gambino in [place] on 07/26/23 and planned to proceed with [...] (cT1c). MRI-fusion transperineal prostate biopsy revealed adenocarcinoma [place] 4+5 in right peripheral zone base - NIKKO#1 (2/2 cores; > 95%); 4+5 in midline peripheralzone - NIKKO#2 (2/2 cores; >90%; perineural invasion); 4+4 in right peripheral zone mid - NIKKO#3 (2/2 target cores; 80%; perineural invasion); 4+5 in right transition zone - NIKKO#4 (06/03 cores; 90%; perineural invasion); 40.6 cc volume. [...] Mother Laverne whitten SOCIAL HISTORY Lives at [address] [place] [phone]. PHYSICAL EXAMINATION ECOG performance status: 0 Fully active, able to carry on all pre-disease performance without restriction Wt 116 kg BMI 33.53 kg/m?? CONSTITUTIONAL: Well-appearing, well-nourished male, in no acute distress. IMPRESSION/PLAN #1 Very High Risk Prostate cancer. Mr. Magdy Beck is a 72 y.o. male who presents today with Very Risk Prostate Adenocarcinoma, [place] 4 + 5 = 9, Stage IIIC (cT2c, cN0, cM0), with a pre-treatment PSA of 10.5, 4/4 total cores positive with perineural invasion, 38.4cc prostate.He met with Dr. Gambino in [place] on 07/26/23 and planned to proceed with [...] after midnight prior to procedure Bring a fast food delivery driver with you as you will not be able to drive afterwards. Day of procedure: Check in to the [facility] admissions desk at 6:00am and [...] followed by 25 treatment of EBRT at [place]. Cherelle SampsonS. 09/19/2023 4:55 PM CDT [id number]. Associated attestation - Oscar Aranda M.D. - [...] CDT Appointment Department of Radiation Oncology in [place], [place] [address] [place] [address] Marlon Gambino M.D. [address] [place] [address] Scheduled Referrals Name Type Priority Associated Diagnoses Order Schedule Radiation Oncology office visit (clinic) Outpatient Referral Routine Once for 1 Occurrences starting 09/19/2023 until 09/19/2023 documented as of this encounter Visit Diagnoses Diagnosis Primary Malignant Neoplasm Of Prostate (HCC)- Primary documented in this encounter Care Teams Oncology Coordinator Relationship Specialty Start Date End Date Elsewhere, Pcp PCP - General Internal Medicine 09/18/23 documented as of this encounter
--- OUTSIDE RECORDS SUMMARY | 2023-11-20 13:25 | XMS_ITS | Encounter Summary ---
Author Organization [facility] Address [address] [place] [address] Care Team Providers Care Statistical Clerk Name Role Phone Elsewhere, Pcp Primary Care Provider Unavailabl e Reason for Referral * Outpatient (Routine) - Authorized Specialty Diagnoses / Procedures Referred By Leni lopez Referred To Contact Radiation Oncology Oscar Aranda M.D. [address] [place] [address] [facility] Referral ID Status Reason Start Date Expiration Date V isits Requested Visits Authorized [id number] Authorized 09/20/2023 03/21/2025 1 1 Encounter Details Date Type Department Care Team (Late st Contact Info) Description 09/20/2023 Orders Only Department of Radiation Oncology in [place], [place] [address] [place] [phone] Rachael Waite, R.N. Social History Tobacco Use Types Packs/Day Years Used Date Smoking Tobacco: Never Smokeless Tobacco: Never Alcohol Use Standard Drinks/Week Comments Yes 3 (1 standard drink = 0.6 oz pur e alcohol) [facility] Utilities Answer Date Recorded In the [...] your living situation today? I have a [facility] place to live 07/19/2023 Sex and Gender Information Value Date Recorded Sex Assigned at Male 07/21/2023 9:10 AM PLANT GUIDE Gender Identity Male 07/21/2023 9:10 AM PLANT GUIDE Sexual Orientation Straight 07/21/2023 9: 10 AM PLANT GUIDE documented as of this encounter Plan of Treatment Upcoming Encounters Date Type Department Care Team (Late st Contact Info) Description 01/01/2024 3:00 PM CDT Appointment Department of Radiation Oncology in [place], [place] [address] [place] [address] Marlon Gambino M.D. [address] [place] [address] Scheduled Referrals Name Type Priority Associated Diagnoses Orde r Schedule Radiation Oncology nurse visit (clinic) Outpatient Referral Routine Expected: 09/20/2023, Expires: 12/19/2024 documented as of this encounter Visit Diagnoses Not on filedocumented in this encounter Care Teams Statistical Clerk Relationship Specialty Start Date End Date Elsewhere, Pcp PCP - General Internal Medicine 09/18/23 documented as of this encounter
--- OUTSIDE RECORDS SUMMARY | 2023-11-20 13:25 | XMS_ITS | Encounter Summary ---
Author Organization [facility] Address [address] [place] [address] Care Team Providers Care Macroeconomics Professor Name Role Phone Elsewhere, Pcp Primary Care Provider Unavailabl e Encounter Details Date Type Department Care Team (Latest Contact Info) Description 10/15/2023 7:46 AM CDT - 10/15/2023 11:59 PM CDT Hospital Encounter Department of Radiation Oncology in [place], [place] [address] [place] [phone] Marlon Gambino M.D. [address] [place] [address] Discharge Disposition: Home or Self Care Social History Tobacco Use Types Packs/Day Years Used Date Smoking Tobacco: Never Smokeless Tobacco: Never Alcohol Use Standard Drinks/Week Comments Yes 3 (1 standard drink = 0.6 oz pur e alcohol) [facility] Utilities Answer Date Recorded In the past 12 months has [employer], [employer], oil, or water [employer] threatened to shut off services in your [...] Sex Assigned at Male 07/21/2023 9:10 AM TACK PULLER MACHINE Gender Identity Male 07/21/2023 9:10 AM TACK PULLER MACHINE Sexual Orientation Straight 07/21/2023 9: 10 AM TACK PULLER MACHINE documented as of this encounter Medications at [...] CDT Appointment Department of Radiation Oncology in [place], [place] [address] [place] [address] Marlon Gambino M.D. [address] [place] [address] documented as of this encounter Visit Diagnoses Not on filedocumented in this encounter Care Teams Macroeconomics Professor Relationship Specialty Start Date End Date Elsewhere, Pcp PCP - General Internal Medicine 09/18/23 documented as of this encounter
--- OUTSIDE RECORDS SUMMARY | 2023-11-20 13:25 | XMS_ITS | Encounter Summary ---
Author Organization [facility] Address [address] [place] [address] Care Team Providers Care Mortgage Funder Name Role Phone Elsewhere, Pcp Primary Care Provider Unavailabl e Encounter Details Date Type Department Care Team (Latest Contact Info) Description 10/03/2023 10:04 AM CDT - 10/03/2023 11:59 PM CDT Hospital Encounter Department of Radiation Oncology in [place], [place] [address] [place] [phone] Marlon Gambino M.D. [address] [place] [address] Discharge Disposition: Home or Self Care Social History Tobacco Use Types Packs/Day Years Used Date Smoking Tobacco: Never Smokeless Tobacco: Never Alcohol Use Standard Drinks/Week Comments Yes 3 (1 standard drink = 0.6 oz pur e alcohol) [facility] Utilities Answer Date Recorded In the past 12 months has [employer], [employer], oil, or water [employer] threatened to shut off services in your [...] Sex Assigned at Male 07/21/2023 9:10 AM DOCKETING SPECIALIST Gender Identity Male 07/21/2023 9:10 AM DOCKETING SPECIALIST Sexual Orientation Straight 07/21/2023 9: 10 AM DOCKETING SPECIALIST documented as of this encounter Medications at [...] CDT Appointment Department of Radiation Oncology in [place], [place] [address] [place] [phone] Marlon Gambino M.D. [address] [place] [address] documented as of this encounter Visit Diagnoses Not on filedocumented in this encounter Care Teams Mortgage Funder Relationship Specialty Start Date End Date Elsewhere, Pcp PCP - General Internal Medicine 09/18/23 documented as of this encounter
--- OUTSIDE RECORDS SUMMARY | 2023-11-20 13:25 | XMS_ITS | Encounter Summary ---
Author Organization [facility] Address [address] [place] [address] Care Team Providers Care Wiring Inspector Name Role Phone Elsewhere, Pcp Primary Care Provider Unavailabl e Reason for Referral * Specialty Diagnoses / Procedures Referred By Leni t Referred To Contact Jackie Gallegos APRN, C.N.P., D.N.P. [address] [place] [phone] [facility] Region Referral ID Status Reason Start Date Expiration Date Visits Re quested Visits Authorized Encounter Details Date Type Department Care Team (Latest Contact Info) Description 10/07/2023 12:38 PM CDT - 10/07/2023 2:49 PM CDT Hospital Encounter Department of Radiation Oncology in [place], [place] [address] [place] [phone] Marlon Gambino M.D. [address] [place] [phone] Afshan Hanson RShital [address] [place] [phone] Primary Malignant Neoplasm Of Prostate (HCC) Discharge Disposition: Home or Self Care Social History Tobacco Use Types Packs/Day Years Used Date Smoking Tobacco: Never Smokeless Tobacco: Never Alcohol Use Standard Drinks/Week Comments Yes 3 (1 standard drink = 0.6 oz pur e alcohol) [facility] Utilities Answer Date Recorded In the [...] your living situation today? I have a [facility] place to live 07/19/2023 Sex and Gender Information Value Date Recorded Sex Assigned at Male 07/21/2023 9:10 AM GUM MACHINE FILLER Gender Identity Male 07/21/2023 9:10 AM GUM MACHINE FILLER Sexual Orientation Straight 07/21/2023 9: 10 AM GUM MACHINE FILLER documented as of this encounter Last Filed Vital Signs Vital Sign Reading Time Taken Comments Blood Pressure - - Pulse - - Temperature - - Respiratory Rate - - Oxygen Saturation - - Inhaled Oxygen Concentration - - Weight 114 kg (251 lb 5.2 oz) 10/07/2023 1:00 PM CDT Height - - Body Mass Index 34.8 09/20/2023 6:40 AM CDT documented in this [...] as of this encounter Progress Notes * Afshan Hanson RYisselN. - 10/07/2023 1:30 PM CDT Patient was educated on side effects of radiation therapy. Their questions were answered to the best of my ability. The patient was encouraged to contact the team at any point, with questions or concerns. documented in this encounter Plan of Treatment Upcoming Encounters Date Type Department Care Team (Late st Contact Info) Description 01/01/2024 3:00 PM CDT Appointment Department of Radiation Oncology in [place], [place] [address] [place] [address] Marlon Gambino M.D. [address] [place] [address] Scheduled Referrals Name Type Priority Associated Diagnoses Order Schedule Radiation Oncology - Nurse education visit (clinic) Outpatient Referral Routine Primary Malignant Neoplasm Of Prostate (HCC) Once for 1 Occurrences starting 10/07/2023 until 10/07/2023 documented as of this encounter Visit Diagnoses Diagnosis Primary Malignant Neoplasm Of Prostate (HCC) documented in this encounter Care Teams Wiring Inspector Relationship Specialty Start Date End Date Elsewhere, Pcp PCP - General Internal Medicine 09/18/23 documented as of this encounter
--- OUTSIDE RECORDS SUMMARY | 2023-11-20 13:25 | XMS_ITS | Encounter Summary ---
Author Organization [facility] Address [address] [place] [address] Care Team Providers Care Chief Psychology Name Role Phone Elsewhere, Pcp Primary Care Provider Unavailabl e Encounter Details Date Type Department Care Team (Latest Contact Info) Description 10/11/2023 7:46 AM CDT - 10/11/2023 11:59 PM CDT Hospital Encounter Department of Radiation Oncology in [place], [place] [address] [place] [phone] Marlon Gambino M.D. [address] [place] [address] Discharge Disposition: Home or Self Care Social History Tobacco Use Types Packs/Day Years Used Date Smoking Tobacco: Never Smokeless Tobacco: Never Alcohol Use Standard Drinks/Week Comments Yes 3 (1 standard drink = 0.6 oz pur e alcohol) [facility] Utilities Answer Date Recorded In the past 12 months has [employer], [employer], oil, or water [employer] threatened to shut off services in your [...] your living situation today? I have a [facility] place to live 07/19/2023 Sex and Gender Information Value Date Recorded Sex Assigned at Male 07/21/2023 9:10 AM GM/SVP GLOBAL PUBLISHER BUSINESS Gender Identity Male 07/21/2023 9:10 AM GM/SVP GLOBAL PUBLISHER BUSINESS Sexual Orientation Straight 07/21/2023 9: 10 AM GM/SVP GLOBAL PUBLISHER BUSINESS documented as of this encounter Medications at [...] CDT Appointment Department of Radiation Oncology in [place], [place] [address] [place] [address] Marlon Gambino M.D. [address] [place] [address] documented as of this encounter Visit Diagnoses Not on filedocumented in this encounter Care Teams Chief Psychology Relationship Specialty Start Date End Date Elsewhere, Pcp PCP - General Internal Medicine 09/18/23 documented as of this encounter
--- OUTSIDE RECORDS SUMMARY | 2023-11-20 13:25 | XMS_ITS | Encounter Summary ---
Author Organization [facility] Address [address] [place] [address] Care Team Providers Care Housekeeping Assistant Name Role Phone Elsewhere, Pcp Primary Care Provider Unavailabl e Encounter Details Date Type Department Care Team (Latest Contact Info) Description 10/10/2023 7:47 AM CDT - 10/10/2023 11:59 PM CDT Hospital Encounter Department of Radiation Oncology in [place], [place] [address] [place] [phone] Marlon Gambino M.D. [address] [place] [address] Discharge Disposition: Home or Self Care Social History Tobacco Use Types Packs/Day Years Used Date Smoking Tobacco: Never Smokeless Tobacco: Never Alcohol Use Standard Drinks/Week Comments Yes 3 (1 standard drink = 0.6 oz pur e alcohol) [facility] Utilities Answer Date Recorded In the past 12 months has [employer], [employer], oil, or water [employer] threatened to shut off services in your [...] living situation today? I have a [facility] place to live 07/19/2023 Sex and Gender Information Value Date Recorded Sex Assigned at Male 07/21/2023 9:10 AM JAVA PROGRAMMER ANALYST Gender Identity Male 07/21/2023 9:10 AM JAVA PROGRAMMER ANALYST Sexual Orientation Straight 07/21/2023 9: 10 AM JAVA PROGRAMMER ANALYST documented as of this encounter Medications at [...] CDT Appointment Department of Radiation Oncology in [place], [place] [address] [place] [address] Marlon Gambino M.D. [address] [place] [address] documented as of this encounter Visit Diagnoses Not on filedocumented in this encounter Care Teams Housekeeping Assistant Relationship Specialty Start Date End Date Elsewhere, Pcp PCP - General Internal Medicine 09/18/23 documented as of this encounter
--- OUTSIDE RECORDS SUMMARY | 2023-11-20 13:25 | XMS_ITS | Encounter Summary ---
Author Organization [facility] Address [address] [place] [address] Care Team Providers Care Rounding Machine Operator Name Role Phone Elsewhere, Pcp Primary Care Provider Unavailabl e Encounter Details Date Type Department Care Team (Late st Contact Info) Description 10/21/2023 7:47 AM CDT Hospital Encounter Department of Radiation Oncology in [place], [place] [address] [place] [phone] Marlon Gambino M.D. [address] [place] [address] Social History Tobacco Use Types Packs/Day Years Used Date Smoking Tobacco: Never Smokeless Tobacco: Never Alcohol Use Standard Drinks/Week Comments Yes 3 (1 standard drink = 0.6 oz pur e alcohol) [facility] Utilities Answer Date Recorded In the past 12 months has [facility] [employer], gas, oil, or water [employer] threatened to shut off services in your [...] your living situation today? I have a [facility] place to live 07/19/2023 Sex and Gender Information Value Date Recorded Sex Assigned at Male 07/21/2023 9:10 AM SHAMPOO PERSON Gender Identity Male 07/21/2023 9:10 AM SHAMPOO PERSON Sexual Orientation Straight 07/21/2023 9: 10 AM SHAMPOO PERSON documented as of this encounter Plan of Treatment Upcoming Encounters Date Type Department Care Team (Late st Contact Info) Description 01/01/2024 3:00 PM CDT Appointment Department of Radiation Oncology in [place], [place] [address] [place] [phone] Marlon Gambino M.D. [address] [place] [address] documented as of this encounter Visit Diagnoses Not on filedocumented in this encounter Care Teams Rounding Machine Operator Relationship Specialty Start Date End Date Elsewhere, Pcp PCP - General Internal Medicine 09/18/23 documented as of this encounter
--- OUTSIDE RECORDS SUMMARY | 2023-11-20 13:25 | XMS_ITS | Encounter Summary ---
Author Organization [facility] Address [address] [place] [address] Care Team Providers Care Hub Borer Name Role Phone Elsewhere, Pcp Primary Care Provider Unavailabl e Reason for Visit * Radiation Therapy (Routine) - Closed Specialty Diagnoses / Procedures Referred By Leni lopez Referred To Contact Diagnoses Primary Malignant Neoplasm Of Prostate (HCC) Procedures Initial Rad Onc Treatment Planning CT Simulation Marlon Gambino M.D. [address] [place] [address] [facility] Region Referral ID Status Reason Start Date Expiration Date Visits Re quested Visits Authorized [id number] Closed 08/02/2023 08/01/2024 1 1 Encounter Details Date Type Department Care Team (Latest Contact Info) Description 09/27/2023 11:30 AM CDT - 09/27/2023 5:34 PM CDT Hospital Encounter Department of Radiation Oncology in [place], [place] [address] [place] [phone] Marlon Gambino M.D. [address] [place] [phone] Primary Malignant Neoplasm Of Prostate (HCC) (Primary Dx) Social History Tobacco Use Types Packs/Day Years Used Date Smoking Tobacco: Never Smokeless Tobacco: Never Alcohol Use Standard Drinks/Week Comments Yes 3 (1 standard drink = 0.6 oz pur e alcohol) [facility] Utilities Answer Date Recorded In the past 12 months has e [email or web address], gas, oil, or water [employer] threatened to shut off services in your [...] your living situation today? I have a [facility] place to live 07/19/2023 Sex and Gender Information Value Date Recorded Sex Assigned at Male 07/21/2023 9:10 AM GAS DISTRIBUTION PLANT OPERATOR Gender Identity Male 07/21/2023 9:10 AM GAS DISTRIBUTION PLANT OPERATOR Sexual Orientation Straight 07/21/2023 9: 10 AM GAS DISTRIBUTION PLANT OPERATOR documented as of this encounter Medications [...] 09/19/2023 10/09/2023 documented as of this encounter Procedure Notes * Code, PAIGE Ace - 09/27/2023 11:30 AM CDTAssociated Order(s): Initial Rad Onc Treatment Planning CT Simulation Pre-Procedure Diagnose(s): Primary Malignant Neoplasm Of Prostate (HCC) Initial Rad Onc Treatment Planning CT Simulation Performed by: Marlon Gambino M.D. Authorized by: Marlon Gambino M.D. Simulation was performed under physician supervision based on physician order in preparation for radiation therapy. Physician was immediately available to provide assistance and direction throughout the procedure. Written consent for treatment was completed or confirmed. The patient was appropriately identified and placed in the treatment position using the necessary immobilization to ensure a reproducible treatment position. Reference huber were placed to facilitate marking of isocenter. Area scanned:Abdomen and Pelvis Contrast used for the simulation procedure: None Patient position:head first supine Custom immobilization: Knee Cushion Motion management: None Bolus: No CT guidance: Following positioning of the patient, a series of slices was obtained to be utilized in treatment planning. CT images were transferred to the JagTag treatment planning system, after a reference isocenter was determined and marked. Segmentation and treatment planning will take place prior to treatment delivery. Patient set up and imaging was appropriate and completed without incident. Hydraulic Rock Drill Operator use:No Associated attestation - Marlon Gambino M.D. - 09/27/2023 5:33 PM CDT I was available for the entirety of the procedure but only present for image review. Signed by: Marlon Gambino M.D. 09/27/23 5:33 PM CDT [facility] [place] documented in this encounter Plan of Treatment Upcoming Encounters Date Type Department Care Team (Late st Contact Info) Description 01/01/2024 3:00 PM CDT Appointment Department of Radiation Oncology in [place], [place] [address] [place] [address] Marlon Gambino M.D. [address] [place] [address] documented as of this encounter Procedures Procedure Name Priority Date/Time Associated Diagnosis Comments INITIAL RAD ONC TREATMENT PLANNING CT SIMULATION Routine 09/27/2023 11:30 AM CDT Primary Malignant Neoplasm Of Prostate (HCC) documented in this encounter Results * Initial Rad Onc Treatment Planning CT Simulation (09/27/2023 11:30 AM CDT) Narrative LOUANN SINGLETON - 09/27/2023 11:30 AM CDT Mary Cedeño, RTT ? 09/27/2023 12:09 PM Initial Rad Onc Treatment Planning CT Simulation Performed by: Marlon Gambino M.D. Authorized by: Marlon Gambino M.D. ?? Marlon Gambino M.D. RADIATION ONCOLOGY ORDERABLES LOUANN SINGLETON na documented in this encounter Visit Diagnoses Diagnosis Primary Malignant Neoplasm Of Prostate (HCC)- Primary documented in this encounter Care Teams Hub Borer Relationship Specialty Start Date End Date Elsewhere, Pcp PCP - General Internal Medicine 09/18/23 documented as of this encounter
--- OUTSIDE RECORDS SUMMARY | 2023-11-20 13:25 | XMS_ITS | Encounter Summary ---
Author Organization [facility] Address [address] [place] [address] Care Team Providers Care Equipment Installation Professional Name Role Phone Elsewhere, Pcp Primary Care Provider Unavailabl e Encounter Details Date Type Department Care Team (Latest Contact Info) Description 10/07/2023 12:38 PM CDT - 10/07/2023 11:59 PM CDT Hospital Encounter Department of Radiation Oncology in [place], [place] [address] [place] [phone] Marlon Gambino M.D. [address] [place] [address] Discharge Disposition: Home or Self Care Social History Tobacco Use Types Packs/Day Years Used Date Smoking Tobacco: Never Smokeless Tobacco: Never Alcohol Use Standard Drinks/Week Comments Yes 3 (1 standard drink = 0.6 oz pur e alcohol) [facility] Utilities Answer Date Recorded In the past 12 months has [employer], [employer], oil, or water [employer] threatened to shut off services in your [...] your living situation today? I have a [facility] place to live 07/19/2023 Sex and Gender Information Value Date Recorded Sex Assigned at Male 07/21/2023 9:10 AM ELECTRIC MULE DRIVER Gender Identity Male 07/21/2023 9:10 AM ELECTRIC MULE DRIVER Sexual Orientation Straight 07/21/2023 9: 10 AM ELECTRIC MULE DRIVER documented as of this encounter Medications at [...] CDT Appointment Department of Radiation Oncology in [place], [place] [address] [place] [phone] Marlon Gambino M.D. [address] [place] [address] documented as of this encounter Visit Diagnoses Not on filedocumented in this encounter Care Teams Equipment Installation Professional Relationship Specialty Start Date End Date Elsewhere, Pcp PCP - General Internal Medicine 09/18/23 documented as of this encounter
--- OUTSIDE RECORDS SUMMARY | 2023-11-20 13:25 | XMS_ITS | Encounter Summary ---
Author Organization [facility] Address [address] [place] [address] Care Team Providers Care Taco Maker Name Role Phone Elsewhere, Pcp Primary Care Provider Unavailabl e Encounter Details Date Type Department Care Team (Latest Contact Info) Description 10/08/2023 7:45 AM CDT - 10/08/2023 11:59 PM CDT Hospital Encounter Department of Radiation Oncology in [place], [place] [address] [place] [phone] Marlon Gambino M.D. [address] [place] [address] Discharge Disposition: Home or Self Care Social History Tobacco Use Types Packs/Day Years Used Date Smoking Tobacco: Never Smokeless Tobacco: Never Alcohol Use Standard Drinks/Week Comments Yes 3 (1 standard drink = 0.6 oz pur e alcohol) [facility] Utilities Answer Date Recorded In the past 12 months has [employer], [employer], oil, or water [employer] threatened to shut off services in your [...] your living situation today? I have a [facility] place to live 07/19/2023 Sex and Gender Information Value Date Recorded Sex Assigned at Male 07/21/2023 9:10 AM CAMERA MECHANIC Gender Identity Male 07/21/2023 9:10 AM CAMERA MECHANIC Sexual Orientation Straight 07/21/2023 9: 10 AM CAMERA MECHANIC documented as of this encounter Medications at [...] CDT Appointment Department of Radiation Oncology in [place], [place] [address] [place] [phone] Marlon Gambino M.D. [address] [place] [address] documented as of this encounter Visit Diagnoses Not on filedocumented in this encounter Care Teams Taco Maker Relationship Specialty Start Date End Date Elsewhere, Pcp PCP - General Internal Medicine 09/18/23 documented as of this encounter
--- OUTSIDE RECORDS SUMMARY | 2023-11-20 13:25 | XMS_ITS | Encounter Summary ---
Author Organization [facility] Address [address] [place] [address] Care Team Providers Care Firing Pin Gauger Name Role Phone Elsewhere, Pcp Primary Care Provider Unavailabl e Reason for Referral * Outpatient (Routine) - Closed Specialty Diagnoses / Procedures Referred By Contac t Referred To Contact Radiation Oncology Diagnoses Primary Malignant Neoplasm Of Prostate (HCC) Marlon Gambino M.D. [address] [place] [address] Marlon Gambino M.D. [address] [place] [address] Referral ID Status Reason Start Date Expiration Date Visits Re quested Visits Authorized [id number] Closed 08/02/2023 01/31/2025 1 1 Scheduling Instructions Coordinate with SIM and MRI, about 1 week after HDR brachy in [place] Reason for Visit * Outpatient (Routine) - Closed Specialty Diagnoses / Procedures Referred By Contac t Referred To Contact Radiation Oncology Diagnoses Primary Malignant Neoplasm Of Prostate (HCC) Marlon Gambino M.D. [address] [place] [phone] Marlon Gambino M.D. [address] [place] [address] Referral ID Status Reason Start Date Expiration Date Visits Re quested Visits Authorized [id number] Closed 08/02/2023 01/31/2025 1 1 Encounter Details Date Type Department Care Team (Latest Contact Info) Description 09/27/2023 10:32 AM CDT - 09/27/2023 11:01 AM CDT Hospital Encounter Department of Radiation Oncology in [place], [place] [address] [place] [address] Marlon Gambino M.D. [address] [place] [address] Primary Malignant Neoplasm Of Prostate (HCC) Social History Tobacco Use Types Packs/Day Years Used Date Smoking Tobacco: Never Smokeless Tobacco: Never Alcohol Use Standard Drinks/Week Comments Yes 3 (1 standard drink = 0.6 oz pur e alcohol) [facility] Utilities Answer Date Recorded In the past 12 months has th e electric, gas, oil, or water [employer] threatened to shut off services in your [...] your living situation today? I have a [facility] place to live 07/19/2023 Sex and Gender Information Value Date Recorded Sex Assigned at Male 07/21/2023 9:10 AM TANKER SERVICEMAN Gender Identity Male 07/21/2023 9:10 AM TANKER SERVICEMAN Sexual Orientation Straight 07/21/2023 9: 10 AM TANKER SERVICEMAN documented as of this encounter Last Filed [...] as of this encounter Progress Notes * Belén Lou M.D. - 09/27/2023 11:00 AM CDT RADIATION ONCOLOGY FOLLOW UP VISIT Supervising Fruit Grading Supervisor: Dr. Marlon Gambino CHIEF COMPLAINT/REASON FOR VISIT Visit prior to simulation scan SUBJECTIVE VISIT DIAGNOSIS Very high risk prostate cancer cT2c, PSA 10.5, Jason 4+5 (GG5) S/p brachytherapy boost with Dr. Aranda (20 September 2023) Started ADT 01 August 2023 (bicalutamide), first ADT injection 07 August 2023 RADIOTHERAPY HISTORY Treatment Course: 1bProstate Plan ID Fractions Dose / Fraction (cGy) Dose Treated (cGy) Dose Planned (cGy) First Treatment Last Treatment Elapsed Days [id number] 1500 1500 1500 09/20/2023 09/20/2023 0 Course Summary 09/20/2023 09/20/2023 0 INTERVAL HISTORY: Mr. Beck is a 72 y.o. male with history of type II diabetes on metformin and renal artery stenosis who presents today prior to simulation scan for the external beam portion of his radiation treatments for prostate cancer. He has received HDR brachytherapy in [place] (completed 20 September 2023). Oncology History Overview Note HIGH-RISK clinical T2b (based on MRI) N0 M0 prostate adenocarcinoma, [place] 4+5 with 4/4 (100%) core biopsies positive, [...] (cT1c). MRI-fusion transperineal prostate biopsy revealed adenocarcinoma [place] 4+5 in right peripheral zone base - [...] Procedures Prostate fiducial marker and spacer placement 09/20/2023 Radiation Therapy Treatment Course: 1bProstate Plan ID Fractions Dose / Fraction (cGy) Dose Treated (cGy) Dose Planned (cGy) First Treatment Last Treatment Elapsed Days [id number] 1500 1500 1500 09/20/2023 09/20/2023 0 Course Summary 09/20/2023 09/20/2023 0 Today, Mr. Beck is doing well. He did not have any significant side-effects after brachytherapy. The patient notices that he may be urinating a bit more frequently than before, but has not had hematuria, obstructive symptoms, or other issues. 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 No fevers or other symptoms. I-PSS I-PSS Urinary Symptoms Score: 14 BRIJESH: 7 Fatigue: 7/10 Pain: 0/10 Overall QOL: 10/10 OBJECTIVE BP 138/58 (BP Location: Left arm, Patient Position: Sitting, Cuff Size: Regular) Pulse 66 Temp (!) 35.9 ??C (Temporal) Wt 114 kg BMI 34.92 kg/m?? PHYSICAL EXAMINATION ECOG score: 0 - Fully active, able to carry on all pre-disease performance without restriction General: A well appearing patient sitting comfortably in clinic in no acute distress Lungs: Normal work of breathing on room air. Skin: Warm, dry Neuro: Alert and oriented. Psychiatric: Euthymic mood and appropriate affect. Extremities: No significant edema Most recent imagin24 June 2023: PSMA PET: IMPRESSION: Intensely PSMA avid right prostate cancer. No PSMA avid metastases. miPSMA Expression Score: 3 03 May 2023: MRI Prostate: IMPRESSION: 1. PIRADS 4- High (clinically significant cancer is likely to be present) at the right peripheral zone at mid gland and posterior midline peripheral zone at base. Additional indeterminate lesions in right peripheral zone and right transition zone. These lesions have been marked on DynaCAD for targeted biopsy. Multifocal prostatitis is included in the differential. 2. Soft tissue thickening at right transition zone at the base reaches up to the right seminal vesicle, indeterminate in etiology. 3. No suspicious pelvic lymph nodes or worrisome osseous lesions. ASSESSMENT / PLAN #Very high risk prostate cancer cT2c, PSA 10.5, Jason 4+5 (GG5) S/p brachytherapy boost (20 September 2023) Started ADT 01 August 2023 (bicalutamide), first ADT injection 07 August 2023 Mr. Beck is doing well, having tolerated brachytherapy without any significant toxicity. He is also doing well with ADT. We will confirm that he has 3-month injections going forward. The patient is ready to get started with the external beam portion of his treatment. We reviewed the process for simulation scan and treatments, including the protocol for a full bladder (he did an enema today for empty rectum). Acute and longer-term toxicities were reviewed including urinary, bowel, and sexual side- effects. The patient will continue ADT after radiation is complete. He will proceed with simulation scan today. We signed a consent form together in the room. Patient seen for the service of Dr. Marlon Gambino PLAN - Order 3-month ADT injection to take the place of the next one-month injection ([facility]) if needed - Simulation CT and MRI today - Plan for 25 fractions to the prostate and lymph nodes - Tentative start date October 02 Signed by: Belén Lou MD Resident Physician Department of Radiation Oncology Please don't hesitate to contact me with questions or discussion! Text Pager: [phone] Associated attestation - Marlon Gambino M.D. - 09/27/2023 5:44 PM CDT I saw and evaluated the patient and participated in the mensah portions of the service. I reviewed thedocumentation of Belén Lou M.D. and agree with the findings and plan. Mr. Magdy Beck is a 72 y.o. male with stage IIIC (cT2c, cN0, cM0, PSA: 10.5, Grade Group: 5)adenocarcinoma of the prostate. He started ADT in July with a plan for 18-36 months. He is tolerating that well. He had a single HDR implant under the care of Dr. Aranda on September 20, 2023. He hasrecovered well from that procedure though he does have urinary frequency and urgency. He returns today for a CT simulation and planning MRI for the external beam component of his treatment. The patient appears well on exam. ASSESSMENT / PLAN #1 Stage IIIC (cT2c, cN0, cM0, PSA: 10.5, Grade Group: 5) adenocarcinoma of the prostate #2 Androgen deprivation therapy initiated on August 01, 2023 with bicalutamide 50 mg daily for 3 weeks followed by leuprolide 7.5 mg injection on August 07, 2023; leuprolide 7.5 mg injection on 2023; next injection be leuprolide 22.5 mg injection on 2023 with a plan for 18-36 monthsof therapy #3 HDR brachytherapy to the prostate 15 Gy in 1 fraction under the care of Dr. Aranda on September 20, 2023 with fiducial and spacer placement I again had a detailed discussion with the patient regarding the risks, benefits, and alternatives of radiotherapy in this setting. I recommend into the prostate, seminal vesicles, and pelvic lymph nodes to doses of 45-50 Gy in 25 fractions utilizing IMRT. IMRT is indicated so as to spare high radiation dose to the adjacent bowel, bladder, rectum, and hips. The patient's questions were answered to his verbalized satisfaction. He stated the would like to proceed with treatment and signed the consent form. He will undergo CT simulation and planning MRI. We will endeavor to begin treatment on October 03, 2023. He verbalized satisfaction with this plan. I have spent 10 minutes caring for this patient including sgmd-ag-ljex and hgm-pcvg-gi-face time. Signed by: Marlon Gambino M.D. 09/27/23 5:44 PM CDT [facility] [place] documented in this encounter Plan of Treatment Upcoming Encounters Date Type Department Care Team (Late st Contact Info) Description 01/01/2024 3:00 PM CDT Appointment Department of Radiation Oncology in [place], [place] [address] [place] [address] Marlon Gambino M.D. [address] [place] [address] Scheduled Referrals Name Type Priority Associated Diagnoses Order Schedule Radiation Oncology office visit (clinic) Outpatient Referral Routine Primary Malignant Neoplasm Of Prostate (HCC) Once for 1 Occurrences starting 09/27/2023 until 09/27/2023 documented as of this encounter Visit Diagnoses Diagnosis Primary Malignant Neoplasm Of Prostate (HCC) documented in this encounter Care Teams Firing Pin Gauger Relationship Specialty Start Date End Date Elsewhere, Pcp PCP - General Internal Medicine 09/18/23 documented as of this encounter
--- OUTSIDE RECORDS SUMMARY | 2023-11-20 13:25 | XMS_ITS | Encounter Summary ---
Author Organization [facility] Address [address] [place] [address] Care Team Providers Care Hand Straightener Name Role Phone Elsewhere, Pcp Primary Care Provider Unavailabl e Encounter Details Date Type Department Care Team (Late st Contact Info) Description 09/20/2023 Documentation Department of Radiation Oncology in [place], [place] [address] [place] [phone] Oscar Aranda M.D. [address] [place] [address] Social History Tobacco Use Types Packs/Day Years Used Date Smoking Tobacco: Never Smokeless Tobacco: Never Alcohol Use Standard Drinks/Week Comments Yes 3 (1 standard drink = 0.6 oz pur e alcohol) [facility] Utilities Answer Date Recorded In the past 12 months has e electric, gas, oil, or water [employer] threatened to shut off services in your [...] your living situation today? I have a [facility] place to live 07/19/2023 Sex and Gender Information Value Date Recorded Sex Assigned at Male 07/21/2023 9:10 AM DRYING FRAME OPERATOR Gender Identity Male 07/21/2023 9:10 AM DRYING FRAME OPERATOR Sexual Orientation Straight 07/21/2023 9: 10 AM DRYING FRAME OPERATOR documented as of this encounter Miscellaneous Notes * Radiation Completion Notes - Deb Barton R.N. - 09/20/2023 11:59 PM CDT DIAGNOSIS: Mr. Magdy Beck is a 72 y.o. 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 Attending Physician: Oscar Aranda M.D. Treatment Intent: Curative Concomitant Therapy: Hormonal Therapy (Recommend 18 months ADT) Treatment Dates: 09/20/2023 Treatment Plans: Course # 1 Radiation Treatment Summary Treatment Course: 1bProstate Plan ID Fractions Dose / Fraction (cGy) Dose Treated (cGy) Dose Planned (cGy) First Treatment Last Treatment Elapsed Days [id number] 1500 1500 1500 09/20/2023 09/20/2023 0 Course Summary 09/20/2023 09/20/2023 0 CLINICAL SUMMARY Mr. Beck received 1 fraction of HDR brachytherapy to the prostate. The course of treatment was tolerated well. Magdy Beck experienced no reported acute toxicities of radiation treatments which were managed with expectant management. RECOMMENDED FOLLOW UP: Radiation Oncologist. He will proceed with external beam radiation under thedirection of Dr. Gambino in [place]. Signed by: Shona Barton R.N., 10/09/2023 10:52 AM CDT documented in this encounter Plan of Treatment Upcoming Encounters Date Type Department Care Team (Late st Contact Info) Description 01/01/2024 3:00 PM CDT Appointment Department of Radiation Oncology in [place], [place] [address] [place] [phone] Marlon Gambino M.D. [address] [place] [address] documented as of this encounter Visit Diagnoses Not on filedocumented in this encounter Care Teams Hand Straightener Relationship Specialty Start Date End Date Elsewhere, Pcp PCP - General Internal Medicine 09/18/23 documented as of this encounter
--- OUTSIDE RECORDS SUMMARY | 2023-11-20 13:25 | XMS_ITS | Encounter Summary ---
Author Organization [facility] Address [address] [place] [address] Care Team Providers Care Sandal Parts Assembler Name Role Phone Elsewhere, Pcp Primary Care Provider Unavailabl e Encounter Details Date Type Department Care Team (Latest Contact Info) Description 10/14/2023 7:52 AM CDT - 10/14/2023 11:59 PM CDT Hospital Encounter Department of Radiation Oncology in [place], [place] [address] [place] [phone] Marlon Gambino M.D. [address] [place] [address] Discharge Disposition: Home or Self Care Social History Tobacco Use Types Packs/Day Years Used Date Smoking Tobacco: Never Smokeless Tobacco: Never Alcohol Use Standard Drinks/Week Comments Yes 3 (1 standard drink = 0.6 oz pur e alcohol) [facility] Utilities Answer Date Recorded In the past 12 months has [employer], [employer], oil, or water [employer] threatened to shut off services in your [...] your living situation today? I have a [facility] place to live 07/19/2023 Sex and Gender Information Value Date Recorded Sex Assigned at Male 07/21/2023 9:10 AM FACE PAINTER Gender Identity Male 07/21/2023 9:10 AM FACE PAINTER Sexual Orientation Straight 07/21/2023 9: 10 AM FACE PAINTER documented as of this encounter Medications at [...] CDT Appointment Department of Radiation Oncology in [place], [place] [address] [place] [address] Marlon Gambino M.D. [address] [place] [address] documented as of this encounter Visit Diagnoses Not on filedocumented in this encounter Care Teams Sandal Parts Assembler Relationship Specialty Start Date End Date Elsewhere, Pcp PCP - General Internal Medicine 09/18/23 documented as of this encounter
--- OUTSIDE RECORDS SUMMARY | 2023-11-20 13:25 | XMS_ITS | Encounter Summary ---
Author Organization [facility] Address [address] [place] [address] Care Team Providers Care Supervisor Electric Name Role Phone Elsewhere, Pcp Primary Care Provider Unavailabl e Encounter Details Date Type Department Care Team (Latest Contact Info) Description 10/16/2023 7:46 AM CDT - 10/16/2023 11:59 PM CDT Hospital Encounter Department of Radiation Oncology in [place], [place] [address] [place] [phone] Marlon Gambino M.D. [address] [place] [address] Discharge Disposition: Home or Self Care Social History Tobacco Use Types Packs/Day Years Used Date Smoking Tobacco: Never Smokeless Tobacco: Never Alcohol Use Standard Drinks/Week Comments Yes 3 (1 standard drink = 0.6 oz pur e alcohol) [facility] Utilities Answer Date Recorded In the past 12 months has [employer], [employer], oil, or water [employer] threatened to shut off services in your [...] living situation today? I have a [facility] place to live 07/19/2023 Sex and Gender Information Value Date Recorded Sex Assigned at Male 07/21/2023 9:10 AM NITRATE OPERATOR Gender Identity Male 07/21/2023 9:10 AM NITRATE OPERATOR Sexual Orientation Straight 07/21/2023 9: 10 AM NITRATE OPERATOR documented as of this encounter Medications [...] CDT Appointment Department of Radiation Oncology in [place], [place] [address] [place] [address] Marlon Gambino M.D. [address] [place] [address] documented as of this encounter Visit Diagnoses Not on filedocumented in this encounter Care Teams Supervisor Electric Relationship Specialty Start Date End Date Elsewhere, Pcp PCP - General Internal Medicine 09/18/23 documented as of this encounter
--- OUTSIDE RECORDS SUMMARY | 2023-11-20 13:25 | XMS_ITS | Encounter Summary ---
Author Organization [facility] Address [address] [place] [address] Care Team Providers Care Field Support Technician Name Role Phone Elsewhere, Pcp Primary Care Provider Unavailabl e Encounter Details Date Type Department Care Team (Latest Contact Info) Description 2023 10:02 AM CDT - 2023 11:59 PM CDT Hospital Encounter Department of Radiation Oncology in [place], [place] [address] [place] [phone] Marlon Gambino M.D. [address] [place] [address] Discharge Disposition: Home or Self Care Social History Tobacco Use Types Packs/Day Years Used Date Smoking Tobacco: Never Smokeless Tobacco: Never Alcohol Use Standard Drinks/Week Comments Yes 3 (1 standard drink = 0.6 oz pur e alcohol) [facility] Utilities Answer Date Recorded In the past 12 months has [employer], [employer], oil, or water [employer] threatened to shut off services in your [...] Sex Assigned at Male 07/21/2023 9:10 AM NEUROLOGY STROKE PHYSICIAN Gender Identity Male 07/21/2023 9:10 AM NEUROLOGY STROKE PHYSICIAN Sexual Orientation Straight 07/21/2023 9: 10 AM NEUROLOGY STROKE PHYSICIAN documented as of this encounter Medications at [...] CDT Appointment Department of Radiation Oncology in [place], [place] [address] [place] [phone] Marlon Gambino M.D. [address] [place] [address] documented as of this encounter Visit Diagnoses Not on filedocumented in this encounter Care Teams Field Support Technician Relationship Specialty Start Date End Date Elsewhere, Pcp PCP - General Internal Medicine 09/18/23 documented as of this encounter
--- OUTSIDE RECORDS SUMMARY | 2023-11-20 13:26 | XMS_ITS | Encounter Summary ---
Author Organization [facility] Address [address] [place] [address] Care Team Providers Care Cto Name Role Phone Unavailable Primary Care Provider Unavailabl e Reason for Referral * Outpatient (Routine) - Closed Specialty Diagnoses / Procedures Referred By Contac t Referred To Contact Radiation Oncology Harris Ryan APRN, C.N.P., D.N.P. [address] [place] [phone] Oscar Aranda M.D. [address] [place] [phone] Referral ID Status Reason Start Date Expiration Date Visits Re quested Visits Authorized [id number] Closed 08/15/2023 02/13/2025 1 1 Scheduling Instructions After tests, afternoon typically. * Outpatient (Routine) - Closed Specialty Diagnoses / Procedures Referred By Contac t Referred To Contact Anesthesiology Diagnoses Primary Malignant Neoplasm Of Prostate (HCC) Harris Ryan APRN, C.N.P., D.N.P. [address] [place] [phone] [facility] Referral ID Status Reason Start Date Expiration Date Visits Re quested Visits Authorized [id number] Closed 08/15/2023 02/13/2025 1 1 * Outpatient (Routine) - Closed Specialty Diagnoses / Procedures Referred By Contac t Referred To Contact Diagnoses Primary Malignant Neoplasm Of Prostate (HCC) Procedures US Prostate Interstitial Radioelement Oscar Aranda M.D. [address] [place] [phone] [facility] Referral ID Status Reason Start Date Expiration Date Visits Re quested Visits Authorized [id number] Closed 08/15/2023 08/14/2024 1 1 * Radiation Therapy (Routine) - Closed Specialty Diagnoses / Procedures Referred By Contac t Referred To Contact Diagnoses Primary Malignant Neoplasm Of Prostate (HCC) Procedures Brachytherapy HDR Oscar Aranda M.D. [address] [place] [phone] [facility] Referral ID Status Reason Start Date Expiration Date Visits Re quested Visits Authorized [id number] Closed 08/15/2023 08/14/2024 1 1 * Outpatient (Routine) - Closed Specialty Diagnoses / Procedures Referred By Contac t Referred To Contact Radiation Oncology Diagnoses Primary Malignant Neoplasm Of Prostate (HCC) Marlon Gambino M.D. [address] [place] [phone] [facility] Referral ID Status Reason Start Date Expiration Date Visits Re quested Visits Authorized [id number] Closed 07/31/2023 01/29/2025 1 1 Reason for Visit * Outpatient (Routine) - Closed Specialty Diagnoses / Procedures Referred By Contac t Referred To Contact Radiation Oncology Diagnoses Primary Malignant Neoplasm Of Prostate (HCC) Marlon Gambino M.D. [address] [place] [phone] [facility] Referral ID Status Reason Start Date Expiration Date Visits Re quested Visits Authorized [id number] Closed 07/31/2023 01/29/2025 1 1 Encounter Details Date Type Department Care Team (Latest Contact Info) Description 08/15/2023 2:06 PM CDT - 08/15/2023 4:49 PM CDT Hospital Encounter Department of Radiation Oncology in [place], [place] [address] [place] [phone] Oscar Aranda M.D. [address] [place] [phone] Primary Malignant Neoplasm Of Prostate (HCC) (Primary Dx); Encounter For Other Specified Prophylactic Measures Social History Tobacco Use Types Packs/Day Years Used Date Smoking Tobacco: Never Smokeless Tobacco: Never Alcohol Use Standard Drinks/Week Comments Yes 0 (1 standard drink = 0.6 oz pur e alcohol) [facility] Utilities Answer Date Recorded In the past 12 months has [employer], gas, oil, or water [employer] threatened to shut off services in your [...] living situation today? I have a [facility] place to live 07/19/2023 Sex and Gender Information Value Date Recorded Sex Assigned at Male 07/21/2023 9:10 AM CHEMICAL MACHINE TENDER Gender Identity Male 07/21/2023 9:10 AM CHEMICAL MACHINE TENDER Sexual Orientation Straight 07/21/2023 9: 10 AM CHEMICAL MACHINE TENDER documented as of this encounter Last Filed [...] Marlon Gambino M.D. REASON FOR CONSULT Magdy Beck is a 72 y.o. male from [place], [place], presenting for consultation regarding the role [...] external beam radiation to the prostate/nodes in [place]. The remainder of oncology history is as follows: Oncology History Overview Note HIGH-RISK clinical T2b (based on MRI) N0 M0 prostate adenocarcinoma, [place] 4+5 with 4/4 (100%) core biopsies positive, [...] external beam radiation to the prostate/nodes in [place]. I discussed his case with Dr. Oscar [...] Single-fraction HDR brachytherapy - 1500cGy Follow[facility] with [facility] Rad Onc [place] - external beam radiation to prostate and [...] CDT Appointment Department of Radiation Oncology in [place], [place] [address] [place] [phone] Marlon Gambnio M.D. [address] [place] [phone] Scheduled Referrals Name Type Priority Associated Diagnoses [...] hydrogel was prepared as described in the compliance engineer's Instructions For Use. With the subject maintained [...] RADIATION ONCOLOGY O RDERABLES Performing Organization Address City/[facility] Co de Phone Number LOUANN jules * [...] L AB URINE ORDERABLES Performing Organization Address [facility] Co de Phone Number [facility] [address] [place] [address], [facility] DTL [facility] 200 [place] [address] * Bacterial Culture, Aerobic + Susceptibility, Urine (09/19/2023 10:54 AM CDT) Urine Culture No growth after 1 day of incubation. 09/20/2023 8:11 AM CDT DTL Urine (Urine, Midstream) 09/19/2023 10:54 AM CDT 09/19/2023 1:41 PM CDT Comment:Specimen Source Site : Urine Harris Ryan APRN, C.N.P., D.N.P. L AB MICROBIOLOGY - GENERAL ORDERABLES [facility] [address] [place] [address], [facility] [address] [place] [address] documented in this encounter Visit Diagnoses Diagnosis Primary Malignant Neoplasm Of Prostate (HCC)- Primary Encounter For Other Specified Prophylactic Measures Primary Malignant Neoplasm Of Prostate (HCC) Primary Malignant Neoplasm Of Prostate (HCC)- Primary documented in this encounter
--- OUTSIDE RECORDS SUMMARY | 2023-11-20 13:26 | XMS_ITS | Encounter Summary ---
Author Organization [facility] Address [address] [place] [address] Care Team Providers Care Turret Press Operator Name Role Phone Elsewhere, Pcp Primary Care Provider Unavailabl e Encounter Details Date Type Department Care Team (Latest Contact Info) Description 09/20/2023 5:46 AM CDT - 09/20/2023 3:15 PM CDT Hospital Encounter Outpatient Surgery Unit in [place], [place] [address] [place] [address] Oscar Aranda M.D. [address] [place] [phone] Discharge Disposition: Home or Self Care Social History Tobacco Use Types Packs/Day Years Used Date Smoking Tobacco: Never Smokeless Tobacco: Never Alcohol Use Standard Drinks/Week Comments Yes 3 (1 standard drink = 0.6 oz pur e alcohol) [facility] Utilities Answer Date Recorded In the past 12 months has [facility] [employer], gas, oil, or water [employer] threatened to shut off services in [...] your living situation today? I have a [facility] place to live 07/19/2023 Sex and Gender Information Value Date Recorded Sex Assigned at Male 07/21/2023 9:10 AM CRITICAL CARE NURSE PRACTITIONER Gender Identity Male 07/21/2023 9:10 AM CRITICAL CARE NURSE PRACTITIONER Sexual Orientation Straight 07/21/2023 9: 10 AM CRITICAL CARE NURSE PRACTITIONER documented as of this encounter Last Filed [...] AM CDT DISCHARGE SUMMARY BRIEF OVERVIEW Hospital: [facility] Discharge Provider: Oscar Aranda M.D. Admission Date: [...] AM Marlon Gambino M.D.; CT SIM [facility] Radiation Oncology For appointment details [...] via template. A plan was developed, quality assurance specialist conducted, and treatment delivered. Once complete, all [...] (two) times a day. 6 tablet 09/19/2023 losartan-hydroCHLOROthi azide (HYZAAR) 50-12.5 mg per tablet [...] CDT Appointment Department of Radiation Oncology in [place], [place] [address] [place] [phone] Marlon Gambino M.D. [address] [place] [phone] documented as of this encounter Procedures Procedure [...] Unknown Provider LAB POCT ORDERABLES- MANUAL POC [employer] [facility] 200 [place], [place] [address] PCDE [facility] [address] [place] [address] documented in this encounter Visit Diagnoses Diagnosis [...] injection documented in this encounter Care Teams Turret Press Operator Relationship Specialty Start Date End Date Elsewhere, Pcp PCP - General Internal Medicine 09/18/23 documented as of this encounter
--- OUTSIDE RECORDS SUMMARY | 2023-11-20 13:26 | XMS_ITS | Encounter Summary ---
Author Organization [facility] Address [address] [place] [address] Care Team Providers Care Surplus Property Disposal Agent Name Role Phone Unavailable Primary Care Provider Unavailabl e Encounter Details Date Type Department Care Team (Latest Contact Info) Description 09/17/2023 1:30 PM CDT Clinical Communication Virtual Review in [place], [place] 200 [place] [address] Social History Tobacco Use Types Packs/Day Years Used Date Smoking Tobacco: Never Smokeless Tobacco: Never Alcohol Use Standard Drinks/Week Comments Yes 0 (1 standard drink = 0.6 oz pur e alcohol) [facility] Utilities Answer Date Recorded In the [...] have a [facility] place to live 07/19/2023 Sex and Gender Information Value Date Recorded Sex Assigned at Male 07/21/2023 9:10 AM EXOTIC DANCER Gender Identity Male 07/21/2023 9:10 AM EXOTIC DANCER Sexual Orientation Straight 07/21/2023 9: 10 AM EXOTIC DANCER documented as of this encounter Plan of Treatment Upcoming Encounters Date Type Department Care Team (Late st Contact Info) Description 01/01/2024 3:00 PM CDT Appointment Department of Radiation Oncology in [place], [place] [address] [place] [phone] Marlon Gambino M.D. [address] [place] [address] documented as of this encounter Visit Diagnoses Not on filedocumented in this encounter
--- OUTSIDE RECORDS SUMMARY | 2023-11-20 13:26 | XMS_ITS | Encounter Summary ---
Author Organization [facility] Address [address] [place] [address] Care Team Providers Care Transcript Evaluator Name Role Phone Elsewhere, Pcp Primary Care Provider Unavailabl e Reason for Referral * Radiation Therapy (Routine) - Closed Specialty Diagnoses / Procedures Referred By Contac t Referred To Contact Diagnoses Primary Malignant Neoplasm Of Prostate (HCC) Procedures Brachytherapy HDR Oscar Aranda M.D. 200 [place] [address] [facility] Referral ID Status Reason Start Date Expiration Date Visits Re quested Visits Authorized [id number] Closed 08/15/2023 08/14/2024 1 1 Reason for Visit * Radiation Therapy (Routine) - Closed Specialty Diagnoses / Procedures Referred By Contac t Referred To Contact Diagnoses Primary Malignant Neoplasm Of Prostate (HCC) Procedures Brachytherapy HDR Oscar Aranda M.D. 200 [place] [address] [facility] Referral ID Status Reason Start Date Expiration Date Visits Re quested Visits Authorized [id number] Closed 08/15/2023 08/14/2024 1 1 Encounter Details Date Type Department Care Team (Latest Contact Info) Description 09/20/2023 7:10 AM CDT - 09/20/2023 7:59 AM CDT Hospital Encounter Department of Radiation Oncology in [place], [place] [address] [place] [phone] Oscar Aranda M.D. 200 [place] [phone] Primary Malignant Neoplasm Of Prostate (HCC) Discharge Disposition: Home or Self Care Social History Tobacco Use Types Packs/Day Years Used Date Smoking Tobacco: Never Smokeless Tobacco: Never Alcohol Use Standard Drinks/Week Comments Yes 3 (1 standard drink = 0.6 oz pur e alcohol) [facility] Utilities Answer Date Recorded In the past 12 months has e [employer], gas, oil, or water [employer] threatened to shut off services in your [...] Sex Assigned at Male 07/21/2023 9:10 AM SYSTEMS LEAD Gender Identity Male 07/21/2023 9:10 AM SYSTEMS LEAD Sexual Orientation Straight 07/21/2023 9: 10 AM SYSTEMS LEAD documented as of this encounter Last Filed [...] Index - - documented in this encounter Medications at Time [...] as of this encounter Procedure Notes * Oscar Aranda M.D. - 09/20/2023 8:00 AM CDTAssociated Order(s): Brachytherapy HDR Pre-Procedure Diagnose(s): Primary Malignant Neoplasm Of Prostate (HCC) Post-Procedure Diagnose(s): Primary Malignant Neoplasm Of Prostate (HCC) Brachytherapy HDR Performed by: Oscar Aranda M.D. Authorized by: Oscar Aranda M.D. Care team members present 1. Regina Cedeño M.B.B.S. PROCEDURE DETAILS Brachytherapy: Prostate brachytherapy Type: high [...] hydrogel was prepared as described in the field assessor's Instructions For Use. With thesubject maintained in [...] CDT Appointment Department of Radiation Oncology in [place], [place] [address] [place] [address] Marlon Gambino M.D. [address] [place] [address] Scheduled Orders Name Type Priority Associated Diagnoses Orde r Schedule Glucose, POCT Point of Care Testing-Docked Device Timed 0000, 0200, 0400, 06 00, 0800, 1000, 1200, 1400, 1600, 1800, 2000, [...] Unknown Provider LAB POCT ORDERABLES- MANUAL POC [facility] [address] [place] [address], [place] PCDE [facility] POC [address] [place] [address] * Brachytherapy HDR (09/20/2023 8:00 AM CDT) Narrative ALTO ARIA - 09/20/2023 8:00 AM CDT Oscar Aranda [...] hydrogel was prepared as described in the field assessor's Instructions For Use. With the subject maintained [...] Oscar Aranda M.D. RADIATION ONCOLOGY O RDERABEBE LOUANN jules documented in this encounter Visit Diagnoses Diagnosis Primary Malignant Neoplasm Of Prostate (HCC)- Primary documented in this encounter Care Teams Transcript Evaluator Relationship Specialty Start Date End Date Elsewhere, Pcp PCP - General Internal Medicine 09/18/23 documented as of this encounter
--- OUTSIDE RECORDS SUMMARY | 2023-11-20 13:26 | XMS_ITS | Encounter Summary ---
Author Organization [facility] Address [address] [place] [address] Care Team Providers Care Physical Medicine Specialist Name Role Phone Elsewhere, Pcp Primary Care Provider Unavailabl e Encounter Details Date Type Department Care Team (Late st Contact Info) Description 09/19/2023 Orders Only Department of Radiation Oncology in [place], [place] [address] [place] [phone] Oscar Aranda M.D. [address] [place] [address] Social History Tobacco Use Types Packs/Day Years Used Date Smoking Tobacco: Never Smokeless Tobacco: Never Alcohol Use Standard Drinks/Week Comments Yes 30 (1 standard drink = 0.6 oz pu re alcohol) [facility] Utilities Answer Date Recorded In the past 12 months has [facility] [employer], gas, oil, or water [employer] threatened to shut off services in your [...] your living situation today? I have a [facility] place to live 07/19/2023 Sex and Gender Information Value Date Recorded Sex Assigned at Male 07/21/2023 9:10 AM NET WEB APPLICATION DEVELOPER Gender Identity Male 07/21/2023 9:10 AM NET WEB APPLICATION DEVELOPER Sexual Orientation Straight 07/21/2023 9: 10 AM NET WEB APPLICATION DEVELOPER documented as of this encounter Plan of Treatment Upcoming Encounters Date Type Department Care Team (Late st Contact Info) Description 01/01/2024 3:00 PM CDT Appointment Department of Radiation Oncology in [place], [place] [address] [place] [phone] Marlon Gambino M.D. [address] [place] [address] documented as of this encounter Visit Diagnoses Not on filedocumented in this encounter Care Teams Physical Medicine Specialist Relationship Specialty Start Date End Date Elsewhere, Pcp PCP - General Internal Medicine 09/18/23 documented as of this encounter
--- OUTSIDE RECORDS SUMMARY | 2023-11-20 13:26 | XMS_ITS | Encounter Summary ---
Author Organization [facility] Address [address] [place] [address] Care Team Providers Care Machine Precision Engraver Name Role Phone Elsewhere, Pcp Primary Care Provider Unavailabl e Reason for Referral * Outpatient (Routine) - Authorized Specialty Diagnoses / Procedures Referred By Leni lopez Referred To Contact Diagnoses Preanesthetic Medical Exam Primary Malignant Neoplasm Of Prostate (HCC) Hypertension Essential Primary Atherosclerosis Renal Artery (HCC) Murmur Heart Procedures ECG 12 Lead Geremias Dhillon APRN, C.N.P., M.S. [address] [place] [address] [facility] Referral ID Status Reason Start Date Expiration Date V isits Requested Visits Authorized [id number] Authorized 09/19/2023 09/18/2024 1 1 Reason for Visit * Outpatient (Routine) - Closed Specialty Diagnoses / Procedures Referred By Leni lopez Referred To Contact Anesthesiology Diagnoses Primary Malignant Neoplasm Of Prostate (HCC) Harris Ryan APRN, C.N.P., D.N.P. [address] [place] [phone] [facility] Referral ID Status Reason Start Date Expiration Date Visits Re quested Visits Authorized [id number] Closed 08/15/2023 02/13/2025 1 1 Encounter Details Date Type Department Care Team (Latest Contact Info) Description 09/19/2023 9:30 AM CDT Comprehensive Visit Preoperative Evaluation Center in [place], [place] [address] [place] [address] Harris Ryan APRN, C.N.P., D.N.P. 200 [place] [phone] Geremias Dhillon APRN, C.N.P., M.S. 200 [place] [phone] Preanesthetic Medical Exam (Primary Dx); Primary Malignant [...] drink = 0.6 oz pu re alcohol) [facility] Utilities Answer Date Recorded In the past 12 months has e [employer], oil, or water [email or web address] threatened to shut off services in your [...] your living situation today? I have a [facility] place to live 07/19/2023 Sex and Gender Information Value Date Recorded Sex Assigned at Male 07/21/2023 9:10 AM PIPELINE CONTROLLER Gender Identity Male 07/21/2023 9:10 AM PIPELINE CONTROLLER Sexual Orientation Straight 07/21/2023 9: 10 AM PIPELINE CONTROLLER documented as of this encounter Last Filed [...] from 09/19/2023 in Preoperative Evaluation Center in [place], [place] DASI Total Score 58.2 Estimated V02 [...] Get Ready for Your Surgery or Procedure: [facility] [id number] rev 0124. Written and verbal instructions [...] CDT Appointment Department of Radiation Oncology in [place], [place] [address] [place] [phone] Marlon Gambino M.D. [address] [place] [address] documented as of this encounter Procedures Procedure Name Priority Date/Time Associated Diagnosis Comments GLUCOSE POCT, B Routine 09/20/2023 8:28 AM CDT ECG Routine 09/19/2023 10:07 AM CDT Preanesthetic Medical Exam Primary Malignant Neoplasm Of Prostate (HCC) Hypertension Essential Primary Murmur Heart documented in this encounter Results * (ABNORMAL) Glucose, POCT (09/20/2023 8:28 AM CDT) Pathologist [facility] Glucose, POCT, B 206(H) 70 - 140 mg/dL 09/27/2023 8:04 AM CDT PCME Site Capillary 09/27/2023 8:04 AM CDT PCME Blood 09/20/2023 8:28 AM CDT 09/27/2023 8:04 AM CDT Unknown Provider LAB POCT ORDERABLES- MANUAL POC [facility] 200 [place] [address], [facility] POC 200 [place] [address] * ECG 12 Lead (09/19/2023 10:07 AM CDT) Ventricular Rate ECG/Min 62 BPM MUSE CA Interval 154 ms MUSE QRSD Interval 98 ms MUSE QT Interval 428 ms MUSE QTC Interval 434 ms MUSE P Ward 30 degrees MUSE R Ward 24 degrees MUSE T Wave Ward 15 degrees MUSE 09/19/2023 10:0 7 AM [...] (HCC) documented in this encounter Care Teams Machine Precision Engraver Relationship Specialty Start Date End Date Elsewhere, Pcp PCP - General Internal Medicine 09/18/23 documented as of this encounter
--- OUTSIDE RECORDS SUMMARY | 2023-11-20 13:26 | XMS_ITS | Encounter Summary ---
Author Organization [facility] Address [address] [place] [address] Care Team Providers Care Print Color Operator Name Role Phone Unavailable Primary Care Provider Unavailabl e Reason for Visit * Outpatient (Routine) - Closed Specialty Diagnoses / Procedures Referred By Leni lopez Referred To Contact Diagnoses Primary Malignant Neoplasm Of Prostate (HCC) Procedures URO Uroflow Marlon Gambino M.D. [address] [place] [phone] [facility] Referral ID Status Reason Start Date Expiration Date Visits Re quested Visits Authorized [id number] Closed 07/31/2023 07/30/2024 1 1 Encounter Details Date Type Department Care Team (Latest Contact Info) Description 08/15/2023 2:00 PM CDT Procedure visit Department of Urology in [place], [place] [address] [place] [phone] Marlon Gambino M.D. [address] [place] [phone] [facility] [address] [place] [phone] Feeling Of Incomplete Bladder Emptying (Primary Dx); Primary Malignant Neoplasm Of Prostate (HCC) Social History Tobacco Use Types Packs/Day Years Used Date Smoking Tobacco: Never Smokeless Tobacco: Never Alcohol Use Standard Drinks/Week Comments Yes 0 (1 standard drink = 0.6 oz pur e alcohol) [facility] Utilities Answer Date Recorded In the past 12 months has th e [employer], gas, oil, or water company threatened to [...] your living situation today? I have a [facility] place to live 07/19/2023 Sex and Gender Information Value Date Recorded Sex Assigned at Male 07/21/2023 9:10 AM TURNER OFF Gender Identity Male 07/21/2023 9:10 AM TURNER OFF Sexual Orientation Straight 07/21/2023 9: 10 AM TURNER OFF documented as of this encounter Progress Notes [...] CDT Appointment Department of Radiation Oncology in [place], [place] [address] [place] [phone] Marlon Gambino M.D. [address] [place] [phone] documented as of this encounter Procedures Procedure [...]
--- OUTSIDE RECORDS SUMMARY | 2023-11-20 13:26 | XMS_ITS | Encounter Summary ---
Author Organization [facility] Address [address] [place] [id number] Care Team Providers Care Transportation Planning Engineer Name Role Phone Elsewhere, Pcp Primary Care Provider Unavailabl e Encounter Details Date Type Department Care Team ([facility] st Contact Info) Description 09/20/2023 7:55 AM CDT Anesthesia Event Department of Radiation Oncology in [place], [place] [address] [place] [phone] Jessie Hameed APRN, CRNA, D.N.P. [address] [place] [phone] Anahi Loja M.D. [address] [place] [phone] Anesthesia Record Procedure Summary Procedure Name Responsible [...] Time: 1224 09/20/23 0807 by Jessie Hameed, AFTER SCHOOL PROGRAM DIRECTOR, PELLETIZER, D.N.P. 09/20/23 1224 by Jessie Hameed APRN, [...] e alcohol) [facility] Utilities Answer Date Recorded In the past 12 months has th e [employer], gas, oil, or water [employer] threatened to shut off services in your [...] Sex Assigned at Male 07/21/2023 9:10 AM SOCK LINER Gender Identity Male 07/21/2023 9:10 AM SOCK LINER Sexual Orientation Straight 07/21/2023 9: 10 AM SOCK LINER documented as of this encounter OR Notes * Anesthesia Postprocedure Evaluation - Jewel De La Rosa M.D. - 09/20/2023 12:49 PM CDT Patient: Magdy Beck Procedure Summary Date: 09/20/23 Room / Location: Department of Radiation Oncology in [place], [place] Anesthesia Start: 754 Anesthesia Stop: 1246 [...] / Location: Department of Radiation Oncology in [place], [place] Anesthesia Start: 754 Anesthesia Stop: 1247 [...] ETT location: oral VL device: glide scope Bunola scope blade size: 4 Tube size: 7.5 [...] [C61] Location: Department of Radiation Oncology in [place], [place] Pertinent components of the patient's history [...] with patient /legal guardian or through an coating line worker. The use of blood products not discussed Approval to Proceed: approved for anesthesia documented in this encounter Plan of Treatment Upcoming Encounters Date Type Department Care Team (Late st Contact Info) Description 01/01/2024 3:00 PM CDT Appointment Department of Radiation Oncology in [address] [phone] Marlon Gambino M.D. [address] [place] [address] documented as of this encounter Procedures Procedure [...] ETT location: oral VL device: glide scope Bunola scope blade size: 4 Tube size: 7.5 [...] mg documented in this encounter Care Teams Transportation Planning Engineer Relationship Specialty Start Date End Date Elsewhere, Pcp PCP - General Internal Medicine 09/18/23 documented as of this encounter
--- OUTSIDE RECORDS SUMMARY | 2023-11-20 13:26 | XMS_ITS | Encounter Summary ---
Author Organization [facility] Address [address] [place] [address] Care Team Providers Care Registered Nurse Hh Case Manager Name Role Phone Unavailable Primary Care Provider Unavailabl e Reason for Visit * Appointment Request (Routine) - Closed Specialty Diagnoses / Procedures Referred By Leni lopez Referred To Contact Nephrology and Hypertension Referral ID Status Reason Start Date Expiration Date Visits Re quested Visits Authorized [id number] Closed 08/01/2023 07/31/2024 1 1 Encounter Details Date Type Department Care Team (Latest Contact Info) Description 09/02/2023 2:00 PM CDT External Outreach Division of Nephrology and Hypertension in [place], [place] [address] [place] [address] Jose Pinon Jr., D.O. [address] [place] [address] Hypertension And Chronic Kidney Disease Stage 1 (Primary Dx); Primary Malignant Neoplasm Of Prostate (HCC); Atherosclerosis Renal Artery (HCC); Diabetes Mellitus Type 2 (HCC); Gout Social History Tobacco Use Types Packs/Day Years Used Date Smoking Tobacco: Never Smokeless Tobacco: Never Alcohol Use Standard Drinks/Week Comments Yes 0 (1 standard drink = 0.6 oz pur e alcohol) [facility] Utilities Answer Date Recorded In the past 12 months has e [employer], gas, oil, or water [employer] threatened to shut off services in your [...] your living situation today? I have a [facility] place to live 07/19/2023 Sex and Gender Information Value Date Recorded Sex Assigned at Male 07/21/2023 9:10 AM BELLOWS ASSEMBLER Gender Identity Male 07/21/2023 9:10 AM BELLOWS ASSEMBLER Sexual Orientation Straight 07/21/2023 9: 10 AM BELLOWS ASSEMBLER documented as of this encounter Last Filed [...] DR Kaylee Marin SUBJECTIVE REASON FOR VISIT [facility] Follow-up regards renal [...] CDT Appointment Department of Radiation Oncology in [address] [phone] Marlon Gambino M.D. 200 [place] [address] documented as of this encounter Visit Diagnoses Diagnosis Hypertension And Chronic Kidney Disease Stage 1- Primary Primary Malignant Neoplasm Of Prostate (HCC) Atherosclerosis Renal Artery (HCC) Diabetes Mellitus Type 2 (HCC) Gout documented in this encounter
--- OUTSIDE RECORDS SUMMARY | 2023-11-20 13:26 | XMS_ITS | Encounter Summary ---
Author Organization [facility] Address [address] [place] [address] Care Team Providers Care Survey Workers Supervisor Name Role Phone Unavailable Primary Care Provider Unavailabl e Reason for Visit * Reason Onset Date Comments After Visit Question 07/30/2023 Encounter Details Date Type Department Care Team (Latest Contact Info) Description 07/30/2023 Clinical Communication Department of Radiation Oncology in [place], [place] [address] [place] [phone] Marlon Gambino M.D. [address] [place] [phone] After Visit Question Social History Tobacco Use Types Packs/Day Years Used Date Smoking Tobacco: Never Smokeless Tobacco: Never Alcohol Use Standard Drinks/Week Comments Yes 0 (1 standard drink = 0.6 oz pur e alcohol) [facility] Utilities Answer Date Recorded In the past 12 months has [facility] [employer], gas, oil, or water [employer] threatened to shut off services in your [...] Sex Assigned at Male 07/21/2023 9:10 AM AIDS NURSE Gender Identity Male 07/21/2023 9:10 AM AIDS NURSE Sexual Orientation Straight 07/21/2023 9: 10 AM AIDS NURSE documented as of this encounter Plan of Treatment Upcoming Encounters Date Type Department Care Team (Late st Contact Info) Description 01/01/2024 3:00 PM CDT Appointment Department of Radiation Oncology in [place], [place] [address] [place] [address] Marlon Gambino M.D. [address] [place] [address] documented as of this encounter Visit Diagnoses Not on filedocumented in this encounter
--- OUTSIDE RECORDS SUMMARY | 2023-11-20 13:26 | XMS_ITS | Encounter Summary ---
Author Organization [facility] Address [address] [place] [phone] Care Team Providers Care Grain Picker Name Role Phone Elsewhere, Pcp Primary Care Provider Unavailabl e Reason for Referral * Outpatient (Routine) - Closed Specialty Diagnoses / Procedures Referred By Contac t Referred To Contact Diagnoses Primary Malignant Neoplasm Of Prostate (HCC) Procedures US Prostate Interstitial Radioelement Oscar Aranda M.D. [address] [place] [address] [facility] Referral ID Status Reason Start Date Expiration Date Visits Re quested Visits Authorized [id number] Closed 08/15/2023 08/14/2024 1 1 Reason for Visit * Outpatient (Routine) - Closed Specialty Diagnoses / Procedures Referred By Contac t Referred To Contact Diagnoses Primary Malignant Neoplasm Of Prostate (HCC) Procedures US Prostate Interstitial Radioelement Oscar Aranda M.D. [address] [place] [address] [facility] Referral ID Status Reason Start Date Expiration Date Visits Re quested Visits Authorized [id number] Closed 08/15/2023 08/14/2024 1 1 Encounter Details Date Type Department Care Team (Latest Contact Info) Description 09/20/2023 6:58 AM CDT - 09/20/2023 7:09 AM CDT Hospital Encounter Department of Radiology, [facility], in [place], [place] [address] [place] [phone] Oscar Aranda M.D. [address] [place] [address] Primary Malignant Neoplasm Of Prostate (HCC) Discharge Disposition: Home or Self Care Social History Tobacco Use Types Packs/Day Years Used Date Smoking Tobacco: Never Smokeless Tobacco: Never Alcohol Use Standard Drinks/Week Comments Yes 3 (1 standard drink = 0.6 oz pur e alcohol) [facility] Utilities Answer Date Recorded In the past 12 months has th e [employer], gas, oil, or water [employer] threatened to shut off services in your [...] your living situation today? I have a [facility] place to live 07/19/2023 Sex and Gender Information Value Date Recorded Sex Assigned at Male 07/21/2023 9:10 AM OPERATIONS RESEARCH DIRECTOR Gender Identity Male 07/21/2023 9:10 AM OPERATIONS RESEARCH DIRECTOR Sexual Orientation Straight 07/21/2023 9: 10 AM OPERATIONS RESEARCH DIRECTOR documented as of this encounter Medications at [...] CDT Appointment Department of Radiation Oncology in [place], [place] [address] [place] [address] Marlon Gambino M.D. [address] [place] [address] documented as of this encounter Procedures Procedure [...] (HCC) documented in this encounter Care Teams Grain Picker Relationship Specialty Start Date End Date Elsewhere, Pcp PCP - General Internal Medicine 09/18/23 documented as of this encounter
--- NOTE | 2023-11-20 15:00 | CRLHL7_ITS ---
For Patients: As a result of the Century Cures Act, medical imaging exams and procedure reports are released immediately into your electronic medical record. You may view this report before your referring provider. If you have questions, please contact your health care provider. Examination: US abdominal aorta Indication: Follow-up aneurysm Technique: Beltran scale and color Doppler images of the aorta and common iliac arteries are obtained. Comparison: 09/28/2021 Findings: Proximal aorta: 3.2 x 2.6 cm, previously measuring 3.2 cm. Mid aorta: 2.0 x 1.9 cm Distal aorta: 1.6 x 2.1 cm Right common iliac artery: 1.2 x 1.1 cm Left common iliac artery: 1.3 x 1.3 cm Recommended imaging interval for ectatic aorta: 3.0-3.4 cm: 3 years Impression: Stable proximal abdominal aorta measurement of 3.2 cm. Dictated by Aidan Medina MD @ 11/21/2023 12:19:48 PM (Electronically Signed)
== END 2023-11-20 13:21 | disposition home or self-care (01) ==
LOC: RAD 13:22
PROVIDERS: PCP Physician Assistant Medical; Visit Provider Physician Assistant Medical
DX: I77.810 Thoracic aortic ectasia (principal); I77.819 Aortic ectasia, unspecified site
CPT/HCPCS: 76775; 93306

== ENCOUNTER 2023-12-11 08:21 | Outpatient (CLI) | payer MEDICARE, BC, SELFPAY ==
--- OUTSIDE RECORDS SUMMARY | 2023-12-11 08:24 | XMS_ITS ---
Author Organization [facility] Address [address] [place] [address] Care Team Providers Care Check Out Clerk Name Role Phone Elsewhere, Pcp Primary [...] Treated Prescribed Fraction Dose Prescribed Total Dose [id number] 11/07/2023 35 25 of 25 200 cGy 5,000 cGy [id number] 09/20/2023 0 1 of 1 1,500 cGy 1,500 cGy Reference Point Last Treated On Elapsed Days Session Dose Total Dose [id number] 11/07/2023 35 200 cGy 5,000 cGy DPV [...]
--- OUTSIDE RECORDS SUMMARY | 2023-12-11 08:24 | XMS_ITS | Clinical Summary ---
Author Organization [facility] Address [address] [place] [address] Care Team Providers Care Sail Lay Out Worker Name Role Phone Elsewhere, Pcp Primary Care Provider Unavailabl e Source Comments Patient records contain information from all sites at [facility]. For routine questions regarding patient records, call [phone] during business hours, M-F 8:00 AM - 5:00 PM Central Time. Record requests for emergency care only can be directed to [phone] at any time.[facility] Allergies No known active allergies Medications Medication [...] 11/12/2023 Orders Only Department of Oncology in [address] [phone] Hue Ferguson M.D. Primary Malignant Neoplasm Of Prostate (HCC) (Primary Dx) 11/07/2023 7:55 AM CDT - 11/08/2023 6:09 PM CDT Hospital Encounter Department of Radiation Oncology in [address] [phone] Marlon Gambino M.D. Primary Malignant Neoplasm Of Prostate (HCC) 11/07/2023 7:45 AM CDT - 11/07/2023 7:54 AM CDT Hospital Encounter Department of Radiation Oncology in [address] [address] Marlon Gambino M.D. Discharge Disposition: Home or Self Care 11/07/2023 Documentation Department of Radiation Oncology in [address] [address] Marlon Gambino M.D. 11/06/2023 7:45 AM CDT - 11/06/2023 11:59 PM CDT Hospital Encounter Department of Radiation Oncology in [address] [address] Marlon Gabmino M.D. Discharge Disposition: Home or Self Care 11/05/2023 7:46 AM CDT - 11/05/2023 11:59 PM CDT Hospital Encounter Department of Radiation Oncology in [address] [address] Marlon Gambino M.D. Discharge Disposition: Home or Self Care 11/04/2023 7:46 AM CDT - 11/04/2023 11:59 PM CDT Hospital Encounter Department of Radiation Oncology in [address] [address] Marlon Gambino M.D. Discharge Disposition: Home or Self Care 11/01/2023 7:46 AM CDT - 11/01/2023 11:59 PM CDT Hospital Encounter Department of Radiation Oncology in [address] [address] Marlon Gambino M.D. Discharge Disposition: Home or Self Care 10/31/2023 7:45 AM CDT - 10/31/2023 11:59 PM CDT Hospital Encounter Department of Radiation Oncology in [address] [address] Marlon Gambino M.D. Discharge Disposition: Home or Self Care 10/30/2023 7:46 AM CDT - 10/30/2023 9:05 AM CDT Hospital Encounter Department of Radiation Oncology in [address] [address] Marlon Gambino M.D. Primary Malignant Neoplasm Of Prostate (HCC) 10/30/2023 7:46 AM CDT - 10/30/2023 11:59 PM CDT Hospital Encounter Department of Radiation Oncology in [address] [address] Marlon Gambino M.D. Discharge Disposition: Home or Self Care 10/29/2023 7:46 AM CDT - 10/29/2023 11:59 PM CDT Hospital Encounter Department of Radiation Oncology in [address] [address] Marlon Gambino M.D. Discharge Disposition: Home or Self Care 10/25/2023 7:46 AM CDT - 10/25/2023 11:59 PM CDT Hospital Encounter Department of Radiation Oncology in [address] [address] Marlon Gambino M.D. Discharge Disposition: Home or Self Care 10/24/2023 7:45 AM CDT - 10/24/2023 11:59 PM CDT Hospital Encounter Department of Radiation Oncology in [address] [address] Marlon Gambino M.D. Discharge Disposition: Home or Self Care 10/23/2023 7:45 AM CDT - 10/23/2023 1:09 PM CDT Hospital Encounter Department of Radiation Oncology in [address] [address] Marlon Gambino M.D. Primary Malignant Neoplasm Of Prostate (HCC) 10/23/2023 7:45 AM CDT - 10/23/2023 11:59 PM CDT Hospital Encounter Department of Radiation Oncology in [address] [address] Marlon Gambino M.D. Discharge Disposition: Home or Self Care 10/22/2023 7:47 AM CDT - 10/22/2023 11:59 PM CDT Hospital Encounter Department of Radiation Oncology in [address] [address] Marlon Gambino M.D. Discharge Disposition: Home or Self Care 10/21/2023 8:21 AM CDT - 10/21/2023 11:59 PM CDT Hospital Encounter Department of Radiation Oncology in [address] [address] Marlon Gambino M.D. Grieman, Kari A, RYisselN. Primary Malignant Neoplasm Of Prostate (HCC) Discharge Disposition: Home or Self Care 10/21/2023 7:47 AM CDT - 10/21/2023 8:20 AM CDT Hospital Encounter Department of Radiation Oncology in [address] [address] Marlon Gambino M.D. Discharge Disposition: Home or Self Care 10/18/2023 7:48 AM CDT - 10/18/2023 11:59 PM CDT Hospital Encounter Department of Radiation Oncology in [address] [address] Marlon Gambino M.D. Discharge Disposition: Home or Self Care 10/17/2023 7:47 AM CDT - 10/17/2023 11:59 PM CDT Hospital Encounter Department of Radiation Oncology in [address] [address] Marlon Gambino M.D. Discharge Disposition: Home or Self Care 10/16/2023 7:46 AM CDT - 10/16/2023 2:14 PM CDT Hospital Encounter Department of Radiation Oncology in [address] [address] Marlon Gambino M.D. Primary Malignant Neoplasm Of Prostate (HCC) 10/16/2023 7:46 AM CDT - 10/16/2023 11:59 PM CDT Hospital Encounter Department of Radiation Oncology in [address] [address] Marlon Gambino M.D. Discharge Disposition: Home or Self Care 10/15/2023 7:46 AM CDT - 10/15/2023 11:59 PM CDT Hospital Encounter Department of Radiation Oncology in [address] [address] Marlon Gambino M.D. Discharge Disposition: Home or Self Care 10/14/2023 7:52 AM CDT - 10/14/2023 11:59 PM CDT Hospital Encounter Department of Radiation Oncology in [address] [address] Marlon Gambino M.D. Discharge Disposition: Home or Self Care 10/11/2023 7:46 AM CDT - 10/11/2023 11:59 PM CDT Hospital Encounter Department of Radiation Oncology in [address] [address] Marlon Gambino M.D. Discharge Disposition: Home or Self Care 10/10/2023 7:47 AM CDT - 10/10/2023 11:59 PM CDT Hospital Encounter Department of Radiation Oncology in [address] [address] Marlon Gambino M.D. Discharge Disposition: Home or Self Care 10/09/2023 7:54 AM CDT - 10/11/2023 9:15 PM CDT Hospital Encounter Department of Radiation Oncology in [address] [address] Marlon Gambino M.D. Primary Malignant Neoplasm Of Prostate (HCC) 10/09/2023 7:45 AM CDT - 10/09/2023 7:53 AM CDT Hospital Encounter Department of Radiation Oncology in [address] [address] Marlon Gambino M.D. Discharge Disposition: Home or Self Care 10/09/2023 Refill Department of Radiation Oncology in [address] [address] Marlon Gambino M.D. Med Refill 10/08/2023 7:45 AM CDT - 10/08/2023 11:59 PM CDT Hospital Encounter Department of Radiation Oncology in [address] [address] Marlon Gambino M.D. Discharge Disposition: Home or Self Care 10/07/2023 12:38 PM CDT - 10/07/2023 2:49 PM CDT Hospital Encounter Department of Radiation Oncology in [address] [address] Marlon Gambino M.D. Grieman, Kari A, RYisselN. Primary Malignant Neoplasm Of Prostate (HCC) Discharge Disposition: Home or Self Care 10/07/2023 12:38 PM CDT - 10/07/2023 11:59 PM CDT Hospital Encounter Department of Radiation Oncology in [address] [address] Maroln Gambino M.D. Discharge Disposition: Home or Self Care 2023 10:02 AM CDT - 2023 11:59 PM CDT Hospital Encounter Department of Radiation Oncology in [address] [address] Marlon Gambino M.D. Discharge Disposition: Home or Self Care 10/03/2023 10:04 AM CDT - 10/03/2023 11:59 PM CDT Hospital Encounter Department of Radiation Oncology in [address] [address] Marlon Gambino M.D. Discharge Disposition: Home or Self Care 09/27/2023 11:30 AM CDT - 09/27/2023 5:34 PM CDT Hospital Encounter Department of Radiation Oncology in [address] [address] Marlon Gambino M.D. Primary Malignant Neoplasm Of Prostate (HCC) (Primary Dx) 09/27/2023 10:32 AM CDT - 09/27/2023 11:01 AM CDT Hospital Encounter Department of Radiation Oncology in [place], [place] [address] [place] [address] Marlon Gambino M.D. Primary Malignant Neoplasm Of Prostate (HCC) 09/20/2023 8:00 AM CDT - 09/20/2023 11:59 PM CDT Hospital Encounter Department of Radiation Oncology in [place], [place] [address] [place] [phone] Oscar Aranda M.D. Kelly, Brooke K, RShital Discharge Disposition: Home or Self Care 09/20/2023 7:55 AM CDT Anesthesia Event Department of Radiation Oncology in [address] [address] Jessie Hameed, RAVINDER JORDAN D.N.P. Horlocker, Terese T, M.D. 09/20/2023 7:10 AM CDT - 09/20/2023 7:59 AM CDT Hospital Encounter Department of Radiation Oncology in [place], [place] [address] [place] [phone] Oscar Aranda M.D. Primary Malignant Neoplasm Of Prostate (HCC) Discharge Disposition: Home or Self Care 09/20/2023 6:58 AM CDT - 09/20/2023 7:09 AM CDT Hospital Encounter Department of Radiology, [facility], in [place], [place] [address] [place] [phone] Oscar Aranda M.D. Primary Malignant Neoplasm Of Prostate (HCC) Discharge Disposition: Home or Self Care 09/20/2023 5:46 AM CDT - 09/20/2023 3:15 PM CDT Hospital Encounter Outpatient Surgery Unit in [place], [place] [address] [place] [phone] Waddle, Oscar R, M.D. Discharge Disposition: Home or Self Care 09/20/2023 Documentation Department of Radiation Oncology in [place], [place] [address] [place] [phone] Oscar Aranda M.D. 09/20/2023 Orders Only Department of Radiation Oncology in [place], [place] [address] [place] [phone] Rachael Waite R.N. 09/19/2023 12:21 PM CDT - 09/24/2023 2:46 PM CDT Hospital Encounter Department of Radiation Oncology in [place], [place] [address] [place] [phone] Oscar Aranda M.D. Primary Malignant Neoplasm Of Prostate (HCC) (Primary Dx) 09/19/2023 9:30 AM CDT Comprehensive Visit Preoperative Evaluation Center in [place], [place] [address] [place] [phone] Harris Ryan APRN, C.N.P., D.N.P. Geremias Dhillon [...] Orders Only Department of Radiation Oncology in [place], [place] [address] [place] [phone] Oscar Aranda M.D. 09/17/2023 1:30 PM CDT Clinical Communication Virtual Review in [place], [place] [address] [place] [address] from Last 3 Months Family History Medical History Relation Name Comments Prostate cancer Father Cancer Maternal Grandfather Coronary artery disease Mother Laverne drew gibson Diabetes Mother Laverne bradelizabeth Relation Name Status Comments Father Maternal Grandfather Mother Laverne maria dolores Social History Tobacco Use Types Packs/Day Years Used Date Smoking Tobacco: Never Smokeless Tobacco: Never Tobacco Cessation:Counseling Given: Not Answered Alcohol Use Standard Drinks/Week Comments Yes 3 (1 standard drink = 0.6 oz pur e alcohol) [facility] Utilities Answer Date Recorded In the [...] Sex Assigned at Male 07/21/2023 9:10 AM FARM ADVISOR Gender Identity Male 07/21/2023 9:10 AM FARM ADVISOR Sexual Orientation Straight 07/21/2023 9: 10 AM FARM ADVISOR Last Filed Vital Signs Vital Sign Reading [...] CDT Appointment Department of Radiation Oncology in [place], [place] [address] [place] [phone] Marlon Gambino M.D. [address] [place] [address] Health Maintenance Due Date Last Done Comments [...] of 3 - Risk 3-dose series) 2009 Depression Screening (Annual PHQ-2) 06/03/2023 COVID-19 Vaccine ( season) 2023 06/18/2023, 02/20/2022, 09/21/2021, Additional history exists Office Visit for Blood Pressure Check / Re-check 12/19/2023 09/19/2023 Influenza Vaccine (#1) 2024 Creatinine Level (Kidney Function Test) 07/23/2024 07/23/2023, 03/01/2022 DTaP,Tdap,and Td Vaccines (2 - Td or Tdap) 10/12/2031 10/11/2021 Fall Risk Screen (Annual) Completed 10/07/2023 HPV Vaccines Aged Out No longer eligi ble based on patient's age to complete this topic Procedures Procedure Name Priority Date/Time Associated Diagnosis Comments ARIA COURSE COMPLETE TREATMENT INFORMATION Routine 11/07/2023 8:06 AM CDT ARIA DAILY TREATMENT INFORMATION Routine 11/07/2023 8:06 [...] WITH EGFR, S/P Routine 07/23/2023 2:41 PM FARM ADVISOR Primary Malignant Neoplasm Of Prostate (HCC) from Last 3 Months or Most Recently Relevant to Health Maintenance Results * Aria Course Complete Treatment Information (11/07/2023 8:06 AM CDT) Only the most recent of4 resultswithin the time period is included. Course ID 1xProstat e LEW ARIA Course Start Date 4 08:41 CDT LEW ARIA Course End Date 4 15:01 CDT LEW ARIA First Treatment Date 4 10:50 CDT LEW ARIA Last Treatment Date 4 08:06 CDT LEW ARIA Treatment Elapsed Days 35 LEW ARIA Reference Point [id number] LEW ARIA Dosage Given to Date cGy 5000 LEW ARIA Plan ID [id number] LEW ARIA Fractions Treated to Date 25 LEW ARIA Planned Total Fractions 25 LEW ARIA Prescribed Dose Per Fraction 200 LEW ARIA Prescription Dose in cGy 5000 LEW ARIA Plan Primary Reference Point [id number] LEW ARIA 11/07/2023 8:06 AM CDT Provider Not In System RADIATION ONCOLOG Y ORDERABLES LOUANN SINGLETON na * Aria Daily Treatment Information (11/07/2023 8:06 AM CDT) Only the most recent of26 resultswithin the time period is included. Course ID 1xProstat e LEW ARIA Course Start Date 4 08:41 CDT LEW ARIA First Treatment Date 4 10:50 CDT LEW ARIA Last Treatment Date 4 08:06 CDT LEW ARIA Treatment Elapsed Days 35 LEW ARIA Reference Point [id number] LEW ARIA Dosage Given to Date cGy 5000 LEW ARIA Session Dosage Given 200 LEW ARIA Plan ID [id number] LEW ARIA Fractions Treated to Date 25 LEW ARIA Planned Total Fractions 25 LEW ARIA Prescribed Dose Per Fraction 200 LEW ARIA Prescription Dose in cGy 5000 LEW ARIA Plan Primary Reference Point [id number] LEW ARIA 11/07/2023 8:06 AM CDT Provider Not In System RADIATION ONCOLOG Y ORDERABLES Performing Organization Address [facility] de Phone Number LOUANN SINGLETON na * [...] IMG MRI PROCEDURE S Performing Organization Address [facility] Phone Number TRESA NA * Initial Rad Onc Treatment Planning CT Simulation (09/27/2023 11:30 AM CDT) Narrative LOUANN SINGLETON - 09/27/2023 11:30 AM CDT CodeMary, RTT ? 09/27/2023 12:09 PM Initial Rad Onc Treatment Planning CT Simulation Performed by: Marlon Gambino M.D. Authorized by: Marlon Gambino M.D. ?? Marlon Gambino M.D. RADIATION ONCOLOGY ORDERABLES Performing Organization Address [facility] de Phone Number LOUANN SINGLETON na * (ABNORMAL) Glucose, POCT (09/20/2023 12:45 PM CDT) Only the most recent of4 resultswithin the time period is included. Glucose, POCT, B 152(H) 70 - 140 mg/dL 09/20/2023 12:47 PM CDT PCDE Site Capillary 09/20/2023 12:47 PM CDT PCDE Blood 09/20/2023 12:4 5 PM CDT 09/20/2023 12:48 PM CDT Unknown Provider LAB POCT ORDERABLES- MANUAL POC [facility] [address] [place] [address], [place] PCDE [facility] [place] [facility] [address] [place] [address] * US Prostate Interstitial Radioelement (09/20/2023 8:58 [...] ETT location: oral VL device: glide scope [place] scope blade size: 4 Tube size: 7.5 [...] complications Jessie Hameed APRN, CRNA, D.N.P. [facility] * Brachytherapy HDR (09/20/2023 8:00 AM CDT) Narrative LOUANN SINGLETON - 09/20/2023 8:00 AM CDT Oscar Aranda [...] hydrogel was prepared as described in the store leader's Instructions For Use. With the subject maintained [...] Aranda M.D. RADIATION ONCOLOGY O RDERABLES LOUANN jules * Dipstick, Urine (09/19/2023 10:54 [...] L AB URINE ORDERABLES Performing Organization Address [facility] Co de Phone Number [address] [place] [address] * Microscopic Automated (09/19/2023 10:54 AM CDT) Microscopy Normal 09/19/2023 11:52 AM CDT DTL RBC None Seen <3 /hpf 09/19/2023 11:52 AM CDT DTL WBC None Seen /hpf 09/19/2023 11:52 AM CDT DTL Comment: ----REFERENCE VALUE---- <4 ??(Males) <11 (Females) Urine 09/19/2023 10:5 4 AM CDT 09/19/2023 11:16 AM CDT Harris Ryan APRN, C.N.P., D.N.P. L AB URINE ORDERABLES [facility] [address] [place], [place] [address] [address] [place] [address] * Bacterial Culture, Aerobic + Susceptibility, Urine (09/19/2023 10:54 AM CDT) Urine Culture No growth after 1 day of incubation. 09/20/2023 8:11 AM CDT DT Urine (Urine, Midstream) 09/19/2023 10:54 AM CDT 09/19/2023 1:41 PM CDT Comment:Specimen Source Site : Urine Harris Ryan APRN, Krish.N.P., D.N.P. L AB MICROBIOLOGY - GENERAL ORDERABLES Performing Organization Address [facility] Co de Phone Number [facility] [address] [place], [place] [phone] [place] [address] [address] [place] [address] * pH, Urine (09/19/2023 10:54 AM CDT) pH, U 5.3 4.5 - 8.0 09/19/2023 12: 12 PM CDT DT Urine 09/19/2023 10:5 4 AM CDT 09/19/2023 11:16 AM CDT Harris Ryan APRN, C.N.P., D.N.P. L AB URINE ORDERABLES [facility] [address] [place], [place] [address], [place] [address] * Osmolality, Urine (09/19/2023 10:54 AM CDT) Osmolality, U 179 150 - 1150 mOsm/kg 09/19/2023 12:12 PM CDT DTL Urine 09/19/2023 10:5 4 AM CDT 09/19/2023 11:16 AM CDT Krish Morse APRN.N.P., D.N.P. L AB URINE ORDERABLES Performing Organization Address [facility] Co de Phone Number [facility] [address] [place], [place] [phone] [place] [address] [facility] [address] [place] [address] * Urinalysis, with Microscopic: Urine, Midstream (09/19/2023 [...] L AB URINE ORDERABLES Performing Organization Address [facility] Co de Phone Number [facility] [address] [place], [place] [phone] [place] [address] [address] [place] [address] * ECG 12 Lead (09/19/2023 10:07 AM CDT) Ventricular Rate ECG/Min 62 BPM MUSE OH Interval 154 ms MUSE QRSD Interval 98 ms MUSE QT Interval 428 ms MUSE QTC Interval 434 ms MUSE P [place] 30 degrees MUSE R [place] 24 degrees MUSE T Wave [place] 15 degrees MUSE 09/19/2023 10:0 7 AM CDT 09/19/2023 10:37 AM CDT Impressions MUSE - 09/19/2023 10:37 AM CDT Sinus rhythm Fusion complexes Left atrial enlargement No previous ECGs available Reviewed by LLUVIA Newsome Narrative Procedure Note Anthony Robledo Jr., M.D. - 09/19/2023 IMPRESSION: Sinus rhythm Fusion complexes Left atrial enlargement No previous ECGs available Reviewed by LLUVIA Newsome Geremias Dhillon APRN, C.N.PYissel, M.S. ECG ORD ERABLES MUSE NA * Creatinine with Estimated GFR (07/23/2023 2:41 PM FARM ADVISOR) Creatinine 0.93 0.74 - 1.35 mg/dL 07/23/2023 3:28 PM FARM ADVISOR OWAT Estimated GFR (eGFR) 87 >=60 mL/min/BSA 07/23/2023 3:28 PM FARM ADVISOR OWAT Comment: Estimated GFR calculated using the 2020 CKD_EPI creatinine equation. Blood (Blood, Venous) 07/23/2023 2:41 PM FARM ADVISOR 07/23/2023 2:47 PM FARM ADVISOR Michael Ochoa APRN, C.N.P., D.N.P. LAB B LOOD ADD-ON [facility] [address] [place] [address], [place] OWAT [facility] in [place] [address] [place] [address] from Last 3 Months or Most Recently Relevant to Health Maintenance Advance Directives For more information, please contact: [phone] * Full Code (Latest Code Status on File) Date Activated Date Inactivated Comments 09/20/2023 1:19 PM 09/20/2023 5:33 PM Question Answer Comments Full Code: Discussed Care Teams Sail Lay Out Worker Relationship Specialty Start Date End Date Elsewhere, Pcp PCP - General Internal Medicine 09/18/23
--- OUTSIDE RECORDS SUMMARY | 2023-12-11 08:24 | XMS_ITS | Encounter Summary ---
Author Organization [facility] Address [address] [place] [address] Care Team Providers Care Clinic Lead Name Role Phone Elsewhere, Pcp Primary Care Provider Unavailabl e Reason for Referral * Outpatient (Routine) - Authorized Specialty Diagnoses / Procedures Referred By Leni lopez Referred To Contact Social Work Diagnoses Primary Malignant Neoplasm Of Prostate (HCC) Hue Ferguson M.D. [address] [place] [address] [facility] Region Referral ID Status Reason Start Date Expiration Date V isits Requested Visits Authorized [id number] Authorized 11/12/2023 05/13/2025 1 1 Encounter Details Date Type Department Care Team (Late st Contact Info) Description 11/12/2023 Orders Only Department of Oncology in [place], [place] [address] [place] [phone] Hue Ferguson M.D. [address] [place] [phone] Primary Malignant Neoplasm Of Prostate (HCC) (Primary Dx) Social History Tobacco Use Types Packs/Day Years Used Date Smoking Tobacco: Never Smokeless Tobacco: Never Alcohol Use Standard Drinks/Week Comments Yes 3 (1 standard drink = 0.6 oz pur e alcohol) [facility] Utilities Answer Date Recorded In the past 12 months has e electric, gas, oil, or water My Dentist threatened to shut off services in your [...] your living situation today? I have a [facility] place to live 07/19/2023 Sex and Gender Information Value Date Recorded Sex Assigned at Male 07/21/2023 9:10 AM SAMPLES AND REPAIRS PREPARER Gender Identity Male 07/21/2023 9:10 AM SAMPLES AND REPAIRS PREPARER Sexual Orientation Straight 07/21/2023 9: 10 AM SAMPLES AND REPAIRS PREPARER documented as of this encounter Plan of Treatment Upcoming Encounters Date Type Department Care Team (Late st Contact Info) Description 01/01/2024 3:00 PM CDT Appointment Department of Radiation Oncology in [place], [place] [address] [place] [address] Marlon Gambino M.D. [address] [place] [address] Scheduled Referrals Name Type Priority Associated Diagnoses Orde r Schedule Social Work - General consult (clinic) Outpatient Referral Routine Primary Malignant Neoplasm Of Prostate (HCC) Expected: 11/12/2023 (Approximate), Expires: 02/11/2025 documented as of this encounter Visit Diagnoses Diagnosis Primary Malignant Neoplasm Of Prostate (HCC)- Primary documented in this encounter Care Teams Clinic Lead Relationship Specialty Start Date End Date Elsewhere, Pcp PCP - General Internal Medicine 09/18/23 documented as of this encounter
--- OUTSIDE RECORDS SUMMARY | 2023-12-11 08:24 | XMS_ITS | Encounter Summary ---
Author Organization [facility] Address [address] [place] [address] Care Team Providers Care Dye House Wheel Operator Name Role Phone Elsewhere, Pcp Primary Care Provider Unavailabl e Encounter Details Date Type Department Care Team (Latest Contact Info) Description 11/07/2023 7:45 AM CDT - 11/07/2023 7:54 AM CDT Hospital Encounter Department of Radiation Oncology in [place], [place] [address] [place] [phone] Marlon Gambino M.D. [address] [place] [address] Discharge Disposition: Home or Self Care Social History Tobacco Use Types Packs/Day Years Used Date Smoking Tobacco: Never Smokeless Tobacco: Never Alcohol Use Standard Drinks/Week Comments Yes 3 (1 standard drink = 0.6 oz pur e alcohol) [facility] Utilities Answer Date Recorded In the past 12 months has [employer], oil, or water [employer] threatened to shut off services in your [...] Sex Assigned at Male 07/21/2023 9:10 AM SOFTWARE SALES REPRESENTATIVE Gender Identity Male 07/21/2023 9:10 AM SOFTWARE SALES REPRESENTATIVE Sexual Orientation Straight 07/21/2023 9: 10 AM SOFTWARE SALES REPRESENTATIVE documented as of this encounter Medications [...] CDT Appointment Department of Radiation Oncology in [place], [place] [address] [place] [address] Marlon Gambino M.D. [address] [place] [address] documented as of this encounter Visit Diagnoses Not on filedocumented in this encounter Care Teams Dye House Wheel Operator Relationship Specialty Start Date End Date Elsewhere, Pcp PCP - General Internal Medicine 09/18/23 documented as of this encounter
--- OUTSIDE RECORDS SUMMARY | 2023-12-11 08:24 | XMS_ITS | Referral Summary ---
Author Organization [facility] Address [address] [place] [address] Care Team Providers Care Artist Agent Name Role Phone Elsewhere, Pcp Primary Care Provider Unavailabl e Source Comments Patient records contain information from all sites at [facility]. For routine questions regarding patient records, call [phone] during business hours, M-F 8:00 AM - 5:00 PM Central Time. Record requests for emergency care only can be directed to [phone] at any time.[facility] Encounters Date Type Department Care Team Description 11/12/2023 Orders Only Department of Oncology in [address] [address] Hue Ferguson M.D. Primary Malignant Neoplasm Of Prostate (HCC) (Primary Dx) 11/07/2023 7:55 AM CDT - 11/08/2023 6:09 PM CDT Hospital Encounter Department of Radiation Oncology in [address] [address] Marlon Gambino M.D. Primary Malignant Neoplasm Of Prostate (HCC) 11/07/2023 Documentation Department of Radiation Oncology in [address] [address] Marlon Gambino M.D. 11/07/2023 7:45 AM CDT - 11/07/2023 7:54 AM CDT Hospital Encounter Department of Radiation Oncology in [address] [address] Marlon Gambino M.D. Discharge Disposition: Home or Self Care 11/06/2023 7:45 AM CDT - 11/06/2023 11:59 PM CDT Hospital Encounter Department of Radiation Oncology in [address] [address] Marlon Gambino M.D. Discharge Disposition: Home or Self Care 11/05/2023 7:46 AM CDT - 11/05/2023 11:59 PM CDT Hospital Encounter Department of Radiation Oncology in [address] [address] Marlon Gambino M.D. Discharge Disposition: Home or Self Care 11/04/2023 7:46 AM CDT - 11/04/2023 11:59 PM CDT Hospital Encounter Department of Radiation Oncology in [address] [address] Marlon Gambino M.D. Discharge Disposition: Home or Self Care 11/01/2023 7:46 AM CDT - 11/01/2023 11:59 PM CDT Hospital Encounter Department of Radiation Oncology in [address] [address] Marlon Gambino M.D. Discharge Disposition: Home or Self Care 10/31/2023 7:45 AM CDT - 10/31/2023 11:59 PM CDT Hospital Encounter Department of Radiation Oncology in [address] [address] Marlon Gambino M.D. Discharge Disposition: Home or Self Care 10/30/2023 7:46 AM CDT - 10/30/2023 9:05 AM CDT Hospital Encounter Department of Radiation Oncology in [address] [address] Marlon Gambino M.D. Primary Malignant Neoplasm Of Prostate (HCC) 10/30/2023 7:46 AM CDT - 10/30/2023 11:59 PM CDT Hospital Encounter Department of Radiation Oncology in [address] [address] Marlon Gambino M.D. Discharge Disposition: Home or Self Care 10/29/2023 7:46 AM CDT - 10/29/2023 11:59 PM CDT Hospital Encounter Department of Radiation Oncology in [address] [address] Marlon Gambino M.D. Discharge Disposition: Home or Self Care 10/25/2023 7:46 AM CDT - 10/25/2023 11:59 PM CDT Hospital Encounter Department of Radiation Oncology in [address] [address] Marlon Gambino M.D. Discharge Disposition: Home or Self Care 10/24/2023 7:45 AM CDT - 10/24/2023 11:59 PM CDT Hospital Encounter Department of Radiation Oncology in [address] [address] Marlon Gambino M.D. Discharge Disposition: Home or Self Care 10/23/2023 7:45 AM CDT - 10/23/2023 1:09 PM CDT Hospital Encounter Department of Radiation Oncology in [address] [address] Marlon Gambino M.D. Primary Malignant Neoplasm Of Prostate (HCC) 10/23/2023 7:45 AM CDT - 10/23/2023 11:59 PM CDT Hospital Encounter Department of Radiation Oncology in [address] [address] Marlon Gambino M.D. Discharge Disposition: Home or Self Care 10/22/2023 7:47 AM CDT - 10/22/2023 11:59 PM CDT Hospital Encounter Department of Radiation Oncology in [address] [address] Marlon Gambino M.D. Discharge Disposition: Home or Self Care 10/21/2023 8:21 AM CDT - 10/21/2023 11:59 PM CDT Hospital Encounter Department of Radiation Oncology in [address] [address] Marlon Gambino M.D. Grieman, Kari A, RYisselNYissel Primary Malignant Neoplasm Of Prostate (HCC) Discharge Disposition: Home or Self Care 10/21/2023 7:47 AM CDT - 10/21/2023 8:20 AM CDT Hospital Encounter Department of Radiation Oncology in [address] [address] Marlon Gambino M.D. Discharge Disposition: Home or Self Care 10/18/2023 7:48 AM CDT - 10/18/2023 11:59 PM CDT Hospital Encounter Department of Radiation Oncology in [address] [address] Marlon Gambino M.D. Discharge Disposition: Home or Self Care 10/17/2023 7:47 AM CDT - 10/17/2023 11:59 PM CDT Hospital Encounter Department of Radiation Oncology in [address] [address] Marlon Gambino M.D. Discharge Disposition: Home or Self Care 10/16/2023 7:46 AM CDT - 10/16/2023 2:14 PM CDT Hospital Encounter Department of Radiation Oncology in [address] [address] Marlon Gambino M.D. Primary Malignant Neoplasm Of Prostate (HCC) 10/16/2023 7:46 AM CDT - 10/16/2023 11:59 PM CDT Hospital Encounter Department of Radiation Oncology in [address] [address] Marlon Gambino M.D. Discharge Disposition: Home or Self Care 10/15/2023 7:46 AM CDT - 10/15/2023 11:59 PM CDT Hospital Encounter Department of Radiation Oncology in [address] [address] Marlon Gambino M.D. Discharge Disposition: Home or Self Care 10/14/2023 7:52 AM CDT - 10/14/2023 11:59 PM CDT Hospital Encounter Department of Radiation Oncology in [address] [address] Marlon Gambino M.D. Discharge Disposition: Home or Self Care 10/11/2023 7:46 AM CDT - 10/11/2023 11:59 PM CDT Hospital Encounter Department of Radiation Oncology in [address] [address] Marlon Gambino M.D. Discharge Disposition: Home or Self Care 10/09/2023 7:54 AM CDT - 10/11/2023 9:15 PM CDT Hospital Encounter Department of Radiation Oncology in [address] [address] Marlon Gambino M.D. Primary Malignant Neoplasm Of Prostate (HCC) 10/10/2023 7:47 AM CDT - 10/10/2023 11:59 PM CDT Hospital Encounter Department of Radiation Oncology in [address] [address] Marlon Gambino M.D. Discharge Disposition: Home or Self Care 10/09/2023 Refill Department of Radiation Oncology in [address] [address] Marlon Gambino M.D. Med Refill 10/09/2023 7:45 AM CDT - 10/09/2023 7:53 AM CDT Hospital Encounter Department of Radiation Oncology in [address] [address] Marlon Gambino M.D. Discharge Disposition: Home or Self Care 10/08/2023 7:45 AM CDT - 10/08/2023 11:59 PM CDT Hospital Encounter Department of Radiation Oncology in [address] [address] Marlon Gambino M.D. Discharge Disposition: Home or Self Care 10/07/2023 12:38 PM CDT - 10/07/2023 2:49 PM CDT Hospital Encounter Department of Radiation Oncology in [address] [address] Marlon Gambino M.D. Grieman, Kari A, RYisselN. Primary Malignant Neoplasm Of Prostate (HCC) Discharge Disposition: Home or Self Care 10/07/2023 12:38 PM CDT - 10/07/2023 11:59 PM CDT Hospital Encounter Department of Radiation Oncology in [address] [address] Marlon Gambino M.D. Discharge Disposition: Home or Self Care 2023 10:02 AM CDT - 2023 11:59 PM CDT Hospital Encounter Department of Radiation Oncology in [address] [address] Marlon Gambino M.D. Discharge Disposition: Home or Self Care 10/03/2023 10:04 AM CDT - 10/03/2023 11:59 PM CDT Hospital Encounter Department of Radiation Oncology in [address] [address] Marlon Gambino M.D. Discharge Disposition: Home or Self Care 09/27/2023 11:30 AM CDT - 09/27/2023 5:34 PM CDT Hospital Encounter Department of Radiation Oncology in [address] [address] Marlon Gambino M.D. Primary Malignant Neoplasm Of Prostate (HCC) (Primary Dx) 09/27/2023 10:32 AM CDT - 09/27/2023 11:01 AM CDT Hospital Encounter Department of Radiation Oncology in [place], [place] [address] [place] [address] Marlon Gambino M.D. Primary Malignant Neoplasm Of Prostate (HCC) 09/19/2023 12:21 PM CDT - 09/24/2023 2:46 PM CDT Hospital Encounter Department of Radiation Oncology in [place], [place] [address] [place] [address] Oscar Aranda M.D. Primary Malignant Neoplasm Of Prostate (HCC) (Primary Dx) 09/20/2023 Documentation Department of Radiation Oncology in [place], [place] [address] [place] [phone] Oscar Aranda M.D. 09/20/2023 8:00 AM CDT - 09/20/2023 11:59 PM CDT Hospital Encounter Department of Radiation Oncology in [place], [place] [address] [place] [phone] Oscar Aranda M.D. Kelly, Brooke K, R.NYissel Discharge Disposition: Home or Self Care 09/20/2023 Orders Only Department of Radiation Oncology in [place], [place] [address] [place] [phone] Rachael Waite, R.N. 09/20/2023 7:55 AM CDT Anesthesia Event Department of Radiation Oncology in [address] [address] Jessie Hameed, RAVINDER JORDAN, Pan.Anahi Amezquita M.D. 09/20/2023 7:10 AM CDT - 09/20/2023 7:59 AM CDT Hospital Encounter Department of Radiation Oncology in [place], [place] [address] [place] [phone] Oscar Aranda M.D. Primary Malignant Neoplasm Of Prostate (HCC) Discharge Disposition: Home or Self Care 09/20/2023 5:46 AM CDT - 09/20/2023 3:15 PM CDT Hospital Encounter Outpatient Surgery Unit in [place], [place] [address] [place] [address] Oscar Aranda M.D. Discharge Disposition: Home or Self Care 09/20/2023 6:58 AM CDT - 09/20/2023 7:09 AM CDT Hospital Encounter Department of Radiology, [facility], in [place], [place] [address] [place] [phone] Oscar Aranda M.D. Primary Malignant Neoplasm Of Prostate (HCC) Discharge Disposition: Home or Self Care 09/19/2023 Orders Only Department of Radiation Oncology in [place], [place] [address] [place] [phone] Oscar Aranda M.D. 09/19/2023 9:30 AM CDT Comprehensive Visit Preoperative Evaluation Center in [address] [address] Harris Ryan APRN, C.N.P., D.N.P. Geremias Dhillon [...] PM CDT Clinical Communication Virtual Review in [place], [place] [address] [place] [address] from Last 3 Months Allergies No known [...] = 0.6 oz pur e alcohol) [facility] Utilities Answer Date Recorded In the past 12 months has [employer], oil, or [employer] threatened to shut off services in your [...] your living situation today? I have a [facility] place to live 07/19/2023 Sex and Gender Information Value Date Recorded Sex Assigned at Male 07/21/2023 9:10 AM INSULATION WORKER APPRENTICE Gender Identity Male 07/21/2023 9:10 AM INSULATION WORKER APPRENTICE Sexual Orientation Straight 07/21/2023 9: 10 AM INSULATION WORKER APPRENTICE Last Filed Vital Signs Vital Sign Reading [...] Appointment Department of Radiation Oncology in [place], [place] [address] [place] [address] Marlon Gambino M.D. [address] [place] [address] Procedures Procedure Name Priority Date/Time Associated Diagnosis [...] WITH EGFR, S/P Routine 07/23/2023 2:41 PM INSULATION WORKER APPRENTICE Primary Malignant Neoplasm Of Prostate (HCC) from [...] Elapsed Days 35 LEW ARIA Reference Point [id number] LEW ARIA Dosage Given to Date cGy 5000 LWE ARIA Plan ID [id number] e LEW ARIA Fractions Treated to Date 25 LEW ARIA Planned Total Fractions 25 LEW ARIA Prescribed Dose Per Fraction 200 LEW ARIA Prescription Dose in cGy 5000 LEW ARIA Plan Primary Reference Point [id number] LWE ARIA 11/07/2023 8:06 AM CDT Provider Not [...] Elapsed Days 35 LEW ARIA Reference Point [id number] LEW ARIA Dosage Given to Date cGy 5000 LEW ARIA Session Dosage Given 200 LEW ARIA Plan ID [id number] LEW ARIA Fractions Treated to Date 25 LEW ARIA Planned Total Fractions 25 LEW ARIA Prescribed Dose Per Fraction 200 LEW ARIA Prescription Dose in cGy 5000 LEW ARIA Plan Primary Reference Point [id number] LEW ARIA 11/07/2023 8:06 AM CDT Provider Not In System RADIATION ONCOLOG Y ORDERABLES Performing Organization Address City/[facility] Co de Phone Number LOUANN SINGLETON [...] IMG MRI PROCEDURE S Performing Organization Address [facility] Co de Phone Number [facility] NA * Initial Rad Onc Treatment Planning CT Simulation (09/27/2023 11:30 AM CDT) Narrative LOUANN ISLASA - 09/27/2023 11:30 AM CDT Mary Cedeño, RTT ? 09/27/2023 12:09 PM Initial Rad Onc Treatment Planning CT Simulation Performed by: Marlon Gambino M.D. Authorized by: Marlon Gambino M.D. ?? Marlon Gambino M.D. RADIATION ONCOLOGY ORDERABLES Performing Organization Address City/[facility]/ZIP Co de Phone Number LOUANN jules * (ABNORMAL) Glucose, POCT (09/20/2023 12:45 PM CDT) Only the most recent of4 resultswithin the time period is included. Glucose, POCT, B 152(H) 70 - 140 mg/dL 09/20/2023 12:47 PM CDT PCDE Site Capillary 09/20/2023 12:47 PM CDT PCDE Blood 09/20/2023 12:4 5 PM CDT 09/20/2023 12:48 PM CDT Unknown Provider LAB POCT ORDERABLES- MANUAL POC [facility] [address] [place] [address], [facility] PCDE [facility] POC [address] [place] [address] * US Prostate Interstitial Radioelement (09/20/2023 8:58 [...] ETT location: oral VL device: glide scope Hindman scope blade size: 4 Tube size: 7.5 [...] Brachytherapy HDR (09/20/2023 8:00 AM CDT) Narrative SAPULPA ROSHAN - 09/20/2023 8:00 AM CDT Oscar [...] hydrogel was prepared as described in the cardiology consultant's Instructions For Use. With the subject maintained [...] APRN, C.N.P., D.N.P. L AB URINE ORDERABLES [facility] [address] [place] [address], [facility] DTL [facility] [address] [place] [address] * Microscopic Automated (09/19/2023 10:54 AM CDT) Microscopy Normal 09/19/2023 11:52 AM CDT DTL RBC None Seen <3 /hpf 09/19/2023 11:52 AM CDT DTL WBC None Seen /hpf 09/19/2023 11:52 AM CDT DT Comment: ----REFERENCE VALUE---- <4 ??(Males) <11 (Females) Urine 09/19/2023 10:5 4 AM CDT 09/19/2023 11:16 AM CDT Harris Ryan APRN, C.N.P., D.N.P. L AB URINE ORDERABLES Performing Organization Address [facility] Co de Phone Number [facility] [address] [place] [address] * Bacterial Culture, Aerobic + Susceptibility, Urine (09/19/2023 10:54 AM CDT) Urine Culture No growth after 1 day of incubation. 09/20/2023 8:11 AM CDT DT Urine (Urine, Midstream) 09/19/2023 10:54 AM CDT 09/19/2023 1:41 PM CDT Comment:Specimen Source Site : Urine Harris Ryan APRN, C.N.P., D.N.P. L AB MICROBIOLOGY - GENERAL ORDERABLES Performing Organization Address [facility] de Phone Number [facility] [address] [place] [address] * pH, Urine (09/19/2023 10:54 AM CDT) pH, U 5.3 4.5 - 8.0 09/19/2023 12: 12 PM CDT DTL Urine 09/19/2023 10:5 4 AM CDT 09/19/2023 11:16 AM CDT Harris Ryan APRN, C.N.P., D.N.P. L AB URINE ORDERABLES Performing Organization Address City/[facility] Co de Phone Number [facility] [address] [place] [address] * Osmolality, Urine (09/19/2023 10:54 AM CDT) Osmolality, U 179 150 - 1150 mOsm/kg 09/19/2023 12:12 PM CDT DTL Urine 09/19/2023 10:5 4 AM CDT 09/19/2023 11:16 AM CDT Krsih Morse APRN.N.P., D.N.P. L AB URINE ORDERABLES Performing Organization Address [facility] Co de Phone Number [facility] [address] [place] [address] * Urinalysis, with Microscopic: Urine, Midstream (09/19/2023 [...] Performing Organization Address City/[facility] Co de Phone Number [facility] [address] [place] [address], [facility] DTL [facility] [address] [place] [address] * ECG 12 Lead (09/19/2023 10:07 AM CDT) Ventricular Rate ECG/Min 62 BPM MUSE DE Interval 154 ms MUSE QRSD Interval 98 ms MUSE QT Interval 428 ms MUSE QTC Interval 434 ms MUSE P Omro 30 degrees MUSE R Omro 24 degrees MUSE T Wave Omro 15 degrees MUSE 09/19/2023 10:0 7 AM [...] M.S. ECG ORD ERABLES Performing Organization Address City/[facility] Co de Phone Number MUSE NA * Creatinine with Estimated GFR (07/23/2023 2:41 PM INSULATION WORKER APPRENTICE) Creatinine 0.93 0.74 - 1.35 mg/dL 07/23/2023 3:28 PM INSULATION WORKER APPRENTICE OWAT Estimated GFR (eGFR) 87 >=60 mL/min/BSA 07/23/2023 3:28 PM INSULATION WORKER APPRENTICE OWAT Comment: Estimated GFR calculated using the 2020 CKD_EPI creatinine equation. Blood (Blood, Venous) 07/23/2023 2:41 PM INSULATION WORKER APPRENTICE 07/23/2023 2:47 PM INSULATION WORKER APPRENTICE Tonia Quijano APRNNYisselP., D.N.P. LAB B LOOD ADD-ON [facility] [address] [place] [address], [place] OWAT [facility] in [place] [address] [place] [address] from Last 3 Months or Most Recently Relevant to Health Maintenance Advance Directives For more information, please contact: [phone] * Full Code (Latest Code Status on File) Date Activated Date Inactivated Comments 09/20/2023 1:19 PM 09/20/2023 5:33 PM Question Answer Comments Full Code: Discussed Care Teams Artist Agent Relationship Specialty Start Date End Date Elsewhere, Pcp PCP - General Internal Medicine 09/18/23
--- OUTSIDE RECORDS SUMMARY | 2023-12-11 08:24 | XMS_ITS ---
Author Organization [facility] Address [address] [place] [address] Care Team Providers Care Certified Nutritionist Name Role Phone Unavailable Unavailable Unavailable Surgery Details Not on file Complications Check Surgery Details section. Procedure Estimated Blood Loss Check Surgery Details section. Procedure Findings Check Surgery Details section. Procedure Specimens Taken Check Surgery Details section.
--- OUTSIDE RECORDS SUMMARY | 2023-12-11 08:24 | XMS_ITS | Encounter Summary ---
Author Organization [facility] Address [address] [place] [address] Care Team Providers Care Bender Helper Name Role Phone Elsewhere, Pcp Primary Care Provider Unavailabl e Encounter Details Date Type Department Care Team (Late st Contact Info) Description 11/07/2023 Documentation Department of Radiation Oncology in [place], [place] [address] [place] [phone] Marlon Gambino M.D. [address] [place] [address] Social History Tobacco Use Types Packs/Day Years Used Date Smoking Tobacco: Never Smokeless Tobacco: Never Alcohol Use Standard Drinks/Week Comments Yes 3 (1 standard drink = 0.6 oz pur e alcohol) [facility] Utilities Answer Date Recorded In the past 12 months has [employer], gas, oil, or water [employer] threatened to shut off services in your [...] living situation today? I have a [facility] place to live 07/19/2023 Sex and Gender Information Value Date Recorded Sex Assigned at Male 07/21/2023 9:10 AM EMISSIONS INSPECTOR Gender Identity Male 07/21/2023 9:10 AM EMISSIONS INSPECTOR Sexual Orientation Straight 07/21/2023 9: 10 AM EMISSIONS INSPECTOR documented as of this encounter Miscellaneous Notes * Radiation Completion Notes - Afshan Hanson R.N. - 11/07/2023 11:59 PM CDT DIAGNOSIS: 1. Primary Malignant Neoplasm Of Prostate (HCC) Attending Physician: Marlon Gambino M.D. ([id number]) Treatment Intent: Curative Concomitant Therapy: Hormonal Therapy Single Plan Treatment Course: 1bProstate Plan ID Fractions Dose / Fraction (cGy) Dose Treated (cGy) Dose Planned (cGy) First Treatment Last Treatment Elapsed Days [id number] 1500 1500 1500 09/20/2023 09/20/2023 0 Course Summary 09/20/2023 09/20/2023 0 Treatment Course: 1xProstate Plan ID Fractions Dose / Fraction (cGy) Dose Treated (cGy) Dose Planned (cGy) First Treatment Last Treatment Elapsed Days [id number] 200 5000 5000 10/03/2023 11/07/2023 35 Course Summary 10/03/2023 11/07/2023 35 Radiation Modality: Photons CLINICAL SUMMARY Magdy Beck completed radiation treatment as planned without interruptions. The course of treatment was tolerated well. The patient experienced toxicities of grade 1 diarrhea and grade 1 urinary urgency during radiation treatment. TREATMENT RESPONSE: Response to treatment will be determined by post-treatment imaging and/or laboratory work. RECOMMENDED FOLLOW UP: Radiation Oncologist. [facility] will have a PSA, testosterone, CBC, and CMP checked then. Dr. Gambino is referring him to Dr. Rodriguez or Dr. Ferguson at [facility] for consideration the addition of abiraterone or other ARPI because of his very high-risk disease. Dr. Gambino will see him in follow-up s oon after. Signed by: Afshan Hanson R.N., 11/25/2023 2:48 PM CDT [facility] [address] [place] [address] documented in this encounter Plan of Treatment Upcoming Encounters Date Type Department Care Team (Late st Contact Info) Description 01/01/2024 3:00 PM CDT Appointment Department of Radiation Oncology in [place], [place] [address] [place] [phone] Marlon Gambino M.D. [address] [place] [phone] documented as of this encounter Visit Diagnoses Diagnosis Primary Malignant Neoplasm Of Prostate (HCC)- Primary documented in this encounter Care Teams Bender Helper Relationship Specialty Start Date End Date Elsewhere, Pcp PCP - General Internal Medicine 09/18/23 documented as of this encounter
--- OUTSIDE RECORDS SUMMARY | 2023-12-11 08:24 | XMS_ITS | Encounter Summary ---
Author Organization [facility] Address [address] [place] [address] Care Team Providers Care Process Supervisor Name Role Phone Elsewhere, Pcp Primary Care Provider Unavailabl e Reason for Referral * Outpatient (Routine) - Authorized Specialty Diagnoses / Procedures Referred By Contac t Referred To Contact Radiation Oncology Marlon Gambino M.D. [address] [place] [address] [facility] Referral ID Status Reason Start Date Expiration Date V isits Requested Visits Authorized [id number] Authorized 11/07/2023 05/08/2025 1 1 Scheduling Instructions PSA prior at [facility] * Radiation Therapy (Routine) - Authorized Specialty Diagnoses / Procedures Referred By Contac t Referred To Contact Diagnoses Primary Malignant Neoplasm Of Prostate (HCC) Procedures Management Visit Marlon Gambino M.D. [address] [place] [address] [facility] Referral ID Status Reason Start Date Expiration Date V isits Requested Visits Authorized [id number] Authorized 08/02/2023 08/01/2024 10 10 Reason for Visit * Radiation Therapy (Routine) - Authorized Specialty Diagnoses / Procedures Referred By Contac t Referred To Contact Diagnoses Primary Malignant Neoplasm Of Prostate (HCC) Procedures Management Visit Marlon Gambino M.D. [address] [place] [address] [facility] Region Referral ID Status Reason Start Date Expiration Date V isits Requested Visits Authorized [id number] Authorized 08/02/2023 08/01/2024 10 10 Encounter Details Date Type Department Care Team (Latest Contact Info) Description 11/07/2023 7:55 AM CDT - 11/08/2023 6:09 PM CDT Hospital Encounter Department of Radiation Oncology in [place], [place] [address] [place] [address] Marlon Gambino M.D. [address] [place] [phone] Primary Malignant Neoplasm Of Prostate (HCC) Social History Tobacco Use Types Packs/Day Years Used Date Smoking Tobacco: Never Smokeless Tobacco: Never Alcohol Use Standard Drinks/Week Comments Yes 3 (1 standard drink = 0.6 oz pur e alcohol) [facility] Utilities Answer Date Recorded In the past 12 months has [employer], gas, oil, or water [employer] threatened to shut off services in your [...] living situation today? I have a [facility] place to live 07/19/2023 Sex and Gender Information Value Date Recorded Sex Assigned at Male 07/21/2023 9:10 AM BRICK CARRIER Gender Identity Male 07/21/2023 9:10 AM BRICK CARRIER Sexual Orientation Straight 07/21/2023 9: 10 AM BRICK CARRIER documented as of this encounter Last Filed [...] Prostate (HCC) SUPERVISED BY: Marlon Gambino M.D. ([id number]) HISTORY OF PRESENT ILLNESS Magdy Beck is [...] (cGy) First Treatment Last Treatment Elapsed Days [id number] 1500 1500 1500 09/20/2023 09/20/2023 0 Course Summary 09/20/2023 09/20/2023 0 Treatment Course: 1xProstate Plan ID Fractions Dose / Fraction (cGy) Dose Treated (cGy) Dose Planned (cGy) First Treatment Last Treatment Elapsed Days [id number] 200 5000 5000 10/03/2023 11/07/2023 35 Course [...] mg injection on December 26, 2023 at [facility]. He will get a PSA and testosterone checked at that time. He willthen have an office visit with Dr. Gambino a few days later. He will also have a consult with Dr. Rodriguez or at [facility]. He can contact our care team with [...] will be on December 26, 2023 at [facility] and will have a PSA, testosterone, CBC, and CMP checked then. I am referring him to Dr. Rodriguez or Dr. Ferguson at [facility] for consideration the addition of abiraterone or other ARPI because of his very high-risk disease. I will see him in follow-up soon after. He can contact our team at any time with questions or concerns. He verbalized satisfaction with this plan. Signed by: Marlon Gambino M.D. 11/08/2023 6:09 PM CDT [facility] [address] [place] [phone] documented in this encounter Miscellaneous Notes * Addendum Note - Lynne Denise, C.N.A. - 11/07/2023 9:00 AM CDTEncounter addended by: Lynne Denise, C.N.A. on: 11/11/2023 7:54 AM Actions taken: Letter saved documented in this encounter Plan of Treatment Upcoming Encounters Date Type Department Care Team (Late st Contact Info) Description 01/01/2024 3:00 PM CDT Appointment Department of Radiation Oncology in [address] [address] Marlon Gambino M.D. [address] [place] [address] Scheduled Orders Name Type Priority Associated Diagnoses Order Schedule Management Visit Radiation Oncology Routine Primary Malignant Neoplasm Of Prostate (HCC) Once for 1 Occurrences starting 11/07/2023 until 11/07/2023 Testosterone, Total by Mass Spectrometry, Serum Lab Routine Primary Malignant Neoplasm Of Prostate (HCC) Expected: 11/20/2023, Expires: 02/06/2025 Comprehensive Metabolic Panel Lab Routine [...] (HCC) documented in this encounter Care Teams Process Supervisor Relationship Specialty Start Date End Date Elsewhere, Pcp PCP - General Internal Medicine 09/18/23 documented as of this encounter
--- OUTSIDE RECORDS SUMMARY | 2023-12-11 08:25 | XMS_ITS | Encounter Summary ---
Author Organization [facility] Address [address] [place] [address] Care Team Providers Care Nylon Hot Wire Cutter Name Role Phone Elsewhere, Pcp Primary Care Provider Unavailabl e Encounter Details Date Type Department Care Team (Latest Contact Info) Description 10/23/2023 7:45 AM CDT - 10/23/2023 11:59 PM CDT Hospital Encounter Department of Radiation Oncology in [place], [place] [address] [place] [phone] Marlon Gambino M.D. [address] [place] [address] Discharge Disposition: Home or Self Care Social History Tobacco Use Types Packs/Day Years Used Date Smoking Tobacco: Never Smokeless Tobacco: Never Alcohol Use Standard Drinks/Week Comments Yes 3 (1 standard drink = 0.6 oz pur e alcohol) [facility] Utilities Answer Date Recorded In the past 12 months has [employer], [employer], oil, or water [employer] threatened to shut off services in your [...] living situation today? I have a [facility] place to live 07/19/2023 Sex and Gender Information Value Date Recorded Sex Assigned at Male 07/21/2023 9:10 AM AUTOMATIC PAD MAKING MACHINE OPERATOR Gender Identity Male 07/21/2023 9:10 AM AUTOMATIC PAD MAKING MACHINE OPERATOR Sexual Orientation Straight 07/21/2023 9: 10 AM AUTOMATIC PAD MAKING MACHINE OPERATOR documented as of this encounter Medications [...] CDT Appointment Department of Radiation Oncology in [place], [place] [address] [place] [address] Marlon Gambino M.D. [address] [place] [address] documented as of this encounter Visit Diagnoses Not on filedocumented in this encounter Care Teams Nylon Hot Wire Cutter Relationship Specialty Start Date End Date Elsewhere, Pcp PCP - General Internal Medicine 09/18/23 documented as of this encounter
--- OUTSIDE RECORDS SUMMARY | 2023-12-11 08:25 | XMS_ITS | Encounter Summary ---
Author Organization [facility] Address [address] [place] [address] Care Team Providers Care Rotary Adjuster Name Role Phone Elsewhere, Pcp Primary Care Provider Unavailabl e Encounter Details Date Type Department Care Team (Latest Contact Info) Description 10/29/2023 7:46 AM CDT - 10/29/2023 11:59 PM CDT Hospital Encounter Department of Radiation Oncology in [place], [place] [address] [place] [address] Marlon Gambino M.D. [address] [place] [address] Discharge Disposition: Home or Self Care Social History Tobacco Use Types Packs/Day Years Used Date Smoking Tobacco: Never Smokeless Tobacco: Never Alcohol Use Standard Drinks/Week Comments Yes 3 (1 standard drink = 0.6 oz pur e alcohol) [facility] Utilities Answer Date Recorded In the past 12 months has [employer], [employer], oil, or water [employer] threatened to shut off services in your [...] your living situation today? I have a [facility] place to live 07/19/2023 Sex and Gender Information Value Date Recorded Sex Assigned at Male 07/21/2023 9:10 AM EXHIBIT CARPENTER Gender Identity Male 07/21/2023 9:10 AM EXHIBIT CARPENTER Sexual Orientation Straight 07/21/2023 9: 10 AM EXHIBIT CARPENTER documented as of this encounter Medications at [...] CDT Appointment Department of Radiation Oncology in [place], [place] [address] [place] [address] Marlon Gambino M.D. [address] [place] [address] documented as of this encounter Visit Diagnoses Not on filedocumented in this encounter Care Teams Rotary Adjuster Relationship Specialty Start Date End Date Elsewhere, Pcp PCP - General Internal Medicine 09/18/23 documented as of this encounter
--- OUTSIDE RECORDS SUMMARY | 2023-12-11 08:25 | XMS_ITS | Encounter Summary ---
Author Organization [facility] Address [address] [place] [address] Care Team Providers Care Welding Machine Operator Ultrasonic Name Role Phone Elsewhere, Pcp Primary Care Provider Unavailabl e Encounter Details Date Type Department Care Team (Latest Contact Info) Description 10/17/2023 7:47 AM CDT - 10/17/2023 11:59 PM CDT Hospital Encounter Department of Radiation Oncology in [place], [place] [address] [place] [phone] Marlon Gambino M.D. [address] [place] [address] Discharge Disposition: Home or Self Care Social History Tobacco Use Types Packs/Day Years Used Date Smoking Tobacco: Never Smokeless Tobacco: Never Alcohol Use Standard Drinks/Week Comments Yes 3 (1 standard drink = 0.6 oz pur e alcohol) [facility] Utilities Answer Date Recorded In the past 12 months has [employer], [employer], oil, or water [employer] threatened to shut off services in your [...] your living situation today? I have a [facility] place to live 07/19/2023 Sex and Gender Information Value Date Recorded Sex Assigned at Male 07/21/2023 9:10 AM DOUGHNUT ICER MACHINE Gender Identity Male 07/21/2023 9:10 AM DOUGHNUT ICER MACHINE Sexual Orientation Straight 07/21/2023 9: 10 AM DOUGHNUT ICER MACHINE documented as of this encounter Medications [...] CDT Appointment Department of Radiation Oncology in [place], [place] [address] [place] [address] Marlon Gambino M.D. [address] [place] [address] documented as of this encounter Visit Diagnoses Not on filedocumented in this encounter Care Teams Welding Machine Operator Ultrasonic Relationship Specialty Start Date End Date Elsewhere, Pcp PCP - General Internal Medicine 09/18/23 documented as of this encounter
--- OUTSIDE RECORDS SUMMARY | 2023-12-11 08:25 | XMS_ITS | Encounter Summary ---
Author Organization [facility] Address [address] [place] [address] Care Team Providers Care Mail Processing Associate Name Role Phone Elsewhere, Pcp Primary Care Provider Unavailabl e Reason for Referral * Radiation Therapy (Routine) - Authorized Specialty Diagnoses / Procedures Referred By Contac t Referred To Contact Diagnoses Primary Malignant Neoplasm Of Prostate (HCC) Procedures Management Visit Marlon Gambino M.D. [address] [place] [address] [facility] Region Referral ID Status Reason Start Date Expiration Date V isits Requested Visits Authorized [id number] Authorized 08/02/2023 08/01/2024 10 10 Reason for Visit * Radiation Therapy (Routine) - Authorized Specialty Diagnoses / Procedures Referred By Contac t Referred To Contact Diagnoses Primary Malignant Neoplasm Of Prostate (HCC) Procedures Management Visit Marlon Gambino M.D. [address] [place] [address] [facility] Region Referral ID Status Reason Start Date Expiration Date V isits Requested Visits Authorized [id number] Authorized 08/02/2023 08/01/2024 10 10 Encounter Details Date Type Department Care Team (Latest Contact Info) Description 10/16/2023 7:46 AM CDT - 10/16/2023 2:14 PM CDT Hospital Encounter Department of Radiation Oncology in [place], [place] [address] [place] [phone] Marlon Gambino M.D. [address] [place] [address] Primary Malignant Neoplasm Of Prostate (HCC) Social History Tobacco Use Types Packs/Day Years Used Date Smoking Tobacco: Never Smokeless Tobacco: Never Alcohol Use Standard Drinks/Week Comments Yes 3 (1 standard drink = 0.6 oz pur e alcohol) [facility] Utilities Answer Date Recorded In the past 12 months has e [employer], gas, oil, or water [employer] threatened to shut off services in your [...] Sex Assigned at Male 07/21/2023 9:10 AM FINAL CIGAR AND BOX EXAMINER Gender Identity Male 07/21/2023 9:10 AM FINAL CIGAR AND BOX EXAMINER Sexual Orientation Straight 07/21/2023 9: 10 AM FINAL CIGAR AND BOX EXAMINER documented as of this encounter Last Filed [...] Prostate (HCC) SUPERVISED BY: Marlon Gambino M.D. ([id number]) HISTORY OF PRESENT ILLNESS Magdy Beck is [...] (cGy) First Treatment Last Treatment Elapsed Days [id number] 1500 1500 1500 09/20/2023 09/20/2023 0 Course Summary 09/20/2023 09/20/2023 0 Treatment Course: 1xProstate Plan ID Fractions Dose / Fraction (cGy) Dose Treated (cGy) Dose Planned (cGy) First Treatment Last Treatment Elapsed Days [id number] 200 2000 5000 10/03/2023 10/16/2023 13 Course [...] 22.5 mg on October 02, 2023 at [facility]. Hewill be due for his next injection [...] Marlon Gambino M.D. 10/16/2023 2:14 PM CDT [facility] [address] [place] [address] documented in this encounter Plan of Treatment Upcoming Encounters Date Type Department Care Team ([facility] st Contact Info) Description 01/01/2024 3:00 PM CDT Appointment Department of Radiation Oncology in [place], [place] [address] [place] [phone] Marlon Gambino M.D. [address] [place] [address] Scheduled Orders Name Type Priority Associated Diagnoses Orde r Schedule Management Visit Radiation Oncology Routine Primary Malignant Neoplasm Of Prostate (HCC) Once for 1 Occurrences starting 10/16/2023 until 10/16/2023 documented as of this encounter Visit Diagnoses Diagnosis Primary Malignant Neoplasm Of Prostate (HCC) documented in this encounter Care Teams Mail Processing Associate Relationship Specialty Start Date End Date Elsewhere, Pcp PCP - General Internal Medicine 09/18/23 documented as of this encounter
--- OUTSIDE RECORDS SUMMARY | 2023-12-11 08:25 | XMS_ITS | Encounter Summary ---
Author Organization [facility] Address [address] [place] [address] Care Team Providers Care Radio Repairman Name Role Phone Elsewhere, Pcp Primary Care Provider Unavailabl e Encounter Details Date Type Department Care Team (Latest Contact Info) Description 10/14/2023 7:52 AM CDT - 10/14/2023 11:59 PM CDT Hospital Encounter Department of Radiation Oncology in [place], [place] [address] [place] [phone] Marlon Gambino M.D. [address] [place] [address] Discharge Disposition: Home or Self Care Social History Tobacco Use Types Packs/Day Years Used Date Smoking Tobacco: Never Smokeless Tobacco: Never Alcohol Use Standard Drinks/Week Comments Yes 3 (1 standard drink = 0.6 oz pur e alcohol) [facility] Utilities Answer Date Recorded In the past 12 months has [employer], [employer], oil, or water [employer] threatened to shut off services in your [...] your living situation today? I have a [facility] place to live 07/19/2023 Sex and Gender Information Value Date Recorded Sex Assigned at Male 07/21/2023 9:10 AM MID LEVEL GAME DESIGNER Gender Identity Male 07/21/2023 9:10 AM MID LEVEL GAME DESIGNER Sexual Orientation Straight 07/21/2023 9: 10 AM MID LEVEL GAME DESIGNER documented as of this encounter Medications [...] CDT Appointment Department of Radiation Oncology in [place], [place] [address] [place] [address] Marlon Gambino M.D. [address] [place] [address] documented as of this encounter Visit Diagnoses Not on filedocumented in this encounter Care Teams Radio Repairman Relationship Specialty Start Date End Date Elsewhere, Pcp PCP - General Internal Medicine 09/18/23 documented as of this encounter
--- OUTSIDE RECORDS SUMMARY | 2023-12-11 08:25 | XMS_ITS | Encounter Summary ---
Author Organization [facility] Address [address] [place] [address] Care Team Providers Care Lumber Straightener Name Role Phone Elsewhere, Pcp Primary Care Provider Unavailabl e Encounter Details Date Type Department Care Team (Latest Contact Info) Description 11/06/2023 7:45 AM CDT - 11/06/2023 11:59 PM CDT Hospital Encounter Department of Radiation Oncology in [place], [place] [address] [place] [address] Marlon Gambino M.D. [address] [place] [address] Discharge Disposition: Home or Self Care Social History Tobacco Use Types Packs/Day Years Used Date Smoking Tobacco: Never Smokeless Tobacco: Never Alcohol Use Standard Drinks/Week Comments Yes 3 (1 standard drink = 0.6 oz pur e alcohol) [facility] Utilities Answer Date Recorded In the past 12 months has [employer], [employer], oil, or water [employer] threatened to shut off services in your [...] your living situation today? I have a [facility] place to live 07/19/2023 Sex and Gender Information Value Date Recorded Sex Assigned at Male 07/21/2023 9:10 AM ENROLLMENT MANAGEMENT DIRECTOR Gender Identity Male 07/21/2023 9:10 AM ENROLLMENT MANAGEMENT DIRECTOR Sexual Orientation Straight 07/21/2023 9: 10 AM ENROLLMENT MANAGEMENT DIRECTOR documented as of this encounter Medications [...] CDT Appointment Department of Radiation Oncology in [place], [place] [address] [place] [address] Marlon Gambino M.D. [address] [place] [address] documented as of this encounter Visit Diagnoses Not on filedocumented in this encounter Care Teams Lumber Straightener Relationship Specialty Start Date End Date Elsewhere, Pcp PCP - General Internal Medicine 09/18/23 documented as of this encounter
--- OUTSIDE RECORDS SUMMARY | 2023-12-11 08:25 | XMS_ITS | Encounter Summary ---
Author Organization [facility] Address [address] [place] [address] Care Team Providers Care Optical Goods Worker Name Role Phone Elsewhere, Pcp Primary Care Provider Unavailabl e Encounter Details Date Type Department Care Team (Latest Contact Info) Description 10/16/2023 7:46 AM CDT - 10/16/2023 11:59 PM CDT Hospital Encounter Department of Radiation Oncology in [place], [place] [address] [place] [phone] Marlon Gambino M.D. [address] [place] [address] Discharge Disposition: Home or Self Care Social History Tobacco Use Types Packs/Day Years Used Date Smoking Tobacco: Never Smokeless Tobacco: Never Alcohol Use Standard Drinks/Week Comments Yes 3 (1 standard drink = 0.6 oz pur e alcohol) [facility] Utilities Answer Date Recorded In the past 12 months has [employer], [employer], oil, or water [employer] threatened to shut off services in your [...] your living situation today? I have a [facility] place to live 07/19/2023 Sex and Gender Information Value Date Recorded Sex Assigned at Male 07/21/2023 9:10 AM GENETIC COUNSELOR Gender Identity Male 07/21/2023 9:10 AM GENETIC COUNSELOR Sexual Orientation Straight 07/21/2023 9: 10 AM GENETIC COUNSELOR documented as of this encounter Medications at [...] CDT Appointment Department of Radiation Oncology in [place], [place] [address] [place] [address] Marlon Gambino M.D. [address] [place] [address] documented as of this encounter Visit Diagnoses Not on filedocumented in this encounter Care Teams Optical Goods Worker Relationship Specialty Start Date End Date Elsewhere, Pcp PCP - General Internal Medicine 09/18/23 documented as of this encounter
--- OUTSIDE RECORDS SUMMARY | 2023-12-11 08:25 | XMS_ITS | Encounter Summary ---
Author Organization [facility] Address [address] [place] [address] Care Team Providers Care Agriscience Technology Instructor Name Role Phone Elsewhere, Pcp Primary Care Provider Unavailabl e Encounter Details Date Type Department Care Team (Latest Contact Info) Description 10/18/2023 7:48 AM CDT - 10/18/2023 11:59 PM CDT Hospital Encounter Department of Radiation Oncology in [place], [place] [address] [place] [address] Marlon Gambino M.D. [address] [place] [address] Discharge Disposition: Home or Self Care Social History Tobacco Use Types Packs/Day Years Used Date Smoking Tobacco: Never Smokeless Tobacco: Never Alcohol Use Standard Drinks/Week Comments Yes 3 (1 standard drink = 0.6 oz pur e alcohol) [facility] Utilities Answer Date Recorded In the past 12 months has [employer], [employer], oil, or water [employer] threatened to shut off services in your [...] situation today? I have a [facility] place to live 07/19/2023 Sex and Gender Information Value Date Recorded Sex Assigned at Male 07/21/2023 9:10 AM PIERCER OPERATOR Gender Identity Male 07/21/2023 9:10 AM PIERCER OPERATOR Sexual Orientation Straight 07/21/2023 9: 10 AM PIERCER OPERATOR documented as of this encounter Medications [...] CDT Appointment Department of Radiation Oncology in [place], [place] [address] [place] [address] Marlon Gambino M.D. [address] [place] [address] documented as of this encounter Visit Diagnoses Not on filedocumented in this encounter Care Teams Agriscience Technology Instructor Relationship Specialty Start Date End Date Elsewhere, Pcp PCP - General Internal Medicine 09/18/23 documented as of this encounter
--- OUTSIDE RECORDS SUMMARY | 2023-12-11 08:25 | XMS_ITS | Encounter Summary ---
Author Organization [facility] Address [address] [place] [address] Care Team Providers Care Fee Clerk Name Role Phone Elsewhere, Pcp Primary Care Provider Unavailabl e Reason for Referral * Radiation Therapy (Routine) - Authorized Specialty Diagnoses / Procedures Referred By Contac t Referred To Contact Diagnoses Primary Malignant Neoplasm Of Prostate (HCC) Procedures Management Visit Marlon Gambino M.D. [address] [place] [address] [facility] Region Referral ID Status Reason Start Date Expiration Date V isits Requested Visits Authorized [id number] Authorized 08/02/2023 08/01/2024 10 10 Reason for Visit * Radiation Therapy (Routine) - Authorized Specialty Diagnoses / Procedures Referred By Contac t Referred To Contact Diagnoses Primary Malignant Neoplasm Of Prostate (HCC) Procedures Management Visit Marlon Gambino M.D. [address] [place] [address] [facility] Region Referral ID Status Reason Start Date Expiration Date V isits Requested Visits Authorized [id number] Authorized 08/02/2023 08/01/2024 10 10 Encounter Details Date Type Department Care Team (Latest Contact Info) Description 10/30/2023 7:46 AM CDT - 10/30/2023 9:05 AM CDT Hospital Encounter Department of Radiation Oncology in [place], [place] [address] [place] [phone] Marlon Gambino M.D. [address] [place] [address] Primary Malignant Neoplasm Of Prostate (HCC) Social History Tobacco Use Types Packs/Day Years Used Date Smoking Tobacco: Never Smokeless Tobacco: Never Alcohol Use Standard Drinks/Week Comments Yes 3 (1 standard drink = 0.6 oz pur e alcohol) [facility] Utilities Answer Date Recorded In the past 12 months has e [employer], gas, oil, or water [employer] threatened to shut off services in your [...] Sex Assigned at Male 07/21/2023 9:10 AM AIRCRAFT REFUELLER Gender Identity Male 07/21/2023 9:10 AM AIRCRAFT REFUELLER Sexual Orientation Straight 07/21/2023 9: 10 AM AIRCRAFT REFUELLER documented as of this encounter Last Filed [...] Prostate (HCC) SUPERVISED BY: Marlon Gambino M.D. ([id number]) HISTORY OF PRESENT ILLNESS Magdy Beck is [...] (cGy) First Treatment Last Treatment Elapsed Days [id number] 1500 1500 1500 09/20/2023 09/20/2023 0 Course Summary 09/20/2023 09/20/2023 0 Treatment Course: 1xProstate Plan ID Fractions Dose / Fraction (cGy) Dose Treated (cGy) Dose Planned (cGy) First Treatment Last Treatment Elapsed Days [id number] 200 3800 5000 10/03/2023 10/30/2023 27 Course [...] next injection on December 26, 2023 at [facility]. He will continue with radiation treatment as [...] Marlon Gambino M.D. 10/30/2023 9:05 AM CDT [facility] [address] [place] [address] documented in this encounter Plan of Treatment Upcoming Encounters Date Type Department Care Team (Late st Contact Info) Description 01/01/2024 3:00 PM CDT Appointment Department of Radiation Oncology in [address] [phone] Marlon Gambino M.D. [address] [place] [address] Scheduled Orders Name Type Priority Associated Diagnoses Orde r Schedule Management Visit Radiation Oncology Routine Primary Malignant Neoplasm Of Prostate (HCC) Once for 1 Occurrences starting 10/30/2023 until 10/30/2023 documented as of this encounter Visit Diagnoses Diagnosis Primary Malignant Neoplasm Of Prostate (HCC) documented in this encounter Care Teams Fee Clerk Relationship Specialty Start Date End Date Elsewhere, Pcp PCP - General Internal Medicine 09/18/23 documented as of this encounter
--- OUTSIDE RECORDS SUMMARY | 2023-12-11 08:25 | XMS_ITS | Encounter Summary ---
Author Organization [facility] Address [address] [place] [address] Care Team Providers Care Unit Manager Rn Name Role Phone Elsewhere, Pcp Primary Care Provider Unavailabl e Encounter Details Date Type Department Care Team (Latest Contact Info) Description 10/30/2023 7:46 AM CDT - 10/30/2023 11:59 PM CDT Hospital Encounter Department of Radiation Oncology in [place], [place] [address] [place] [phone] Marlon Gambino M.D. [address] [place] [address] Discharge Disposition: Home or Self Care Social History Tobacco Use Types Packs/Day Years Used Date Smoking Tobacco: Never Smokeless Tobacco: Never Alcohol Use Standard Drinks/Week Comments Yes 3 (1 standard drink = 0.6 oz pur e alcohol) [facility] Utilities Answer Date Recorded In the past 12 months has [employer], [employer], oil, or water [employer] threatened to shut off services in your [...] Sex Assigned at Male 07/21/2023 9:10 AM PERMASTONE INSTALLER Gender Identity Male 07/21/2023 9:10 AM PERMASTONE INSTALLER Sexual Orientation Straight 07/21/2023 9: 10 AM PERMASTONE INSTALLER documented as of this encounter Medications at [...] CDT Appointment Department of Radiation Oncology in [place], [place] [address] [place] [address] Marlon Gambino M.D. [address] [place] [address] documented as of this encounter Visit Diagnoses Not on filedocumented in this encounter Care Teams Unit Manager Rn Relationship Specialty Start Date End Date Elsewhere, Pcp PCP - General Internal Medicine 09/18/23 documented as of this encounter
--- OUTSIDE RECORDS SUMMARY | 2023-12-11 08:25 | XMS_ITS | Encounter Summary ---
Author Organization [facility] Address [address] [place] [address] Care Team Providers Care Motor And Controls Tester Name Role Phone Elsewhere, Pcp Primary Care Provider Unavailabl e Encounter Details Date Type Department Care Team (Latest Contact Info) Description 10/21/2023 7:47 AM CDT - 10/21/2023 8:20 AM CDT Hospital Encounter Department of Radiation Oncology in [place], [place] [address] [place] [address] Marlon Gambino M.D. [address] [place] [address] Discharge Disposition: Home or Self Care Social History Tobacco Use Types Packs/Day Years Used Date Smoking Tobacco: Never Smokeless Tobacco: Never Alcohol Use Standard Drinks/Week Comments Yes 3 (1 standard drink = 0.6 oz pur e alcohol) [facility] Utilities Answer Date Recorded In the past 12 months has [employer], [employer], oil, or water [employer] threatened to shut off services in your [...] Sex Assigned at Male 07/21/2023 9:10 AM CUTTER WET MACHINE Gender Identity Male 07/21/2023 9:10 AM CUTTER WET MACHINE Sexual Orientation Straight 07/21/2023 9: 10 AM CUTTER WET MACHINE documented as of this encounter Medications [...] CDT Appointment Department of Radiation Oncology in [place], [place] [address] [place] [address] Marlon Gambino M.D. [address] [place] [address] documented as of this encounter Visit Diagnoses Not on filedocumented in this encounter Care Teams Motor And Controls Tester Relationship Specialty Start Date End Date Elsewhere, Pcp PCP - General Internal Medicine 09/18/23 documented as of this encounter
--- OUTSIDE RECORDS SUMMARY | 2023-12-11 08:25 | XMS_ITS | Encounter Summary ---
Author Organization [facility] Address [address] [place] [address] Care Team Providers Care Sales Rep Name Role Phone Elsewhere, Pcp Primary Care Provider Unavailabl e Encounter Details Date Type Department Care Team (Latest Contact Info) Description 10/15/2023 7:46 AM CDT - 10/15/2023 11:59 PM CDT Hospital Encounter Department of Radiation Oncology in [place], [place] [address] [place] [phone] Marlon Gambino M.D. [address] [place] [address] Discharge Disposition: Home or Self Care Social History Tobacco Use Types Packs/Day Years Used Date Smoking Tobacco: Never Smokeless Tobacco: Never Alcohol Use Standard Drinks/Week Comments Yes 3 (1 standard drink = 0.6 oz pur e alcohol) [facility] Utilities Answer Date Recorded In the past 12 months has [employer], [employer], oil, or water [employer] threatened to shut off services in your [...] Assigned at Male 07/21/2023 9:10 AM MANAGER SERVICE DESK Gender Identity Male 07/21/2023 9:10 AM MANAGER SERVICE DESK Sexual Orientation Straight 07/21/2023 9: 10 AM MANAGER SERVICE DESK documented as of this encounter Medications at [...] CDT Appointment Department of Radiation Oncology in [place], [place] [address] [place] [address] Marlon Gambino M.D. [address] [place] [address] documented as of this encounter Visit Diagnoses Not on filedocumented in this encounter Care Teams Sales Rep Relationship Specialty Start Date End Date Elsewhere, Pcp PCP - General Internal Medicine 09/18/23 documented as of this encounter
--- OUTSIDE RECORDS SUMMARY | 2023-12-11 08:25 | XMS_ITS | Encounter Summary ---
Author Organization [facility] Address [address] [place] [address] Care Team Providers Care Contract Negotiator Name Role Phone Elsewhere, Pcp Primary Care Provider Unavailabl e Reason for Referral * Radiation Therapy (Routine) - Authorized Specialty Diagnoses / Procedures Referred By Contac t Referred To Contact Diagnoses Primary Malignant Neoplasm Of Prostate (HCC) Procedures Management Visit Marlon Gambino M.D. [address] [place] [address] [facility] Region Referral ID Status Reason Start Date Expiration Date V isits Requested Visits Authorized [id number] Authorized 08/02/2023 08/01/2024 10 10 Reason for Visit * Radiation Therapy (Routine) - Authorized Specialty Diagnoses / Procedures Referred By Contac t Referred To Contact Diagnoses Primary Malignant Neoplasm Of Prostate (HCC) Procedures Management Visit Marlon Gambino M.D. [address] [place] [address] [facility] Region Referral ID Status Reason Start Date Expiration Date V isits Requested Visits Authorized [id number] Authorized 08/02/2023 08/01/2024 10 10 Encounter Details Date Type Department Care Team (Latest Contact Info) Description 10/23/2023 7:45 AM CDT - 10/23/2023 1:09 PM CDT Hospital Encounter Department of Radiation Oncology in [place], [place] [address] [place] [phone] Marlon Gambino M.D. [address] [place] [address] Primary Malignant Neoplasm Of Prostate (HCC) Social History Tobacco Use Types Packs/Day Years Used Date Smoking Tobacco: Never Smokeless Tobacco: Never Alcohol Use Standard Drinks/Week Comments Yes 3 (1 standard drink = 0.6 oz pur e alcohol) [facility] Utilities Answer Date Recorded In the past 12 months has e [employer], gas, oil, or water [employer] threatened to shut off services in your [...] your living situation today? I have a [facility] place to live 07/19/2023 Sex and Gender Information Value Date Recorded Sex Assigned at Male 07/21/2023 9:10 AM RUG DYER Gender Identity Male 07/21/2023 9:10 AM RUG DYER Sexual Orientation Straight 07/21/2023 9: 10 AM RUG DYER documented as of this encounter Last Filed [...] Prostate (HCC) SUPERVISED BY: Marlon Gambino M.D. ([id number]) HISTORY OF PRESENT ILLNESS Magdy Beck is [...] (cGy) First Treatment Last Treatment Elapsed Days [id number] 1500 1500 1500 09/20/2023 09/20/2023 0 Course Summary 09/20/2023 09/20/2023 0 Treatment Course: 1xProstate Plan ID Fractions Dose / Fraction (cGy) Dose Treated (cGy) Dose Planned (cGy) First Treatment Last Treatment Elapsed Days [id number] 200 3000 5000 10/03/2023 10/23/2023 20 Course [...] next injection on December 26, 2023 at [facility]. He will continue with radiation treatment [...] Marlon Gambino M.D. 10/23/2023 1:09 PM CDT [facility] [address] [place] [address] documented in this encounter Plan of Treatment Upcoming Encounters Date Type Department Care Team (Late st Contact Info) Description 01/01/2024 3:00 PM CDT Appointment Department of Radiation Oncology in [place], [place] [address] [place] [phone] Marlon Gambino M.D. [address] [place] [phone] Scheduled Orders Name Type Priority Associated Diagnoses Orde r Schedule Management Visit Radiation Oncology Routine Primary Malignant Neoplasm Of Prostate (HCC) Once for 1 Occurrences starting 10/23/2023 until 10/23/2023 documented as of this encounter Visit Diagnoses Diagnosis Primary Malignant Neoplasm Of Prostate (HCC) documented in this encounter Care Teams Contract Negotiator Relationship Specialty Start Date End Date Elsewhere, Pcp PCP - General Internal Medicine 09/18/23 documented as of this encounter
--- OUTSIDE RECORDS SUMMARY | 2023-12-11 08:25 | XMS_ITS | Encounter Summary ---
Author Organization [facility] Address [address] [place] [address] Care Team Providers Care Cosmetics Demonstrator Name Role Phone Elsewhere, Pcp Primary Care Provider Unavailabl e Encounter Details Date Type Department Care Team (Latest Contact Info) Description 10/25/2023 7:46 AM CDT - 10/25/2023 11:59 PM CDT Hospital Encounter Department of Radiation Oncology in [place], [place] [address] [place] [address] Marlon Gambino M.D. [address] [place] [address] Discharge Disposition: Home or Self Care Social History Tobacco Use Types Packs/Day Years Used Date Smoking Tobacco: Never Smokeless Tobacco: Never Alcohol Use Standard Drinks/Week Comments Yes 3 (1 standard drink = 0.6 oz pur e alcohol) [facility] Utilities Answer Date Recorded In the past 12 months has [employer], [employer], oil, or water [employer] threatened to shut off services in your [...] Sex Assigned at Male 07/21/2023 9:10 AM RESEARCH PROGRAMMER Gender Identity Male 07/21/2023 9:10 AM RESEARCH PROGRAMMER Sexual Orientation Straight 07/21/2023 9: 10 AM RESEARCH PROGRAMMER documented as of this encounter Medications at [...] CDT Appointment Department of Radiation Oncology in [place], [place] [address] [place] [address] Marlon Gambino M.D. [address] [place] [address] documented as of this encounter Visit Diagnoses Not on filedocumented in this encounter Care Teams Cosmetics Demonstrator Relationship Specialty Start Date End Date Elsewhere, Pcp PCP - General Internal Medicine 09/18/23 documented as of this encounter
--- OUTSIDE RECORDS SUMMARY | 2023-12-11 08:25 | XMS_ITS | Encounter Summary ---
Author Organization [facility] Address [address] [place] [address] Care Team Providers Care Casino Floor Person Name Role Phone Elsewhere, Pcp Primary Care Provider Unavailabl e Reason for Referral * Outpatient (Routine) - Authorized Specialty Diagnoses / Procedures Referred By Contac t Referred To Contact Radiation Oncology Diagnoses Primary Malignant Neoplasm Of Prostate (HCC) Marlon Gambino M.D. [address] [place] [address] [facility] Region Referral ID Status Reason Start Date Expiration Date V isits Requested Visits Authorized [id number] Authorized 10/21/2023 04/21/2025 5 5 Reason for Visit * Outpatient (Routine) - Authorized Specialty Diagnoses / Procedures Referred By Contac t Referred To Contact Radiation Oncology Diagnoses Primary Malignant Neoplasm Of Prostate (HCC) Marlon Gambino M.D. [address] [place] [address] [facility] Region Referral ID Status Reason Start Date Expiration Date V isits Requested Visits Authorized [id number] Authorized 10/21/2023 04/21/2025 5 5 Encounter Details Date Type Department Care Team (Latest Contact Info) Description 10/21/2023 8:21 AM CDT - 10/21/2023 11:59 PM CDT Hospital Encounter Department of Radiation Oncology in [place], [place] [address] [place] [address] Marlon Gambino M.D. [address] [place] [address] Afshan Hanson R.N. [address] [place] [address] Primary Malignant Neoplasm Of Prostate (HCC) Discharge Disposition: Home or Self Care Social History Tobacco Use Types Packs/Day Years Used Date Smoking Tobacco: Never Smokeless Tobacco: Never Alcohol Use Standard Drinks/Week Comments Yes 3 (1 standard drink = 0.6 oz pur e alcohol) [facility] Utilities Answer Date Recorded In [...] your living situation today? I have a [facility] place to live 07/19/2023 Sex and Gender Information Value Date Recorded Sex Assigned at Male 07/21/2023 9:10 AM ELECTRICIAN WIRING Gender Identity Male 07/21/2023 9:10 AM ELECTRICIAN WIRING Sexual Orientation Straight 07/21/2023 9: 10 AM ELECTRICIAN WIRING documented as of this encounter Medications at [...] CDT Appointment Department of Radiation Oncology in [place], [place] [address] [place] [phone] Marlon Gambino M.D. [address] [place] [address] Scheduled Referrals Name Type Priority Associated Diagnoses Order Schedule Radiation Oncology nurse visit (clinic) Outpatient Referral Routine Primary Malignant Neoplasm Of Prostate (HCC) Once for 1 Occurrences starting 10/21/2023 until 10/21/2023 documented as of this encounter Visit Diagnoses Diagnosis Primary Malignant Neoplasm Of Prostate (HCC) documented in this encounter Care Teams Casino Floor Person Relationship Specialty Start Date End Date Elsewhere, Pcp PCP - General Internal Medicine 09/18/23 documented as of this encounter
--- OUTSIDE RECORDS SUMMARY | 2023-12-11 08:25 | XMS_ITS | Encounter Summary ---
Author Organization [facility] Address [address] [place] [address] Care Team Providers Care Word Processing Specialist Name Role Phone Elsewhere, Pcp Primary Care Provider Unavailabl e Encounter Details Date Type Department Care Team (Latest Contact Info) Description 11/05/2023 7:46 AM CDT - 11/05/2023 11:59 PM CDT Hospital Encounter Department of Radiation Oncology in [place], [place] [address] [place] [address] Marlon Gambino M.D. [address] [place] [address] Discharge Disposition: Home or Self Care Social History Tobacco Use Types Packs/Day Years Used Date Smoking Tobacco: Never Smokeless Tobacco: Never Alcohol Use Standard Drinks/Week Comments Yes 3 (1 standard drink = 0.6 oz pur e alcohol) [facility] Utilities Answer Date Recorded In the past 12 months has [employer], [employer], oil, or water [employer] threatened to shut off services in your [...] your living situation today? I have a [facility] place to live 07/19/2023 Sex and Gender Information Value Date Recorded Sex Assigned at Male 07/21/2023 9:10 AM BARREL PLANER Gender Identity Male 07/21/2023 9:10 AM BARREL PLANER Sexual Orientation Straight 07/21/2023 9: 10 AM BARREL PLANER documented as of this encounter Medications at [...] CDT Appointment Department of Radiation Oncology in [place], [place] [address] [place] [address] Marlon Gambino M.D. [address] [place] [address] documented as of this encounter Visit Diagnoses Not on filedocumented in this encounter Care Teams Word Processing Specialist Relationship Specialty Start Date End Date Elsewhere, Pcp PCP - General Internal Medicine 09/18/23 documented as of this encounter
--- OUTSIDE RECORDS SUMMARY | 2023-12-11 08:25 | XMS_ITS | Encounter Summary ---
Author Organization [facility] Address [address] [place] [address] Care Team Providers Care Director Of Community Center Name Role Phone Elsewhere, Pcp Primary Care Provider Unavailabl e Encounter Details Date Type Department Care Team (Latest Contact Info) Description 10/24/2023 7:45 AM CDT - 10/24/2023 11:59 PM CDT Hospital Encounter Department of Radiation Oncology in [place], [place] [address] [place] [address] Marlon Gambino M.D. [address] [place] [address] Discharge Disposition: Home or Self Care Social History Tobacco Use Types Packs/Day Years Used Date Smoking Tobacco: Never Smokeless Tobacco: Never Alcohol Use Standard Drinks/Week Comments Yes 3 (1 standard drink = 0.6 oz pur e alcohol) [facility] Utilities Answer Date Recorded In the past 12 months has [email or web address], [employer], oil, or water [employer] threatened to shut off services in your [...] your living situation today? I have a [facility] place to live 07/19/2023 Sex and Gender Information Value Date Recorded Sex Assigned at Male 07/21/2023 9:10 AM RADIO ENGINEER Gender Identity Male 07/21/2023 9:10 AM RADIO ENGINEER Sexual Orientation Straight 07/21/2023 9: 10 AM RADIO ENGINEER documented as of this encounter Medications [...] CDT Appointment Department of Radiation Oncology in [place], [place] [address] [place] [address] Marlon Gambino M.D. [address] [place] [address] documented as of this encounter Visit Diagnoses Not on filedocumented in this encounter Care Teams Director Of Community Center Relationship Specialty Start Date End Date Elsewhere, Pcp PCP - General Internal Medicine 09/18/23 documented as of this encounter
--- OUTSIDE RECORDS SUMMARY | 2023-12-11 08:25 | XMS_ITS | Encounter Summary ---
Author Organization [facility] Address [address] [place] [address] Care Team Providers Care Locks Inspector Name Role Phone Elsewhere, Pcp Primary Care Provider Unavailabl e Encounter Details Date Type Department Care Team (Latest Contact Info) Description 11/04/2023 7:46 AM CDT - 11/04/2023 11:59 PM CDT Hospital Encounter Department of Radiation Oncology in [place], [place] [address] [place] [address] Marlon Gambino M.D. [address] [place] [address] Discharge Disposition: Home or Self Care Social History Tobacco Use Types Packs/Day Years Used Date Smoking Tobacco: Never Smokeless Tobacco: Never Alcohol Use Standard Drinks/Week Comments Yes 3 (1 standard drink = 0.6 oz pur e alcohol) [facility] Utilities Answer Date Recorded In the past 12 months has [employer], [employer], oil, or water [employer] threatened to shut off services in your [...] your living situation today? I have a [facility] place to live 07/19/2023 Sex and Gender Information Value Date Recorded Sex Assigned at Male 07/21/2023 9:10 AM BARBER APPRENTICE Gender Identity Male 07/21/2023 9:10 AM BARBER APPRENTICE Sexual Orientation Straight 07/21/2023 9: 10 AM BARBER APPRENTICE documented as of this encounter Medications at [...] CDT Appointment Department of Radiation Oncology in [place], [place] [address] [place] [address] Marlon Gambino M.D. [address] [place] [address] documented as of this encounter Visit Diagnoses Not on filedocumented in this encounter Care Teams Locks Inspector Relationship Specialty Start Date End Date Elsewhere, Pcp PCP - General Internal Medicine 09/18/23 documented as of this encounter
--- OUTSIDE RECORDS SUMMARY | 2023-12-11 08:25 | XMS_ITS | Encounter Summary ---
Author Organization [facility] Address [address] [place] [address] Care Team Providers Care Vending Machine Filler Name Role Phone Elsewhere, Pcp Primary Care Provider Unavailabl e Encounter Details Date Type Department Care Team (Latest Contact Info) Description 10/31/2023 7:45 AM CDT - 10/31/2023 11:59 PM CDT Hospital Encounter Department of Radiation Oncology in [place], [place] [address] [place] [phone] Marlon Gambino M.D. [address] [place] [address] Discharge Disposition: Home or Self Care Social History Tobacco Use Types Packs/Day Years Used Date Smoking Tobacco: Never Smokeless Tobacco: Never Alcohol Use Standard Drinks/Week Comments Yes 3 (1 standard drink = 0.6 oz pur e alcohol) [facility] Utilities Answer Date Recorded In the past 12 months has [employer], [employer], oil, or water [employer] threatened to shut off services in your [...] Sex Assigned at Male 07/21/2023 9:10 AM MILLSTONE CLEANER Gender Identity Male 07/21/2023 9:10 AM MILLSTONE CLEANER Sexual Orientation Straight 07/21/2023 9: 10 AM MILLSTONE CLEANER documented as of this encounter Medications at [...] CDT Appointment Department of Radiation Oncology in [place], [place] [address] [place] [address] Marlon Gambino M.D. [address] [place] [address] documented as of this encounter Visit Diagnoses Not on filedocumented in this encounter Care Teams Vending Machine Filler Relationship Specialty Start Date End Date Elsewhere, Pcp PCP - General Internal Medicine 09/18/23 documented as of this encounter
--- OUTSIDE RECORDS SUMMARY | 2023-12-11 08:25 | XMS_ITS | Encounter Summary ---
Author Organization [facility] Address [address] [place] [address] Care Team Providers Care Gusset Stitcher Name Role Phone Elsewhere, Pcp Primary Care Provider Unavailabl e Encounter Details Date Type Department Care Team (Latest Contact Info) Description 10/11/2023 7:46 AM CDT - 10/11/2023 11:59 PM CDT Hospital Encounter Department of Radiation Oncology in [place], [place] [address] [place] [phone] Marlon Gambino M.D. [address] [place] [address] Discharge Disposition: Home or Self Care Social History Tobacco Use Types Packs/Day Years Used Date Smoking Tobacco: Never Smokeless Tobacco: Never Alcohol Use Standard Drinks/Week Comments Yes 3 (1 standard drink = 0.6 oz pur e alcohol) [facility] Utilities Answer Date Recorded In the past 12 months has [employer], [employer], oil, or water [employer] threatened to shut off services in your [...] your living situation today? I have a [facility] place to live 07/19/2023 Sex and Gender Information Value Date Recorded Sex Assigned at Male 07/21/2023 9:10 AM ENTRY LEVEL FINANCIAL ANALYST Gender Identity Male 07/21/2023 9:10 AM ENTRY LEVEL FINANCIAL ANALYST Sexual Orientation Straight 07/21/2023 9: 10 AM ENTRY LEVEL FINANCIAL ANALYST documented as of this encounter Medications [...] CDT Appointment Department of Radiation Oncology in [place], [place] [address] [place] [address] Marlon Gambino M.D. [address] [place] [address] documented as of this encounter Visit Diagnoses Not on filedocumented in this encounter Care Teams Gusset Stitcher Relationship Specialty Start Date End Date Elsewhere, Pcp PCP - General Internal Medicine 09/18/23 documented as of this encounter
--- OUTSIDE RECORDS SUMMARY | 2023-12-11 08:25 | XMS_ITS | Encounter Summary ---
Author Organization [facility] Address [address] [place] [address] Care Team Providers Care Screen Handler Name Role Phone Elsewhere, Pcp Primary Care Provider Unavailabl e Encounter Details Date Type Department Care Team (Latest Contact Info) Description 10/22/2023 7:47 AM CDT - 10/22/2023 11:59 PM CDT Hospital Encounter Department of Radiation Oncology in [place], [place] [address] [place] [phone] Marlon Gambino M.D. [address] [place] [address] Discharge Disposition: Home or Self Care Social History Tobacco Use Types Packs/Day Years Used Date Smoking Tobacco: Never Smokeless Tobacco: Never Alcohol Use Standard Drinks/Week Comments Yes 3 (1 standard drink = 0.6 oz pur e alcohol) [facility] Utilities Answer Date Recorded In the past 12 months has [employer], [employer], oil, or water [employer] threatened to shut off services in your [...] today? I have a [facility] place to live 07/19/2023 Sex and Gender Information Value Date Recorded Sex Assigned at Male 07/21/2023 9:10 AM MOTOR MAN Gender Identity Male 07/21/2023 9:10 AM MOTOR MAN Sexual Orientation Straight 07/21/2023 9: 10 AM MOTOR MAN documented as of this encounter Medications at [...] CDT Appointment Department of Radiation Oncology in [place], [place] [address] [place] [address] Marlon Gambino M.D. [address] [place] [address] documented as of this encounter Visit Diagnoses Not on filedocumented in this encounter Care Teams Screen Handler Relationship Specialty Start Date End Date Elsewhere, Pcp PCP - General Internal Medicine 09/18/23 documented as of this encounter
--- OUTSIDE RECORDS SUMMARY | 2023-12-11 08:25 | XMS_ITS | Encounter Summary ---
Author Organization [facility] Address [address] [place] [address] Care Team Providers Care Cyber Security Manager Name Role Phone Elsewhere, Pcp Primary Care Provider Unavailabl e Encounter Details Date Type Department Care Team (Latest Contact Info) Description 11/01/2023 7:46 AM CDT - 11/01/2023 11:59 PM CDT Hospital Encounter Department of Radiation Oncology in [place], [place] [address] [place] [phone] Marlon Gambino M.D. [address] [place] [address] Discharge Disposition: Home or Self Care Social History Tobacco Use Types Packs/Day Years Used Date Smoking Tobacco: Never Smokeless Tobacco: Never Alcohol Use Standard Drinks/Week Comments Yes 3 (1 standard drink = 0.6 oz pur e alcohol) [facility] Utilities Answer Date Recorded In the past 12 months has [employer], [employer], oil, or water [employer] threatened to shut off services in your [...] Sex Assigned at Male 07/21/2023 9:10 AM GUEST SERVICES OFFICER Gender Identity Male 07/21/2023 9:10 AM GUEST SERVICES OFFICER Sexual Orientation Straight 07/21/2023 9: 10 AM GUEST SERVICES OFFICER documented as of this encounter Medications at [...] CDT Appointment Department of Radiation Oncology in [place], [place] [address] [place] [address] Marlon Gambino M.D. [address] [place] [address] documented as of this encounter Visit Diagnoses Not on filedocumented in this encounter Care Teams Cyber Security Manager Relationship Specialty Start Date End Date Elsewhere, Pcp PCP - General Internal Medicine 09/18/23 documented as of this encounter
--- OUTSIDE RECORDS SUMMARY | 2023-12-11 08:26 | XMS_ITS | Encounter Summary ---
Author Organization [facility] Address [address] [place] [address] Care Team Providers Care Testing Manager Name Role Phone Elsewhere, Pcp Primary Care Provider Unavailabl e Encounter Details Date Type Department Care Team (Latest Contact Info) Description 2023 10:02 AM CDT - 2023 11:59 PM CDT Hospital Encounter Department of Radiation Oncology in [place], [place] [address] [place] [phone] Marlon Gambino M.D. [address] [place] [address] Discharge Disposition: Home or Self Care Social History Tobacco Use Types Packs/Day Years Used Date Smoking Tobacco: Never Smokeless Tobacco: Never Alcohol Use Standard Drinks/Week Comments Yes 3 (1 standard drink = 0.6 oz pur e alcohol) [facility] Utilities Answer Date Recorded In the past 12 months has [employer], [employer], oil, or water [employer] threatened to shut off services in your [...] your living situation today? I have a [facility] place to live 07/19/2023 Sex and Gender Information Value Date Recorded Sex Assigned at Male 07/21/2023 9:10 AM PARADI OPERATOR Gender Identity Male 07/21/2023 9:10 AM PARADI OPERATOR Sexual Orientation Straight 07/21/2023 9: 10 AM PARADI OPERATOR documented as of this encounter Medications [...] CDT Appointment Department of Radiation Oncology in [place], [place] [address] [place] [phone] Marlon Gambino M.D. [address] [place] [address] documented as of this encounter Visit Diagnoses Not on filedocumented in this encounter Care Teams Testing Manager Relationship Specialty Start Date End Date Elsewhere, Pcp PCP - General Internal Medicine 09/18/23 documented as of this encounter
--- OUTSIDE RECORDS SUMMARY | 2023-12-11 08:26 | XMS_ITS | Encounter Summary ---
Author Organization [facility] Address [address] [place] [address] Care Team Providers Care Road Mender Name Role Phone Elsewhere, Pcp Primary Care Provider Unavailabl e Reason for Visit * Radiation Therapy (Routine) - Closed Specialty Diagnoses / Procedures Referred By Leni lopez Referred To Contact Diagnoses Primary Malignant Neoplasm Of Prostate (HCC) Procedures Initial Rad Onc Treatment Planning CT Simulation Marlon Gambino M.D. [address] [place] [address] [facility] Region Referral ID Status Reason Start Date Expiration Date Visits Re quested Visits Authorized [id number] Closed 08/02/2023 08/01/2024 1 1 Encounter Details Date Type Department Care Team (Latest Contact Info) Description 09/27/2023 11:30 AM CDT - 09/27/2023 5:34 PM CDT Hospital Encounter Department of Radiation Oncology in [place], [place] [address] [place] [phone] Marlon Gambino M.D. [address] [place] [phone] Primary Malignant Neoplasm Of Prostate (HCC) (Primary Dx) Social History Tobacco Use Types Packs/Day Years Used Date Smoking Tobacco: Never Smokeless Tobacco: Never Alcohol Use Standard Drinks/Week Comments Yes 3 (1 standard drink = 0.6 oz pur e alcohol) [facility] Utilities Answer Date Recorded In the past 12 months has e [employer], gas, oil, or water [employer] threatened to shut off services in your [...] your living situation today? I [facility] a [facility] 07/19/2023 Sex and Gender Information Value Date Recorded Sex Assigned at Male 07/21/2023 9:10 AM ACTUARIAL TECHNICIAN Gender Identity Male 07/21/2023 9:10 AM ACTUARIAL TECHNICIAN Sexual Orientation Straight 07/21/2023 9: 10 AM ACTUARIAL TECHNICIAN documented as of this encounter Medications at [...] planning. CT images were transferred to the [employer] treatment planning system, after a reference isocenter was determined and marked. Segmentation and treatment planning will take place prior to treatment delivery. Patient set up and imaging was appropriate and completed without incident. Stave And Bolt Equalizer use:No Associated attestation - Marlon Gambino M.D. - 09/27/2023 5:33 PM CDT I was available for the entirety of the procedure but only present for image review. Signed by: Marlon Gambino M.D. 09/27/23 5:33 PM CDT [facility] [place] documented in this encounter Plan of Treatment Upcoming Encounters Date Type Department Care Team (Late st Contact Info) Description 01/01/2024 3:00 PM CDT Appointment Department of Radiation Oncology in [place], [place] [address] [place] [address] Marlon Gambino M.D. [address] [place] [address] documented as of this encounter Procedures Procedure [...] Primary documented in this encounter Care Teams Road Mender Relationship Specialty Start Date End Date Elsewhere, Pcp PCP - General Internal Medicine 09/18/23 documented as of this encounter
--- OUTSIDE RECORDS SUMMARY | 2023-12-11 08:26 | XMS_ITS | Encounter Summary ---
Author Organization [facility] Address [address] [place] [address] Care Team Providers Care Action Finisher Name Role Phone Elsewhere, Pcp Primary Care Provider Unavailabl e Reason for Referral * Outpatient (Routine) - Authorized Specialty Diagnoses / Procedures Referred By Leni lopez Referred To Contact Radiation Oncology Oscar Aranda M.D. [address] [place] [address] [facility] Referral ID Status Reason Start Date Expiration Date V isits Requested Visits Authorized [id number] Authorized 09/20/2023 03/21/2025 1 1 Encounter Details Date Type Department Care Team (Late st Contact Info) Description 09/20/2023 Orders Only Department of Radiation Oncology in [place], [place] [address] [place] [phone] Rachael Waite, R.N. Social History Tobacco Use Types Packs/Day Years Used Date Smoking Tobacco: Never Smokeless Tobacco: Never Alcohol Use Standard Drinks/Week Comments Yes 3 (1 standard drink = 0.6 oz pur e alcohol) [facility] Utilities Answer Date Recorded In [...] Sex Assigned at Male 07/21/2023 9:10 AM ELECTRONIC DEVELOPMENT TECHNICIAN Gender Identity Male 07/21/2023 9:10 AM ELECTRONIC DEVELOPMENT TECHNICIAN Sexual Orientation Straight 07/21/2023 9: 10 AM ELECTRONIC DEVELOPMENT TECHNICIAN documented as of this encounter Plan of Treatment Upcoming Encounters Date Type Department Care Team (Late st Contact Info) Description 01/01/2024 3:00 PM CDT Appointment Department of Radiation Oncology in [place], [place] [address] [place] [address] Marlon Gambino M.D. [address] [place] [address] Scheduled Referrals Name Type Priority Associated Diagnoses Orde r Schedule Radiation Oncology nurse visit (clinic) Outpatient Referral Routine Expected: 09/20/2023, Expires: 12/19/2024 documented as of this encounter Visit Diagnoses Not on filedocumented in this encounter Care Teams Action Finisher Relationship Specialty Start Date End Date Elsewhere, Pcp PCP - General Internal Medicine 09/18/23 documented as of this encounter
--- OUTSIDE RECORDS SUMMARY | 2023-12-11 08:26 | XMS_ITS | Encounter Summary ---
Author Organization [facility] Address [address] [place] [address] Care Team Providers Care Solution Design Engineer Name Role Phone Elsewhere, Pcp Primary Care Provider Unavailabl e Encounter Details Date Type Department Care Team (Latest Contact Info) Description 10/07/2023 12:38 PM CDT - 10/07/2023 11:59 PM CDT Hospital Encounter Department of Radiation Oncology in [place], [place] [address] [place] [phone] Marlon Gambino M.D. [address] [place] [address] Discharge Disposition: Home or Self Care Social History Tobacco Use Types Packs/Day Years Used Date Smoking Tobacco: Never Smokeless Tobacco: Never Alcohol Use Standard Drinks/Week Comments Yes 3 (1 standard drink = 0.6 oz pur e alcohol) [facility] Utilities Answer Date Recorded In the past 12 months has [employer], [employer], oil, or water [employer] threatened to shut off services in your [...] Sex Assigned at Male 07/21/2023 9:10 AM HEALTHCARE EDUCATOR Gender Identity Male 07/21/2023 9:10 AM HEALTHCARE EDUCATOR Sexual Orientation Straight 07/21/2023 9: 10 AM HEALTHCARE EDUCATOR documented as of this encounter Medications at [...] CDT Appointment Department of Radiation Oncology in [place], [place] [address] [place] [phone] Marlon Gambino M.D. [address] [place] [address] documented as of this encounter Visit Diagnoses Not on filedocumented in this encounter Care Teams Solution Design Engineer Relationship Specialty Start Date End Date Elsewhere, Pcp PCP - General Internal Medicine 09/18/23 documented as of this encounter
--- OUTSIDE RECORDS SUMMARY | 2023-12-11 08:26 | XMS_ITS | Encounter Summary ---
Author Organization [facility] Address [address] [place] [address] Care Team Providers Care Oracle Hyperion Consultant Name Role Phone Elsewhere, Pcp Primary Care Provider Unavailabl e Encounter Details Date Type Department Care Team (Latest Contact Info) Description 09/20/2023 5:46 AM CDT - 09/20/2023 3:15 PM CDT Hospital Encounter Outpatient Surgery Unit in [place], [place] [address] [place] [address] Oscar Aranda M.D. [address] [place] [address] Discharge Disposition: Home or Self Care Social History Tobacco Use Types Packs/Day Years Used Date Smoking Tobacco: Never Smokeless Tobacco: Never Alcohol Use Standard Drinks/Week Comments Yes 3 (1 standard drink = 0.6 oz pur e alcohol) [facility] Utilities Answer Date Recorded In the past 12 months has [facility] [employer], gas, oil, or water [employer] threatened to shut off services in your [...] Assigned at Male 07/21/2023 9:10 AM CLINICAL BUSINESS ANALYST Gender Identity Male 07/21/2023 9:10 AM CLINICAL BUSINESS ANALYST Sexual Orientation Straight 07/21/2023 9: 10 AM CLINICAL BUSINESS ANALYST documented as of this encounter Last Filed [...] AM Marlon Gambino M.D.; CT SIM [facility] Radiation Oncology For appointment details [...] transperineally via template. A plan was developed, senior quality control inspector conducted, and treatment delivered. Once complete, all [...] CDT Appointment Department of Radiation Oncology in [place], [place] [address] [place] [phone] Marlon Gambino M.D. [address] [place] [phone] documented as of this encounter Procedures Procedure [...] Unknown Provider LAB POCT ORDERABLES- MANUAL POC [facility] [address] [place], [place] [address] [address] [place] [address] documented in this encounter Visit Diagnoses Diagnosis [...] injection documented in this encounter Care Teams Oracle Hyperion Consultant Relationship Specialty Start Date End Date Elsewhere, Pcp PCP - General Internal Medicine 09/18/23 documented as of this encounter
--- OUTSIDE RECORDS SUMMARY | 2023-12-11 08:26 | XMS_ITS | Encounter Summary ---
Author Organization [facility] Address [address] [place] [address] Care Team Providers Care Field Appraiser Name Role Phone Elsewhere, Pcp Primary Care Provider Unavailabl e Reason for Referral * Specialty Diagnoses / Procedures Referred By Leni t Referred To Contact Jackie Gallegos APRN, C.N.P., D.N.P. [address] [place] [phone] [facility] Region Referral ID Status Reason Start Date Expiration Date Visits Re quested Visits Authorized Encounter Details Date Type Department Care Team (Latest Contact Info) Description 10/07/2023 12:38 PM CDT - 10/07/2023 2:49 PM CDT Hospital Encounter Department of Radiation Oncology in [place], [place] [address] [place] [phone] Marlon Gambino M.D. [address] [place] [phone] Afshan Hanson [facility] [address] [place] [phone] Primary Malignant Neoplasm Of Prostate (HCC) Discharge Disposition: Home or Self Care Social History Tobacco Use Types Packs/Day Years Used Date Smoking Tobacco: Never Smokeless Tobacco: Never Alcohol Use Standard Drinks/Week Comments Yes 3 (1 standard drink = 0.6 oz pur e alcohol) [facility] Utilities Answer Date Recorded In [...] living situation today? I have a [facility] place to live 07/19/2023 Sex and Gender Information Value Date Recorded Sex Assigned at Male 07/21/2023 9:10 AM ASBESTOS MICROSCOPIST Gender Identity Male 07/21/2023 9:10 AM ASBESTOS MICROSCOPIST Sexual Orientation Straight 07/21/2023 9: 10 AM ASBESTOS MICROSCOPIST documented as of this encounter Last Filed [...] CDT Appointment Department of Radiation Oncology in [place], [place] [address] [place] [address] Marlon Gambino M.D. [address] [place] [address] Scheduled Referrals Name Type Priority Associated Diagnoses Order Schedule Radiation Oncology - Nurse education visit (clinic) Outpatient Referral Routine Primary Malignant Neoplasm Of Prostate (HCC) Once for 1 Occurrences starting 10/07/2023 until 10/07/2023 documented as of this encounter Visit Diagnoses Diagnosis Primary Malignant Neoplasm Of Prostate (HCC) documented in this encounter Care Teams Field Appraiser Relationship Specialty Start Date End Date Elsewhere, Pcp PCP - General Internal Medicine 09/18/23 documented as of this encounter
--- OUTSIDE RECORDS SUMMARY | 2023-12-11 08:26 | XMS_ITS | Encounter Summary ---
Author Organization [facility] Address [address] [place] [address] Care Team Providers Care Condenser Winder Name Role Phone Elsewhere, Pcp Primary Care Provider Unavailabl e Reason for Referral * Outpatient (Routine) - Authorized Specialty Diagnoses / Procedures Referred By Contac t Referred To Contact Radiation Oncology Oscar Aranda M.D. [address] [place] [phone] [facility] Referral ID Status Reason Start Date Expiration Date V isits Requested Visits Authorized [id number] Authorized 09/20/2023 03/21/2025 1 1 Reason for Visit * Outpatient (Routine) - Authorized Specialty Diagnoses / Procedures Referred By Contac t Referred To Contact Radiation Oncology Oscar Aranda M.D. [address] [place] [phone] [facility] Referral ID Status Reason Start Date Expiration Date V isits Requested Visits Authorized [id number] Authorized 09/20/2023 03/21/2025 1 1 Encounter Details Date Type Department Care Team (Latest Contact Info) Description 09/20/2023 8:00 AM CDT - 09/20/2023 11:59 PM CDT Hospital Encounter Department of Radiation Oncology in [place], [place] [address] [place] [phone] Oscar Aranda M.D. [address] [place] [phone] Rachael Waite, RYisselN. Discharge Disposition: Home or Self Care Social History Tobacco Use Types Packs/Day Years Used Date Smoking Tobacco: Never Smokeless Tobacco: Never Alcohol Use Standard Drinks/Week Comments Yes 3 (1 standard drink = 0.6 oz pur e alcohol) [facility] Utilities Answer Date Recorded In the past 12 months has th e [employer], gas, oil, or water [employer] threatened to shut off services in your [...] Sex Assigned at Male 07/21/2023 9:10 AM POLICE SPECIALIST Gender Identity Male 07/21/2023 9:10 AM POLICE SPECIALIST Sexual Orientation Straight 07/21/2023 9: 10 AM POLICE SPECIALIST documented as of this encounter Medications [...] CDT Appointment Department of Radiation Oncology in [place], [place] [address] [place] [address] Marlon Gambino M.D. [address] [place] [address] Scheduled Referrals Name Type Priority Associated Diagnoses [...] Provider LAB POCT ORDERABLES- MANUAL POC [facility] [address] [place] [address], [facility] [address] [place] [address] documented in this encounter Visit Diagnoses Not on filedocumented in this encounter Care Teams Condenser Winder Relationship Specialty Start Date End Date Elsewhere, Pcp PCP - General Internal Medicine 09/18/23 documented as of this encounter
--- OUTSIDE RECORDS SUMMARY | 2023-12-11 08:26 | XMS_ITS | Encounter Summary ---
Author Organization [facility] Address [address] [place] [address] Care Team Providers Care Metal Treater Name Role Phone Elsewhere, Pcp Primary Care Provider Unavailabl e Encounter Details Date Type Department Care Team (Latest Contact Info) Description 10/09/2023 7:45 AM CDT - 10/09/2023 7:53 AM CDT Hospital Encounter Department of Radiation Oncology in [place], [place] [address] [place] [phone] Marlon Gambino M.D. [address] [place] [address] Discharge Disposition: Home or Self Care Social History Tobacco Use Types Packs/Day Years Used Date Smoking Tobacco: Never Smokeless Tobacco: Never Alcohol Use Standard Drinks/Week Comments Yes 3 (1 standard drink = 0.6 oz pur e alcohol) [facility] Utilities Answer Date Recorded In the past 12 months has [employer], [employer], oil, or water [employer] threatened to shut off services in your [...] living situation today? I have a [facility] place to live 07/19/2023 Sex and Gender Information Value Date Recorded Sex Assigned at Male 07/21/2023 9:10 AM OPERATIONS DEVELOPER Gender Identity Male 07/21/2023 9:10 AM OPERATIONS DEVELOPER Sexual Orientation Straight 07/21/2023 9: 10 AM OPERATIONS DEVELOPER documented as of this encounter Medications at [...] CDT Appointment Department of Radiation Oncology in [place], [place] [address] [place] [address] Marlon Gambino M.D. [address] [place] [address] documented as of this encounter Visit Diagnoses Not on filedocumented in this encounter Care Teams Metal Treater Relationship Specialty Start Date End Date Elsewhere, Pcp PCP - General Internal Medicine 09/18/23 documented as of this encounter
--- OUTSIDE RECORDS SUMMARY | 2023-12-11 08:26 | XMS_ITS | Encounter Summary ---
Author Organization [facility] Address [address] [place] [address] Care Team Providers Care Blower Mechanic Name Role Phone Elsewhere, Pcp Primary Care Provider Unavailabl e Encounter Details Date Type Department Care Team (Latest Contact Info) Description 10/10/2023 7:47 AM CDT - 10/10/2023 11:59 PM CDT Hospital Encounter Department of Radiation Oncology in [place], [place] [address] [place] [phone] Marlon Gambino M.D. [address] [place] [address] Discharge Disposition: Home or Self Care Social History Tobacco Use Types Packs/Day Years Used Date Smoking Tobacco: Never Smokeless Tobacco: Never Alcohol Use Standard Drinks/Week Comments Yes 3 (1 standard drink = 0.6 oz pur e alcohol) [facility] Utilities Answer Date Recorded In the past 12 months has [employer], oil, or water [facility] threatened to shut off services in your [...] Sex Assigned at Male 07/21/2023 9:10 AM PERSONAL SHOPPER Gender Identity Male 07/21/2023 9:10 AM PERSONAL SHOPPER Sexual Orientation Straight 07/21/2023 9: 10 AM PERSONAL SHOPPER documented as of this encounter Medications at [...] CDT Appointment Department of Radiation Oncology in [place], [place] [address] [place] [address] Marlon Gambino M.D. [address] [place] [address] documented as of this encounter Visit Diagnoses Not on filedocumented in this encounter Care Teams Blower Mechanic Relationship Specialty Start Date End Date Elsewhere, Pcp PCP - General Internal Medicine 09/18/23 documented as of this encounter
--- OUTSIDE RECORDS SUMMARY | 2023-12-11 08:26 | XMS_ITS | Encounter Summary ---
Author Organization [facility] Address [address] [place] [address] Care Team Providers Care Operations Examiner Name Role Phone Elsewhere, Pcp Primary Care Provider Unavailabl e Encounter Details Date Type Department Care Team (Late st Contact Info) Description 09/20/2023 7:55 AM CDT Anesthesia Event Department of Radiation Oncology in [place], [place] [address] [place] [phone] Jessie Hameed APRN, RAVINDER, D.N.P. [address] [place] [phone] Anahi Loja M.D. Anesthesia Record Procedure Summary Procedure Name Responsible [...] IV Placement Date: 09/01 02/24; Placement Time: 0612; Catheter Size: 20 G; Orientation: Left; Location: Hand; Site Prep: Chlorhexidine (Preferred); Technique: Anatomical landmarks; Inserted by: HD; Insertion Attempts: 1; Removal Date: 09/20/23; Removal Time: 1452; Removal Reason: No longer in place 09/20/23 0612 by Norma Sebastian, R.N. 09/20/23 1452 by Bekah Ledesma, R.N., C.M.S.R.N. ETT Placement Date: 09/01 02/24; Placement Time: 0807 (created via procedure documentation); Mask Ventilation: Difficult mask (ie. two-handed) without oral airway; Technique: Video laryngoscopy; Type: Standard ETT; Single Lumen Tube Size: 7.5 mm; Cuffed: Yes; Location: Oral; Grade View: Grade 2A; Insertion Attempts: 2; Placement Verification: Bilateral breath sounds, Positive ETCO2, Symmetrical chest wall movement; Removal Date: 09/20/23; Removal Time: 1224 09/20/23 0807 by Jessie Hameed APRN, CRNA, D.N.P. 09/20/23 1224 by Jessie Hameed APRN, CRNA, D.N.P. Indwelling Urinary Catheter Placement Date: 09/20/23; Placement Time: 0840; Inserted by: Dr. Regina Cedeño; Type: Coude; Size: 12 Fr.; Balloon Size: 10 mL; Removal Date: 09/20/23; Removal Time: 1434; Removal Reason: Per order 09/20/23 0840 by Rachael Waite R.N. 09/20/231434 by Zion Logan Jr. documented in this encounter Social History Tobacco Use Types Packs/Day Years Used Date Smoking Tobacco: Never Smokeless Tobacco: Never Alcohol Use Standard Drinks/Week Comments Yes 3 (1 standard drink = 0.6 oz pur e alcohol) [facility] Utilities Answer Date Recorded In [...] living situation today? I have a [facility] place to live 07/19/2023 Sex and Gender Information Value Date Recorded Sex Assigned at Male 07/21/2023 9:10 AM MANAGER INTEGRATION Gender Identity Male 07/21/2023 9:10 AM MANAGER INTEGRATION Sexual Orientation Straight 07/21/2023 9: 10 AM MANAGER INTEGRATION documented as of this encounter OR Notes * Anesthesia Postprocedure Evaluation - Jewel De La Rosa M.D. - 09/20/2023 12:49 PM CDT Patient: Magdy Beck Procedure Summary Date: 09/20/23 Room / Location: Department of Radiation Oncology in [place], [place] Anesthesia Start: 754 Anesthesia Stop: 1247 [...] / Location: Department of Radiation Oncology in [place], [place] Anesthesia Start: 754 Anesthesia Stop: 1247 [...] ETT location: oral VL device: glide scope [place] scope blade size: 4 Tube size: 7.5 [...] [C61] Location: Department of Radiation Oncology in [place], [place] Pertinent components of the patient's history [...] with patient /legal guardian or through an batch trucker. The use of blood products not discussed Approval to Proceed: approved for anesthesia documented in this encounter Plan of Treatment Upcoming Encounters Date Type Department Care Team (Late st Contact Info) Description 01/01/2024 3:00 PM CDT Appointment Department of Radiation Oncology in [place], [place] [address] [place] [address] Marlon Gambino M.D. [address] [place] [address] documented as of this encounter Procedures Procedure [...] ETT location: oral VL device: glide scope [place] scope blade size: 4 Tube size: 7.5 [...] mg documented in this encounter Care Teams Operations Examiner Relationship Specialty Start Date End Date Elsewhere, Pcp PCP - General Internal Medicine 09/18/23 documented as of this encounter
--- OUTSIDE RECORDS SUMMARY | 2023-12-11 08:26 | XMS_ITS | Encounter Summary ---
Author Organization [facility] Address [address] [place] [address] Care Team Providers Care Client Director Name Role Phone Elsewhere, Pcp Primary Care Provider Unavailabl e Reason for Visit * Reason Comments Med Refill Encounter Details Date Type Department Care Team (Late st Contact Info) Description 10/09/2023 Refill Department of Radiation Oncology in [place], [place] [address] [place] [phone] Marlon Gambino M.D. [address] [place] [address] Med Refill Social History Tobacco Use Types Packs/Day Years Used Date Smoking Tobacco: Never Smokeless Tobacco: Never Alcohol Use Standard Drinks/Week Comments Yes 3 (1 standard drink = 0.6 oz pur e alcohol) [facility] Utilities Answer Date Recorded In the past 12 months has [facility] [employer], gas, oil, or water [employer] threatened to shut off services in your [...] your living situation today? I have a [facility] place to live 07/19/2023 Sex and Gender Information Value Date Recorded Sex Assigned at Male 07/21/2023 9:10 AM OUTER DIAMETER GRINDER TOOL Gender Identity Male 07/21/2023 9:10 AM OUTER DIAMETER GRINDER TOOL Sexual Orientation Straight 07/21/2023 9: 10 AM OUTER DIAMETER GRINDER TOOL documented as of this encounter Plan of Treatment Upcoming Encounters Date Type Department Care Team (Late st Contact Info) Description 01/01/2024 3:00 PM CDT Appointment Department of Radiation Oncology in [place], [place] [address] [place] [address] Marlon Gambino M.D. [address] [place] [address] documented as of this encounter Visit Diagnoses Not on filedocumented in this encounter Care Teams Client Director Relationship Specialty Start Date End Date Elsewhere, Pcp PCP - General Internal Medicine 09/18/23 documented as of this encounter
--- OUTSIDE RECORDS SUMMARY | 2023-12-11 08:26 | XMS_ITS | Encounter Summary ---
Author Organization [facility] Address [address] [place] [address] Care Team Providers Care Healthcare Administration Intern Name Role Phone Elsewhere, Pcp Primary Care Provider Unavailabl e Encounter Details Date Type Department Care Team (Latest Contact Info) Description 10/03/2023 10:04 AM CDT - 10/03/2023 11:59 PM CDT Hospital Encounter Department of Radiation Oncology in [place], [place] [address] [place] [phone] Marlon Gambino M.D. [address] [place] [address] Discharge Disposition: Home or Self Care Social History Tobacco Use Types Packs/Day Years Used Date Smoking Tobacco: Never Smokeless Tobacco: Never Alcohol Use Standard Drinks/Week Comments Yes 3 (1 standard drink = 0.6 oz pur e alcohol) [facility] Utilities Answer Date Recorded In the past 12 months has [employer] oil, or water [employer] threatened to shut off services in your [...] Sex Assigned at Male 07/21/2023 9:10 AM CALCULUS PROFESSOR Gender Identity Male 07/21/2023 9:10 AM CALCULUS PROFESSOR Sexual Orientation Straight 07/21/2023 9: 10 AM CALCULUS PROFESSOR documented as of this encounter Medications at [...] CDT Appointment Department of Radiation Oncology in [place], [place] [address] [place] [phone] Marlon Gambino M.D. [address] [place] [address] documented as of this encounter Visit Diagnoses Not on filedocumented in this encounter Care Teams Healthcare Administration Intern Relationship Specialty Start Date End Date Elsewhere, Pcp PCP - General Internal Medicine 09/18/23 documented as of this encounter
--- OUTSIDE RECORDS SUMMARY | 2023-12-11 08:26 | XMS_ITS | Encounter Summary ---
Author Organization [facility] Address [address] [place] [address] Care Team Providers Care Artificial Flowers Starcher Name Role Phone Elsewhere, Pcp Primary Care Provider Unavailabl e Reason for Referral * Radiation Therapy (Routine) - Closed Specialty Diagnoses / Procedures Referred By Contac t Referred To Contact Diagnoses Primary Malignant Neoplasm Of Prostate (HCC) Procedures Brachytherapy HDR Oscar Aranda M.D. [address] [place] [address] [facility] Referral ID Status Reason Start Date Expiration Date Visits Re quested Visits Authorized [id number] Closed 08/15/2023 08/14/2024 1 1 Reason for Visit * Radiation Therapy (Routine) - Closed Specialty Diagnoses / Procedures Referred By Contac t Referred To Contact Diagnoses Primary Malignant Neoplasm Of Prostate (HCC) Procedures Brachytherapy HDR Oscar Aranda M.D. [address] [place] [address] [facility] Referral ID Status Reason Start Date Expiration Date Visits Re quested Visits Authorized [id number] Closed 08/15/2023 08/14/2024 1 1 Encounter Details Date Type Department Care Team (Latest Contact Info) Description 09/20/2023 7:10 AM CDT - 09/20/2023 7:59 AM CDT Hospital Encounter Department of Radiation Oncology in [place], [place] [address] [place] [phone] Oscar Aranda M.D. [address] [place] [address] Primary Malignant Neoplasm Of Prostate (HCC) Discharge Disposition: Home or Self Care Social History Tobacco Use Types Packs/Day Years Used Date Smoking Tobacco: Never Smokeless Tobacco: Never Alcohol Use Standard Drinks/Week Comments Yes 3 (1 standard drink = 0.6 oz pur e alcohol) [facility] Utilities Answer Date Recorded In the past 12 months has e [email or web address], gas, oil, or water [employer] threatened to shut off services in [...] your living situation today? I have a [facility] place to live 07/19/2023 Sex and Gender Information Value Date Recorded Sex Assigned at Male 07/21/2023 9:10 AM DEBUBBLIZER Gender Identity Male 07/21/2023 9:10 AM DEBUBBLIZER Sexual Orientation Straight 07/21/2023 9: 10 AM DEBUBBLIZER documented as of this encounter Last Filed [...] hydrogel was prepared as described in the second cutter's Instructions For Use. With thesubject maintained in [...] CDT Appointment Department of Radiation Oncology in [place], [place] [address] [place] [address] Marlon Gambino M.D. [address] [place] [address] Scheduled Orders Name Type Priority Associated Diagnoses [...] Unknown Provider LAB POCT ORDERABLES- MANUAL POC [facility] [address] [place] [address], [place] PCDE [facility] POC [address] [place] [address] * Brachytherapy HDR (09/20/2023 8:00 AM CDT) Narrative COARSEGOLD ARIA - 09/20/2023 8:00 AM CDT Oscar [...] hydrogel was prepared as described in the second cutter's Instructions For Use. With the subject maintained [...] Primary documented in this encounter Care Teams Artificial Flowers Starcher Relationship Specialty Start Date End Date Elsewhere, Pcp PCP - General Internal Medicine 09/18/23 documented as of this encounter
--- OUTSIDE RECORDS SUMMARY | 2023-12-11 08:26 | XMS_ITS | Encounter Summary ---
Author Organization [facility] Address [address] [place] [address] Care Team Providers Care Transformer Repairer Name Role Phone Elsewhere, Pcp Primary Care Provider Unavailabl e Reason for Referral * Outpatient (Routine) - Closed Specialty Diagnoses / Procedures Referred By Contac t Referred To Contact Radiation Oncology Diagnoses Primary Malignant Neoplasm Of Prostate (HCC) Marlon Gambino M.D. [address] [place] [address] Marlon Gambino M.D. [address] [place] [address] Referral ID Status Reason Start Date Expiration Date Visits Re quested Visits Authorized [id number] Closed 08/02/2023 01/31/2025 1 1 Scheduling Instructions Coordinate with SIM and MRI, about 1 week after HDR brachy in [place] Reason for Visit * Outpatient (Routine) - Closed Specialty Diagnoses / Procedures Referred By Contac t Referred To Contact Radiation Oncology Diagnoses Primary Malignant Neoplasm Of Prostate (HCC) Marlon Gambino M.D. [address] [place] [phone] Marlon Gambino M.D. [address] [place] [address] Referral ID Status Reason Start Date Expiration Date Visits Re quested Visits Authorized [id number] Closed 08/02/2023 01/31/2025 1 1 Encounter Details Date Type Department Care Team (Latest Contact Info) Description 09/27/2023 10:32 AM CDT - 09/27/2023 11:01 AM CDT Hospital Encounter Department of Radiation Oncology in [place], [place] [address] [place] [address] Marlon Gambino M.D. [address] [place] [address] Primary Malignant Neoplasm Of Prostate (HCC) Social History Tobacco Use Types Packs/Day Years Used Date Smoking Tobacco: Never Smokeless Tobacco: Never Alcohol Use Standard Drinks/Week Comments Yes 3 (1 standard drink = 0.6 oz pur e alcohol) [facility] Utilities Answer Date Recorded In the past 12 months has th e electric, gas, oil, or water [employer] threatened to shut off services in your [...] your living situation today? I have a [facility] place to live 07/19/2023 Sex and Gender Information Value Date Recorded Sex Assigned at Male 07/21/2023 9:10 AM IT PORTFOLIO MANAGER Gender Identity Male 07/21/2023 9:10 AM IT PORTFOLIO MANAGER Sexual Orientation Straight 07/21/2023 9: 10 AM IT PORTFOLIO MANAGER documented as of this encounter Last Filed [...] CDT RADIATION ONCOLOGY FOLLOW UP VISIT Supervising Drain Technician: Dr. Marlon Gambino CHIEF COMPLAINT/REASON FOR VISIT [...] (cGy) First Treatment Last Treatment Elapsed Days [id number] 1500 1500 1500 09/20/2023 09/20/2023 0 Course Summary 09/20/2023 09/20/2023 0 INTERVAL HISTORY: Mr. Beck is a 72 y.o. male with history of type II diabetes on metformin and renal artery stenosis who presents today prior to simulation scan for the external beam portion of his radiation treatments for prostate cancer. He has received HDR brachytherapy in [place] (completed 20 September 2023). Oncology History Overview Note HIGH-RISK clinical T2b (based on MRI) N0 M0 prostate adenocarcinoma, Centrahoma 4+5 with 4/4 (100%) core biopsies positive, [...] (cT1c). MRI-fusion transperineal prostate biopsy revealed adenocarcinoma Centrahoma 4+5 in right peripheral zone base - [...] (cGy) First Treatment Last Treatment Elapsed Days [id number] 1500 1500 1500 09/20/2023 09/20/2023 0 Course [...] the place of the next one-month injection ([facility]) if needed - Simulation CT and MRI today - Plan for 25 fractions to the prostate and lymph nodes - Tentative start date October 02 Signed by: Belén Lou MD Resident Physician Department of Radiation Oncology Please don't hesitate to contact me with questions or discussion! Text Pager: [phone] Associated attestation - Marlon Gambino M.D. - [...] 10 minutes caring for this patient including wbbt-[id number] and jto-vaii-nd-face time. Signed by: Marlon Gambino M.D. 09/27/23 5:44 PM CDT [facility] [place] documented in this encounter Plan of Treatment Upcoming Encounters Date Type Department Care Team (Late st Contact Info) Description 01/01/2024 3:00 PM CDT Appointment Department of Radiation Oncology in [place], [place] [address] [place] [address] Marlon Gambino M.D. [address] [place] [address] Scheduled Referrals Name Type Priority Associated Diagnoses Order Schedule Radiation Oncology office visit (clinic) Outpatient Referral Routine Primary Malignant Neoplasm Of Prostate (HCC) Once for 1 Occurrences starting 09/27/2023 until 09/27/2023 documented as of this encounter Visit Diagnoses Diagnosis Primary Malignant Neoplasm Of Prostate (HCC) documented in this encounter Care Teams Transformer Repairer Relationship Specialty Start Date End Date Elsewhere, Pcp PCP - General Internal Medicine 09/18/23 documented as of this encounter
--- OUTSIDE RECORDS SUMMARY | 2023-12-11 08:26 | XMS_ITS | Encounter Summary ---
Author Organization [facility] Address [address] [place] [address] Care Team Providers Care Head Packager Name Role Phone Elsewhere, Pcp Primary Care Provider Unavailabl e Reason for Referral * Radiation Therapy (Routine) - Authorized Specialty Diagnoses / Procedures Referred By Contac t Referred To Contact Diagnoses Primary Malignant Neoplasm Of Prostate (HCC) Procedures Management Visit Marlon Gambino M.D. [address] [place] [address] [facility] Region Referral ID Status Reason Start Date Expiration Date V isits Requested Visits Authorized [id number] Authorized 08/02/2023 08/01/2024 10 10 Reason for Visit * Radiation Therapy (Routine) - Authorized Specialty Diagnoses / Procedures Referred By Contac t Referred To Contact Diagnoses Primary Malignant Neoplasm Of Prostate (HCC) Procedures Management Visit Marlon Gambino M.D. [address] [place] [address] [facility] Region Referral ID Status Reason Start Date Expiration Date V isits Requested Visits Authorized [id number] Authorized 08/02/2023 08/01/2024 10 10 Encounter Details Date Type Department Care Team (Latest Contact Info) Description 10/09/2023 7:54 AM CDT - 10/11/2023 9:15 PM CDT Hospital Encounter Department of Radiation Oncology in [place], [place] [address] [place] [phone] Marlon Gambino M.D. [address] [place] [address] Primary Malignant Neoplasm Of Prostate (HCC) Social History Tobacco Use Types Packs/Day Years Used Date Smoking Tobacco: Never Smokeless Tobacco: Never Alcohol Use Standard Drinks/Week Comments Yes 3 (1 standard drink = 0.6 oz pur e alcohol) [facility] Utilities Answer Date Recorded In the past 12 months has e [employer], gas, oil, or water [employer] threatened to shut off services in [...] Assigned at Male 07/21/2023 9:10 AM RADIO PROGRAM CHECKER Gender Identity Male 07/21/2023 9:10 AM RADIO PROGRAM CHECKER Sexual Orientation Straight 07/21/2023 9: 10 AM RADIO PROGRAM CHECKER documented as of this encounter Last Filed [...] Prostate (HCC) SUPERVISED BY: Marlon Gambino M.D. ([id number]) HISTORY OF PRESENT ILLNESS Magdy Beck is [...] (cGy) First Treatment Last Treatment Elapsed Days [id number] 1500 1500 1500 09/20/2023 09/20/2023 0 Course Summary 09/20/2023 09/20/2023 0 Treatment Course: 1xProstate Plan ID Fractions Dose / Fraction (cGy) Dose Treated (cGy) Dose Planned (cGy) First Treatment Last Treatment Elapsed Days [id number] 200 1000 5000 10/03/2023 10/09/2023 6 Course [...] 22.5 mg on October 02, 2023 at [facility]. Hewill be due for his next injection [...] Marlon Gambino M.D. 10/11/2023 9:15 PM CDT [facility] [address] [place] [address] documented in this encounter Plan of Treatment Upcoming Encounters Date Type Department Care Team (Late st Contact Info) Description 01/01/2024 3:00 PM CDT Appointment Department of Radiation Oncology in [place], [place] [address] [place] [phone] Marlon Gambino M.D. [address] [place] [address] Scheduled Orders Name Type Priority Associated Diagnoses Orde r Schedule Management Visit Radiation Oncology Routine Primary Malignant Neoplasm Of Prostate (HCC) Once for 1 Occurrences starting 10/09/2023 until 10/09/2023 documented as of this encounter Visit Diagnoses Diagnosis Primary Malignant Neoplasm Of Prostate (HCC) documented in this encounter Care Teams Head Packager Relationship Specialty Start Date End Date Elsewhere, Pcp PCP - General Internal Medicine 09/18/23 documented as of this encounter
--- OUTSIDE RECORDS SUMMARY | 2023-12-11 08:26 | XMS_ITS | Encounter Summary ---
Author Organization [facility] Address [address] [place] [address] Care Team Providers Care Manager Ct Name Role Phone Elsewhere, Pcp Primary Care Provider Unavailabl e Encounter Details Date Type Department Care Team (Late st Contact Info) Description 09/20/2023 Documentation Department of Radiation Oncology in [place], [place] [address] [place] [phone] Oscar Aranda M.D. [address] [place] [address] Social History Tobacco Use Types Packs/Day Years Used Date Smoking Tobacco: Never Smokeless Tobacco: Never Alcohol Use Standard Drinks/Week Comments Yes 3 (1 standard drink = 0.6 oz pur e alcohol) [facility] Utilities Answer Date Recorded In the past 12 months has e [employer], gas, oil, or water [email or web address] threatened to shut off services in your [...] your living situation today? I have a [facility] place to live 07/19/2023 Sex and Gender Information Value Date Recorded Sex Assigned at Male 07/21/2023 9:10 AM RAISIN SEPARATOR OPERATOR Gender Identity Male 07/21/2023 9:10 AM RAISIN SEPARATOR OPERATOR Sexual Orientation Straight 07/21/2023 9: 10 AM RAISIN SEPARATOR OPERATOR documented as of this encounter Miscellaneous [...] (cGy) First Treatment Last Treatment Elapsed Days [id number] 1500 1500 1500 09/20/2023 09/20/2023 0 Course [...] radiation under thedirection of Dr. Gambino in [place]. Signed by: Shona Barton R.N., 10/09/2023 10:52 AM CDT documented in this encounter Plan of Treatment Upcoming Encounters Date Type Department Care Team (Late st Contact Info) Description 01/01/2024 3:00 PM CDT Appointment Department of Radiation Oncology in [place], [place] [address] [place] [phone] Marlon Gambino M.D. [address] [place] [address] documented as of this encounter Visit Diagnoses Not on filedocumented in this encounter Care Teams Manager Ct Relationship Specialty Start Date End Date Elsewhere, Pcp PCP - General Internal Medicine 09/18/23 documented as of this encounter
--- OUTSIDE RECORDS SUMMARY | 2023-12-11 08:26 | XMS_ITS | Encounter Summary ---
Author Organization [facility] Address [address] [place] [address] Care Team Providers Care Intranet Specialist Name Role Phone Elsewhere, Pcp Primary Care Provider Unavailabl e Encounter Details Date Type Department Care Team (Latest Contact Info) Description 10/08/2023 7:45 AM CDT - 10/08/2023 11:59 PM CDT Hospital Encounter Department of Radiation Oncology in [place], [place] [address] [place] [phone] Marlon Gambino M.D. [address] [place] [address] Discharge Disposition: Home or Self Care Social History Tobacco Use Types Packs/Day Years Used Date Smoking Tobacco: Never Smokeless Tobacco: Never Alcohol Use Standard Drinks/Week Comments Yes 3 (1 standard drink = 0.6 oz pur e alcohol) [facility] Utilities Answer Date Recorded In the past 12 months has [employer], [employer], oil, or water [employer] threatened to shut off services in your [...] your living situation today? [facility] 07/19/2023 Sex and Gender Information Value Date Recorded Sex Assigned at Male 07/21/2023 9:10 AM SPECIMEN TECHNICIAN Gender Identity Male 07/21/2023 9:10 AM SPECIMEN TECHNICIAN Sexual Orientation Straight 07/21/2023 9: 10 AM SPECIMEN TECHNICIAN documented as of this encounter Medications [...] CDT Appointment Department of Radiation Oncology in [place], [place] [address] [place] [phone] Marlon Gambino M.D. [address] [place] [address] documented as of this encounter Visit Diagnoses Not on filedocumented in this encounter Care Teams Intranet Specialist Relationship Specialty Start Date End Date Elsewhere, Pcp PCP - General Internal Medicine 09/18/23 documented as of this encounter
--- OUTSIDE RECORDS SUMMARY | 2023-12-11 08:26 | XMS_ITS | Encounter Summary ---
Author Organization [facility] Address [address] [place] [address] Care Team Providers Care Delivery Driver Name Role Phone Elsewhere, Pcp Primary Care Provider Unavailabl e Reason for Referral * Outpatient (Routine) - Closed Specialty Diagnoses / Procedures Referred By Contac t Referred To Contact Radiation Oncology Harris Ryan APRN, C.N.Helen, D.N.P. [address] [place] [phone] Oscar Aranda M.D. [address] [place] [phone] Referral ID Status Reason Start Date Expiration Date Visits Re quested Visits Authorized [id number] Closed 08/15/2023 02/13/2025 1 1 Scheduling Instructions After tests, afternoon typically. Reason for Visit * Outpatient (Routine) - Closed Specialty Diagnoses / Procedures Referred By Contac t Referred To Contact Radiation Oncology Harris Ryan APRN, C.N.P., D.N.P. [address] [place] [phone] Oscar Aranda M.D. [address] [place] [phone] Referral ID Status Reason Start Date Expiration Date Visits Re quested Visits Authorized [id number] Closed 08/15/2023 02/13/2025 1 1 Encounter Details Date Type Department Care Team (Latest Contact Info) Description 09/19/2023 12:21 PM CDT - 09/24/2023 2:46 PM CDT Hospital Encounter Department of Radiation Oncology in [place], [place] [address] [place] [address] Oscar Aranda M.D. [address] [place] [address] Primary Malignant Neoplasm Of Prostate (HCC) (Primary Dx) Social History Tobacco Use Types Packs/Day Years Used Date Smoking Tobacco: Never Smokeless Tobacco: Never Alcohol Use Standard Drinks/Week Comments Yes 3 (1 standard drink = 0.6 oz pur e alcohol) [facility] Utilities Answer Date Recorded In the past 12 months has e [employer], gas, oil, or water [employer] threatened to shut off services in your [...] Sex Assigned at Male 07/21/2023 9:10 AM ULTIMATE HOOPS REFEREE Gender Identity Male 07/21/2023 9:10 AM ULTIMATE HOOPS REFEREE Sexual Orientation Straight 07/21/2023 9: 10 AM ULTIMATE HOOPS REFEREE documented as of this encounter Last Filed [...] Harris Ryan APRN, C.N.P., D.N.P. [address] [place] [address] PATIENT NAME: Magdy Beck LIVES: [id number] [facility] [address] HISTORY OF PRESENT ILLNESS: Mr. Magdy Beck is a 72 y.o. 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 He met with Dr. Gambino in [place] on 07/26/23 and planned to proceed with [...] (cT1c). MRI-fusion transperineal prostate biopsy revealed adenocarcinoma [place] 4+5 in right peripheral zone base - [...] Mother Laverne whitten SOCIAL HISTORY Lives at [address] [place] [phone]. PHYSICAL EXAMINATION ECOG performance status: 0 Fully active, able to carry on all pre-disease performance without restriction Wt 116 kg BMI 33.53 kg/m?? CONSTITUTIONAL: Well-appearing, well-nourished male, in no acute distress. IMPRESSION/PLAN #1 Very High Risk Prostate cancer. Mr. Magdy Beck is a 72 y.o. male who presents today with Very Risk Prostate Adenocarcinoma, [place] 4 + 5 = 9, Stage IIIC (cT2c, cN0, cM0), with a pre-treatment PSA of 10.5, 4/4 total cores positive with perineural invasion, 38.4cc prostate.He met with Dr. Gambino in [place] on 07/26/23 and planned to proceed with [...] after midnight prior to procedure Bring a tow truck driver with you as you will not be able to drive afterwards. Day of procedure: Check in to the [facility] admissions desk at 6:00am and they will [...] followed by 25 treatment of EBRT at [place]. Cherelle SampsonS. 09/19/2023 4:55 PM CDT [id number]. Associated attestation - Oscar Aranda M.D. - [...] CDT Appointment Department of Radiation Oncology in [place], [place] [address] [place] [address] Marlon Gambino M.D. [address] [place] [address] Scheduled Referrals Name Type Priority Associated Diagnoses Order Schedule Radiation Oncology office visit (clinic) Outpatient Referral Routine Once for 1 Occurrences starting 09/19/2023 until 09/19/2023 documented as of this encounter Visit Diagnoses Diagnosis Primary Malignant Neoplasm Of Prostate (HCC)- Primary documented in this encounter Care Teams Delivery Driver Relationship Specialty Start Date End Date Elsewhere, Pcp PCP - General Internal Medicine 09/18/23 documented as of this encounter
--- OUTSIDE RECORDS SUMMARY | 2023-12-11 08:27 | XMS_ITS | Encounter Summary ---
Author Organization [facility] Address [address] [place] [address] Care Team Providers Care Ornamental Bronze Worker Name Role Phone Elsewhere, Pcp Primary Care Provider Unavailabl e Reason for Referral * Outpatient (Routine) - Authorized Specialty Diagnoses / Procedures Referred By Leni lopez Referred To Contact Diagnoses Preanesthetic Medical Exam Primary Malignant Neoplasm Of Prostate (HCC) Hypertension Essential Primary Atherosclerosis Renal Artery (HCC) Murmur Heart Procedures ECG 12 Lead Geremias Dhillon APRN, C.N.P., M.S. [address] [place] [address] [facility] Referral ID Status Reason Start Date Expiration Date V isits Requested Visits Authorized [id number] Authorized 09/19/2023 09/18/2024 1 1 Reason for Visit * Outpatient (Routine) - Closed Specialty Diagnoses / Procedures Referred By Leni lopez Referred To Contact Anesthesiology Diagnoses Primary Malignant Neoplasm Of Prostate (HCC) Harris Ryan APRN, C.N.P., D.N.P. [address] [place] [phone] [facility] Referral ID Status Reason Start Date Expiration Date Visits Re quested Visits Authorized [id number] Closed 08/15/2023 02/13/2025 1 1 Encounter Details Date Type Department Care Team (Latest Contact Info) Description 09/19/2023 9:30 AM CDT Comprehensive Visit Preoperative Evaluation Center in [place], [place] [address] [place] [address] Harris Ryan APRN, C.N.P., D.N.P. [address] [place] [phone] Geremias Dhillon APRN, C.N.P., M.S. [address] [place] [phone] Preanesthetic Medical Exam (Primary Dx); Primary Malignant [...] drink = 0.6 oz pu re alcohol) [facility] Utilities Answer Date Recorded In the past 12 months has e [employer], [employer], oil, or water [employer] threatened to shut off services in your [...] Sex Assigned at Male 07/21/2023 9:10 AM CUP MACHINE OPERATOR Gender Identity Male 07/21/2023 9:10 AM CUP MACHINE OPERATOR Sexual Orientation Straight 07/21/2023 9: 10 AM CUP MACHINE OPERATOR documented as of this encounter Last [...] from 09/19/2023 in Preoperative Evaluation Center in [place], [place] DASI Total Score 58.2 Estimated V02 [...] Get Ready for Your Surgery or Procedure: [facility] [id number] rev 0124. Written and verbal instructions [...] CDT Appointment Department of Radiation Oncology in [place], [place] [address] [place] [phone] Marlon Gambino M.D. [address] [place] [address] documented as of this encounter Procedures Procedure Name Priority Date/Time Associated Diagnosis Comments GLUCOSE POCT, B Routine 09/20/2023 8:28 AM CDT ECG Routine 09/19/2023 10:07 AM CDT Preanesthetic Medical Exam Primary Malignant Neoplasm Of Prostate (HCC) Hypertension Essential Primary Murmur Heart documented in this encounter Results * (ABNORMAL) Glucose, POCT (09/20/2023 8:28 AM CDT) Pathologist [facility] Glucose, POCT, B 206(H) 70 - 140 mg/dL 09/27/2023 8:04 AM CDT PCME Site Capillary 09/27/2023 8:04 AM CDT PCME Blood 09/20/2023 8:28 AM CDT 09/27/2023 8:04 AM CDT Unknown Provider LAB POCT ORDERABLES- MANUAL POC [facility] 200 [place] [address], [facility] POC 200 [place] [address] * ECG 12 Lead (09/19/2023 10:07 AM CDT) Ventricular Rate ECG/Min 62 BPM MUSE LA Interval 154 ms MUSE QRSD Interval 98 ms MUSE QT Interval 428 ms MUSE QTC Interval 434 ms MUSE P Jackson 30 degrees MUSE R Jackson 24 degrees MUSE T Wave Jackson 15 degrees MUSE 09/19/2023 10:0 7 AM [...] (HCC) documented in this encounter Care Teams Ornamental Bronze Worker Relationship Specialty Start Date End Date Elsewhere, Pcp PCP - General Internal Medicine 09/18/23 documented as of this encounter
--- OUTSIDE RECORDS SUMMARY | 2023-12-11 08:27 | XMS_ITS | Encounter Summary ---
Author Organization [facility] Address [address] [place] [address] Care Team Providers Care Assistant Production Manager Name Role Phone Unavailable Primary Care Provider Unavailabl e Encounter Details Date Type Department Care Team (Latest Contact Info) Description 09/17/2023 1:30 PM CDT Clinical Communication Virtual Review in [place], [place] [address] [place] [address] Social History Tobacco Use Types Packs/Day Years Used Date Smoking Tobacco: Never Smokeless Tobacco: Never Alcohol Use Standard Drinks/Week Comments Yes 0 (1 standard drink = 0.6 oz pur e alcohol) [facility] Utilities Answer Date Recorded In the [...] Sex Assigned at Male 07/21/2023 9:10 AM TALENT ACQUISITION MANAGER Gender Identity Male 07/21/2023 9:10 AM TALENT ACQUISITION MANAGER Sexual Orientation Straight 07/21/2023 9: 10 AM TALENT ACQUISITION MANAGER documented as of this encounter Plan of Treatment Upcoming Encounters Date Type Department Care Team (Late st Contact Info) Description 01/01/2024 3:00 PM CDT Appointment Department of Radiation Oncology in [place], [place] [address] [place] [phone] Marlon Gambino M.D. [address] [place] [address] documented as of this encounter Visit Diagnoses Not on filedocumented in this encounter
--- OUTSIDE RECORDS SUMMARY | 2023-12-11 08:27 | XMS_ITS | Encounter Summary ---
Author Organization [facility] Address [address] [place] [address] Care Team Providers Care Intelligence Chief Name Role Phone Elsewhere, Pcp Primary Care Provider Unavailabl e Reason for Referral * Outpatient (Routine) - Closed Specialty Diagnoses / Procedures Referred By Contac t Referred To Contact Diagnoses Primary Malignant Neoplasm Of Prostate (HCC) Procedures US Prostate Interstitial Radioelement Oscar Aranda M.D. [address] [place] [address] [facility] Referral ID Status Reason Start Date Expiration Date Visits Re quested Visits Authorized [id number] Closed 08/15/2023 08/14/2024 1 1 Reason for Visit * Outpatient (Routine) - Closed Specialty Diagnoses / Procedures Referred By Contac t Referred To Contact Diagnoses Primary Malignant Neoplasm Of Prostate (HCC) Procedures US Prostate Interstitial Radioelement Oscar Aranda M.D. [address] [place] [address] [facility] Referral ID Status Reason Start Date Expiration Date Visits Re quested Visits Authorized [id number] Closed 08/15/2023 08/14/2024 1 1 Encounter Details Date Type Department Care Team (Latest Contact Info) Description 09/20/2023 6:58 AM CDT - 09/20/2023 7:09 AM CDT Hospital Encounter Department of Radiology, [facility], in [place], [place] [address] [place] [phone] Oscar Aranda M.D. [address] [place] [address] Primary Malignant Neoplasm Of Prostate (HCC) Discharge Disposition: Home or Self Care Social History Tobacco Use Types Packs/Day Years Used Date Smoking Tobacco: Never Smokeless Tobacco: Never Alcohol Use Standard Drinks/Week Comments Yes 3 (1 standard drink = 0.6 oz pur e alcohol) [facility] Utilities Answer Date Recorded In the past 12 months has th e [employer], gas, oil, or water [employer] threatened to shut off services in your [...] your living situation today? I have a [facility] place to live 07/19/2023 Sex and Gender Information Value Date Recorded Sex Assigned at Male 07/21/2023 9:10 AM PAPER REELER Gender Identity Male 07/21/2023 9:10 AM PAPER REELER Sexual Orientation Straight 07/21/2023 9: 10 AM PAPER REELER documented as of this encounter Medications at [...] CDT Appointment Department of Radiation Oncology in [place], [place] [address] [place] [address] Marlon Gambino M.D. [address] [place] [address] documented as of this encounter Procedures Procedure [...] (HCC) documented in this encounter Care Teams Intelligence Chief Relationship Specialty Start Date End Date Elsewhere, Pcp PCP - General Internal Medicine 09/18/23 documented as of this encounter
--- OUTSIDE RECORDS SUMMARY | 2023-12-11 08:27 | XMS_ITS | Encounter Summary ---
Author Organization [facility] Address [address] [place] [address] Care Team Providers Care Broadcast Transmitter Operator Name Role Phone Elsewhere, Pcp Primary Care Provider Unavailabl e Encounter Details Date Type Department Care Team (Late st Contact Info) Description 09/19/2023 Orders Only Department of Radiation Oncology in [place], [place] [address] [place] [phone] Oscar Aranda M.D. [address] [place] [address] Social History Tobacco Use Types Packs/Day Years Used Date Smoking Tobacco: Never Smokeless Tobacco: Never Alcohol Use Standard Drinks/Week Comments Yes 30 (1 standard drink = 0.6 oz pu re alcohol) [facility] Utilities Answer Date Recorded In the past 12 months has [facility] [employer], gas, oil, or water [employer] threatened to shut off services in your [...] Sex Assigned at Male 07/21/2023 9:10 AM TOBACCO CURER Gender Identity Male 07/21/2023 9:10 AM TOBACCO CURER Sexual Orientation Straight 07/21/2023 9: 10 AM TOBACCO CURER documented as of this encounter Plan of Treatment Upcoming Encounters Date Type Department Care Team (Late st Contact Info) Description 01/01/2024 3:00 PM CDT Appointment Department of Radiation Oncology in [place], [place] [address] [place] [phone] Marlon Gambino M.D. [address] [place] [address] documented as of this encounter Visit Diagnoses Not on filedocumented in this encounter Care Teams Broadcast Transmitter Operator Relationship Specialty Start Date End Date Elsewhere, Pcp PCP - General Internal Medicine 09/18/23 documented as of this encounter
--- OUTSIDE RECORDS SUMMARY | 2023-12-11 08:27 | XMS_ITS | Encounter Summary ---
Author Organization [facility] Address [address] [place] [address] Care Team Providers Care Theology Teacher Name Role Phone Unavailable Primary Care Provider Unavailabl e Reason for Visit * Appointment Request (Routine) - Closed Specialty Diagnoses / Procedures Referred By Leni lopez Referred To Contact Nephrology and Hypertension Referral ID Status Reason Start Date Expiration Date Visits Re quested Visits Authorized [id number] Closed 08/01/2023 07/31/2024 1 1 Encounter Details Date Type Department Care Team (Latest Contact Info) Description 09/02/2023 2:00 PM CDT External Outreach Division of Nephrology and Hypertension in [place], [place] [address] [place] [address] Jose Pinon Jr., D.O. [address] [place] [address] Hypertension And Chronic Kidney Disease Stage 1 (Primary Dx); Primary Malignant Neoplasm Of Prostate (HCC); Atherosclerosis Renal Artery (HCC); Diabetes Mellitus Type 2 (HCC); Gout Social History Tobacco Use Types Packs/Day Years Used Date Smoking Tobacco: Never Smokeless Tobacco: Never Alcohol Use Standard Drinks/Week Comments Yes 0 (1 standard drink = 0.6 oz pur e alcohol) [facility] Utilities Answer Date Recorded In the past 12 months has e [employer], gas, oil, or water [employer] threatened to shut off services in your [...] your living situation today? I have a [facility] place to live 07/19/2023 Sex and Gender Information Value Date Recorded Sex Assigned at Male 07/21/2023 9:10 AM HOT TOP LINER Gender Identity Male 07/21/2023 9:10 AM HOT TOP LINER Sexual Orientation Straight 07/21/2023 9: 10 AM HOT TOP LINER documented as of this encounter Last Filed [...] DR Kaylee Marin SUBJECTIVE REASON FOR VISIT [place] out reach [facility] Follow-up regards renal [...] CDT Appointment Department of Radiation Oncology in [address] [phone] Marlon Gambino M.D. [address] [place] [address] documented as of this encounter Visit Diagnoses Diagnosis Hypertension And Chronic Kidney Disease Stage 1- Primary Primary Malignant Neoplasm Of Prostate (HCC) Atherosclerosis Renal Artery (HCC) Diabetes Mellitus Type 2 (HCC) Gout documented in this encounter
== END 2023-12-11 08:22 | disposition home or self-care (01) ==
PROVIDERS: PCP Physician Assistant Medical; Visit Provider Physician Assistant Medical
DX: D64.9 Anemia, unspecified (principal); E11.9 Type 2 diabetes mellitus without complications
CPT/HCPCS: 82607; 82746; 83540; 83550

== ENCOUNTER 2024-01-30 15:30 | Outpatient (RCR) | payer MEDICARE, BC, SELFPAY ==
--- NOTE | 2023-08-02 13:16 | URNOTE ---
Request received for authorization for Elzbieta ([id number]). Prior authorization is not required as services are based on medical necessity and follow Medicare guidelines.
[2023-08-07 08:05] VITALS: BP 159/82; PULSE 70; RESP 16; TEMP 36.3; O2SAT 97
[2023-08-07] MEDS: LEUPROLIDE ACETATE 7.5 MG (SQ) SYRINGE SUBCUT (08:21)
[2023-09-04 08:11] VITALS: BP 168/81; PULSE 72; RESP 16; TEMP 36.6; O2SAT 96
[2023-09-04] MEDS: LEUPROLIDE ACETATE 7.5 MG (SQ) SYRINGE SUBCUT (08:15)
[2023-10-02] MEDS: LEUPROLIDE ACETATE 22.5 MG (SQ) SYRINGE SUBCUT (08:15)
[2023-10-02 08:27] VITALS: BP 140/74; PULSE 66; RESP 14; TEMP 35.5; O2SAT 98
--- NOTE | 2023-11-15 09:47 | ONC.NURNOTE ---
New patient appt set up to discuss additional options for treatment Patient requesting an early am appt to accomodate his work schedule Schedule reviewed with Dr Ferguson and appt set up with Nikkie Darden PA-C- patient called with the appt date and time
[2023-11-28 10:40] LABS: Basophils Percent Auto 0.3 % (0.0-3.0); Eosinophils Percent Auto 3.9 % (0.0-7.0); Hematocrit 35.5 % (37.0-53.0); Hemoglobin* 11.9 gm/dL (13.5-17.5); Immature Granulocytes Pct Auto 0.9 %; Lymphocytes Percent Auto 10.7 % (20-44); Mean Corpuscular HGB Conc 34 gm/dL (32-36); Mean Corpuscular Hemoglobin 31 pg (26-34); Mean Corpuscular Volume 92 fL (80-100); Monocytes Percent Auto 13.7 % (0.0-11.0); Neutrophils Percent Auto 70.5 % (42.0-72.0); Platelet Count* 157 K/uL (140-440); RDW Coefficient of Variation % 13.1 % (11.5-15.5); Red Blood Count 3.84 m/uL (4.30-5.90); White Blood Count* 3.35 K/uL (4.50-11.00)
[2023-11-28 10:47] LABS: Slide Review Reflex No
[2023-11-28 10:50] LABS: Albumin* 4.6 g/dL (3.3-5.0); Chloride* 104 mmol/L (96-114)
[2023-11-28 10:51] LABS: Potassium* 4.1 mmol/L (3.6-5.1); Sodium* 138 mmol/L (135-149)
[2023-11-28 10:53] LABS: Alanine Aminotransferase* 27 U/L (4-50); Alkaline Phosphatase* 54 U/L (40-150); Anion Gap 9 mEq/L (7-15); Aspartate Amino Transferase* 25 U/L (12-35); Bilirubin Total* 0.7 mg/dL (0.1-1.5); Blood Urea Nitrogen* 35 mg/dL (7-30); Carbon Dioxide* 25 mmol/L (20-32); Est. Creatinine Clearance* 73.24; Estimated Glomerular Filt Rate 79 ml/min; Glucose* 118 mg/dL (60-115)
[2023-11-28 10:54] LABS: Calcium* 9.8 mg/dL (8.4-10.6)
[2023-11-28 11:39] LABS: PSA Diagnostic* < 0.06 ng/mL (0.10-4.00)
[2023-11-30 22:53] LABS: Testosterone, Adult Male <3 ng/dL (300-720)
--- NOTE | 2023-12-02 09:34 | ONC.NURNOTE ---
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 Discussed cost of medication with Magdy and the process for getting a specialty medication from PA-to shipment to house - as a generic- [facility] dispenses- with an cost of about $170/month- not run thru insurance patient states that he does not pay out of pocket for RX's- so with patients input it was decided to send RX to [facility]- if the out of pocket costs exceed $170/month then will plan to move RX to [facility] discussed trying [facility] to ensure that he is able to get this medication at the lowest cost to him, since he will be taking for about 3 years functional tester typewriters phoned [facility] today and their financial services submitted the PA on 11/28- approval pending message left on patients voicemail to call if any questions and that the PA is pending once PA approved than will be able to run RX thru insurance to get the expected out of pocket costs
--- NOTE | 2023-12-02 09:43 | ONC.NURNOTE ---
on 11/27 after consut with Nikkie Darden PAC teaching done on abiraterone discussed costs of medication (see other nursing note) possible side effects, lab monitoring, after hours support, safe handling, administration, prednisone, Treatment binder given to patient NIKKO consents reviewed and signed questions addressed RTC/lab appts pending start date for abiraterone
--- NOTE | 2023-12-03 12:00 | ONC.NURNOTE ---
Abiraterone $619 [facility] it is known that the medication can be obtained through [facility] for about $170/month underwriter solicitation director to advise patient to set up account at [facility] and will have RX sent there
--- NOTE | 2023-12-09 15:15 | ONC.NURNOTE ---
Addendum entered by Aleta Snider RN 12/11/23 09:06: yesterday Magdy left a message that he has not yet received his abiraterone from [facility]- mortgage loan underwriter left message on voicemail today to follow up if any barriers to getting account set up and drug delivery arranged Original Note: Message left on voice mail in follow up: What is the delivery date for abiraterone from [facility] - appts still needed for Q2week lab X 4 and RTC with Nikkie SWAIN in 4 weeks
--- NOTE | 2023-12-13 13:57 | ONC.NURNOTE ---
came in yesterday, she required assistance to set up [employer] account for abiraterone. pending are appointments needs to reminded that prednisone dose changed to once daily per Nikkie Darden PA-C
--- NOTE | 2023-12-18 15:34 | ONC.NURNOTE ---
Magdy has received his abiraterone is concerned about swallowing- now that they see the pills the pills can not be cut, chewed, or crushed- must be swallowed whole on an empty stomach will call tomorrow in follow up after first dose appts set for lab in 2 weeks- sharon moved back one week to coincide with lab draw day RTC in 4 weeks with lab
--- NOTE | 2023-12-23 13:21 | PC.NURSE ---
Addendum entered by Joseline Carr RN 12/23/23 15:03: Pt called back today, pt has been able to swallow pills on an empty stomach. No concerns at this time. Original Note: Called pt today on behalf of Aleta Snider RN Navigator to see how Magdy is doing with his oral chemo medication. LM on the primary number and asked him to call back with an update and if he has any questions.
--- NOTE | 2023-12-27 11:34 | ONC.NURNOTE ---
Abiraterone follow up: Patient states all is going well he is still challenged with swallowing pills but he says it is getting easier he has an early am schedule- taking abiraterone at 0300 and prednisone with breakfast at 0400 and off the work by 06 patient is comfortable with this schedule- he has always been an early riser noted loose stools after starting abiraterone and started with imodium- currently taking 2/day with good control of his stools- normal formed stool lab due next week
--- NOTE | 2023-12-30 14:50 | ONC.NURNOTE ---
Follow up call regarding new start of abiraterone: message left to call [facility] patient was having diarrhea last week-
[2024-01-02 08:11] LABS: Basophils Percent Auto 0.2 % (0.0-3.0); Eosinophils Percent Auto 5.7 % (0.0-7.0); Hematocrit 35.8 % (37.0-53.0); Lymphocytes Percent Auto 7.8 % (20-44); Mean Corpuscular HGB Conc 34 gm/dL (32-36); Mean Corpuscular Hemoglobin 31 pg (26-34); Mean Corpuscular Volume 93 fL (80-100); Monocytes Percent Auto 7.1 % (0.0-11.0); Neutrophils Percent Auto 79.2 % (42.0-72.0); Platelet Count* 147 K/uL (140-440); RDW Coefficient of Variation % 12.9 % (11.5-15.5); Red Blood Count 3.85 m/uL (4.30-5.90); White Blood Count* 4.36 K/uL (4.50-11.00)
[2024-01-02 08:13] LABS: Slide Review Reflex No
[2024-01-02 08:23] LABS: Albumin* 4.4 g/dL (3.3-5.0); Chloride* 106 mmol/L (96-114); Sodium* 140 mmol/L (135-149)
[2024-01-02 08:24] LABS: Potassium* 3.2 mmol/L (3.6-5.1)
[2024-01-02 08:26] LABS: Alanine Aminotransferase* 16 U/L (4-50); Alkaline Phosphatase* 58 U/L (40-150); Anion Gap 10 mEq/L (7-15); Aspartate Amino Transferase* 22 U/L (12-35); Bilirubin Total* 0.8 mg/dL (0.1-1.5); Blood Urea Nitrogen* 27 mg/dL (7-30); Carbon Dioxide* 24 mmol/L (20-32); Creatinine* 0.9 mg/dL (0.5-1.5); Est. Creatinine Clearance* 73.24; Estimated Glomerular Filt Rate 90 ml/min; Glucose* 170 mg/dL (60-115); Total Protein* 6.9 g/dL (6.0-8.3)
[2024-01-02 08:27] LABS: Calcium* 9.2 mg/dL (8.4-10.6)
[2024-01-02 08:39] VITALS: BP 145/64; PULSE 67; RESP 16; TEMP 36.3; O2SAT 97
[2024-01-02] MEDS: LEUPROLIDE ACETATE 22.5 MG (SQ) SYRINGE SUBCUT (08:53)
--- NOTE | 2024-01-02 14:28 | ONC.NURNOTE ---
Addendum entered and electronically signed by Jessi Meeks APRN 01/06/24 15:21: Mr. Hernandez called back today. He started the oral potassium and is able to dissolve, but doesn't dissolve completely. He cannot take in juice due to his diabetes. He is willing to try to mix in yogurt, applesauce, pudding or mash potatoes. His diarrhea is improving. He is down to 1 or 2 imodium per 24 hours. He will be back to the [facility] on 01/08/24 to have his potassium rechecked. Original Note: Instructions given to Magdy for oral K patient has upcoming appt with Dr Gambino- he was informed to discuss progressive diarrhea with Dr Gambino- instructed on K supplement patient agreeable to come in next week for repeat labs
[2024-01-08 10:44] LABS: Chloride* 104 mmol/L (96-114); Potassium* 3.9 mmol/L (3.6-5.1); Sodium* 138 mmol/L (135-149)
[2024-01-08 10:47] LABS: Anion Gap 10 mEq/L (7-15); Blood Urea Nitrogen* 27 mg/dL (7-30); Calcium* 9.7 mg/dL (8.4-10.6); Carbon Dioxide* 24 mmol/L (20-32); Creatinine* 0.8 mg/dL (0.5-1.5); Est. Creatinine Clearance* 73.24; Estimated Glomerular Filt Rate 93 ml/min; Glucose* 138 mg/dL (60-115)
[2024-01-08 10:48] LABS: Magnesium* 1.9 mg/dL (1.5-2.6)
--- NOTE | 2024-01-08 14:50 | PC.NURSE ---
Spoke with pt regarding his BMP results. Pt verbalized understanding.
[2024-01-16 09:17] LABS: Basophils Absolute Auto 0.02 K/uL (0.00-0.30); Basophils Percent Auto 0.4 % (0.0-3.0); Eosinophils Absolute Auto 0.19 K/uL (0.00-0.50); Eosinophils Percent Auto 3.8 % (0.0-7.0); Hematocrit 37.8 % (37.0-53.0); Hemoglobin* 12.4 gm/dL (13.5-17.5); Immature Granulocytes Abs Auto 0.01 K/uL (0.00-0.30); Immature Granulocytes Pct Auto 0.2 %; Lymphocytes Percent Auto 6.6 % (20-44); Mean Corpuscular HGB Conc 33 gm/dL (32-36); Mean Corpuscular Hemoglobin 31 pg (26-34); Mean Corpuscular Volume 94 fL (80-100); Monocytes Percent Auto 8.2 % (0.0-11.0); Neutrophils Percent Auto 80.8 % (42.0-72.0); Platelet Count* 148 K/uL (140-440); RDW Coefficient of Variation % 12.5 % (11.5-15.5); Red Blood Count 4.02 m/uL (4.30-5.90); White Blood Count* 4.98 K/uL (4.50-11.00)
[2024-01-16 09:30] LABS: Slide Review Reflex No
[2024-01-16 10:49] LABS: Chloride* 101 mmol/L (96-114); Potassium* 3.4 mmol/L (3.6-5.1); Sodium* 137 mmol/L (135-149)
[2024-01-16 10:51] LABS: Anion Gap 5 mEq/L (7-15); Aspartate Amino Transferase* 21 U/L (12-35); Bilirubin Total* 0.7 mg/dL (0.1-1.5); Carbon Dioxide* 31 mmol/L (20-32); Creatinine* 0.8 mg/dL (0.5-1.5); Est. Creatinine Clearance* 73.24; Estimated Glomerular Filt Rate 93 ml/min
[2024-01-16 10:52] LABS: Alanine Aminotransferase* 17 U/L (4-50); Alkaline Phosphatase* 60 U/L (40-150); Blood Urea Nitrogen* 25 mg/dL (7-30); Calcium* 9.5 mg/dL (8.4-10.6); Glucose* 141 mg/dL (60-115); Total Protein* 6.6 g/dL (6.0-8.3)
[2024-01-16 11:20] LABS: PSA Diagnostic* < 0.06 ng/mL (0.10-4.00)
[2024-01-29 08:07] LABS: Basophils Absolute Auto 0.02 K/uL (0.00-0.30); Basophils Percent Auto 0.4 % (0.0-3.0); Eosinophils Absolute Auto 0.15 K/uL (0.00-0.50); Eosinophils Percent Auto 3.1 % (0.0-7.0); Hemoglobin* 12.1 gm/dL (13.5-17.5); Immature Granulocytes Abs Auto 0.01 K/uL (0.00-0.30); Immature Granulocytes Pct Auto 0.2 %; Lymphocytes Percent Auto 6.6 % (20-44); Mean Corpuscular HGB Conc 34 gm/dL (32-36); Mean Corpuscular Hemoglobin 31 pg (26-34); Mean Corpuscular Volume 93 fL (80-100); Monocytes Percent Auto 8.5 % (0.0-11.0); Neutrophils Percent Auto 81.2 % (42.0-72.0); Platelet Count* 135 K/uL (140-440); RDW Coefficient of Variation % 12.3 % (11.5-15.5); Red Blood Count 3.87 m/uL (4.30-5.90); White Blood Count* 4.82 K/uL (4.50-11.00)
[2024-01-29 08:13] LABS: Slide Review Reflex No
[2024-01-29 08:23] LABS: Albumin* 4.3 g/dL (3.3-5.0); Chloride* 103 mmol/L (96-114)
[2024-01-29 08:24] LABS: Potassium* 3.1 mmol/L (3.6-5.1); Sodium* 140 mmol/L (135-149)
[2024-01-29 08:26] LABS: Anion Gap 8 mEq/L (7-15); Aspartate Amino Transferase* 20 U/L (12-35); Bilirubin Total* 0.7 mg/dL (0.1-1.5); Carbon Dioxide* 29 mmol/L (20-32); Creatinine* 0.8 mg/dL (0.5-1.5); Est. Creatinine Clearance* 73.24; Estimated Glomerular Filt Rate 93 ml/min; Total Protein* 6.7 g/dL (6.0-8.3)
[2024-01-29 08:27] LABS: Alanine Aminotransferase* 16 U/L (4-50); Alkaline Phosphatase* 56 U/L (40-150); Blood Urea Nitrogen* 25 mg/dL (7-30); Calcium* 9.5 mg/dL (8.4-10.6); Glucose* 170 mg/dL (60-115)
--- NOTE | 2024-01-29 13:24 | ONC.NURNOTE ---
Noted hypokalemia- discussed with patient and provider Jessi Meeks APRN instructions given to take 2 doses Kcl today and tomorrow and then continue on Kcl 3x/week dissolvable tablets - as patient has difficulty with swallowing No diarrhea currently,- takes 2 imodium every am which controls the diarrhea Rx to be submitted to pharmacy has appts for repeat lab in 2 weeks with oncology follow up in early march
== END 2024-02-03 23:59 | disposition home or self-care (01) ==
LOC: CCIC 15:30
PROVIDERS: Internal Medicine; PCP Physician Assistant Medical; Referring Provider Physician Assistant Medical; Visit Provider Physician Assistant
DX: C61 Malignant neoplasm of prostate (principal); E87.6 Hypokalemia
CPT/HCPCS: 36415; 80048; 80053; 83735; 84153; 84403; 85025; 96401; 99202; 99205; 99215; G0463; J9217

== ENCOUNTER 2024-07-15 08:30 | Outpatient (RCR) | payer MEDICARE, BC, SELFPAY ==
[2024-02-12 15:28] LABS: Basophils Absolute Auto 0.02 K/uL (0.00-0.30); Basophils Percent Auto 0.4 % (0.0-3.0); Eosinophils Absolute Auto 0.07 K/uL (0.00-0.50); Eosinophils Percent Auto 1.4 % (0.0-7.0); Hematocrit 37.8 % (37.0-53.0); Hemoglobin* 12.4 gm/dL (13.5-17.5); Immature Granulocytes Abs Auto 0.01 K/uL (0.00-0.30); Immature Granulocytes Pct Auto 0.2 %; Lymphocytes Percent Auto 8.1 % (20-44); Mean Corpuscular HGB Conc 33 gm/dL (32-36); Mean Corpuscular Hemoglobin 31 pg (26-34); Mean Corpuscular Volume 94 fL (80-100); Monocytes Percent Auto 8.9 % (0.0-11.0); Platelet Count* 155 K/uL (140-440); RDW Coefficient of Variation % 12.3 % (11.5-15.5); Red Blood Count 4.03 m/uL (4.30-5.90); White Blood Count* 4.94 K/uL (4.50-11.00)
[2024-02-12 15:37] LABS: Slide Review Reflex No
[2024-02-12 15:42] LABS: Albumin* 4.5 g/dL (3.3-5.0); Chloride* 104 mmol/L (96-114)
[2024-02-12 15:43] LABS: Potassium* 3.6 mmol/L (3.6-5.1); Sodium* 142 mmol/L (135-149)
[2024-02-12 15:45] LABS: Anion Gap 10 mEq/L (7-15); Aspartate Amino Transferase* 23 U/L (12-35); Bilirubin Total* 0.7 mg/dL (0.1-1.5); Carbon Dioxide* 28 mmol/L (20-32); Creatinine* 1.2 mg/dL (0.5-1.5); Estimated Glomerular Filt Rate 63 ml/min
[2024-02-12 15:46] LABS: Alanine Aminotransferase* 18 U/L (4-50); Alkaline Phosphatase* 53 U/L (40-150); Blood Urea Nitrogen* 33 mg/dL (7-30); Calcium* 9.8 mg/dL (8.4-10.6); Glucose* 144 mg/dL (60-115)
--- NOTE | 2024-02-13 13:51 | ONC.NURNOTE ---
labs noted, placed for provider review noted creat message left on patients voice mail to call for results reminder left to drink extra fluids to stay hydrated
[2024-03-11 08:01] LABS: Basophils Absolute Auto 0.02 K/uL (0.00-0.30); Basophils Percent Auto 0.4 % (0.0-3.0); Hematocrit 39.6 % (37.0-53.0); Hemoglobin* 13.2 gm/dL (13.5-17.5); Immature Granulocytes Abs Auto 0.01 K/uL (0.00-0.30); Immature Granulocytes Pct Auto 0.2 %; Lymphocytes Percent Auto 6.2 % (20-44); Mean Corpuscular HGB Conc 33 gm/dL (32-36); Mean Corpuscular Hemoglobin 31 pg (26-34); Mean Corpuscular Volume 93 fL (80-100); Monocytes Percent Auto 8.6 % (0.0-11.0); Neutrophils Percent Auto 82.6 % (42.0-72.0); Platelet Count* 144 K/uL (140-440); RDW Coefficient of Variation % 12.2 % (11.5-15.5); Red Blood Count 4.27 m/uL (4.30-5.90); White Blood Count* 4.99 K/uL (4.50-11.00)
[2024-03-11 08:02] LABS: Slide Review Reflex No
[2024-03-11 08:13] LABS: Albumin* 4.5 g/dL (3.3-5.0); Chloride* 99 mmol/L (96-114)
[2024-03-11 08:14] LABS: Potassium* 3.5 mmol/L (3.6-5.1); Sodium* 137 mmol/L (135-149)
[2024-03-11 08:16] LABS: Anion Gap 7 mEq/L (7-15); Aspartate Amino Transferase* 35 U/L (12-35); Bilirubin Total* 0.7 mg/dL (0.1-1.5); Carbon Dioxide* 31 mmol/L (20-32); Creatinine* 0.9 mg/dL (0.5-1.5); Estimated Glomerular Filt Rate 90 ml/min
[2024-03-11 08:17] LABS: Alanine Aminotransferase* 36 U/L (4-50); Alkaline Phosphatase* 57 U/L (40-150); Blood Urea Nitrogen* 18 mg/dL (7-30); Calcium* 9.5 mg/dL (8.4-10.6); Glucose* 149 mg/dL (60-115); Total Protein* 7.1 g/dL (6.0-8.3)
--- NOTE | 2024-03-11 14:14 | ONC.NURNOTE ---
Lab results called to discussed potassium- patient continues on potassium supplement at home discussed foods with potassium- patient does not care for bananas or potatoes next appts reviewed results to Nikkie for review tomorrow
[2024-03-26 08:15] VITALS: BP 166/73; PULSE 57; RESP 18; TEMP 36.2; O2SAT 99
[2024-03-26] MEDS: LEUPROLIDE ACETATE 22.5 MG (SQ) SYRINGE SUBCUT (08:16)
[2024-04-08 08:46] LABS: Basophils Absolute Auto 0.03 K/uL (0.00-0.30); Basophils Percent Auto 0.5 % (0.0-3.0); Eosinophils Absolute Auto 0.08 K/uL (0.00-0.50); Eosinophils Percent Auto 1.4 % (0.0-7.0); Hematocrit 38.9 % (37.0-53.0); Immature Granulocytes Abs Auto 0.01 K/uL (0.00-0.30); Immature Granulocytes Pct Auto 0.2 %; Lymphocytes Percent Auto 5.2 % (20-44); Mean Corpuscular HGB Conc 33 gm/dL (32-36); Mean Corpuscular Hemoglobin 31 pg (26-34); Mean Corpuscular Volume 92 fL (80-100); Monocytes Percent Auto 7.7 % (0.0-11.0); Platelet Count* 133 K/uL (140-440); RDW Coefficient of Variation % 12.4 % (11.5-15.5); Red Blood Count 4.23 m/uL (4.30-5.90); White Blood Count* 5.57 K/uL (4.50-11.00)
[2024-04-08 08:47] LABS: Slide Review Reflex No
[2024-04-08 09:02] LABS: Albumin* 4.3 g/dL (3.3-5.0); Chloride* 99 mmol/L (96-114); Sodium* 137 mmol/L (135-149)
[2024-04-08 09:03] LABS: Potassium* 3.3 mmol/L (3.6-5.1)
[2024-04-08 09:05] LABS: Alanine Aminotransferase* 31 U/L (4-50); Alkaline Phosphatase* 63 U/L (40-150); Anion Gap 9 mEq/L (7-15); Aspartate Amino Transferase* 26 U/L (12-35); Bilirubin Total* 0.5 mg/dL (0.1-1.5); Blood Urea Nitrogen* 27 mg/dL (7-30); Calcium* 9.5 mg/dL (8.4-10.6); Carbon Dioxide* 29 mmol/L (20-32); Creatinine* 0.9 mg/dL (0.5-1.5); Est. Creatinine Clearance* 73.24; Estimated Glomerular Filt Rate 90 ml/min; Total Protein* 6.7 g/dL (6.0-8.3)
[2024-04-08 09:22] LABS: Glucose* 153 mg/dL (60-115)
[2024-04-08 09:46] LABS: PSA Diagnostic* < 0.06 ng/mL (0.10-4.00)
[2024-05-12 08:28] LABS: Basophils Absolute Auto 0.02 K/uL (0.00-0.30); Basophils Percent Auto 0.4 % (0.0-3.0); Eosinophils Absolute Auto 0.14 K/uL (0.00-0.50); Eosinophils Percent Auto 2.7 % (0.0-7.0); Hemoglobin* 12.7 gm/dL (13.5-17.5); Immature Granulocytes Abs Auto 0.01 K/uL (0.00-0.30); Immature Granulocytes Pct Auto 0.2 %; Lymphocytes Percent Auto 5.2 % (20-44); Mean Corpuscular HGB Conc 33 gm/dL (32-36); Mean Corpuscular Hemoglobin 31 pg (26-34); Mean Corpuscular Volume 92 fL (80-100); Monocytes Percent Auto 8.7 % (0.0-11.0); Neutrophils Percent Auto 82.8 % (42.0-72.0); Platelet Count* 129 K/uL (140-440); RDW Coefficient of Variation % 12.5 % (11.5-15.5); Red Blood Count 4.15 m/uL (4.30-5.90)
[2024-05-12 08:32] LABS: Slide Review Reflex No
[2024-05-12 08:45] LABS: Albumin* 4.2 g/dL (3.3-5.0); Chloride* 103 mmol/L (96-114)
[2024-05-12 08:46] LABS: Potassium* 3.4 mmol/L (3.6-5.1); Sodium* 138 mmol/L (135-149)
[2024-05-12 08:48] LABS: Alkaline Phosphatase* 59 U/L (40-150); Anion Gap 9 mEq/L (7-15); Aspartate Amino Transferase* 24 U/L (12-35); Bilirubin Total* 0.6 mg/dL (0.1-1.5); Blood Urea Nitrogen* 25 mg/dL (7-30); Carbon Dioxide* 26 mmol/L (20-32); Creatinine* 0.8 mg/dL (0.5-1.5); Est. Creatinine Clearance* 71.13; Estimated Glomerular Filt Rate 93 ml/min; Total Protein* 6.6 g/dL (6.0-8.3)
[2024-05-12 08:49] LABS: Alanine Aminotransferase* 29 U/L (4-50); Calcium* 9.6 mg/dL (8.4-10.6); Glucose* 181 mg/dL (60-115)
[2024-05-12 09:20] LABS: PSA Diagnostic* < 0.06 ng/mL (0.10-4.00)
[2024-06-18 09:21] VITALS: BP 152/72; PULSE 64; RESP 16; TEMP 35.9; O2SAT 96
[2024-06-18] MEDS: LEUPROLIDE ACETATE 22.5 MG (SQ) SYRINGE SUBCUT (09:32)
[2024-06-18 09:33] LABS: Albumin* 4.2 g/dL (3.3-5.0); Chloride* 103 mmol/L (96-114); Potassium* 3.7 mmol/L (3.6-5.1); Sodium* 137 mmol/L (135-149)
[2024-06-18 09:35] LABS: Anion Gap 10 mEq/L (7-15); Aspartate Amino Transferase* 26 U/L (12-35); Bilirubin Total* 0.5 mg/dL (0.1-1.5); Carbon Dioxide* 24 mmol/L (20-32); Creatinine* 0.8 mg/dL (0.5-1.5); Est. Creatinine Clearance* 71.13; Estimated Glomerular Filt Rate 93 ml/min
[2024-06-18 09:36] LABS: Alanine Aminotransferase* 33 U/L (4-50); Alkaline Phosphatase* 65 U/L (40-150); Blood Urea Nitrogen* 26 mg/dL (7-30); Calcium* 9.5 mg/dL (8.4-10.6); Glucose* 161 mg/dL (60-115); Total Protein* 6.6 g/dL (6.0-8.3)
[2024-06-18 10:36] LABS: Basophils Absolute Auto 0.02 K/uL (0.00-0.30); Basophils Percent Auto 0.3 % (0.0-3.0); Eosinophils Absolute Auto 0.08 K/uL (0.00-0.50); Eosinophils Percent Auto 1.2 % (0.0-7.0); Immature Granulocytes Abs Auto 0.02 K/uL (0.00-0.30); Immature Granulocytes Pct Auto 0.3 %; Lymphocytes Percent Auto 5.8 % (20-44); Mean Corpuscular HGB Conc 34 gm/dL (32-36); Mean Corpuscular Hemoglobin 31 pg (26-34); Mean Corpuscular Volume 90 fL (80-100); Monocytes Percent Auto 6.8 % (0.0-11.0); Neutrophils Percent Auto 85.6 % (42.0-72.0); Platelet Count* 158 K/uL (140-440); RDW Coefficient of Variation % 12.2 % (11.5-15.5); Red Blood Count 4.21 m/uL (4.30-5.90); White Blood Count* 6.43 K/uL (4.50-11.00)
[2024-06-18 10:40] LABS: Slide Review Reflex No
[2024-07-15 08:39] LABS: Basophils Absolute Auto 0.02 K/uL (0.00-0.30); Basophils Percent Auto 0.3 % (0.0-3.0); Eosinophils Absolute Auto 0.08 K/uL (0.00-0.50); Eosinophils Percent Auto 1.1 % (0.0-7.0); Hematocrit 38.4 % (37.0-53.0); Hemoglobin* 13.1 gm/dL (13.5-17.5); Immature Granulocytes Abs Auto 0.01 K/uL (0.00-0.30); Immature Granulocytes Pct Auto 0.1 %; Lymphocytes Percent Auto 5.1 % (20-44); Mean Corpuscular HGB Conc 34 gm/dL (32-36); Mean Corpuscular Hemoglobin 31 pg (26-34); Mean Corpuscular Volume 90 fL (80-100); Monocytes Percent Auto 7.3 % (0.0-11.0); Neutrophils Percent Auto 86.1 % (42.0-72.0); Platelet Count* 177 K/uL (140-440); RDW Coefficient of Variation % 12.2 % (11.5-15.5); Red Blood Count 4.25 m/uL (4.30-5.90); White Blood Count* 7.26 K/uL (4.50-11.00)
[2024-07-15 08:40] LABS: Slide Review Reflex No
[2024-07-15 08:57] LABS: Albumin* 4.4 g/dL (3.3-5.0)
[2024-07-15 08:58] LABS: Chloride* 99 mmol/L (96-114); Potassium* 3.7 mmol/L (3.6-5.1); Sodium* 138 mmol/L (135-149)
[2024-07-15 09:00] LABS: Anion Gap 11 mEq/L (7-15); Aspartate Amino Transferase* 19 U/L (12-35); Bilirubin Total* 0.6 mg/dL (0.1-1.5); Carbon Dioxide* 28 mmol/L (20-32); Creatinine* 0.8 mg/dL (0.5-1.5); Est. Creatinine Clearance* 71.13; Estimated Glomerular Filt Rate 93 ml/min
[2024-07-15 09:01] LABS: Alanine Aminotransferase* 20 U/L (4-50); Alkaline Phosphatase* 63 U/L (40-150); Blood Urea Nitrogen* 21 mg/dL (7-30); Calcium* 9.4 mg/dL (8.4-10.6); Glucose* 195 mg/dL (60-115); Total Protein* 6.9 g/dL (6.0-8.3)
[2024-07-15 09:31] LABS: PSA Diagnostic* < 0.06 ng/mL (0.10-4.00)
[2024-07-15 14:01] LABS: Vitamin B12* 511 pg/mL (243-894)
== END 2024-08-10 23:59 | disposition home or self-care (01) ==
LOC: CCIC 08:30
PROVIDERS: Internal Medicine Hematology & Oncology; PCP Physician Assistant Medical; Referring Provider Physician Assistant Medical; Visit Provider Physician Assistant
DX: C61 Malignant neoplasm of prostate (principal); E53.8 Deficiency of other specified B group vitamins; I12.9 Hypertensive chronic kidney disease with stage 1 through stage 4 chronic kidney disease, or unspecified chronic kidney disease; N18.2 Chronic kidney disease, stage 2 (mild); E78.5 Hyperlipidemia, unspecified; E11.22 Type 2 diabetes mellitus with diabetic chronic kidney disease
CPT/HCPCS: 36415; 80053; 82607; 84153; 85025; 96401; 96402; 99214; G0463; J9217

== ENCOUNTER 2025-01-27 12:22 | Outpatient (CLI) | payer MEDICARE, BC, SELFPAY ==
--- NOTE | 2025-01-27 13:00 | CRLHL7_ITS ---
For Patients: As a result of the Century Cures Act, medical imaging exams and procedure reports are released immediately into your electronic medical record. You may view this report before your referring provider. If you have questions, please contact your health care provider. XR DXA Bone Mineral Density (BMD) Reason for exam: Screening for osteoporosis. Current height (in): 72.1. Weight (lb): 239. Menopause age: Not applicable. Ethnicity: White. 1. Have you had a previous hip or vertebral fracture? No. 2. Have you had any fractures during your adult life which did not result from significant trauma (e.g., auto accident)? No. 3. Did either of your parents have a hip fracture? No. 4. Do you smoke? No. 5. Have you ever taken Glucocorticoids? Yes. 6. Do you have rheumatoid arthritis? No. 7. Do you have secondary osteoporosis? No. 8. Do you drink 3 or more alcoholic drinks per day? No. 9. Are you being treated for osteoporosis? No. 10. Have you ever taken any of the following medications: Actonel, Evista, Fosamax, Miacalcin, Reclast, Boniva, Forteo, HRT (i.e. estrogen/hormone therapy), Protelos, Prolia, Vitamin D, Calcium, other ??? please specify. ANSWER: Yes, vitamin D, calcium. 11. Do you have any of the following medical conditions: Anorexia or bulimia, asthma or emphysema, end stage renal disease, hyperparathyroidism, any seizure disorders, cancer, inflammatory bowel diseases, hysterectomy, other ??? please specify. ANSWER: Yes, cancer. 12. What was your maximum height (inches)? 72.1. 13. Do you perform weight bearing exercise regularly? Yes. 14. Do you regularly consume dairy products? Yes. 15. Do you drink caffeinated beverages? Yes. TECHNIQUE: Bone mineral density study was performed using the [employer]. FINDINGS: The results of the study expressed as bone mineral density (BMD) are as follows: Lumbar spine L1 to L3: BMD: 1.331 g/cm2. T-score: 2.4. Z-score: 3.4. Neck Left: BMD: 0.890 g/cm2. T-score: -0.3. Z-score: 1.0. Right: BMD: 0.926 g/cm2. T-score: -0.0. Z-score: 1.3. Total Left: BMD: 1.153 g/cm2. T-score: 0.8. Z-score: 1.6. Right: BMD: 1.204 g/cm2. T-score: 1.1. Z-score: 2.0. IMPRESSION: Normal bone density. Aidan Medina M.D. Diagnostic Radiologist [email or web address] ELVIA/madison / bM/Dictated by: Aidan Medina MD @ 01/27/2025 3:37:00 PM (Electronically Signed)
== END 2025-01-27 12:23 | disposition home or self-care (01) ==
LOC: RAD 12:22
PROVIDERS: PCP Physician Assistant Medical; Visit Provider Physician Assistant Medical
DX: Z13.820 Encounter for screening for osteoporosis (principal); Z79.52 Long term (current) use of systemic steroids
CPT/HCPCS: 77080

== ENCOUNTER 2025-03-09 09:00 | Outpatient (RCR) | payer MEDICARE, BC, SELFPAY ==
--- NOTE | 2024-08-12 09:42 | ONC.NURNOTE ---
Addendum entered by Charlee Salgado RN 08/12/24 13:19: Per Dr. Rodriguez pts serum potassium is 3.7. no need for refill of po med. pt called and aware. Original Note: Magdy called to ask if he still needs to be on Potassium. If so he needs a refill. [id number]
--- NOTE | 2024-09-09 08:18 | URNOTE ---
Prior auth is not required for Leuprolide ([id number]). Services are based on medical necessity and follow medicare guidelines.
[2024-09-10 08:13] LABS: Hematocrit* 37.3 % (37.0-53.0); Hemoglobin* 12.6 gm/dL (13.5-17.5); Immature Granulocytes Abs Auto 0.01 K/uL (0.00-0.30); Immature Granulocytes Pct Auto 0.2 %; Mean Corpuscular HGB Conc 34 gm/dL (32-36); Mean Corpuscular Hemoglobin 31 pg (26-34); Mean Corpuscular Volume 91 fL (80-100); RDW Coefficient of Variation % 12.6 % (11.5-15.5); Red Blood Count* 4.09 m/uL (4.30-5.90); White Blood Count* 5.54 K/uL (4.50-11.00)
[2024-09-10 08:14] LABS: Lymphocytes Absolute Auto 0.50 K/uL (0.90-2.90)
[2024-09-10 08:15] LABS: Slide Review Reflex No; White Blood Count* 5.54 K/uL (4.50-11.00)
[2024-09-10 08:16] LABS: Hematocrit* 37.3 % (37.0-53.0); Hemoglobin* 12.6 gm/dL (13.5-17.5); Mean Corpuscular HGB Conc 34 gm/dL (32-36); Mean Corpuscular Hemoglobin 31 pg (26-34); Mean Corpuscular Volume 91 fL (80-100); Red Blood Count* 4.09 m/uL (4.30-5.90); Slide Review Reflex No
[2024-09-10 08:25] LABS: Chloride* 101 mmol/L (96-114)
[2024-09-10 08:26] LABS: Albumin* 4.4 g/dL (3.3-5.0); Albumin* 4.5 g/dL (3.3-5.0); Chloride* 101 mmol/L (96-114); Potassium* 3.1 mmol/L (3.6-5.1); Sodium* 138 mmol/L (135-149)
[2024-09-10 08:27] LABS: Potassium* 3.0 mmol/L (3.6-5.1); Sodium* 138 mmol/L (135-149)
[2024-09-10 08:28] LABS: Anion Gap 9 mEq/L (7-15); Blood Urea Nitrogen* 32 mg/dL (7-30); Carbon Dioxide* 28 mmol/L (20-32); Cholesterol* 93 mg/dL (90-199); Creatinine* 0.8 mg/dL (0.5-1.5); Estimated Glomerular Filt Rate 93 ml/min; Triglycerides* 227 mg/dL (40-149)
[2024-09-10 08:29] LABS: Alanine Aminotransferase* 31 U/L (4-50); Alkaline Phosphatase* 59 U/L (40-150); Anion Gap 10 mEq/L (7-15); Aspartate Amino Transferase* 28 U/L (12-35); Aspartate Amino Transferase* 30 U/L (12-35); Bilirubin Total* 0.9 mg/dL (0.1-1.5); Blood Urea Nitrogen* 33 mg/dL (7-30); Calcium* 9.7 mg/dL (8.4-10.6); Carbon Dioxide* 27 mmol/L (20-32); Creatinine* 0.8 mg/dL (0.5-1.5); Estimated Glomerular Filt Rate 93 ml/min; Glucose* 185 mg/dL (60-115); HDL Cholesterol* 35 mg/dL (>=40); Total Protein* 6.8 g/dL (6.0-8.3)
[2024-09-10 08:30] LABS: Calcium* 9.6 mg/dL (8.4-10.6); Glucose* 183 mg/dL (60-115)
[2024-09-10 08:41] LABS: PTH Intact* 32.9 pg/mL (14.2-75.2)
[2024-09-10] MEDS: LEUPROLIDE ACETATE (ELIGARD) 22.5 MG INJ SUBCUT (08:57)
[2024-09-10 09:04] LABS: PSA Diagnostic* < 0.06 ng/mL (0.10-4.00)
[2024-09-10 09:09] LABS: Appearance Urine Clear (Clear)
[2024-09-21 08:21] LABS: Chloride* 99 mmol/L (96-114)
[2024-09-21 08:22] LABS: Potassium* 3.4 mmol/L (3.6-5.1); Sodium* 136 mmol/L (135-149)
[2024-09-21 08:25] LABS: Anion Gap 9 mEq/L (7-15); Blood Urea Nitrogen* 23 mg/dL (7-30); Calcium* 9.7 mg/dL (8.4-10.6); Carbon Dioxide* 28 mmol/L (20-32); Creatinine* 0.9 mg/dL (0.5-1.5); Est. Creatinine Clearance* 71.13; Estimated Glomerular Filt Rate 90 ml/min; Glucose* 184 mg/dL (60-115)
[2024-10-28 12:35] LABS: PSA Diagnostic* < 0.06 ng/mL (0.10-4.00)
[2024-12-01 08:38] LABS: Hematocrit* 37.0 % (37.0-53.0); Hemoglobin* 12.7 gm/dL (13.5-17.5); Immature Granulocytes Abs Auto 0.02 K/uL (0.00-0.30); Immature Granulocytes Pct Auto 0.4 %; Mean Corpuscular HGB Conc 34 gm/dL (32-36); Mean Corpuscular Hemoglobin 31 pg (26-34); Mean Corpuscular Volume 91 fL (80-100); RDW Coefficient of Variation % 12.3 % (11.5-15.5); Red Blood Count* 4.08 m/uL (4.30-5.90); White Blood Count* 4.84 K/uL (4.50-11.00)
[2024-12-01 08:43] LABS: Lymphocytes Absolute Auto 0.40 K/uL (0.90-2.90); Slide Review Reflex No
[2024-12-01 08:51] LABS: Albumin* 4.2 g/dL (3.3-5.0); Chloride* 100 mmol/L (96-114); Potassium* 3.6 mmol/L (3.6-5.1); Sodium* 139 mmol/L (135-149)
[2024-12-01 08:53] LABS: Blood Urea Nitrogen* 29 mg/dL (7-30); Creatinine* 1.0 mg/dL (0.5-1.5); Est. Creatinine Clearance* 70.06; Estimated Glomerular Filt Rate 78 ml/min
[2024-12-01 08:54] LABS: Alanine Aminotransferase* 28 U/L (4-50); Alkaline Phosphatase* 53 U/L (40-150); Anion Gap 13 mEq/L (7-15); Aspartate Amino Transferase* 28 U/L (12-35); Bilirubin Total* 0.9 mg/dL (0.1-1.5); Calcium* 10.1 mg/dL (8.4-10.6); Carbon Dioxide* 26 mmol/L (20-32); Glucose* 193 mg/dL (60-115); Total Protein* 6.6 g/dL (6.0-8.3)
[2024-12-01 09:28] LABS: PSA Diagnostic* < 0.06 ng/mL (0.10-4.00)
[2024-12-03 08:56] VITALS: BP 131/54; PULSE 69; TEMP 35.6; O2SAT 96
[2024-12-03] MEDS: LEUPROLIDE ACETATE (ELIGARD) 22.5 MG INJ SUBCUT (10:18)
[2025-03-05 08:21] LABS: Hematocrit* 35.8 % (37.0-53.0); Hemoglobin* 12.4 gm/dL (13.5-17.5); Immature Granulocytes Abs Auto 0.02 K/uL (0.00-0.30); Immature Granulocytes Pct Auto 0.4 %; Mean Corpuscular HGB Conc 35 gm/dL (32-36); Mean Corpuscular Hemoglobin 32 pg (26-34); Mean Corpuscular Volume 92 fL (80-100); RDW Coefficient of Variation % 12.2 % (11.5-15.5); Red Blood Count* 3.91 m/uL (4.30-5.90); White Blood Count* 5.70 K/uL (4.50-11.00)
[2025-03-05 08:31] LABS: Lymphocytes Absolute Auto 0.40 K/uL (0.90-2.90)
[2025-03-05 08:32] LABS: Albumin* 4.0 g/dL (3.3-5.0); Chloride* 100 mmol/L (96-114); Potassium* 3.4 mmol/L (3.6-5.1); Slide Review Reflex No; Sodium* 137 mmol/L (135-149)
[2025-03-05 08:35] LABS: Alanine Aminotransferase* 21 U/L (4-50); Alkaline Phosphatase* 61 U/L (40-150); Anion Gap 9 mEq/L (7-15); Aspartate Amino Transferase* 24 U/L (12-35); Bilirubin Total* 0.8 mg/dL (0.1-1.5); Blood Urea Nitrogen* 25 mg/dL (7-30); Calcium* 9.4 mg/dL (8.4-10.6); Carbon Dioxide* 28 mmol/L (20-32); Creatinine* 0.9 mg/dL (0.5-1.5); Est. Creatinine Clearance* 72.13; Estimated Glomerular Filt Rate 89 ml/min; Glucose* 219 mg/dL (60-115); Total Protein* 6.4 g/dL (6.0-8.3)
[2025-03-05 09:07] LABS: PSA Diagnostic* < 0.06 ng/mL (0.10-4.00)
[2025-03-09 08:36] VITALS: BP 148/66; PULSE 69; RESP 16; TEMP 36.8; O2SAT 96
[2025-03-09] MEDS: LEUPROLIDE ACETATE (ELIGARD) 22.5 MG INJ SUBCUT (09:32)
== END 2025-03-09 23:59 | disposition home or self-care (01) ==
LOC: CCIC 09:00
PROVIDERS: Clinical Nurse Specialist; Internal Medicine Nephrology; Physician Assistant; PCP Physician Assistant Medical; Referring Provider Physician Assistant Medical; Visit Provider Internal Medicine Hematology & Oncology
DX: C61 Malignant neoplasm of prostate (principal); Z79.818 Long term (current) use of other agents affecting estrogen receptors and estrogen levels; E11.9 Type 2 diabetes mellitus without complications; Z79.84 Long term (current) use of oral hypoglycemic drugs; I12.9 Hypertensive chronic kidney disease with stage 1 through stage 4 chronic kidney disease, or unspecified chronic kidney disease; N18.2 Chronic kidney disease, stage 2 (mild); E87.6 Hypokalemia
CPT/HCPCS: 36415; 80048; 80053; 80061; 80069; 81003; 82043; 82570; 83036; 83970; 84153; 84450; 84460; 84550; 85025; 85027; 96402; 99214; 99215; G0463; J9217